=== PATIENT | male | born 1955 | race Caucasian/White ===

== ENCOUNTER 2021-08-05 02:00 | Emergency (ER) | payer MEDICARE, OTHER ==
[~2021-08-05] VITALS: Ht 167 cm; Wt 72.5 kg
[2021-08-05 02:00] VITALS: BP 123/74
[2021-08-05] MEDS ORDERED: LACTATED RINGERS 1,000 ML IV ONE (02:15)
[2021-08-05 02:26] LABS: BASOPHILS # (AUTO) 0.1 10^3/uL (0.0-0.1); BASOPHILS % (AUTO) 1 % (0-10); EOSINOPHILS # (AUTO) 0.3 10^3/uL (0.0-0.3); EOSINOPHILS % (AUTO) 4 % (0-10); HEMATOCRIT 41 % (40-54); HEMOGLOBIN 13.7 g/dL (13.3-17.7); LYMPHOCYTES # (AUTO) 1.7 10^3/uL (1.0-4.0); LYMPHOCYTES % (AUTO) 27 % (12-44); MEAN CORPUSCULAR HEMOGLOBIN 32 pg (25-34); MEAN CORPUSCULAR HGB CONC 33 g/dL (32-36); MEAN CORPUSCULAR VOLUME 96 fL (80-99); MEAN PLATELET VOLUME 8.6 fL (9.0-12.2); MONOCYTES # (AUTO) 0.9 10^3/uL (0.0-1.0); MONOCYTES % (AUTO) 14 % (0-12); NEUTROPHILS # (AUTO) 3.4 10^3/uL (1.8-7.8); NEUTROPHILS % (AUTO) 53 % (42-75); PLATELET COUNT 376 10^3/uL (130-400); WHITE BLOOD COUNT 6.4 10^3/uL (4.3-11.0)
[2021-08-05 02:34] LABS: ALBUMIN 3.6 GM/DL (3.2-4.5); POTASSIUM 4.9 MMOL/L (3.6-5.0)
[2021-08-05 02:35] LABS: CALCIUM 8.6 MG/DL (8.5-10.1)
[2021-08-05 02:36] LABS: INR 0.9 (0.8-1.4); TOTAL PROTEIN 6.6 GM/DL (6.4-8.2)
[2021-08-05 02:36] LABS: BILIRUBIN,URINE NEGATIVE (NEGATIVE); CLARITY,URINE CLEAR; COLOR,URINE YELLOW; GLUCOSE, URINE (UA) NEGATIVE (NEGATIVE); KETONES,URINE NEGATIVE (NEGATIVE); LEUKOCYTE ESTERASE ,URINE NEGATIVE (NEGATIVE); NITRITE,URINE NEGATIVE (NEGATIVE); PH,URINE 6.5 (5-9); PROTEIN,URINE NEGATIVE (NEGATIVE)
[2021-08-05 02:38] LABS: BILIRUBIN,TOTAL 0.3 MG/DL (0.1-1.0)
[2021-08-05 02:40] LABS: CREATININE SERUM 1.78 MG/DL (0.60-1.30)
[2021-08-05 02:43] LABS: MAGNESIUM 1.8 MG/DL (1.6-2.4)
[2021-08-05 02:43] LABS: BACTERIA,URINE NEGATIVE /HPF; SQUAMOUS EPITHELIAL CELL,UR RARE /HPF
[2021-08-05] MEDS ORDERED: NS IV 1000 ML 1,000 ML IV SCH (03:15)
--- NOTE | 2021-08-05 04:47 | ED Chest Pain ---
General Chief Complaint: Cardiac/General Problems Stated Complaint: PALE,LOW BLOOD PRESSURE Nursing Triage Note: ARRIVES FROM HOME PER EMS W/ C/O HYPOTENSION, PALENESS. PT LIFTED TO STRETCHER WHICH UPON DOING SO IV CATHETER DC'D. ATTACHED TO FOOD CASHIER, AND DR. GLOVER IN TO SEE PT. Source: patient Exam Limitations: no limitations History of Present Illness Date Seen by Provider: August 05, 2021 Time Seen by Provider: 02:03 Initial Comments This 65-year-old gentleman presents to the emergency room via EMS with concerns about feeling weak, lightheaded, and dehydrated. He got up in the night to go to the bathroom and was feeling rather ill with the symptoms. He checked his blood pressure and found it to be 90/50. He became concerned and called EMS. Vital signs were stable for EMS. Patient is alert and oriented and in no acute distress. He reported some "heartburn" over the past few days with the last episode occurring late last night. It is responsive to Tums. Patient admits to daily alcohol consumption of 1-2 beers. He reports 1 episode of diarrhea yesterday but no persistent diarrhea, nausea, or vomiting. He is afebrile. Allergies and Home Medications Allergies Coded Allergies: No Known Drug Allergies (Unverified , 08/05/21) Patient Home Medication List Home Medication List Reviewed: Yes Pantoprazole Sodium (Protonix) 40 Mg Tablet., 40 MG PO DAILY Prescribed by: RAVINDER GLOVER on 08/05/21 2004 Review of Systems Review of Systems Constitutional: see HPI EENTM: No Symptoms Reported Respiratory: No Symptoms Reported Cardiovascular: See HPI Gastrointestinal: See HPI Genitourinary: No Symptoms Reported Musculoskeletal: no symptoms reported Skin: no symptoms reported Psychiatric/Neurological: No Symptoms Reported Endocrine: No Symptoms Reported Hematologic/Lymphatic: No Symptoms Reported Past Lvrrivx-Gvusmy-[place] Hx Patient Social History Tobacco Use?: No Smoking Status: Former Smoker Smokeless Tobacco Frequency: Current Everyday User Use of E-Cig and/or Vaping dev: No Substance use?: No Alcohol Use?: Yes Alcohol type: Beer Alcohol Frequency: Daily Immunizations Up To Date Influenza Vaccine Up-to-Date: Yes; Up-to-Date First/Initial COVID19 Vaccinat: 2020 Second COVID19 Vaccination Isaias: 2020 Past Medical History Respiratory: Yes COPD Cardiac: Yes Heart Attack, High Cholesterol, Hypertension Neurological: No Genitourinary: No Gastrointestinal: Yes Gastroesophageal Reflux Musculoskeletal: Yes Chronic Back Pain Endocrine: No HEENT: No Cancer: No Psychosocial: Yes Anxiety Integumentary: No Physical Exam Vital Signs Vital Signs - First Documented 08/05/21 02:00 Temp 36.9 Pulse 69 Resp 18 B/P (MAP) 123/74 (90) Pulse Ox 96 Capillary Refill : Less Than 3 Seconds Height, Weight, BMI Height: '" Weight: lbs. oz. 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 II-XII Norm as Tested Skin: Normal Color, Warm/Dry Progress/Results/Core Measures Results/Orders Lab Results Laboratory Tests Test 08/05/21 02:15 08/05/21 02:30 08/05/21 04:10 Range/Units White Blood Count 6.4 4.3-11.0 10^3/uL Red Blood Count 4.31 4.30-5.52 10^6/uL Hemoglobin 13.7 13.3-17.7 g/dL Hematocrit 41 40-54 % Mean Corpuscular Volume 96 80-99 fL Mean Corpuscular Hemoglobin 32 25-34 pg Mean Corpuscular Hemoglobin Concent 33 32-36 g/dL Red Cell Distribution Width 12.1 10.0-14.5 % Platelet Count 376 130-400 10^3/uL Mean Platelet Volume 8.6 L 9.0-12.2 fL Immature Granulocyte % (Auto) 1 % Neutrophils (%) (Auto) 53 42-75 % Lymphocytes (%) (Auto) 27 12-44 % Monocytes (%) (Auto) 14 H 0-12 % Eosinophils (%) (Auto) 4 0-10 % Basophils (%) (Auto) 1 0-10 % Neutrophils # (Auto) 3.4 1.8-7.8 10^3/uL Lymphocytes # (Auto) 1.7 1.0-4.0 10^3/uL Monocytes # (Auto) 0.9 0.0-1.0 10^3/uL Eosinophils # (Auto) 0.3 0.0-0.3 10^3/uL Basophils # (Auto) 0.1 0.0-0.1 10^3/uL Immature Granulocyte # (Auto) 0.1 0.0-0.1 10^3/uL Prothrombin Time 13.0 12.2-14.7 SEC INR Comment 0.9 0.8-1.4 Activated Partial Thromboplast Time 28 24-35 SEC Sodium Level 138 135-145 MMOL/L Potassium Level 4.9 3.6-5.0 MMOL/L Chloride Level 102 98-107 MMOL/L Carbon Dioxide Level 22 21-32 MMOL/L Anion Gap 14 5-14 MMOL/L Blood Urea Nitrogen 27 H 7-18 MG/DL Creatinine 1.78 H 0.60-1.30 MG/DL Estimat Glomerular Filtration Rate 42 BUN/Creatinine Ratio 15 Glucose Level 105 70-105 MG/DL Calcium Level 8.6 8.5-10.1 MG/DL Corrected Calcium 8.9 8.5-10.1 MG/DL Magnesium Level 1.8 1.6-2.4 MG/DL Total Bilirubin 0.3 0.1-1.0 MG/DL Aspartate Amino Transf (AST/SGOT) 16 5-34 U/L Alanine Aminotransferase (ALT/SGPT) 16 0-55 U/L Alkaline Phosphatase 57 40-136 U/L Myoglobin 51.2 10.0-92.0 NG/ML Troponin I < 0.028 < 0.028 <0.028 NG/ML Total Protein 6.6 6.4-8.2 GM/DL Albumin 3.6 3.2-4.5 GM/DL Serum Alcohol < 10 <10 MG/DL Urine Color YELLOW Urine Clarity CLEAR Urine pH 6.5 5-9 Urine Specific [place] 1.010 L 1.016-1.022 Urine Protein NEGATIVE NEGATIVE Urine Glucose (UA) NEGATIVE NEGATIVE Urine Ketones NEGATIVE NEGATIVE Urine Nitrite NEGATIVE NEGATIVE Urine Bilirubin NEGATIVE NEGATIVE Urine Urobilinogen 0.2 < = 1.0 MG/DL Urine Leukocyte Esterase NEGATIVE NEGATIVE Urine RBC (Auto) NEGATIVE NEGATIVE Urine RBC NONE /HPF Urine WBC NONE /HPF Urine Squamous Epithelial Cells RARE /HPF Urine Crystals NONE /LPF Urine Bacteria NEGATIVE /HPF Urine Casts NONE /LPF Urine Mucus SMALL H /LPF Urine Culture Indicated NO My Orders Orders - RAVINDER GUERRERO MD Cbc With Automated Diff (08/05/21 02:07) Magnesium (08/05/21 02:07) Chest 1 View, Ap/Pa Only (08/05/21 02:07) Ekg Tracing (08/05/21 02:07) Comprehensive Metabolic Panel (08/05/21 02:07) Myoglobin Serum (08/05/21 02:07) Protime With Inr (08/05/21 02:07) Partial Thromboplastin Time (08/05/21 02:07) O2 (08/05/21 02:07) Monitor-Rhythm Ecg Trace Only (08/05/21 02:07) Lipid Panel (08/06/21 06:00) Ed Iv/Invasive Line Start (08/05/21 02:07) Troponin I [place] (08/05/21 02:07) Alcohol (08/05/21 02:07) Ua Culture If Indicated (08/05/21 02:07) Lactated Ringers (Lr 1000 Ml Iv Solution (08/05/21 02:15) Ns Iv 1000 Ml (Sodium Chloride 0.9%) (08/05/21 03:15) Troponin I [place] (08/05/21 04:15) Medications Given in ED Current Medications Medications Dose Ordered Sig/Dustin Route Start Time Stop Time Status Last Admin Dose Admin Lactated Ringer's 1,000 ml @ 0 mls/hr Q0M ONCE IV 08/05/21 02:15 08/05/21 02:16 DC 08/05/21 02:25 1,000 MLS/HR Vital Signs/I&O 08/05/21 02:00 Temp 36.9 Pulse 69 Resp 18 B/P (MAP) 123/74 (90) Pulse Ox 96 Blood Pressure Mean: 90 Progress Progress Note : Time: 05:09 Progress Note Patient was hydrated with 1 L of LR. He was feeling significantly improved after that. He was further treated with 1 L of normal saline. Work-up was remarkable for elevated BUN and creatinine. This likely represents acute kidney injury from dehydration. Work-up was otherwise unremarkable. See discharge instructions for further discussion. Repeat troponin 2 hours after the initial was also negative. Initial ECG Impression Date: August 05, 2021 Initial ECG Impression Time: 02:14 Initial ECG Rate: 67 Initial ECG Rhythm: Normal Sinus Comment Normal sinus rhythm with no ST elevation or depression. No abnormal intervals or axis deviation. Diagnostic Imaging Diagonstic Imaging: Xray Plain Films/CT/US/NM/MRI: chest Comments Chest x-ray viewed by me. Report not yet available. No acute abnormalities appreciated. Departure Impression Primary Impression: Atypical chest pain Additional Impressions: Acute kidney injury Dehydration Disposition: HOME, SELF-CARE Condition: Improved Departure-Patient Inst. Decision time for Depature: 04:49 Referrals: NO,LOCAL PHYSICIAN (PCP/Family) Primary Care Physician Patient Instructions: Acid Reflux and GERD in Adults (DC), Chest Pain Add. Discharge Instructions: Drink plenty of clear liquids to stay well-hydrated. Follow-up with your primary care provider soon as possible. Call today to schedule an appointment. Your chest pain may be caused by acid reflux. Take Protonix daily as prescribed until you have opportunity to discuss this with your doctor. Avoid the following: Eating large meals, eating close to bedtime, caffeine, carbonation, chocolate, citrus fruits and juices, tomato products, alcohol, tobacco, spicy foods, NSAID medications such as ibuprofen or naproxen, fatty/greasy foods, or anything else you know irritates your stomach. Avoid stopping alcohol abruptly. Rather, taper off over a couple of weeks. Return to care if you have worsening symptoms. All discharge instructions reviewed with patient and/or family. Voiced understanding. Scripts Pantoprazole Sodium (Protonix) 40 Mg Tablet. 40 MG PO DAILY, #30 TAB Prov: RAVINDER GUERRERO MD 08/05/21 RAVINDER GUERRERO MD August 05, 2021 04:47
[2021-08-05] MEDS ORDERED: PANT40TA2 PO (04:52)
--- NOTE | 2021-08-05 07:02 | Diagnostic Imaging Report ---
CLINICAL INDICATIONS: Patient with chest pain. EXAM: Portable chest x-ray upright view. COMPARISON: None. FINDINGS: Lungs/pleura: There are mild patchy and curvilinear opacities involving both lung bases. Otherwise, lungs are clear. There is no pneumothorax. There is no pleural effusion. Mediastinum: Unremarkable. Pulmonary vasculature: Unremarkable. Heart: Unremarkable. Bones/extrathoracic soft tissue: There are hypertrophic spurs involving the thoracic spine. IMPRESSION: There is mild bibasilar patchy and curvilinear opacities which may represent atelectasis, but superimposed infiltrates cannot be completely excluded. Dictated by: Dictated on workstation # [id number]
== END 2021-08-05 05:10 | disposition home or self-care (01) ==
LOC: ER 02:03
DX: N17.9 Acute kidney failure, unspecified (principal); R07.89 Other chest pain; E86.0 Dehydration; R79.89 Other specified abnormal findings of blood chemistry; R94.4 Abnormal results of kidney function studies; F10.20 Alcohol dependence, uncomplicated; F17.220 Nicotine dependence, chewing tobacco, uncomplicated; Y90.0 Blood alcohol level of less than 20 mg/100 ml
CPT/HCPCS: 71045; 80053; 81000; 83735; 83874; 84484; 85025; 85610; 85730; 93005; 93041; 99284; G0480; 36415; 80320

== ENCOUNTER 2021-09-11 08:10 | Inpatient (IN) | payer MEDICARE ==
[~2021-09-11] VITALS: Ht 172 cm; Wt 65.8 kg
[~2021-09-11 08:10] MED LIST: PANT40TA2 PO
[2021-09-11] MEDS ORDERED: MIDAZOLAM 5 MG/5 ML (VERSED) VIAL ONE ×3 (08:23→09:57)
--- NOTE | 2021-09-11 08:34 | Diagnostic Imaging Report ---
EXAMINATION: Chest 1 view HISTORY: TUBE PLACEMENT COMPARISON: 08/05/2021 FINDINGS: Heart size and pulmonary vasculature are normal. The lungs are clear without consolidation, pleural effusion, or pneumothorax. Degenerative changes of the thoracic spine. Osseous structures are otherwise intact. Endotracheal tube is present approximately 2.2 cm above the kimberly. Enteric catheter is present coursing below the diaphragm. IMPRESSION: 1. No acute radiographic abnormality in the chest. 2. Endotracheal tube and enteric catheter placement in appropriate position. Dictated by: Dictated on workstation # [id number]
[2021-09-11] MEDS ORDERED: NITRO DRIP 25000 MCG/D5W 250 ML IV ONE (08:36)
[2021-09-11] MEDS ORDERED: HEParin 1000 UNIT/ML (10ML VIAL) FOR BOLUS ONE (08:36)
--- NOTE | 2021-09-11 08:41 | ED CPR ---
HPI-CPR General Chief Complaint: Code Blue Stated Complaint: STEMI Source of Information: Patient Exam Limitations: No Limitations History of Present Illness Date Seen by Provider: Sep 11, 2021 Time Seen by Provider: 08:13 Initial Comments Patient to the ER by EMS from his home where his found him this morning unresponsive. Fire fighters put a AED on him and started CPR. No shocks were advised. EMS arrived did 1 round of CPR and got return of spontaneous circulation. EMS remarks he had a blood sugar of 300 and he is a diabetic, hypertension, hyperlipidemia and coronary disease and chronic alcohol dependence. Patient gives no meaningful history. No family accompanies him. Med list includes clonazepam, tizanidine, lisinopril, pantoprazole, simvastatin, tramadol and metoprolol. No sedation was given. The patient was intubated with an 8 oh ET tube at 24 at the teeth. No epinephrine was given. Patient had a good blood pressure on arrival 115 systolic. EMS revealed that he is on clonazepam, tizanidine, lisinopril, pantoprazole, simvastatin, tramadol and metoprolol. No known drug allergies per EMS. He is a full code according to his significant other at the scene. Allergies and Home Medications Allergies Coded Allergies: No Known Drug Allergies (Unverified , 08/05/21) Patient Home Medication List Home Medication List Reviewed: Yes Pantoprazole Sodium (Protonix) 40 Mg Tablet., 40 MG PO DAILY Prescribed by: RAVINDER GLOVER on 08/05/21 9915 Review of Systems Review of Systems Constitutional: see HPI (Family did not present, review of systems per EMS. Patient is unable to participate in a history or review of systems.); No fever Cardiovascular: Denies Chest Pain, Denies Lightheadedness Gastrointestinal: Denies Abdominal Pain, Denies Diarrhea, Denies Vomiting Genitourinary: Denies Burning, Denies Discharge Musculoskeletal: No back pain, No joint pain All Other Systems Reviewed Negative Unless Noted: Yes Past Oogwszp-Tnbfyl-Ufaeik Hx Patient Social History Tobacco Use?: No Use of E-Cig and/or Vaping dev: No Substance use?: No Immunizations Up To Date First/Initial COVID19 Vaccinat: 2020 Second COVID19 Vaccination Isaias: 2020 Past Medical History Respiratory: Yes COPD Cardiac: Yes Heart Attack, High Cholesterol, Hypertension Neurological: No Genitourinary: No Gastrointestinal: Yes Gastroesophageal Reflux Musculoskeletal: Yes Chronic Back Pain Endocrine: No HEENT: No Cancer: No Psychosocial: Yes Anxiety Integumentary: No Physical Exam Vital Signs Vital Signs - First Documented 09/11/21 09/11/21 08:13 08:22 Pulse 74 Resp 20 B/P (MAP) 116/85 (95) Pulse Ox 98 O2 Delivery Mechanical Ventilator FiO2 65 Capillary Refill : Height, Weight, BMI Height: '" Weight: lbs. oz. kg; 25.00 BMI Method: General Appearance: No Chronically ill; Severe Distress HEENT: PERRL/EOMI (2 mm, sluggish reactive and symmetric), TMs Normal (Negative for sampson sign or raccoon eyes, hemotympanum or other trauma to the head), Moist Mucous Membranes (Orotracheally intubated on arrival, 8.0 ET tube at 24 at the teeth.) Neck: Full Range of Motion, Normal Inspection, Supple Respiratory: Lungs Clear (Bilateral symmetric), Other (Orotracheally intubated, ventilator in place.) Cardiovascular: Regular Rate, Rhythm, Normal Peripheral Pulses Gastrointestinal: Normal Bowel Sounds, Non Tender, Soft Extremity: No Pedal Edema, Slow Capillary Refill Neurologic/Psychiatric: Other (Reacts to noxious stimuli while placing an NG tu be. Decorticate posturing. Does not follow commands nor open eyes.) Skin: Normal Color, Warm/Dry Progress/Results/Core Measures Results/Orders Lab Results Laboratory Tests Test 09/11/21 08:19 Range/Units Glucometer 220 H 70-110 MG/DL My Orders Orders - YAHIR ESPINAL Ekg Tracing (09/11/21 08:15) Chest 1 View, Ap/Pa Only (09/11/21 08:16) Midazolam Injection (Versed Injection) (09/11/21 08:23) Medications Given in ED Current Medications Medications Dose Ordered Sig/Dustin Route Start Time Stop Time Status Last Admin Dose Admin Midazolam HCl 5 mg STK-MED ONCE .ROUTE 09/11/21 08:23 09/11/21 08:26 DC 09/11/21 08:25 4 MG Vital Signs/I&O 09/11/21 09/11/21 09/11/21 08:13 08:22 08:35 Pulse 74 79 85 Resp 20 16 16 B/P (MAP) 116/85 (95) 99/74 Pulse Ox 98 97 98 O2 Delivery Mechanical Ventilator Mechanical Ventilator FiO2 65 Progress Progress Note : Time: 08:43 Progress Note STEMI was noted on EKG at 820 and the patient left for the Area Field Manager at 835. Dr. Meyer contacted at 0824. Initial ECG Impression Date: Sep 11, 2021 Initial ECG Impression Time: 08:20 Initial ECG Rate: 73 Initial ECG Rhythm: Normal Sinus Initial ECG Intervals: Normal Initial ECG Impression: Normal Initial ECG Comparisson: Changed Comment Normal sinus rhythm with inferior leads II, III and aVF with significant ST elevation and reciprocal depression in the anterior leads V2 through V6. Consistent with an inferior IA. STEMI. Diagnostic Imaging Diagonstic Imaging: Xray Plain Films/CT/US/NM/MRI: chest Comments NAME: KOLTON JEAN [facility] REC#: [id number] PT STATUS: REG ER : 1955 PHYSICIAN: YAHIR ESPINAL MD ADMIT DATE: 09/11/21/ER Signed Date of Exam:09/11/21 CHEST 1 VIEW, AP/PA ONLY EXAMINATION: Chest 1 view HISTORY: TUBE PLACEMENT COMPARISON: 08/05/2021 FINDINGS: Heart size and pulmonary vasculature are normal. The lungs are clear without consolidation, pleural effusion, or pneumothorax. Degenerative changes of the thoracic spine. Osseous structures are otherwise intact. Endotracheal tube is present approximately 2.2 cm above the kimberly. Enteric catheter is present coursing below the diaphragm. IMPRESSION: 1. No acute radiographic abnormality in the chest. 2. Endotracheal tube and enteric catheter placement in appropriate position. Dictated by: Dictated on workstation # [id number] Dict: 09/11/21831 Trans: 09/11/2135 [facility] [id number] Interpreted by: ISAIAH ALEXANDER DO Electronically signed by: ISAIAH ALEXANDER DO 09/11/2135 Reviewed: Reviewed by Me Critical Care Note Critical Care Start Time: 08:13 Stop Time: 08:33 Total Time (minutes) 20 mins Progress The patient presented with a palpable pulse, normal sinus rhythm around 200 and a good blood pressure 1 teens systolic. He was intubated and had good bilateral breath sounds, end-tidal CO2 around 30 and oxygen saturation of 100% on 100% FiO2. We transferred him over to our own ventilator and got an EKG. the EKG showed concerning signs for an inferior IA with 1-1-1/[address] elevation and reciprocal ST depression so we elected to contact Dr. Meyer, cardiology and pursue Area Field Manager intervention. 1 L of IV fluids was started by EMS which was c ontinued. An Accu-Chek showed a blood sugar of 220. We tried to place an NG tube and he had a lot of coughing and rearing so we put 4 mg of Versed on board. This is the first time he received any sedation medicines. He had no meaningful neurologic recovery after ROSC up until this point. Chest x-ray revealed good position of both the NG tube and the ET tube. Dr. Meyer agreed to take the patient to the Area Field Manager and the Area Field Manager arrived and took him at 0833. Departure Communication (Admissions) Time/Spoke to Admitting Phy: 08:24 Dr. Meyer, cardiology agrees to admit the patient and take him straight to Area Field Manager. Impression Primary Impression: Acute ST elevation myocardial infarction (STEMI) of inferior wall Additional Impression: Cardiac arrest Disposition: ADMITTED INPATIENT Condition: Critical Admissions Decision to Admit Reason: Admit from ER (General) Decision to Admit/Date: Sep 11, 2021 Time/Decision to Admit Time: 08:20 Departure-Patient Inst. Referrals: AMARILIS WATSON MD (PCP/Family) Primary Care Physician YAHIR ESPINAL Sep 11, 2021 08:41
[2021-09-11] MEDS ORDERED: EPTIFIBATIDE DRIP 100 ML IV ONE (08:50)
[2021-09-11] MEDS ORDERED: EPTIFIBATIDE BOLUS 20 ML IV ONE (08:50)
[2021-09-11] MEDS ORDERED: NS IV 1000 ML 0 ML ONE (09:12)
[2021-09-11] MEDS ORDERED: fentaNYL INJ 100 MCG/2 ML AMP ONE ×2 (09:18→09:57)
[2021-09-11] MEDS ORDERED: CLOPIDOGREL 300 MG (PLAVIX) TABLET PO ONE (09:41)
[2021-09-11] MEDS ORDERED: ASPIRIN 81 MG CHEW (CHILDREN'S ASA) ONE (09:42)
[2021-09-11 09:44] LABS: BASOPHILS # (AUTO) 0.1 10^3/uL (0.0-0.1); BASOPHILS % (AUTO) 0 % (0-10); EOSINOPHILS # (AUTO) 0.1 10^3/uL (0.0-0.3); EOSINOPHILS % (AUTO) 1 % (0-10); HEMATOCRIT 37 % (40-54); HEMOGLOBIN 12.3 g/dL (13.3-17.7); LYMPHOCYTES % (AUTO) 7 % (12-44); MEAN CORPUSCULAR HEMOGLOBIN 32 pg (25-34); MEAN CORPUSCULAR HGB CONC 33 g/dL (32-36); MEAN CORPUSCULAR VOLUME 96 fL (80-99); MEAN PLATELET VOLUME 8.9 fL (9.0-12.2); MONOCYTES # (AUTO) 1.1 10^3/uL (0.0-1.0); MONOCYTES % (AUTO) 7 % (0-12); NEUTROPHILS # (AUTO) 12.8 10^3/uL (1.8-7.8); NEUTROPHILS % (AUTO) 85 % (42-75); PLATELET COUNT 337 10^3/uL (130-400); WHITE BLOOD COUNT 15.1 10^3/uL (4.3-11.0)
[2021-09-11] MEDS ORDERED: ASPIRIN 81 MG CHEW (CHILDREN'S ASA) PO ONE (09:45)
[2021-09-11] MEDS ORDERED: LIDOCAINE 1% INJ 20 ML VIAL ONE (09:48)
[2021-09-11] MEDS ORDERED: HEParin (CATH LAB) 1,000 ML IV ONE (09:49)
[2021-09-11] MEDS ORDERED: NS IV 1000 ML 1,000 ML ONE (09:49)
[2021-09-11] MEDS ORDERED: PROPOFOL DRIP (ICU) 100 ML IV ONE (09:55)
[2021-09-11 10:07] LABS: CALCIUM 8.7 MG/DL (8.5-10.1)
[2021-09-11 10:08] LABS: TOTAL PROTEIN 5.5 GM/DL (6.4-8.2)
[2021-09-11 10:10] LABS: BILIRUBIN,TOTAL 0.3 MG/DL (0.1-1.0)
[2021-09-11 10:12] LABS: BAND NEUTROPHILS 1 %; CREATININE SERUM 2.14 MG/DL (0.60-1.30); LYMPHOCYTES % (MANUAL) 8 %; MONOCYTES % (MANUAL) 9 %; NEUTROPHILS % (MANUAL) 82 %
[2021-09-11 10:13] LABS: BASOPHILS % (MANUAL) 0 %; EOSINOPHILS % (MANUAL) 0 %; RBC MORPH NORMAL
[2021-09-11 10:15] LABS: MAGNESIUM 1.4 MG/DL (1.6-2.4)
[2021-09-11] MEDS: PROPOFOL DRIP (ICU) 100 ML IV SCH ×3 (10:15→22:14)
--- NOTE | 2021-09-11 10:19 | Tele-ICU Progress Note ---
Subjective Date Seen by a Provider: Sep 11, 2021 Time Seen by a Provider: 10:00 Subjective/Events-last exam This virtual visit was conducted using real time audio/video. Thank you for asking us to see this patient for respiratory insufficiency due to OOH cardiac arrest, IWMI returned from CCL Recent events: PMH: DM, HTN, HL, CAD, GERD, COPD, anx. SH: smoking history former FH: Non-contributory ROS: limited by patient's clinical condition. PE: VSS. O2 sat 100% on vent 50%/+5. HEENT: No obvious masses, adenopathy or JVD. Chest: clear to auscultation, diminished. CV: RRR S1 S2 No murmur or added sounds. Abd: Non-tender. Bowel sounds Y. : Unremarkable. Khan Y. CERTIFIED [employer]EL[employer] TECHNICIAN/psychiatric: No obvious focal findings. Extremities: No edema. Capillary refill < 3 seconds. Skin: unremarkable. Results: Elevated WCC 15.1. Decreased Hb 12.3. ABG: pending. CXR: Hyperinflated, clear sommer. Available chart/ vitals / labs / images reviewed. Video assessment done using teleICU camera, rest of exam as per RN. A/P: Respiratory insufficiency: Continue present management with vent, prop. Monitor for increasing oxygenation needs and/or need for intubation. Critical Care: critically ill patient. Cont. ASA, plavix, metop., statin. Discussed with NASRA Humphries. Asked RN to reach out to eICU if any questions or concerns later. Time spent with patient/coordination of care with other health professionals ( mins): 20 Sepsis Event Evaluation Height, Weight, BMI Height: '" Weight: lbs. oz. kg; 25.00 BMI Method: Exam Exam Patient acknowledged, consented, and participated in this virtual visit which was conducted using real time audio/video Height & Weight Height: '" Weight: lbs. oz. kg; 25.00 BMI Method: General Appearance: WD/WN, Other Peripheral Pulses: 1+ Dorsalis Pedis (R), 1+ Left Dors-Pedis (L) Results Lab Laboratory Tests 09/11/21 09:30 Assessment/Plan Assessment/Plan See free text. Critical Care: Ventilator Management NAIMA BAUGH MD Sep 11, 2021 10:19
[2021-09-11] MEDS ORDERED: NS IV 1000 ML 1,000 ML IV SCH (11:30)
[2021-09-11] MEDS: inSUlin ASPART (NovoLOG) 1 UNIT/0.01 ML (CHARGE PER UNIT) SC SCH ×2 (12:17→17:34)
--- NOTE | 2021-09-11 13:34 | CARDIAC CATHETERIZATION ---
DATE OF SERVICE: CARDIAC CATHETERIZATION AND CORONARY INTERVENTION REPORT INDICATION FOR PROCEDURE The patient is a 65-year-old gentleman, who is reported to have a history of multiple coronary artery disease risk factors and a history of coronary artery disease. Apparently, he collapsed at home. The EMT were called. They report that the patient did have a rhythm (probably sinus) at presentation, but he was transiently pulseless. He was intubated and mechanically ventilated. Subsequently, he regained blood pressure. He remains intubated and is not able to provide any history. The electrocardiogram showed ST segment elevation in the inferior leads. Accordingly, emergency cardiac catheterization was carried out, given his history and presentation with ST segment elevation in the inferior leads. He is reported to have a history of diabetes. His previous records at this hospital (at presentation to the emergency room in 08/2021), records a history of consumption of one to two beers per day. No history of smoking has been reported. PROCEDURE IN DETAIL: He was brought to the cardiac catheterization laboratory. Right groin was prepared and draped in the usual sterile fashion. Lidocaine 1% was used for local anesthesia. Modified Seldinger technique was used to advance a 6-Serbian sheath into the right femoral artery. We used a 6-Serbian JR4 guide catheter to carry out angiography of the right coronary artery. This indicated long mid vessel stenosis in the right coronary of up to 80%. It was not clear if this was the culprit lesion. We then carried out left coronary angiography with a 6-Serbian JL4 catheter. This indicated approximately 60% to 70% stenosis in a sub-branch of a large first obtuse marginal branch. This also did not appear to be the culprit lesion. The left anterior descending artery had mild diffuse disease and moderate disease of the first diagonal branch. Accordingly, based on the coronary anatomy and the electrocardiographic changes, which were distinctly showing significant ST segment elevations in leads 2, 3, and ADF, it appears that the right coronary artery was the culprit lesion. We engaged the right coronary artery with a 6-Serbian JR4 guide catheter with side holes. We advanced a ChoICE floppy wire across the lesion and the tip was placed in the posterior descending branch of the right coronary. We carried out balloon angioplasty with a 2.0 x 20 mm balloon. Multiple balloon inflations were carried out to cover the entire lesion. The balloon was then removed and we stented the mid right coronary artery, the site of stenosis, with a Skypoint 2.5 x 28 mm stent that was deployed at 18 atmospheres. Subsequent angiography revealed 0% residual stenosis at the previous site of up to 80% stenosis. Flow throughout the vessel is normal (BILLY III). Right coronary artery is dominant. A very small caliber first to the right ventricular branch has severe ostial stenosis and extends across the first and second right ventricular branches of the right coronary artery, but the stenting did not further compromise the right ventricular branches. Left heart catheterization was carried out following completion of the interventional procedure. We used a 6-Serbian pigtail catheter that was advanced into the left ventricle. Angiography of the left ventricle was carried out in the right anterior oblique projection. The catheter was then pulled back and removed. The sheath was sutured in place. The patient received 5000 units of intravenous heparin during the interventional procedure. He also received a double bolus of Integrilin and Integrilin infusion during the procedure. Following completion of the procedure, he is to receive 600 mg of oral clopidogrel through his nasogastric tube. Aspirin will also be administered. HEMODYNAMICS: Left ventricular end-diastolic pressure is 25 mmHg. There is no significant pressure gradient on pullback across the aortic valve. Ascending aortic pressure was 108/64 with a mean of 84 mmHg. CORONARY ANGIOGRAPHY: Left main coronary artery does not exhibit significant disease. Left anterior descending artery has diffuse mild plaque. The first diagonal branch of the left anterior descending artery is of a small caliber and has 50% to 60% proximal and mid vessel stenosis. The left circumflex artery primarily consists of a large first obtuse marginal branch. A sub-branch of this vessel has 60% to 70% stenosis. The left circumflex artery is nondominant. The right coronary artery is dominant. It had a long up to 80% stenosis in the mid vessel to which successful stenting was carried out with a Skypoint 2.5 x 28 mm stent with reduction of stenosis to 0% residual and normal flow throughout the vessel. LEFT VENTRICULAR ANGIOGRAPHY: Left ventricular angiography was carried out in the right anterior oblique projection. Global left ventricular systolic function appears well preserved. Left ventricular ejection fraction approximately 60%. No distinct regional wall motion abnormalities seen in this view. PERCUTANEOUS INTERVENTION OF THE RIGHT CORONARY ARTERY: The details of the percutaneous intervention to the right coronary artery are described above under procedure. CONCLUSIONS: 1. Coronary artery disease primarily consisting of severe mid vessel stenosis of the dominant right coronary artery that was the culprit in causing an inferior wall ST elevation myocardial infarction and that was successfully stented with Skypoint 2.5 x 28 mm stent. The first diagonal branch of the left anterior descending artery has a 50% to 60% proximal and mid vessel stenosis. It is a small caliber vessel. The left circumflex artery is nondominant and has a large first obtuse marginal branch, a subbranch of which has approximately 60% to 70% stenosis. 2. Elevated left ventricular end-diastolic pressure. 3. Left ventricular ejection fraction approximately 60%. DISCUSSION AND RECOMMENDATIONS: Treatment will be with aspirin and clopidogrel. Beta blockers will be given if his blood pressure and heart rate allow that. Statin therapy will be given as tolerated. He remains intubated at this time. We will ask the hospitalist service in consultation for management of the ventilator and the patient's known diabetes mellitus and other medical issues. Job ID: [id number] DocumentID: [id number] Dictated Date: 09/11/2021 09:39:48 Contact Center Manager Date: 09/11/2021 13:33:36 Dictated By: BAILEY CURRAN MD, MA, FACP, FACC, MTDD
[2021-09-11] MEDS ORDERED: ATROPINE INJ 0.4 MG/ML SDV ONE (13:57)
[2021-09-11 14:37] VITALS: BP 139/88
--- NOTE | 2021-09-11 14:40 | Cardiology History & Physical ---
HPI-Cardiology Cardiology H&P Date of Admission 09/11/21 Primary Care Physician Admitting Physician: Attending Physician: Freeman Meyer MD, MA [facility] Attending Physician No,Local Physician Consulting Physician [facility] The patient is a 65-year-old gentleman, who is reported to have a history of multiple coronary artery disease risk factors and a history of coronary artery disease. Apparently, he collapsed at home. The EMT were called. They report that the patient did have a rhythm (probably sinus) at presentation, but he was transiently pulseless. He was intubated and mechanically ventilated. Subsequently, he regained blood pressure. He remains intubated and is not able to provide any history. The electrocardiogram showed ST segment elevation in the inferior leads. Accordingly, emergency cardiac catheterization was carried out, given his history and presentation with ST segment elevation in the inferior leads. He is reported to have a history of diabetes. Review of Systems-Cardiology Review of Systems Constitutional: other (pt intubated and on mech vent at time of my exam; not able to provide any history or RO) CUC-Wavbvx-Xttrdk Hx Patient Social History Smoking Status: Unknown if Ever Smoked Have you traveled recently?: No Alcohol Use?: Yes Pt feels they are or have been: Unable to obtain Past Medical History PMH As described under Assessment. Family Medical History Family Medical History: pt cannot provide fam history (intubated and on mech vent) Allergies and Home Medications Allergies Coded Allergies: No Known Drug Allergies (Unverified , 08/05/21) Patient Home Medication List Home Medication List Reviewed: Yes Pantoprazole Sodium (Protonix) 40 Mg Tablet., 40 MG PO DAILY Prescribed by: RAVINDER GLOVER on 08/05/21 0452 Physical Exam-Cardiology Physical Exam Vital Signs/I&O 09/11/21 09/11/21 09/11/21 09/11/21 08:13 08:22 08:35 09:45 Pulse 74 79 85 Resp 20 16 16 B/P (MAP) 116/85 (95) 99/74 114/90 Pulse Ox 98 97 98 O2 Delivery Mechanical Ventilator Mechanical Ventilator FiO2 65 09/11/21 09/11/21 09/11/21 09/11/21 09:52 09:55 10:00 10:00 Pulse 82 82 80 Resp 17 16 B/P (MAP) 133/80 Pulse Ox 100 100 O2 Delivery Mechanical Ventilator FiO2 50 50 09/11/21 09/11/21 09/11/21 09/11/21 10:15 10:15 10:30 11:00 Temp 36.1 Pulse 75 Resp 16 B/P (MAP) 110/68 107/69 Pulse Ox 100 O2 Delivery Mechanical Ventilator Mechanical Ventilator Mechanical Ventilator O2 Flow Rate 50.00 45.00 45.00 09/11/21 09/11/21 09/11/21 09/11/21 12:00 12:00 12:05 12:31 Temp 35.8 Pulse 68 Resp 18 B/P (MAP) 117/84 Pulse Ox 100 100 O2 Delivery Mechanical Ventilator Mechanical Ventilator Mechanical Ventilator O2 Flow Rate 45.00 40.00 FiO2 45 09/11/21 09/11/21 13:00 13:00 Pulse 76 75 Resp 16 B/P (MAP) 135/89 Pulse Ox 100 O2 Delivery Mechanical Ventilator O2 Flow Rate 40.00 Capillary Refill : Less Than 3 Seconds Constitutional: other (intubated and on mech vent) HEENT: PERRL; No xanthelasmas are seen Neck: carotid pulses are 2 + bilaterally, with good upstrokes Respiratory: No accessory muscle use; other (fair to good air entry, bilat) Cardiovascular: regular rate-rhythm, S1 and S2, systolic murmur (soft CARL at card base) Gastrointestinal: No tender; soft; No guarding, No rebound; audible bowel sounds Extremities: No clubbing, No cyanosis, No significant edema Neurologic/Psychiatric: other (unresponive, on mech vent) Skin: No rash on exposed areas, No ulcerations on exposed areas Data Review Labs Laboratory Tests 09/11/21 08:19: Glucometer 220H 09/11/21 09:30: White Blood Count 15.1H, Red Blood Count 3.87L, Hemoglobin 12.3L, Hematocrit 37L , Mean Corpuscular Volume 96, Mean Corpuscular Hemoglobin 32, Mean Corpuscular Hemoglobin Concent 33, Red Cell Distribution Width 12.1, Platelet Count 337, Mean Platelet Volume 8.9L, Immature Granulocyte % (Auto) 1, Neutrophils (%) (Auto) 85H, Lymphocytes (%) (Auto) 7L, Monocytes (%) (Auto) 7, Eosinophils (%) (Auto) 1, Basophils (%) (Auto) 0, Neutrophils # (Auto) 12.8H, Lymphocytes # (Auto) 1.0, Monocytes # (Auto) 1.1H, Eosinophils # (Auto) 0.1, Basophils # (Auto) 0.1, Immature Granulocyte # (Auto) 0.1, Neutrophils % (Manual) 82, Lymphocytes % (Manual) 8, Monocytes % (Manual) 9, Eosinophils % (Manual) 0, Basophils % (Manual) 0, Band Neutrophils 1, Blood Morphology Comment NORMAL, Sodium Level 132L, Potassium Level 6.0H, Chloride Level 105, Carbon Dioxide Level 17L, Anion Gap 10, Blood Urea Nitrogen 37H, Creatinine 2.14H, Estimat Glomerular Filtration Rate 33, BUN/Creatinine Ratio 17, Glucose Level 231H, Calcium Level 8.7, Corrected Calcium 9.5, Magnesium Level 1.4L, Total Bilirubin 0.3, Aspartate Amino Transf (AST/SGOT) 87H, Alanine Aminotransferase (ALT/SGPT) 121H, Alkaline Phosphatase 56, Troponin I 0.204H, Total Protein 5.5L, Albumin 3.0L, Triglycerides Level 132 09/11/21 12:00: Glucometer 152H Laboratory Tests 09/11/21 09:30 A/P-Cardiology Assessment/Admission Diagnosis Ac Inf Wall STEMI - hemodynamically unstable (PEA at initial presentation) CAD - card cath of 09/11/21: Coronary artery disease primarily consisting of severe mid vessel stenosis of the dominant right coronary artery that was the culprit in causing an inferior wall ST elevation myocardial infarction and that was successfully stented with Skypoint 2.5 x 28 mm stent. The first diagonal branch of the left anterior descending artery has a 50% to 60% proximal and mid vessel stenosis. It is a small caliber vessel. The left circumflex artery is nondominant and has a large first obtuse marginal branch, a subbranch of which has approximately 60% to 70% stenosis. Elevated left ventricular end-diastolic pressure. Left ventricular ejection fraction approximately 60% Ac renal failure on top of CKD 4 DMI II Ac resp failure - on [facility] vent Admission Status: Inpatient Order (span 2 midnights) Reason for Inpatient Admission: Ac KS Ac on chronic renal failure Discussion and Recomendations * Emergency cath with intervention to the culprit vessel carried out. Discussed in detail with his * Hospitalist camila to manage vent, DM II, and renal failure * Continue iv fluids to lessen risk of contrast nephropathy * DAPT * Beta-gabby if tolerated] * Statin * FREEMAN Masterson MD FACP [facility] Sep 11, 2021 14:40
[2021-09-11 15:32] LABS: CALCIUM 10.4 MG/DL (8.5-10.1); CREATININE SERUM 2.2 MG/DL (0.60-1.30); POTASSIUM 5.9 MMOL/L (3.6-5.0)
--- NOTE | 2021-09-11 17:20 | Consultation - Hospitalist ---
HPI History of Present Illness: HPI/Chief Complaint Marcello Tellez is a 65 year old male with PMH HTN, HLD, CAD, T2DM, who was found minimally responsive by his . She said he wakes up earlier than her. She heard him moaning in the living room and went to check on him. She asked if she needed to call an ambulance and he shook his head yes. EMS arrived and applied AED and began CPR. No shocks were advised and ROSC was obtained after one round of CPR. He was intubated. 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 Upon my exam, he is intubated and sedated in the ICU. His is present at the bedside. Source: family Exam Limitations: clinical condition Date Seen 09/11/21 Attending Physician No,Local Physician PCP Admitting Physician: Attending Physician: Freeman Meyer MD [facility]p [facility] Referring Physician Date of Admission Home Medications & Allergies Home Medications Reviewed patient Home Medication Reconciliation performed by pharmacy medication reconciliations pathology lab technician and/or nursing. Patients Allergies have been reviewed. Allergies Allergies Coded Allergies No Known Drug Allergies (Unverified08/05/21) Past Oehldvw-Yqldtd-Gpenvv Hx Patient Social History Tobacco Use?: No Smoking Status: Unknown if Ever Smoked Smokeless type used: Chew Smokeless Tobacco Frequency: Current Everyday User Use of E-Cig and/or Vaping dev: No Substance use?: No Alcohol Use?: Yes Alcohol type: Beer Alcohol Frequency: Daily Pt feels they are or have been: Unable to obtain Immunizations Up To Date First/Initial COVID19 Vaccinat: 2020 Second COVID19 Vaccination Isaias: 2020 Tetanus Booster (TDap): Unknown Current Status Advance Directives: No Primary Language: Amharic Preferred Spoken Language: Amharic Sensory deficits: Vision impairment Implanted or Applied Medical D: Stents Past Medical History COPD Heart Attack, High Cholesterol, Hypertension Gastroesophageal Reflux Chronic Back Pain Anxiety Family Medical History No Pertinent Family Hx Review of Systems Constitutional: see HPI Physical Exam Physical Exam Vital Signs Vital Signs - First Documented 09/11/21 09/11/21 09/11/21 09/11/21 08:13 08:22 10:15 10:30 Temp 36.1 Pulse 74 Resp 20 B/P (MAP) 116/85 (95) Pulse Ox 98 O2 Delivery Mechanical Ventilator O2 Flow Rate 50.00 FiO2 65 Capillary Refill : Less Than 3 Seconds Height, Weight, BMI Height: '" Weight: lbs. oz. kg; 24.50 BMI Method: General Appearance: No Apparent Distress, WD/WN HEENT: Other (ET tube in place) Neck: Normal Inspection, Supple Respiratory: Lungs Clear, No Respiratory Distress, Other (intubated and sedated) Cardiovascular: Regular Rate, Rhythm, Normal Peripheral Pulses Gastrointestinal: Normal Bowel Sounds, Soft Extremity: Normal Inspection, No Pedal Edema Neurologic/Psychiatric: Other (sedated) Skin: Normal Color, Warm/Dry Results Results/Procedures Labs Laboratory Tests 09/11/21 09:30 09/11/21 15:06 Patient resulted labs reviewed. Imaging: Reviewed Imaging Report Assessment/Plan Assessment and Plan Assess & Plan/Chief Complaint STEMI Cardiac arrest AHRF Endotracheally intubated CAD HTN HLD Cardiology primary s/p RCA stent placement ASA and Plavix Metoprolol Lipitor Intubated and sedated TeleICU consulted BEKA on CKD Normal saline T2DM Sliding scale insulin DVT prophylaxis: Lovenox Critical Care Critically Ill Patient Diagnosis/Problems Diagnosis/Problems (1) Acute ST elevation myocardial infarction (STEMI) of inferior wall Status: Acute (2) Cardiac arrest Status: Acute (3) CAD (coronary artery disease) Status: Acute Qualifiers: Coronary Disease-Associated Artery/Lesion type: [place] artery [place] vs. transplanted heart: [place] heart (4) S/P coronary artery stent placement Status: Acute (5) Acute kidney injury superimposed on chronic kidney disease Status: Acute (6) T2DM (type 2 diabetes mellitus) Status: Chronic Qualifiers: Diabetes mellitus group home insulin use: without group home use Diabetes mellitus complication status: without complication Qualified Codes: E11.9 - Type 2 diabetes mellitus without complications (7) HTN (hypertension) Status: Chronic (8) HLD (hyperlipidemia) Status: Chronic KAYLA WAGONER MD Sep 11, 2021 17:20
[2021-09-11] MEDS ORDERED: SODIUM POLYSTYRENE POWDER 15 GM BOTTLE NG NR (17:30)
[2021-09-11] MEDS: SODIUM BICARBONATE IV SCH (17:58)
[2021-09-11] MEDS: ENOXAPARIN 40 MG/0.4 ML (LOVENOX) SYR SQ SCH (17:58)
[2021-09-11] MEDS: 1/2 NS IV SCH (17:58)
--- NOTE | 2021-09-11 18:38 | Tele-ICU Progress Note ---
Subjective Date Seen by a Provider: Sep 11, 2021 Time Seen by a Provider: 18:35 Subjective/Events-last exam called by rn possible seizures/ shakes Sepsis Event Evaluation Height, Weight, BMI Height: '" Weight: lbs. oz. kg; 24.50 BMI Method: Exam Exam Patient acknowledged, consented, and participated in this virtual visit which was conducted using real time audio/video Vital Signs Date Time Temp Pulse Resp B/P (MAP) Pulse Ox O2 Delivery O2 Flow Rate FiO2 09/11/21 18:21 100 Mechanical Ventilator 25.00 09/11/21 18:00 89 16 147/92 100 Mechanical Ventilator 30.00 09/11/21 17:00 89 16 144/85 100 Mechanical Ventilator 30.00 09/11/21 16:48 80 128/83 09/11/21 16:00 100 Mechanical Ventilator 30 09/11/21 16:00 80 16 128/83 100 Mechanical Ventilator 30.00 09/11/21 15:44 36.0 09/11/21 15:04 Mechanical Ventilator 30.00 09/11/21 15:00 78 131/83 98 Mechanical Ventilator 40.00 09/11/21 14:37 82 16 100 50 09/11/21 14:00 75 16 139/81 100 Mechanical Ventilator 40.00 09/11/21 13:00 75 09/11/21 13:00 76 16 135/89 100 Mechanical Ventilator 40.00 09/11/21 12:31 Mechanical Ventilator 40.00 09/11/21 12:05 100 Mechanical Ventilator 45 09/11/21 12:00 68 18 117/84 100 Mechanical Ventilator 45.00 09/11/21 12:00 35.8 09/11/21 11:00 75 16 107/69 100 Mechanical Ventilator 45.00 09/11/21 10:30 36.1 Mechanical Ventilator 45.00 09/11/21 10:15 Mechanical Ventilator 50.00 09/11/21 10:15 110/68 09/11/21 10:00 80 16 133/80 100 09/11/21 10:00 Mechanical Ventilator 50 09/11/21 09:55 82 09/11/21 09:52 82 17 100 50 09/11/21 09:45 114/90 09/11/21 08:35 85 16 99/74 98 Mechanical Ventilator 09/11/21 08:22 79 16 97 65 09/11/21 08:13 74 20 116/85 (95 98 Mechanical Ventilator Height & Weight Height: '" Weight: lbs. oz. kg; 24.50 BMI Method: General Appearance: No Apparent Distress, WD/WN HEENT: Other (ET tube in place) Neck: Normal Inspection, Supple Respiratory: Lungs Clear, No Respiratory Distress, Other (intubated and sedated) Cardiovascular: Regular Rate, Rhythm, Normal Peripheral Pulses Capillary Refill: Less Than 3 Seconds Peripheral Pulses: 1+ Dorsalis Pedis (R), 1+ Left Dors-Pedis (L) Extremity: Normal Inspection, No Pedal Edema Neurologic/Psychiatric: Other (sedated) Skin: Normal Color, Warm/Dry Results Lab Laboratory Tests 09/11/21 09:30 09/11/21 15:06 Assessment/Plan Assessment/Plan Acute resp failure -full vent support -abg ordered HyperK repeat bmp and evaluate K trnding -pt is on bicarb drip sp cardiac arrest 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
[2021-09-11] MEDS ORDERED: LORazepam INJ 2 MG/ML (ATIVAN) VIAL IVP NR (18:45)
[2021-09-11 19:00] VITALS: BP 156/120
[2021-09-11 19:16] LABS: CALCIUM 8.5 MG/DL (8.5-10.1); CREATININE SERUM 1.98 MG/DL (0.60-1.30); POTASSIUM 4.6 MMOL/L (3.6-5.0)
--- NOTE | 2021-09-11 19:28 | Diagnostic Imaging Report ---
PROCEDURE: CT head without contrast. TECHNIQUE: Multiple contiguous axial images were obtained through the brain without the use of intravenous contrast. Auto Exposure Controls were utilized during the CT exam to meet ALARA standards for radiation dose reduction. INDICATION: Altered mental status The ventricles are normal in size, shape and position. There are no masses or hemorrhages. There are no extra-axial fluid collections. IMPRESSION: Negative CT head Dictated by: Dictated on workstation # [id number]
[2021-09-11] MEDS: meTOprolol TARTRATE 25 MG (LOPRESSOR) TABLET PO SCH (20:33)
[2021-09-11 20:34] LABS: ABG OXYGEN SATURATION 92 % (94-100); ABG PCO2 35 MMHG (35-45); ABG PH 7.36 (7.37-7.43); ABG PO2 65 MMHG (79-93); ABG TCO2 20.2 MMOL/L (21.0-31.0)
[2021-09-11 20:43] LABS: ALLENS TEST YES-POS; INSPIRED O2 25%; PATIENT TEMP 37.9; VENTILATOR YES
[2021-09-11 22:07] VITALS: BP 139/83
[2021-09-12] MEDS: inSUlin ASPART (NovoLOG) 1 UNIT/0.01 ML (CHARGE PER UNIT) SC SCH ×4 (00:19→18:16)
[2021-09-12] MEDS: 1/2 NS IV SCH ×5 (00:49→22:08)
[2021-09-12] MEDS: SODIUM BICARBONATE IV SCH ×5 (00:49→22:08)
[2021-09-12 02:21] VITALS: BP 118/74
[2021-09-12 03:06] LABS: ABG BASE EXCESS -1.2 MMOL/L (-2.5-2.5); ABG OXYGEN SATURATION 91 % (94-100); ABG PCO2 35 MMHG (35-45); ABG PH 7.43 (7.37-7.43); ABG PO2 58 MMHG (79-93); ABG TCO2 23.4 MMOL/L (21.0-31.0); ALLENS TEST YES-POS; INSPIRED O2 25%; PATIENT TEMP 37.6; VENTILATOR YES
[2021-09-12 03:07] LABS: BASOPHILS % (AUTO) 0 % (0-10); EOSINOPHILS % (AUTO) 0 % (0-10); HEMATOCRIT 38 % (40-54); HEMOGLOBIN 12.8 g/dL (13.3-17.7); LYMPHOCYTES # (AUTO) 1.7 10^3/uL (1.0-4.0); LYMPHOCYTES % (AUTO) 13 % (12-44); MEAN CORPUSCULAR HEMOGLOBIN 32 pg (25-34); MEAN CORPUSCULAR HGB CONC 34 g/dL (32-36); MEAN CORPUSCULAR VOLUME 94 fL (80-99); MONOCYTES # (AUTO) 1.4 10^3/uL (0.0-1.0); MONOCYTES % (AUTO) 11 % (0-12); NEUTROPHILS # (AUTO) 9.6 10^3/uL (1.8-7.8); NEUTROPHILS % (AUTO) 75 % (42-75); PLATELET COUNT 357 10^3/uL (130-400); WHITE BLOOD COUNT 12.8 10^3/uL (4.3-11.0)
[2021-09-12] MEDS: PROPOFOL DRIP (ICU) 100 ML IV SCH ×5 (03:16→23:57)
[2021-09-12 03:39] LABS: POTASSIUM 3.9 MMOL/L (3.6-5.0)
[2021-09-12 03:41] LABS: CALCIUM 8.2 MG/DL (8.5-10.1)
[2021-09-12 03:45] LABS: CREATININE SERUM 1.77 MG/DL (0.60-1.30)
[2021-09-12 03:47] LABS: MAGNESIUM 1.2 MG/DL (1.6-2.4)
[2021-09-12] MEDS: POTASSIUM CL 10MEQ/50ML IVPB 50 ML IV SCH (05:48)
[2021-09-12] MEDS: KCL 20 MEQ TAB (K-DUR) PO SCH (05:48)
[2021-09-12 07:05] VITALS: BP 130/82
[2021-09-12] MEDS: MAGNESIUM 1 GM/100 ML IVPB 100 ML IV SCH ×3 (07:22→10:25)
[2021-09-12] MEDS: meTOprolol TARTRATE 25 MG (LOPRESSOR) TABLET PO SCH ×2 (08:21→21:09)
[2021-09-12] MEDS: CLOPIDOGREL 75 MG (PLAVIX) TABLET PO SCH (08:21)
[2021-09-12] MEDS: PANTOPRAZOLE 40 MG (PROTONIX) VIAL IV SCH (08:21)
--- NOTE | 2021-09-12 08:39 | Progress Note - Cardiology ---
Cardiology SOAP Progress Note Subjective: Intubated and sedated Objective: I&O/Vital Signs 09/12/21 09/12/21 09/12/21 09/12/21 22:00 22:04 23:00 23:57 Temp 38.3 37.6 Pulse 80 80 73 80 Resp 16 16 16 B/P (MAP) 86/59 89/57 88/61 Pulse Ox 96 97 96 O2 Delivery Mechanical Ventilator Mechanical Ventilator O2 Flow Rate 35.00 35.00 FiO2 35 09/13/21 09/13/21 09/13/21 09/13/21 00:00 00:00 01:00 01:00 Temp 37.3 37.2 Pulse 72 73 73 Resp 16 16 B/P (MAP) 94/68 87/58 Pulse Ox 94 93 97 O2 Delivery Mechanical Ventilator Mechanical Ventilator Mechanical Ventilator O2 Flow Rate 35.00 35.00 FiO2 35 09/13/21 09/13/21 09/13/21 09/13/21 01:58 02:00 02:26 03:00 Temp 37.0 36.9 Pulse 73 68 68 68 Resp 16 16 16 B/P (MAP) 94/68 90/62 104/83 Pulse Ox 97 97 96 O2 Delivery Mechanical Ventilator Mechanical Ventilator O2 Flow Rate 35.00 35.00 FiO2 35 09/13/21 09/13/21 09/13/21 09/13/21 04:00 04:00 04:12 04:42 Temp 37.4 37.4 37.6 Pulse 92 Resp 16 B/P (MAP) 105/72 Pulse Ox 93 94 O2 Delivery Mechanical Ventilator Mechanical Ventilator O2 Flow Rate 35.00 FiO2 35 09/13/21 09/13/21 09/13/21 09/13/21 05:00 06:00 07:00 07:00 Temp 37.7 37.1 37.1 Pulse 93 80 71 72 Resp 16 16 11 B/P (MAP) 99/64 106/92 106/69 Pulse Ox 93 94 94 O2 Delivery Mechanical Ventilator Mechanical Ventilator Mechanical Ventilator O2 Flow Rate 35.00 35.00 35.00 09/13/21 09/13/21 09/13/21 09/13/21 07:42 08:00 08:00 08:45 Temp 37.1 37.2 Pulse 66 Resp 10 B/P (MAP) 102/58 Pulse Ox 94 96 O2 Delivery Mechanical Ventilator Mechanical Ventilator Mechanical Ventilator O2 Flow Rate 40.00 100.00 FiO2 45 09/13/21 09:00 Temp 37.3 Pulse 77 Resp 11 B/P (MAP) 110/58 Pulse Ox 92 O2 Delivery Mechanical Ventilator O2 Flow Rate 100.00 09/13/21 00:00 Intake Total 750 ml Output Total 750 ml Balance 0 ml Constitutional: other (intubated and on mech vent) Respiratory: No accessory muscle use; other (fair to good air entry, bilat) Cardiovascular: regular rate-rhythm, S1 and S2, systolic murmur (soft CARL at card base) Gastrointestional: No tender; soft; No guarding, No rebound; audible bowel sounds, other (NG tube in place) Extremities: No clubbing, No cyanosis, No significant edema Neurologic/Psychiatric: other (unresponive, on mech vent) Skin: No rash on exposed areas, No ulcerations on exposed areas Results/Procedures: Labs Laboratory Tests 09/12/21 12:20: Glucometer 163H 09/12/21 17:39: Glucometer 105 09/12/21 23:55: Glucometer 126H 09/13/21 04:20: White Blood Count 12.4H, Red Blood Count 3.40L, Hemoglobin 10.8L, Hematocrit 32L , Mean Corpuscular Volume 93, Mean Corpuscular Hemoglobin 32, Mean Corpuscular Hemoglobin Concent 34, Red Cell Distribution Width 12.1, Platelet Count 261, Mean Platelet Volume 8.8L, Immature Granulocyte % (Auto) 0, Neutrophils (%) (Auto) 81H, Lymphocytes (%) (Auto) 8L, Monocytes (%) (Auto) 9, Eosinophils (%) (Auto) 1, Basophils (%) (Auto) 0, Neutrophils # (Auto) 10.0H, Lymphocytes # (Auto) 1.0, Monocytes # (Auto) 1.1H, Eosinophils # (Auto) 0.2, Basophils # (Auto) 0.0, Immature Granulocyte # (Auto) 0.1, Blood Gas Puncture Site LEFT RADIAL, Blood Gas Patient Temperature 37.5, Arterial Blood pH 7.48H, Arterial Blood Partial Pressure CO2 39, Arterial Blood Partial Pressure O2 66L, Arterial Blood HCO3 28H, Arterial Blood Total CO2 29.2, Arterial Blood Oxygen Saturation 94, Arterial Blood Base Excess 4.6H, Parvez Test YES-POS, Blood Gas Ventilator Setting YES, Blood Gas Inspired Oxygen 35%, Sodium Level 132L, Potassium Level 3.6, Chloride Level 93L, Carbon Dioxide Level 26, Anion Gap 13, Blood Urea Nitrogen 25H, Creatinine 1.61H, Estimat Glomerular Filtration Rate 47, BUN/Creatinine Ratio 16, Glucose Level 112H, Calcium Level 7.3L, Magnesium Level 2.0, Triglycerides Level 269H Microbiology 09/11/21 MRSA Screen - Final, Complete MRSA not isolated A/P: Assessment: Ac Inf Wall STEMI - hemodynamically unstable (PEA at initial presentation) CAD - card cath of 09/11/21: Coronary artery disease primarily consisting of severe mid vessel stenosis of the dominant right coronary artery that was the culprit in causing an inferior wall ST elevation myocardial infarction and that was successfully stented with Skypoint 2.5 x 28 mm stent. The first diagonal branch of the left anterior descending artery has a 50% to 60% proximal and mid vessel stenosis. It is a small caliber vessel. The left circumflex artery is nondominant and has a large first obtuse marginal branch, a subbranch of which has approximately 60% to 70% stenosis. Elevated left ventricular end-diastolic pressure. Left ventricular ejection fraction approximately 60% Ac renal failure on top of CKD 4 DMI II Ac resp failure - on mech vent ?Heavy ETOH usage Plan: * Emergency cath with intervention to the culprit vessel carried out on 09-11-21 * Hospitalist svce to manage vent, DM II, and renal failure * Continue iv fluids to lessen risk of contrast nephropathy - renal function improving - continue IVF * DAPT * Continue Beta-gabby - titrate as tolerated * Statin * Echo - pending * Hypomag - receiving replacement tx NAVNEET LEI Sep 12, 2021 08:38
[2021-09-12] MEDS ORDERED: TIZA-186 PO (10:14)
[2021-09-12] MEDS ORDERED: LISI1TAB48 PO (10:14)
[2021-09-12] MEDS ORDERED: MTP100TCR PO (10:14)
[2021-09-12] MEDS ORDERED: PANT40TA52 PO (10:14)
[2021-09-12] MEDS ORDERED: SIMV20TA26 PO (10:14)
[2021-09-12] MEDS ORDERED: CLON0.5T4 PO (10:14)
[2021-09-12] MEDS ORDERED: TRAM50TA3 PO (10:14)
[2021-09-12 10:29] VITALS: BP 104/69
[2021-09-12] MEDS ORDERED: DexMEDEtomidine 250 ML DRIP 250 ML IV SCH (11:15)
--- NOTE | 2021-09-12 12:13 | Tele-ICU Progress Note ---
Subjective Date Seen by a Provider: Sep 12, 2021 Time Seen by a Provider: 12:08 Subjective/Events-last exam (Tele-ICU Physician , Progress Note ) Available chart/ vitals / labs / Images reviewed Video assessment done using teleICU camera, rest of exam as per RN Discussed with RN , EXAM PER RN Events overnight : Afebrile FiO2 - 25 I/O = neg 400 Drips: Pressors: , hemodynamically stable Sedation gtt: propofol ( RASS -3 ) VENT SETTINGS and ABG reviewed Not candidate for SBT today REVIEWED Cardiovascular Stability / Sedation Score / FI02/PEEP / ABG / CXR Consultants: yosi Hospital course: (09/11) 65m admitted for Cardiac Arrest and STEMI. CCL for stent to RCA x1 A/P Acute resp failure - intubated with card arrest 09/11 - on 25% , ac 16 450 +5 PEA at initial presentation - normothermia to maintain CAD. Inf Wall STEMI -CCL for stent to RCA x1 09/11 -EF 60 % Evcephalopaty post arrest - cth wnl 09/11 -with propofol down - increased RR , precedex - hetting more hypoxic -- back to propofol BEKA - improving with hydration - to cont - on bicarb gtt DM II - ISS Red- tinged secretions on OG suctioon - cont protonix and start throphic feeding today reportedly ETON use , as per notes - star t thiamine Lines : (Central Line Necessity Reviewed) Khan: OG: + Nutrition: Analgesia: Anxiety/ delirium VTE Prophylaxis: kaykay 40 Stress Ulcer Prophylaxis: ppi Plans in collaboration with bedside consultants and IM MDs. Discussed with RN to reach out if any questions or concerns A total of 33 minutes of critical care time was devoted to this patient today, required to treat and/or prevent further deterioration of critical care condition ( as above) Sepsis Event Evaluation Height, Weight, BMI Height: '" Weight: lbs. oz. kg; 24.50 BMI Method: Exam Exam Patient acknowledged, consented, and participated in this virtual visit which was conducted using real time audio/video Vital Signs Date Time Temp Pulse Resp B/P (MAP) Pulse Ox O2 Delivery O2 Flow Rate FiO2 09/12/21 11:26 135/76 09/12/21 11:00 37.0 92 31 129/87 95 Mechanical Ventilator 25.00 09/12/21 10:36 89 28 97 25 09/12/21 10:29 71 16 97 25 09/12/21 10:00 37.3 76 16 104/69 95 Mechanical Ventilator 25.00 09/12/21 09:00 37.6 89 16 112/71 96 Mechanical Ventilator 25.00 09/12/21 08:56 125/72 09/12/21 08:00 37.8 09/12/21 08:00 97 Mechanical Ventilator 25 09/12/21 08:00 37.9 92 32 119/74 94 Mechanical Ventilator 25.00 09/12/21 07:05 96 16 96 25 09/12/21 07:00 37.8 93 21 130/82 95 Mechanical Ventilator 25.00 09/12/21 07:00 95 09/12/21 06:00 37.8 85 16 121/76 94 Mechanical Ventilator 25.00 09/12/21 05:00 37.7 94 16 127/82 96 Mechanical Ventilator 25.00 09/12/21 04:00 97 Mechanical Ventilator 25 09/12/21 04:00 37.6 90 16 119/74 94 Mechanical Ventilator 25.00 09/12/21 03:16 129/80 09/12/21 03:00 37.6 82 16 129/80 95 Mechanical Ventilator 25.00 09/12/21 02:21 72 16 97 25 09/12/21 02:00 37.4 82 16 118/74 96 Mechanical Ventilator 25.00 09/12/21 01:00 81 09/12/21 01:00 37.7 82 16 120/77 96 Mechanical Ventilator 25.00 09/12/21 00:00 97 Mechanical Ventilator 25 09/12/21 00:00 37.8 85 17 133/76 98 Mechanical Ventilator 25.00 09/11/21 23:00 37.8 63 17 136/79 96 Mechanical Ventilator 25.00 09/11/21 22:14 139/83 09/11/21 22:07 91 16 96 25 09/11/21 22:00 38.0 92 16 137/83 96 Mechanical Ventilator 25.00 09/11/21 21:00 38.0 89 16 138/81 96 Mechanical Ventilator 25.00 09/11/21 20:19 37.9 92 97 Mechanical Ventilator 25.00 09/11/21 20:00 37.9 92 16 142/86 96 Mechanical Ventilator 25.00 09/11/21 20:00 97 Mechanical Ventilator 25 09/11/21 19:00 37.8 96 20 146/94 100 Mechanical Ventilator 25.00 09/11/21 19:00 96 16 100 25 09/11/21 19:00 96 09/11/21 18:21 100 Mechanical Ventilator 25.00 09/11/21 18:00 89 16 147/92 100 Mechanical Ventilator 30.00 09/11/21 17:00 89 16 144/85 100 Mechanical Ventilator 30.00 09/11/21 16:48 80 128/83 09/11/21 16:00 100 Mechanical Ventilator 30 09/11/21 16:00 80 16 128/83 100 Mechanical Ventilator 30.00 09/11/21 15:44 36.0 09/11/21 15:04 Mechanical Ventilator 30.00 09/11/21 15:00 78 131/83 98 Mechanical Ventilator 40.00 09/11/21 14:37 82 16 100 50 09/11/21 14:00 75 16 139/81 100 Mechanical Ventilator 40.00 09/11/21 13:00 75 09/11/21 13:00 76 16 135/89 100 Mechanical Ventilator 40.00 09/11/21 12:31 Mechanical Ventilator 40.00 I & O 09/12/21 07:00 Intake Total 1340 ml Output Total 2050 ml Balance -710 ml Height & Weight Height: '" Weight: lbs. oz. kg; 24.50 BMI Method: General Appearance: No Apparent Distress, WD/WN HEENT: Other (ET tube in place) Neck: Normal Inspection, Supple Respiratory: Lungs Clear, No Respiratory Distress, Other (intubated and sedated) Cardiovascular: Regular Rate, Rhythm, Normal Peripheral Pulses Capillary Refill: Less Than 3 Seconds Peripheral Pulses: 1+ Dorsalis Pedis (R), 1+ Left Dors-Pedis (L) Extremity: Normal Inspection, No Pedal Edema Neurologic/Psychiatric: Other (sedated) Skin: Normal Color, Warm/Dry Results Lab Laboratory Tests 09/11/21 09:30 09/11/21 15:06 09/11/21 18:50 09/12/21 02:40 Assessment/Plan Assessment/Plan CHARLEE JUAREZ MD Sep 12, 2021 12:13
--- NOTE | 2021-09-12 12:26 | Progress Note - Cardiology ---
Cardiology SOAP Progress Note [facility] Not able to communicate Objective: I&O/Vital Signs 09/12/21 09/12/21 09/12/21 09/12/21 01:00 01:00 02:00 02:21 Temp 37.7 37.4 Pulse 82 81 82 72 Resp 16 16 16 B/P (MAP) 120/77 118/74 Pulse Ox 96 96 97 O2 Delivery Mechanical Ventilator Mechanical Ventilator O2 Flow Rate 25.00 25.00 FiO2 25 09/12/21 09/12/21 09/12/21 09/12/21 03:00 03:16 04:00 04:00 Temp 37.6 37.6 Pulse 82 90 Resp 16 16 B/P (MAP) 129/80 129/80 119/74 Pulse Ox 95 94 97 O2 Delivery Mechanical Ventilator Mechanical Ventilator Mechanical Ventilator O2 Flow Rate 25.00 25.00 FiO2 25 09/12/21 09/12/21 09/12/21 09/12/21 05:00 06:00 07:00 07:00 Temp 37.7 37.8 37.8 Pulse 94 85 95 93 Resp 16 16 21 B/P (MAP) 127/82 121/76 130/82 Pulse Ox 96 94 95 O2 Delivery Mechanical Ventilator Mechanical Ventilator Mechanical Ventilator O2 Flow Rate 25.00 25.00 25.00 09/12/21 09/12/21 09/12/21 09/12/21 07:05 08:00 08:00 08:00 Temp 37.9 37.8 Pulse 96 92 Resp 16 32 B/P (MAP) 119/74 Pulse Ox 96 94 97 O2 Delivery Mechanical Ventilator Mechanical Ventilator O2 Flow Rate 25.00 FiO2 25 25 09/12/21 09/12/21 09/12/21 09/12/21 08:56 09:00 10:00 10:29 Temp 37.6 37.3 Pulse 89 76 71 Resp 16 16 16 B/P (MAP) 125/72 112/71 104/69 Pulse Ox 96 95 97 O2 Delivery Mechanical Ventilator Mechanical Ventilator O2 Flow Rate 25.00 25.00 FiO2 25 09/12/21 09/12/21 09/12/21 09/12/21 10:36 11:00 11:26 12:00 Temp 37.0 37.3 Pulse 89 92 85 Resp 28 31 16 B/P (MAP) 129/87 135/76 104/66 Pulse Ox 97 95 90 O2 Delivery Mechanical Ventilator Mechanical Ventilator O2 Flow Rate 25.00 25.00 FiO2 25 09/11/21 23:59 Intake Total 340 ml Output Total 800 ml Balance -460 ml Constitutional: other (intubated and on mech vent) Respiratory: No accessory muscle use; other (fair to good air entry, bilat) Cardiovascular: regular rate-rhythm, S1 and S2, systolic murmur (soft CARL at card base) Gastrointestional: No tender; soft; No guarding, No rebound; audible bowel sounds, other (NG tube in place) Extremities: No clubbing, No cyanosis, No significant edema Neurologic/Psychiatric: other (unresponive, on mech vent) Skin: No rash on exposed areas, No ulcerations on exposed areas Results/Procedures: Labs Laboratory Tests 09/11/21 15:06: Sodium Level 136, Potassium Level 5.9H, Chloride Level 104, Carbon Dioxide Level 17L, Anion Gap 15H, Blood Urea Nitrogen 37H, Creatinine 2.20H, Estimat Glomerular Filtration Rate 32, BUN/Creatinine Ratio 17, Glucose Level 131H, Calcium Level 10.4H 09/11/21 17:31: Glucometer 104 09/11/21 18:50: Sodium Level 138, Potassium Level 4.6, Chloride Level 107, Carbon Dioxide Level 17L, Anion Gap 14, Blood Urea Nitrogen 36H, Creatinine 1.98H, Estimat Glomerular Filtration Rate 37, BUN/Creatinine Ratio 18, Glucose Level 114H, Calcium Level 8.5 09/11/21 20:26: Blood Gas Puncture Site RRAD, Blood Gas Patient Temperature 37.9, Arterial Blood pH 7.36L, Arterial Blood Partial Pressure CO2 35, Arterial Blood Partial Pressure O2 65L, Arterial Blood HCO3 19L, Arterial Blood Total CO2 20.2L, Arterial Blood Oxygen Saturation 92L, Arterial Blood Base Excess -5.0L, Parvez Test YES-POS, Blood Gas Ventilator Setting YES, Blood Gas Inspired Oxygen 25% 09/11/21 23:34: Glucometer 124H 09/12/21 02:40: White Blood Count 12.8H, Red Blood Count 4.01L, Hemoglobin 12.8L, Hematocrit 38L , Mean Corpuscular Volume 94, Mean Corpuscular Hemoglobin 32, Mean Corpuscular Hemoglobin Concent 34, Red Cell Distribution Width 12.1, Platelet Count 357, Mean Platelet Volume 9.0, Immature Granulocyte % (Auto) 0, Neutrophils (%) (Auto) 75, Lymphocytes (%) (Auto) 13, Monocytes (%) (Auto) 11, Eosinophils (%) (Auto) 0, Basophils (%) (Auto) 0, Neutrophils # (Auto) 9.6H, Lymphocytes # (Auto) 1.7, Monocytes # (Auto) 1.4H, Eosinophils # (Auto) 0.0, Basophils # (Auto) 0.0, Immature Granulocyte # (Auto) 0.1, Sodium Level 136, Potassium Level 3.9, Chloride Level 101, Carbon Dioxide Level 20L, Anion Gap 15H, Blood Urea Nitrogen 32H, Creatinine 1.77H, Estimat Glomerular Filtration Rate 42, BUN/Creatinine Ratio 18, Glucose Level 112H, Calcium Level 8.2L, Magnesium Level 1.2L 09/12/21 02:50: Blood Gas Puncture Site LRAD, Blood Gas Patient Temperature 37.6, Arterial Blood pH 7.43, Arterial Blood Partial Pressure CO2 35, Arterial Blood Partial Pressure O2 58L, Arterial Blood HCO3 22L, Arterial Blood Total CO2 23.4, Arterial Blood Oxygen Saturation 91L, Arterial Blood Base Excess -1.2, Parvez Test YES-POS, Blood Gas Ventilator Setting YES, Blood Gas Inspired Oxygen 25% 09/12/21 12:20: Glucometer 163H Microbiology 09/11/21 MRSA Screen - Final, Complete MRSA not isolated Laboratory Tests 09/11/21 09:30 09/11/21 15:06 09/11/21 18:50 09/12/21 02:40 A/P: Assessment: Ac Inf Wall STEMI - hemodynamically unstable (PEA at initial presentation) CAD - card cath of 09/11/21: Coronary artery disease primarily consisting of severe mid vessel stenosis of the dominant right coronary artery that was the culprit in causing an inferior wall ST elevation myocardial infarction and that was successfully stented with Skypoint 2.5 x 28 mm stent. The first diagonal branch of the left anterior descending artery has a 50% to 60% proximal and mid vessel stenosis. It is a small caliber vessel. The left circumflex artery is nondominant and has a large first obtuse marginal branch, a subbranch of which has approximately 60% to 70% stenosis. Elevated left ventricular end-diastolic pressure. Left ventricular ejection fraction approximately 60% Ac renal failure on top of CKD 4 - acute component has improved; acidosis has improved; hyperkalemia has resolved DMI II Ac resp failure - on mech vent ?Heavy ETOH usage Plan: * Emergency cath with intervention to the culprit vessel carried out on 09-11-21 * Hospitalist svce to manage vent, DM II, and renal failure * Continue iv fluids to lessen risk of contrast nephropathy - renal function improving - continue IVF * DAPT * Continue Beta-gabby - titrate as tolerated * Statin * Echo - pending * Hypomag - receiving replacement tx * I discussed his case with Dr Heaton of the [facility] today BAILEY CURRAN MD FACP FAC CCDS Sep 12, 2021 12:26
[2021-09-12] MEDS ORDERED: FLUT1BLS3 IH (12:53)
[2021-09-12 14:37] VITALS: BP 104/69
[2021-09-12] MEDS: ACETAMINOPHEN 500 MG TAB (TYLENOL) PO PRN (15:10)
[2021-09-12] MEDS: THIAMINE 100 MG/ML 2 ML (VITAMIN B-1) VIAL IV SCH (15:10)
--- NOTE | 2021-09-12 16:35 | Progress Note - Hospitalist ---
Subjective HPI/CC On Admission Date Seen by Provider: Sep 12, 2021 Time Seen by Provider: 09:20 Marcello Tellez is a 65 year old male with PMH HTN, HLD, CAD, T2DM, who was found minimally responsive by his . She said he wakes up earlier than her. She heard him moaning in the living room and went to check on him. She asked if she needed to call an ambulance and he shook his head yes. EMS arrived and applied AED and began CPR. No shocks were advised and ROSC was obtained after one round of CPR. He was intubated. An EKG revealed STEMI and he was taken to the laboratory mechanic helper where he was found to have an inferior NV and had a stent placed in his RCA. Upon my exam, he is intubated and sedated in the ICU. His is present at the bedside. Subjective/Events-last exam He remains intubated and sedated. He has no family at the bedside today. Objective Exam Vital Signs Vital Signs Date Time Temp Pulse Resp B/P (MAP) Pulse Ox O2 Delivery O2 Flow Rate FiO2 09/12/21 15:43 97 Mechanical Ventilator 35 09/12/21 15:27 108/78 09/12/21 15:00 36.1 78 35.00 09/12/21 14:37 25 Capillary Refill : Less Than 3 Seconds General Appearance: No Apparent Distress, WD/WN, Other (intubated and sedated) Respiratory: Lungs Clear, No Respiratory Distress, Other (mechanically ventilated) Cardiovascular: Regular Rate, Rhythm, No Murmur Gastrointestinal: Normal Bowel Sounds, Soft Extremity: Normal Inspection, No Pedal Edema Neurologic/Psychiatric: Other (sedated) Skin: Normal Color, Warm/Dry Results/Procedures Lab Laboratory Tests 09/11/21 18:50 09/12/21 02:40 Patient resulted labs reviewed. Imaging: Reviewed Imaging Report Assessment/Plan Assessment and Plan Assess & Plan/Chief Complaint STEMI Cardiac arrest AHRF Endotracheally intubated CAD HTN HLD Cardiology primary s/p RCA stent placement ASA and Plavix Metoprolol Lipitor Intubated and sedated TeleICU following Failed weaning attempt this morning due to tachypnea BEKA on CKD Continue IV fluids T2DM Sliding scale insulin DVT prophylaxis: Lovenox Critical Care Critically Ill Patient Diagnosis/Problems Diagnosis/Problems (1) Acute ST elevation myocardial infarction (STEMI) of inferior wall Status: Acute (2) Cardiac arrest Status: Acute (3) CAD (coronary artery disease) Status: Acute Qualifiers: Coronary Disease-Associated Artery/Lesion type: [place] artery [place] vs. transplanted heart: [place] heart (4) S/P coronary artery stent placement Status: Acute (5) Acute kidney injury superimposed on chronic kidney disease Status: Acute (6) T2DM (type 2 diabetes mellitus) Status: Chronic Qualifiers: Diabetes mellitus usp insulin use: without usp use Diabetes mellitus complication status: without complication Qualified Codes: E11.9 - Type 2 diabetes mellitus without complications (7) HTN (hypertension) Status: Chronic (8) HLD (hyperlipidemia) Status: Chronic KAYLA WAGONER MD Sep 12, 2021 16:35
[2021-09-12] MEDS ORDERED: ACETAMINOPHEN 500 MG TAB (TYLENOL) PO NR (17:45)
[2021-09-12] MEDS: ENOXAPARIN 40 MG/0.4 ML (LOVENOX) SYR SQ SCH (17:45)
[2021-09-12 18:00] VITALS: BP 91/70
[2021-09-12] MEDS ORDERED: IBUPROFEN SUSP 100MG/5ML (MOTRIN) UDC PO PRN (20:00)
[2021-09-12] MEDS ORDERED: IBUPROFEN SUSP 100MG/5ML (MOTRIN) UDC ONE (20:19)
[2021-09-12] MEDS ORDERED: IBUPROFEN 600 MG (MOTRIN) TAB PO PRN (21:45)
[2021-09-12 22:04] VITALS: BP 88/61
[2021-09-13] MEDS: inSUlin ASPART (NovoLOG) 1 UNIT/0.01 ML (CHARGE PER UNIT) SC SCH ×4 (00:08→18:00)
[2021-09-13] MEDS: PROPOFOL DRIP (ICU) 100 ML IV SCH ×4 (01:58→19:48)
[2021-09-13 02:26] VITALS: BP 90/62
[2021-09-13] MEDS: ACETAMINOPHEN 500 MG TAB (TYLENOL) PO PRN ×3 (04:12→20:09)
[2021-09-13 04:40] LABS: BASOPHILS % (AUTO) 0 % (0-10); EOSINOPHILS # (AUTO) 0.2 10^3/uL (0.0-0.3); EOSINOPHILS % (AUTO) 1 % (0-10); HEMATOCRIT 32 % (40-54); HEMOGLOBIN 10.8 g/dL (13.3-17.7); LYMPHOCYTES % (AUTO) 8 % (12-44); MEAN CORPUSCULAR HEMOGLOBIN 32 pg (25-34); MEAN CORPUSCULAR HGB CONC 34 g/dL (32-36); MEAN CORPUSCULAR VOLUME 93 fL (80-99); MEAN PLATELET VOLUME 8.8 fL (9.0-12.2); MONOCYTES # (AUTO) 1.1 10^3/uL (0.0-1.0); MONOCYTES % (AUTO) 9 % (0-12); NEUTROPHILS % (AUTO) 81 % (42-75); PLATELET COUNT 261 10^3/uL (130-400); WHITE BLOOD COUNT 12.4 10^3/uL (4.3-11.0)
[2021-09-13 04:42] LABS: ABG BASE EXCESS 4.6 MMOL/L (-2.5-2.5); ABG OXYGEN SATURATION 94 % (94-100); ABG PCO2 39 MMHG (35-45); ABG PH 7.48 (7.37-7.43); ABG PO2 66 MMHG (79-93); ABG TCO2 29.2 MMOL/L (21.0-31.0); ALLENS TEST YES-POS; INSPIRED O2 35%; PATIENT TEMP 37.5; VENTILATOR YES
[2021-09-13 04:59] LABS: POTASSIUM 3.6 MMOL/L (3.6-5.0)
[2021-09-13 05:00] LABS: CALCIUM 7.3 MG/DL (8.5-10.1)
[2021-09-13 05:04] LABS: CREATININE SERUM 1.61 MG/DL (0.60-1.30)
[2021-09-13] MEDS: MAGNESIUM 1 GM/100 ML IVPB 100 ML IV SCH (05:14)
[2021-09-13] MEDS: POTASSIUM CL 10MEQ/50ML IVPB 50 ML IV SCH ×2 (05:14→05:18)
[2021-09-13] MEDS: KCL 20 MEQ TAB (K-DUR) PO SCH (05:14)
[2021-09-13] MEDS: SODIUM BICARBONATE IV SCH (05:34)
[2021-09-13] MEDS: 1/2 NS IV SCH (05:34)
[2021-09-13 06:45] VITALS: BP_SYST 106; BP_SYST 90; BP_DIAS 62; BP_DIAS 69
[2021-09-13] MEDS: PANTOPRAZOLE 40 MG (PROTONIX) VIAL IV SCH (08:54)
[2021-09-13] MEDS: CLOPIDOGREL 75 MG (PLAVIX) TABLET PO SCH (08:54)
[2021-09-13] MEDS: THIAMINE 100 MG/ML 2 ML (VITAMIN B-1) VIAL IV SCH (08:54)
[2021-09-13] MEDS: meTOprolol TARTRATE 25 MG (LOPRESSOR) TABLET PO SCH ×2 (08:54→20:03)
--- NOTE | 2021-09-13 08:59 | Tele-ICU Progress Note ---
Subjective Date Seen by a Provider: Sep 13, 2021 Time Seen by a Provider: 08:58 Subjective/Events-last exam Hospital course available chart/vitals/labs/images reviewed. Video assessment done using telemetry ICU camera, rest of exam as per RN. Discussion with the RN, exam as per RN. Hospital course Patient remained on mechanical ventilation. He is admitted with cardiac arrest and found to have a STEMI. He underwent cardiac catheterization and a stent to the RCA. This a.m. he is remained unresponsive but occasionally apparently he was having tremulousness. According to the family he drinks about 6 beers a day. For a short time his FiO2 has to be increased to 200% and subsequently decrease it to 60%. Chest x-ray showing mild to moderate congestive changes and residual IV Lasix. Currently on a propofol 50 mcg and Precedex 0.1 mcg. He is not responding to noxious stimuli and is suspicious for severe anoxic encephalopathy Sepsis Event Evaluation Height, Weight, BMI Height: '" Weight: lbs. oz. kg; 24.50 BMI Method: Exam Exam Patient acknowledged, consented, and participated in this virtual visit which was conducted using real time audio/video Vital Signs Date Time Temp Pulse Resp B/P (MAP) Pulse Ox O2 Delivery O2 Flow Rate FiO2 09/13/21 08:45 Mechanical Ventilator 100.00 09/13/21 08:00 37.2 66 10 102/58 96 Mechanical Ventilator 40.00 09/13/21 08:00 94 Mechanical Ventilator 45 09/13/21 07:42 37.1 09/13/21 07:00 72 09/13/21 07:00 37.1 71 11 106/69 94 Mechanical Ventilator 35.00 09/13/21 06:00 37.1 80 16 106/92 94 Mechanical Ventilator 35.00 09/13/21 05:00 37.7 93 16 99/64 93 Mechanical Ventilator 35.00 09/13/21 04:42 37.6 09/13/21 04:12 37.4 09/13/21 04:00 94 Mechanical Ventilator 35 09/13/21 04:00 37.4 92 16 105/72 93 Mechanical Ventilator 35.00 09/13/21 03:00 36.9 68 16 104/83 96 Mechanical Ventilator 35.00 09/13/21 02:26 68 16 97 35 09/13/21 02:00 37.0 68 16 90/62 97 Mechanical Ventilator 35.00 09/13/21 01:58 73 94/68 09/13/21 01:00 37.2 73 16 87/58 97 Mechanical Ventilator 35.00 09/13/21 01:00 73 09/13/21 00:00 37.3 72 16 94/68 93 Mechanical Ventilator 35.00 09/13/21 00:00 94 Mechanical Ventilator 35 09/12/21 23:57 80 88/61 09/12/21 23:00 37.6 73 16 89/57 96 Mechanical Ventilator 35.00 09/12/21 22:04 80 16 97 35 09/12/21 22:00 38.3 80 16 86/59 96 Mechanical Ventilator 35.00 09/12/21 21:00 39.1 97 17 105/70 95 Mechanical Ventilator 35.00 09/12/21 20:59 39.1 09/12/21 20:29 39.1 09/12/21 20:00 94 Mechanical Ventilator 35 09/12/21 20:00 39.1 106 25 107/65 93 Mechanical Ventilator 35.00 09/12/21 19:39 92 91/70 09/12/21 19:07 39.2 09/12/21 19:00 39.2 92 16 113/69 94 Mechanical Ventilator 35.00 09/12/21 19:00 92 09/12/21 18:00 105 25 98 35 09/12/21 18:00 86 30 134/87 91 Mechanical Ventilator 35.00 09/12/21 17:00 78 16 107/70 97 Mechanical Ventilator 35.00 09/12/21 16:00 38.3 09/12/21 16:00 89 16 101/66 96 Mechanical Ventilator 35.00 09/12/21 15:43 97 Mechanical Ventilator 35 09/12/21 15:27 108/78 09/12/21 15:00 36.1 78 106/81 95 Mechanical Ventilator 35.00 09/12/21 14:37 74 25 100 35 09/12/21 14:00 36.1 71 16 82/58 97 Mechanical Ventilator 35.00 09/12/21 13:28 93 Mechanical Ventilator 35.00 09/12/21 13:00 77 09/12/21 13:00 36.7 75 16 80/54 90 Mechanical Ventilator 25.00 09/12/21 12:00 96 Mechanical Ventilator 35 09/12/21 12:00 37.3 85 16 104/66 90 Mechanical Ventilator 25.00 09/12/21 11:26 135/76 09/12/21 11:00 37.0 92 31 129/87 95 Mechanical Ventilator 25.00 09/12/21 10:36 89 28 97 25 09/12/21 10:29 71 16 97 25 09/12/21 10:00 37.3 76 16 104/69 95 Mechanical Ventilator 25.00 09/12/21 09:00 37.6 89 16 112/71 96 Mechanical Ventilator 25.00 I & O 09/13/21 07:00 Intake Total 1000 ml Output Total 1700 ml Balance -700 ml Height & Weight Height: '" Weight: lbs. oz. kg; 24.50 BMI Method: General Appearance: No Apparent Distress, WD/WN, Other (intubated and sedated) HEENT: Other (ET tube in place) Neck: Normal Inspection, Supple Respiratory: Lungs Clear, No Respiratory Distress, Other (mechanically ventilated) Cardiovascular: Regular Rate, Rhythm, No Murmur Capillary Refill: Less Than 3 Seconds Peripheral Pulses: 1+ Dorsalis Pedis (R), 1+ Left Dors-Pedis (L) Extremity: Normal Inspection, No Pedal Edema Neurologic/Psychiatric: Other (sedated) Skin: Normal Color, Warm/Dry Results Lab Laboratory Tests 09/11/21 09:30 09/11/21 15:06 09/11/21 18:50 09/12/21 02:40 09/13/21 04:20 Assessment/Plan Assessment/Plan 1. Acute hypoxic respiratory failure secondary to cardiopulmonary arrest. He is requiring mechanical ventilation and currently he is on tidal volume of 450 respiratory rate 16 FiO2 60% and a PEEP of 5. As per RN he is not responsive to noxious stimuli. We will continue to wean FiO2. 2. STEMI. Status post RCA stenting. Further care per cardiology. 3. 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 Will try to wean sedation and see whether he has any response. 4. Possible alcohol withdrawal syndrome. CIWA protocol will be initiated and will continue thiamine and folic acid. 5. DVT prophylaxis and ulcer prophylaxis. 6. BEKA AND CKD. continue ivf. 7.Type 2 DM. management per primary team 8. prognosis poor. Critical Care: Ventilator Management Time spent with patient (mins): 35 ESTEBAN ABRAHAM MD Sep 13, 2021 08:59
--- NOTE | 2021-09-13 09:14 | Progress Note - Cardiology ---
Cardiology SOAP Progress Note Subjective: Remains intubated and sedated Objective: I&O/Vital Signs 09/16/21 09/16/21 09/16/21 09/16/21 03:54 04:14 05:00 06:00 Temp 37.3 37.3 36.8 Pulse 92 92 93 Resp 16 19 16 B/P (MAP) 176/95 170/105 142/79 Pulse Ox 95 95 97 91 O2 Delivery Mechanical Ventilator Mechanical Ventilator Mechanical Ventilator Mechanical Ventilator O2 Flow Rate 24.00 24.00 24.00 FiO2 25 09/16/21 09/16/21 09/16/21 09/16/21 06:40 07:00 07:03 07:54 Temp 36.7 36.9 Pulse 94 96 92 Resp 17 18 B/P (MAP) 145/85 Pulse Ox 92 92 O2 Delivery Mechanical Ventilator O2 Flow Rate 24.00 FiO2 24 09/16/21 09/16/21 09/16/21 09/16/21 08:00 08:00 09:00 10:00 Temp 36.9 37.0 37.0 Pulse 97 92 88 Resp 21 14 28 B/P (MAP) 150/89 141/86 152/92 Pulse Ox 94 96 95 98 O2 Delivery Mechanical Ventilator Mechanical Ventilator Mechanical Ventilator Mechanical Ventilator O2 Flow Rate 24.00 24.00 24.00 FiO2 25 09/16/21 09/16/21 09/16/21 09/16/21 11:00 11:09 11:12 12:00 Temp 37.3 37.5 Pulse 91 91 98 106 Resp 17 23 33 12 B/P (MAP) 147/86 154/93 Pulse Ox 98 98 98 96 O2 Delivery Mechanical Ventilator Mechanical Ventilator O2 Flow Rate 24.00 24.00 FiO2 24 24 09/16/21 09/16/21 09/16/21 09/16/21 12:00 12:00 12:23 13:00 Temp 37.4 37.6 Pulse 99 99 Resp 36 B/P (MAP) Pulse Ox 96 96 O2 Delivery Mechanical Ventilator Mechanical Ventilator O2 Flow Rate 24.00 FiO2 25 09/16/21 09/16/21 09/16/21 09/16/21 14:15 14:20 14:29 15:00 Temp 37.8 37.9 37.8 Pulse 104 107 100 Resp 34 39 34 B/P (MAP) 157/104 161/90 Pulse Ox 96 95 96 O2 Delivery Mechanical Ventilator Mechanical Ventilator O2 Flow Rate 24.00 24.00 FiO2 24 09/16/21 15:00 Temp 37.8 09/16/21 00:00 Intake Total 590 ml Output Total 1950 ml Balance -1360 ml Constitutional: other (intubated and on mech vent) Respiratory: No accessory muscle use; other (fair to good air entry, bilat) Cardiovascular: regular rate-rhythm, S1 and S2, systolic murmur (soft CARL at card base) Gastrointestional: No tender; soft; No guarding, No rebound; audible bowel sounds, other (NG tube in place) Extremities: No clubbing, No cyanosis, No significant edema Neurologic/Psychiatric: other (unresponive, on mech vent) Skin: No rash on exposed areas, No ulcerations on exposed areas Results/Procedures: Labs Laboratory Tests 09/15/21 17:28: Glucometer 108 09/15/21 23:40: Glucometer 103 09/16/21 02:45: White Blood Count 8.8, Red Blood Count 3.06L, Hemoglobin 9.6L, Hematocrit 29L, Mean Corpuscular Volume 95, Mean Corpuscular Hemoglobin 31, Mean Corpuscular H emoglobin Concent 33, Red Cell Distribution Width 12.5, Platelet Count 340, Mean Platelet Volume 8.5L, Immature Granulocyte % (Auto) 1, Neutrophils (%) (Auto) 82H, Lymphocytes (%) (Auto) 6L, Monocytes (%) (Auto) 9, Eosinophils (%) (Auto) 3, Basophils (%) (Auto) 0, Neutrophils # (Auto) 7.2, Lymphocytes # (Auto) 0.5L, Monocytes # (Auto) 0.8, Eosinophils # (Auto) 0.3, Basophils # (Auto) 0.0, Immature Granulocyte # (Auto) 0.1, Sodium Level 140, Potassium Level 3.5L, Chloride Level 107, Carbon Dioxide Level 20L, Anion Gap 13, Blood Urea Nitrogen 16, Creatinine 1.47H, Estimat Glomerular Filtration Rate 52, BUN/Creatinine Ratio 11, Glucose Level 109H, Calcium Level 8.0L, Magnesium Level 2.2 09/16/21 02:59: POC pH (Misc Panel) 7.422H, POC Base Excess (Misc Panel) -3L, POC pO2 (Misc Panel) 70L, POC pCO2 (Misc Panel) 32.7L, POC HCO3 (Misc Panel) 21.3L, POC Blood Gas Total CO2 Calc 22L, Bedside Bl Gas O2 Saturation (Calc) 94L, Bedside Lactic Acid 0.42 09/16/21 05:53: Glucometer 120H 09/16/21 11:43: Glucometer 128H 09/16/21 12:20: POC pH (Misc Panel) 7.445H, POC Base Excess (Misc Panel) -2, POC pO2 (Misc Panel) 65L, POC pCO2 (Misc Panel) 32.4L, POC HCO3 (Misc Panel) 22.2L, POC Blood Gas Total CO2 Calc 23L, Bedside Bl Gas O2 Saturation (Calc) 94L Microbiology 09/13/21 Blood Culture - Preliminary, Resulted No growth 09/11/21 MRSA Screen - Final, Complete MRSA not isolated A/P: Assessment: Ac Inf Wall STEMI - hemodynamically unstable (PEA at initial presentation) CAD - card cath of 09/11/21: Coronary artery disease primarily consisting of severe mid vessel stenosis of the dominant right coronary artery that was the culprit in causing an inferior wall ST elevation myocardial infarction and that was successfully stented with Skypoint 2.5 x 28 mm stent. The first diagonal branch of the left anterior descending artery has a 50% to 60% proximal and mid vessel stenosis. It is a small caliber vessel. The left circumflex artery is nondominant and has a large first obtuse marginal branch, a subbranch of which has approximately 60% to 70% stenosis. Elevated left ventricular end-diastolic pressure. Left ventricular ejection fraction approximately 60% Ac renal failure on top of CKD 4 - acute component has improved; acidosis has improved; hyperkalemia has resolved DMI II [facility] resp [facility] ?Heavy ETOH usage Plan: * Emergency cath with intervention to the culprit vessel carried out on 09-11-21 * Hospitalist svce to manage vent, DM II, and renal failure * Continue iv fluids to lessen risk of contrast nephropathy - renal function improving - continue IVF * DAPT * Continue Beta-gabby - titrate as tolerated * Statin * Echo - pending NAVNEET LEI Sep 13, 2021 09:14
[2021-09-13] MEDS ORDERED: LORazepam INJ 2 MG/ML (ATIVAN) VIAL IM/IV PRN (09:45)
[2021-09-13] MEDS ORDERED: 1/2 NS IV SOLUTION 1,000 ML IV PRN (09:45)
[2021-09-13] MEDS ORDERED: ONDANSETRON 4 MG/2 ML (SDV) Z0FRAN IV PRN (09:45)
[2021-09-13] MEDS ORDERED: D5 1/2 NS 1000 ML IV SOLUTION 1,000 ML IV PRN (09:45)
[2021-09-13] MEDS ORDERED: LORazepam INJ 2 MG/ML (ATIVAN) VIAL IVP PRN (10:00)
[2021-09-13] MEDS ORDERED: VANCOMYCIN INJECTION 0.1 MG in NS (IVPB) 250 ML IV SCH (10:00)
[2021-09-13] MEDS ORDERED: PIPERACILLIN SODIUM/TAZOBACTAM 4.5 GM in NS (IVPB) 100 ML IV NR (10:15)
[2021-09-13 10:50] VITALS: BP 107/72
[2021-09-13] MEDS ORDERED: VANCOMYCIN 1500 MG/NS 500 ML IVPB IV NR ×2 (11:00)
[2021-09-13] MEDS: FOLIC ACID 1 MG TAB PO SCH (11:51)
[2021-09-13] MEDS: MULTIVIT W/MINERALS TAB (THERAGRAN M) PO SCH (11:51)
[2021-09-13] MEDS: LORazepam INJ 2 MG/ML (ATIVAN) VIAL IVP SCH ×3 (12:01→20:08)
[2021-09-13] MEDS: IBUPROFEN SUSP 100MG/5ML (MOTRIN) UDC PO PRN (14:05)
[2021-09-13 15:00] VITALS: BP 107/72
[2021-09-13] MEDS ORDERED: PIPERACILLIN SODIUM/TAZOBACTAM 4.5 GM in NS (IVPB) 100 ML IV SCH (16:00)
[2021-09-13] MEDS: ENOXAPARIN 40 MG/0.4 ML (LOVENOX) SYR SQ SCH (17:35)
[2021-09-13] MEDS: NOREPINEPHRINE 8 MG/250 ML 250 ML IV SCH (17:38)
--- NOTE | 2021-09-13 17:44 | Progress Note - Cardiology ---
Cardiology SOAP Progress Note Subjective: Unresponsive. On [facility] vent Objective: I&O/Vital Signs 09/13/21 09/13/21 09/13/21 09/13/21 06:00 07:00 07:00 07:42 Temp 37.1 37.1 37.1 Pulse 80 71 72 Resp 16 11 B/P (MAP) 106/92 106/69 Pulse Ox 94 94 O2 Delivery Mechanical Ventilator Mechanical Ventilator O2 Flow Rate 35.00 35.00 09/13/21 09/13/21 09/13/21 09/13/21 08:00 08:00 08:45 09:00 Temp 37.2 37.3 Pulse 66 77 Resp 10 11 B/P (MAP) 102/58 110/58 Pulse Ox 94 96 92 O2 Delivery Mechanical Ventilator Mechanical Ventilator Mechanical Ventilator Mechanical Ventilator O2 Flow Rate 40.00 100.00 100.00 FiO2 45 09/13/21 09/13/21 09/13/21 09/13/21 09:38 10:00 10:54 11:00 Temp 37.4 37.6 Pulse 81 80 80 Resp 16 16 B/P (MAP) 108/76 96/63 106/69 Pulse Ox 96 98 O2 Delivery Mechanical Ventilator Mechanical Ventilator Mechanical Ventilator O2 Flow Rate 100.00 50.00 50.00 09/13/21 09/13/21 09/13/21 09/13/21 11:45 11:51 12:00 12:00 Temp 37.7 37.9 38.0 Pulse 92 Resp 26 B/P (MAP) 105/57 Pulse Ox 97 98 O2 Delivery Mechanical Ventilator Mechanical Ventilator O2 Flow Rate 50.00 FiO2 50 09/13/21 09/13/21 09/13/21 09/13/21 12:21 12:37 13:00 14:00 Temp 38.4 38.6 38.5 Pulse 91 85 92 Resp 16 17 B/P (MAP) 101/64 97/73 Pulse Ox 98 96 O2 Delivery Mechanical Ventilator Mechanical Ventilator O2 Flow Rate 50.00 50.00 09/13/21 09/13/21 09/13/21 09/13/21 14:05 14:35 14:44 15:00 Temp 38.5 38.5 38.3 Pulse 88 85 Resp 16 B/P (MAP) 96/60 108/95 Pulse Ox 96 O2 Delivery Mechanical Ventilator O2 Flow Rate 50.00 09/13/21 09/13/21 09/13/21 16:00 16:00 17:00 Temp 38.0 37.5 Pulse 80 78 Resp 16 16 B/P (MAP) 91/54 87/56 Pulse Ox 97 96 96 O2 Delivery Mechanical Ventilator Mechanical Ventilator Mechanical Ventilator O2 Flow Rate 50.00 50.00 FiO2 50 09/13/21 00:00 Intake Total 750 ml Output Total 750 ml Balance 0 ml Constitutional: other (intubated and on mech vent) Respiratory: No accessory muscle use; other (fair to good air entry, bilat) Cardiovascular: regular rate-rhythm, S1 and S2, systolic murmur (soft CARL at card base) Gastrointestional: No tender; soft; No guarding, No rebound; audible bowel sounds, other (NG tube in place) Extremities: No clubbing, No cyanosis, No significant edema Neurologic/Psychiatric: other (unresponive, on mech vent) Skin: No rash on exposed areas, No ulcerations on exposed areas Results/Procedures: Labs Laboratory Tests 09/12/21 17:39: Glucometer 105 09/12/21 23:55: Glucometer 126H 09/13/21 04:20: White Blood Count 12.4H, Red Blood Count 3.40L, Hemoglobin 10.8L, Hematocrit 32L , Mean Corpuscular Volume 93, Mean Corpuscular Hemoglobin 32, Mean Corpuscular Hemoglobin Concent 34, Red Cell Distribution Width 12.1, Platelet Count 261, Mean Platelet Volume 8.8L, Immature Granulocyte % (Auto) 0, Neutrophils (%) (Auto) 81H, Lymphocytes (%) (Auto) 8L, Monocytes (%) (Auto) 9, Eosinophils (%) (Auto) 1, Basophils (%) (Auto) 0, Neutrophils # (Auto) 10.0H, Lymphocytes # (Auto) 1.0, Monocytes # (Auto) 1.1H, Eosinophils # (Auto) 0.2, Basophils # (Auto) 0.0, Immature Granulocyte # (Auto) 0.1, Blood Gas Puncture Site LEFT RADIAL, Blood Gas Patient Temperature 37.5, Arterial Blood pH 7.48H, Arterial Blood Partial Pressure CO2 39, Arterial Blood Partial Pressure O2 66L, Arterial Blood HCO3 28H, Arterial Blood Total CO2 29.2, Arterial Blood Oxygen Saturation 94, Arterial Blood Base Excess 4.6H, Parvez Test YES-POS, Blood Gas Ventilator Setting YES, Blood Gas Inspired Oxygen 35%, Sodium Level 132L, Potassium Level 3.6, Chloride Level 93L, Carbon Dioxide Level 26, Anion Gap 13, Blood Urea Nitrogen 25H, Creatinine 1.61H, Estimat Glomerular Filtration Rate 47, BUN/Creatinine Ratio 16, Glucose Level 112H, Calcium Level 7.3L, Magnesium Level 2.0, Triglycerides Level 269H, Procalcitonin 0.41H 09/13/21 11:23: Glucometer 99 09/13/21 12:20: Lactic Acid Level 1.61 Microbiology 09/11/21 MRSA Screen - Final, Complete MRSA not isolated 09/11/21 Blood Culture - Preliminary, Resulted 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 The first diagonal branch of the left anterior descending artery has a 50% to 60% proximal and mid vessel stenosis. It is a small caliber vessel. The left circumflex artery is nondominant and has a large first obtuse marginal branch, a subbranch of which has approximately 60% to 70% stenosis. Elevated left ventricular end-diastolic pressure. Left ventricular ejection fraction approximately 60% - echo of 09/12/21: LVEF 50-55% Ac renal failure on top of CKD 4 - acute component has improved; acidosis has improved; hyperkalemia has resolved DMI II Ac resp failure - on mech vent ?Heavy ETOH usage Plan: * DAPT * Beta-gabby if bp tolerates * Statin * Acidosis and hyperkalemia have resolved. Change iv fluids to normal saline * I spoke with his daughter Claudia on the phone today * I also discussed the case with Dr Hook of the Hospitalist camila on the phone today. Hospitalist camila is managing ventilator, fever, and other medical issues BAILEY CURRAN MD FACP [facility] CCDS Sep 13, 2021 17:44
[2021-09-13] MEDS ORDERED: ASPIRIN 81 MG CHEW (CHILDREN'S ASA) PO NR (18:00)
[2021-09-13] MEDS ORDERED: ASPIRIN 81 MG CHEW (CHILDREN'S ASA) NG ONE (18:00)
[2021-09-13] MEDS: PIPERACILLIN SODIUM/TAZOBACTAM 4.5 GM in NS (IVPB) 100 ML IV SCH (18:27)
[2021-09-13] MEDS: NS IV 1000 ML 1,000 ML IV SCH (18:33)
[2021-09-13 19:20] VITALS: BP 125/109
--- NOTE | 2021-09-13 20:36 | Progress Note - Hospitalist ---
Subjective HPI/CC On Admission Date Seen by Provider: Sep 13, 2021 Time Seen by Provider: 09:15 Marcello Tellez is a 65 year old male with PMH HTN, HLD, CAD, T2DM, who was found minimally responsive by his . She said he wakes up earlier than her. She heard him moaning in the living room and went to check on him. She asked if she needed to call an ambulance and he shook his head yes. EMS arrived and applied AED and began CPR. No shocks were advised and ROSC was obtained after one round of CPR. He was intubated. An EKG revealed STEMI and he was taken to the laboratory secretary where he was found to have an inferior CT and had a stent placed in his RCA. Upon my exam, he is intubated and sedated in the ICU. His is present at the bedside. Subjective/Events-last exam He remains intubated and sedated. Focused Exam Lactate Level 09/13/21 12:20: Lactic Acid Level 1.61 Objective Exam Vital Signs Vital Signs Date Time Temp Pulse Resp B/P (MAP) Pulse Ox O2 Delivery O2 Flow Rate FiO2 09/13/21 20:09 37.3 09/13/21 19:48 87 125/109 09/13/21 19:20 26 97 50 09/13/21 18:00 Mechanical Ventilator 50.00 Capillary Refill : Less Than 3 Seconds General Appearance: No Apparent Distress, WD/WN, Other (intubated and sedated) Respiratory: Lungs Clear, No Respiratory Distress, Other (mechanically ventilated) Cardiovascular: Regular Rate, Rhythm, No Murmur Gastrointestinal: Normal Bowel Sounds, Soft Extremity: Normal Inspection, No Pedal Edema Neurologic/Psychiatric: Other (sedated) Results/Procedures Lab Laboratory Tests 09/13/21 04:20 Patient resulted labs reviewed. Imaging: Reviewed Imaging Report Assessment/Plan Assessment and Plan Assess & Plan/Chief Complaint STEMI Cardiac arrest CAD HTN HLD Cardiology primary s/p RCA stent placement ASA and Plavix Metoprolol Lipitor AHRF Endotracheally intubated Septic shock Intubated and sedated TeleICU following Increased ventilator requirements this morning, wean as able Fevers overnight Repeat blood cultures drawn Lactic acid normal Procal elevated Started on Vanc and Zosyn Now requiring pressors BEKA on CKD Continue IV fluids T2DM Sliding scale insulin DVT prophylaxis: Lovenox Critical Care Critically Ill Patient Diagnosis/Problems Diagnosis/Problems (1) Acute ST elevation myocardial infarction (STEMI) of inferior wall Status: Acute (2) Cardiac arrest Status: Acute (3) CAD (coronary artery disease) Status: Acute Qualifiers: Coronary Disease-Associated Artery/Lesion type: [place] artery [place] vs. transplanted heart: [place] heart (4) S/P coronary artery stent placement Status: Acute (5) Acute kidney injury superimposed on chronic kidney disease Status: Acute (6) T2DM (type 2 diabetes mellitus) Status: Chronic Qualifiers: Diabetes mellitus alf insulin use: without alf use Diabetes mellitus complication status: without complication Qualified Codes: E11.9 - Type 2 diabetes mellitus without complications (7) HTN (hypertension) Status: Chronic (8) HLD (hyperlipidemia) Status: Chronic (9) Septic shock Status: Acute KAYLA WAGONER MD Sep 13, 2021 20:36
[2021-09-13 22:44] VITALS: BP 108/73
[2021-09-14] MEDS: inSUlin ASPART (NovoLOG) 1 UNIT/0.01 ML (CHARGE PER UNIT) SC SCH ×4 (00:12→18:20)
[2021-09-14] MEDS: LORazepam INJ 2 MG/ML (ATIVAN) VIAL IVP SCH ×7 (00:18→23:24)
[2021-09-14] MEDS: PROPOFOL DRIP (ICU) 100 ML IV SCH ×2 (00:53→06:17)
[2021-09-14 02:02] VITALS: BP 95/71
[2021-09-14] MEDS: PIPERACILLIN SODIUM/TAZOBACTAM 4.5 GM in NS (IVPB) 100 ML IV SCH ×3 (03:04→18:22)
[2021-09-14] MEDS: NS IV 1000 ML 1,000 ML IV SCH ×3 (04:13→23:04)
[2021-09-14 04:47] LABS: BASOPHILS % (AUTO) 0 % (0-10); EOSINOPHILS # (AUTO) 0.2 10^3/uL (0.0-0.3); EOSINOPHILS % (AUTO) 2 % (0-10); HEMATOCRIT 29 % (40-54); HEMOGLOBIN 9.9 g/dL (13.3-17.7); LYMPHOCYTES # (AUTO) 0.3 10^3/uL (1.0-4.0); LYMPHOCYTES % (AUTO) 3 % (12-44); MEAN CORPUSCULAR HEMOGLOBIN 32 pg (25-34); MEAN CORPUSCULAR HGB CONC 34 g/dL (32-36); MEAN CORPUSCULAR VOLUME 94 fL (80-99); MONOCYTES # (AUTO) 0.6 10^3/uL (0.0-1.0); MONOCYTES % (AUTO) 6 % (0-12); NEUTROPHILS # (AUTO) 8.5 10^3/uL (1.8-7.8); NEUTROPHILS % (AUTO) 88 % (42-75); PLATELET COUNT 255 10^3/uL (130-400); WHITE BLOOD COUNT 9.7 10^3/uL (4.3-11.0)
[2021-09-14 05:03] LABS: POTASSIUM 3.1 MMOL/L (3.6-5.0)
[2021-09-14 05:04] LABS: CALCIUM 7.2 MG/DL (8.5-10.1)
[2021-09-14 05:08] LABS: CREATININE SERUM 1.32 MG/DL (0.60-1.30)
[2021-09-14 05:11] LABS: MAGNESIUM 1.9 MG/DL (1.6-2.4)
[2021-09-14] MEDS: POTASSIUM CL 10MEQ/50ML IVPB 50 ML IV SCH ×4 (05:32→08:38)
[2021-09-14] MEDS: KCL 20 MEQ TAB (K-DUR) PO SCH (06:07)
[2021-09-14] MEDS: MAGNESIUM 1 GM/100 ML IVPB 100 ML IV SCH (06:07)
[2021-09-14 06:57] VITALS: BP 129/76
[2021-09-14] MEDS: meTOprolol TARTRATE 25 MG (LOPRESSOR) TABLET PO SCH ×2 (07:41→20:58)
[2021-09-14] MEDS: PANTOPRAZOLE 40 MG (PROTONIX) VIAL IV SCH (08:38)
[2021-09-14] MEDS: FOLIC ACID 1 MG TAB PO SCH (08:39)
[2021-09-14] MEDS: MULTIVIT W/MINERALS TAB (THERAGRAN M) PO SCH (08:39)
[2021-09-14] MEDS: ASPIRIN 81 MG CHEW (CHILDREN'S ASA) PO SCH (08:39)
[2021-09-14] MEDS: THIAMINE 100 MG/ML 2 ML (VITAMIN B-1) VIAL IV SCH (08:39)
[2021-09-14] MEDS: VANCOMYCIN 1 GM/NS 250 ML IVPB IV SCH ×2 (08:39)
[2021-09-14] MEDS: CLOPIDOGREL 75 MG (PLAVIX) TABLET PO SCH (08:39)
[2021-09-14] MEDS ORDERED: ASPIRIN 81 MG CHEW (CHILDREN'S ASA) NG SCH (09:00)
--- NOTE | 2021-09-14 09:21 | Progress Note - Hospitalist ---
Subjective HPI/CC On Admission Date Seen by Provider: Sep 14, 2021 Time Seen by Provider: 09:11 Marcello Tellez is a 65 year old male with PMH HTN, HLD, CAD, T2DM, who was found minimally responsive by his . She said he wakes up earlier than her. She heard him moaning in the living room and went to check on him. She asked if she needed to call an ambulance and he shook his head yes. EMS arrived and applied AED and began CPR. No shocks were advised and ROSC was obtained after one round of CPR. He was intubated. An EKG revealed STEMI and he was taken to the laboratory immunologist where he was found to have an inferior [place] and had a stent placed in his RCA. Upon my exam, he is intubated and sedated in the ICU. His is present at the bedside. Subjective/Events-last exam Pt remains intubated and sedated. No ROS possible. Significant other at bedside and daughter on the phone. Discussed patients current medical condition and unknown prognosis at this time. Planning on weaning trial to see how patient does without sedation and then discuss status in light of his previously stated wishes of not wanting to be on life support for a prolonged period of time. Focused Exam Lactate Level Objective Exam Vital Signs Vital Signs Date Time Temp Pulse Resp B/P (MAP) Pulse Ox O2 Delivery O2 Flow Rate FiO2 09/17/21 13:00 36.6 101 13 147/90 95 Room Air 09/16/21 20:00 25 09/16/21 18:00 24.00 Capillary Refill : Less Than 3 Seconds General Appearance: Other (intubated and sedated) Respiratory: Lungs Clear, No Respiratory Distress Cardiovascular: Regular Rate, Rhythm, No Murmur Gastrointestinal: Normal Bowel Sounds, Non Tender, Soft Genital/Rectal: Other (crowley in place) Extremity: Normal Capillary Refill, Pedal Edema Neurologic/Psychiatric: Other (sedated, appears comfortable, does not respond) Results/Procedures Lab Laboratory Tests 09/17/21 04:20 Patient resulted labs reviewed. Imaging: Reviewed Imaging Report Assessment/Plan Assessment and Plan Assess & Plan/Chief Complaint STEMI Cardiac arrest CAD HTN HLD Cardiology primary s/p RCA stent placement on admission ASA and Plavix Metoprolol Lipitor AHRF Endotracheally intubated Intubated and sedated TeleICU following Increased ventilator requirements this morning, wean as able Fevers yesterday but none since 1600 09/13 Repeat blood cultures pending Lactic acid normal Vanc and Zosyn Weaning off pressors now that precedex is off BEKA on CKD- acute component resolved Hypokalemia Hyponatremia Continue IV fluids Replace K+ per protocol T2DM Sliding scale insulin Alcohol abuse Reportedly chronic daily alcohol use Ativan ordered to prevent withdrawal Continue Thiamine Goals of care discussion 15+ minutes spent discussing with significant other and daughter regarding current status and patient wishes plan is to do weaning trial and see how he cognitively responds being off sedation prior to making a decision regarding comfort care status DVT prophylaxis: Lovenox Critical Care Critically Ill Patient Diagnosis/Problems Diagnosis/Problems (1) Acute kidney injury superimposed on chronic kidney disease Status: Acute (2) T2DM (type 2 diabetes mellitus) Status: Chronic 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 transplanted heart: [place] heart (8) Cardiac arrest Status: Acute (9) S/P coronary artery stent placement Status: Acute PAL REYES MD Sep 14, 2021 09:20
--- NOTE | 2021-09-14 09:30 | Tele-ICU Progress Note ---
Subjective Date Seen by a Provider: Sep 14, 2021 Time Seen by a Provider: 09:30 Subjective/Events-last exam Available chart/vitals/labs/images reviewed. Video assessment done using telemetry ICU camera, rest of exam as per RN. Discussion with the RN, exam as per RN. Hospital course Patient remained on mechanical ventilation and unresponsive. About 8:30 AM today his sedation is switched off. He occasionally he hangs but not responsive even to noxious stimuli. We will continue to hold off his sedation and see whether his neurological function improves. RN and primary care physician discussed with the patient's daughter who wants to continue hold off the sedation and see how much of neurological recovery will be there. If he does not recover they were thinking of comfort care. His fiance is also at bedside during this discussion. Review of Systems ros per rn Sepsis Event Evaluation Height, Weight, BMI Height: '" Weight: lbs. oz. kg; 24.50 BMI Method: Focused Exam Lactate Level 09/13/21 12:20: Lactic Acid Level 1.61 Exam Exam Patient acknowledged, consented, and participated in this virtual visit which was conducted using real time audio/video Vital Signs Date Time Temp Pulse Resp B/P (MAP) Pulse Ox O2 Delivery O2 Flow Rate FiO2 09/14/21 08:00 37.0 09/14/21 08:00 36.9 76 16 98/60 97 Mechanical Ventilator 40.00 09/14/21 07:00 Mechanical Ventilator 40.00 09/14/21 07:00 36.9 79 18 126/69 99 Mechanical Ventilator 40.00 09/14/21 07:00 82 09/14/21 06:57 77 18 99 50 09/14/21 06:17 78 116/67 09/14/21 06:00 36.9 78 16 116/67 98 Mechanical Ventilator 50.00 09/14/21 05:00 36.9 82 20 118/76 97 Mechanical Ventilator 50.00 09/14/21 04:00 36.8 77 16 121/71 97 Mechanical Ventilator 50.00 09/14/21 04:00 97 Mechanical Ventilator 50 09/14/21 03:00 36.7 73 16 125/70 98 Mechanical Ventilator 50.00 09/14/21 02:02 83 28 96 50 09/14/21 02:00 36.0 65 24 113/94 97 Mechanical Ventilator 50.00 09/14/21 01:00 70 09/14/21 01:00 35.9 70 20 110/65 99 Mechanical Ventilator 50.00 09/14/21 00:53 68 108/73 09/14/21 00:00 97 Mechanical Ventilator 50 09/14/21 00:00 36.1 64 19 125/76 99 Mechanical Ventilator 50.00 09/13/21 23:00 36.3 65 20 116/82 99 Mechanical Ventilator 50.00 09/13/21 22:44 68 16 98 50 09/13/21 22:00 36.4 64 16 125/76 99 Mechanical Ventilator 50.00 09/13/21 21:00 36.7 70 16 119/69 99 Mechanical Ventilator 50.00 09/13/21 20:39 36.5 09/13/21 20:09 37.3 09/13/21 20:00 97 Mechanical Ventilator 50 09/13/21 20:00 37.4 76 17 107/68 98 Mechanical Ventilator 50.00 09/13/21 19:48 87 125/109 09/13/21 19:20 87 26 97 50 09/13/21 19:00 96 09/13/21 19:00 37.1 81 27 131/88 96 Mechanical Ventilator 50.00 09/13/21 18:00 37.2 75 17 126/76 97 Mechanical Ventilator 50.00 09/13/21 17:38 77 80/54 09/13/21 17:00 37.5 78 16 87/56 96 Mechanical Ventilator 50.00 09/13/21 16:00 38.0 80 16 91/54 96 Mechanical Ventilator 50.00 09/13/21 16:00 97 Mechanical Ventilator 50 09/13/21 15:00 84 26 98 50 09/13/21 15:00 38.3 85 16 108/95 96 Mechanical Ventilator 50.00 09/13/21 14:44 88 96/60 09/13/21 14:35 38.5 09/13/21 14:05 38.5 09/13/21 14:00 38.5 92 17 97/73 96 Mechanical Ventilator 50.00 09/13/21 13:00 38.6 85 16 101/64 98 Mechanical Ventilator 50.00 09/13/21 12:37 91 09/13/21 12:21 38.4 09/13/21 12:00 38.0 92 26 105/57 98 Mechanical Ventilator 50.00 09/13/21 12:00 97 Mechanical Ventilator 50 09/13/21 11:51 37.9 09/13/21 11:45 37.7 09/13/21 11:00 37.6 80 16 106/69 98 Mechanical Ventilator 50.00 09/13/21 10:54 Mechanical Ventilator 50.00 09/13/21 10:50 84 26 98 50 09/13/21 10:00 37.4 80 16 96/63 96 Mechanical Ventilator 100.00 09/13/21 09:38 81 108/76 I & O 09/14/21 07:00 Intake Total 815 ml Output Total 3125 ml Balance -2310 ml Height & Weight Height: '" Weight: lbs. oz. kg; 24.50 BMI Method: General Appearance: No Apparent Distress, WD/WN, Other (intubated and sedated) HEENT: Other (ET tube in place) Neck: Normal Inspection, Supple Respiratory: Lungs Clear, No Respiratory Distress, Other (mechanically ventilated) Cardiovascular: Regular Rate, Rhythm, No Murmur Capillary Refill: Less Than 3 Seconds Peripheral Pulses: 1+ Dorsalis Pedis (R), 1+ Left Dors-Pedis (L) Extremity: Normal Inspection, No Pedal Edema Neurologic/Psychiatric: Other (sedated) Skin: Normal Color, Warm/Dry Results Lab Laboratory Tests 09/13/21 04:20 09/14/21 04:20 Assessment/Plan Assessment/Plan .1. Acute hypoxic respiratory failure secondary to cardiopulmonary arrest. He is requiring mechanical ventilation and currently he is on tidal volume of 450 respiratory rate 16 FiO2 60% and a PEEP of 5. As per RN he is not responsive to noxious stimuli. We will continue to wean FiO2. 2. STEMI. Status post RCA stenting. Further care per cardiology. 3. 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 we will hold off sedation and see whether he will wake up. f no response in a day or 2 family considering comfort care.. 4. Possible alcohol withdrawal syndrome. CIWA protocol will be initiated and will continue thiamine and folic acid. 5. DVT prophylaxis and ulcer prophylaxis. 6. BEKA AND CKD. continue ivf. and monitor creatinine 7.Type 2 DM. management per primary team 8. prognosis poor. Reviewed with [facility]. Critical Care: Ventilator Management Time spent with patient (mins): 35 ESTEBAN ABRAHAM MD Sep 14, 2021 09:30
[2021-09-14] MEDS: IBUPROFEN SUSP 100MG/5ML (MOTRIN) UDC PO PRN ×2 (10:13→16:05)
[2021-09-14 10:25] VITALS: BP 114/99
[2021-09-14] MEDS: NOREPINEPHRINE 8 MG/250 ML 250 ML IV SCH (10:52)
[2021-09-14 14:12] VITALS: BP 117/64
[2021-09-14] MEDS: ACETAMINOPHEN 500 MG TAB (TYLENOL) PO PRN ×2 (14:21→18:22)
[2021-09-14] MEDS: ENOXAPARIN 40 MG/0.4 ML (LOVENOX) SYR SQ SCH (14:22)
--- NOTE | 2021-09-14 14:29 | Progress Note - Cardiology ---
Cardiology SOAP Progress Note Subjective: Unresponsive. On [facility] vent Objective: I&O/Vital Signs 09/14/21 09/14/21 09/14/21 09/14/21 03:00 04:00 04:00 05:00 Temp 36.7 36.8 36.9 Pulse 73 77 82 Resp 16 16 20 B/P (MAP) 125/70 121/71 118/76 Pulse Ox 98 97 97 97 O2 Delivery Mechanical Ventilator Mechanical Ventilator Mechanical Ventilator Mechanical Ventilator O2 Flow Rate 50.00 50.00 50.00 FiO2 50 09/14/21 09/14/21 09/14/21 09/14/21 06:00 06:17 06:57 07:00 Temp 36.9 Pulse 78 78 77 82 Resp 16 18 B/P (MAP) 116/67 116/67 Pulse Ox 98 99 O2 Delivery Mechanical Ventilator O2 Flow Rate 50.00 FiO2 50 09/14/21 09/14/21 09/14/21 09/14/21 07:00 07:00 08:00 08:00 Temp 36.9 36.9 Pulse 79 76 Resp 18 16 B/P (MAP) 126/69 98/60 Pulse Ox 99 97 95 O2 Delivery Mechanical Ventilator Mechanical Ventilator Mechanical Ventilator Mechanical Ventilator O2 Flow Rate 40.00 40.00 40.00 FiO2 40 09/14/21 09/14/21 09/14/21 09/14/21 08:00 09:00 10:00 10:25 Temp 37.0 36.9 37.3 Pulse 87 87 86 Resp 24 26 34 B/P (MAP) 97/72 114/77 Pulse Ox 97 96 98 O2 Delivery Mechanical Ventilator Mechanical Ventilator O2 Flow Rate 40.00 40.00 FiO2 50 09/14/21 09/14/21 09/14/21 09/14/21 11:00 11:03 12:00 13:00 Temp 37.7 37.7 37.7 Pulse 91 86 86 Resp 23 17 16 B/P (MAP) 103/60 107/60 115/68 Pulse Ox 94 95 96 98 O2 Delivery Mechanical Ventilator Mechanical Ventilator Mechanical Ventilator Mechanical Ventilator O2 Flow Rate 40.00 40.00 40.00 FiO2 40 09/14/21 09/14/21 09/14/21 13:00 14:00 14:12 Temp 37.8 Pulse 87 93 97 Resp 23 21 B/P (MAP) 126/69 Pulse Ox 94 97 O2 Delivery Mechanical Ventilator O2 Flow Rate 40.00 FiO2 40 09/14/21 00:00 Intake Total 815 ml Output Total 1175 ml Balance -360 ml Constitutional: other (intubated and on mech vent) Respiratory: No accessory muscle use; other (fair to good air entry, bilat) Cardiovascular: regular rate-rhythm, S1 and S2, systolic murmur (soft CARL at card base) Gastrointestional: No tender; soft; No guarding, No rebound; audible bowel sounds, other (NG tube in place) Extremities: No clubbing, No cyanosis, No significant edema Neurologic/Psychiatric: other (unresponive, on mech vent) Skin: No rash on exposed areas, No ulcerations on exposed areas Results/Procedures: Labs Laboratory Tests 09/13/21 17:43: Glucometer 107 09/13/21 23:26: Glucometer 150H 09/14/21 04:20: White Blood Count 9.7, Red Blood Count 3.14L, Hemoglobin 9.9L, Hematocrit 29L, Mean Corpuscular Volume 94, Mean Corpuscular Hemoglobin 32, Mean Corpuscular Hemoglobin Concent 34, Red Cell Distribution Width 11.9, Platelet Count 255, Mean Platelet Volume 9.0, Immature Granulocyte % (Auto) 0, Neutrophils (%) (Auto) 88H, Lymphocytes (%) (Auto) 3L, Monocytes (%) (Auto) 6, Eosinophils (%) (Auto) 2, Basophils (%) (Auto) 0, Neutrophils # (Auto) 8.5H, Lymphocytes # (Auto) 0.3L, Monocytes # (Auto) 0.6, Eosinophils # (Auto) 0.2, Basophils # (Auto) 0.0, Immature Granulocyte # (Auto) 0.0, Sodium Level 133L, Potassium Level 3.1L, Chloride Level 98, Carbon Dioxide Level 23, Anion Gap 12, Blood Urea Nitrogen 20H, Creatinine 1.32H, Estimat Glomerular Filtration Rate 59, BUN/Creatinine Ratio 15, Glucose Level 139H, Calcium Level 7.2L, Magnesium Level 1.9 09/14/21 04:50: POC pH (Misc Panel) 7.421H, POC Base Excess (Misc Panel) 0, POC pO2 (Misc Panel) 77L, POC pCO2 (Misc Panel) 38.3L, POC HCO3 (Misc Panel) 24.9, POC Blood Gas Total CO2 Calc 26, Bedside Bl Gas O2 Saturation (Calc) 96, Bedside Lactic Acid 1.27H 09/14/21 11:57: Glucometer 113H Microbiology 09/11/21 MRSA Screen - Final, Complete MRSA not isolated 09/11/21 Blood Culture - Preliminary, Resulted Staph, Coag Neg ([employer]) Laboratory Tests 09/13/21 04:20 09/14/21 04:20 A/P: Assessment: Ac Inf Wall STEMI - hemodynamically unstable (PEA at initial presentation) CAD - card cath of 09/11/21: Coronary artery disease primarily consisting of severe mid vessel stenosis of the dominant right coronary artery that was the culprit in causing an inferior wall ST elevation myocardial infarction and that was successfully stented with Skypoint 2.5 x 28 mm stent. The first diagonal branch of the left anterior descending artery has a 50% to 60% proximal and mid vessel stenosis. It is a small caliber vessel. The left circumflex artery is nondominant and has a large first obtuse marginal branch, a subbranch of which has approximately 60% to 70% stenosis. Elevated left ventricular end-diastolic pressure. Left ventricular ejection fraction approximately 60% - echo of 09/12/21: LVEF 50-55% Ac renal failure on top of CKD 4 - acute component has improved; acidosis has improved; hyperkalemia has resolved DMI II Ac resp failure - on mech vent ?Heavy ETOH usage Plan: * DAPT * Beta-gabby if bp tolerates * Statin * Acidosis and hyperkalemia have resolved * Hypokalemic today: replenis and monitor labs BAILEY CURRAN MD FACP [facility] CCDS Sep 14, 2021 14:29
[2021-09-14 19:05] VITALS: BP 132/83
[2021-09-14 22:48] VITALS: BP 139/86
[2021-09-15] MEDS: inSUlin ASPART (NovoLOG) 1 UNIT/0.01 ML (CHARGE PER UNIT) SC SCH ×5 (00:24→23:41)
[2021-09-15 02:25] VITALS: BP 160/89
[2021-09-15] MEDS: PIPERACILLIN SODIUM/TAZOBACTAM 4.5 GM in NS (IVPB) 100 ML IV SCH ×3 (03:25→18:14)
[2021-09-15] MEDS: LORazepam INJ 2 MG/ML (ATIVAN) VIAL IVP SCH ×6 (03:25→23:32)
[2021-09-15] MEDS: IBUPROFEN SUSP 100MG/5ML (MOTRIN) UDC PO PRN ×3 (04:25→23:46)
[2021-09-15 04:40] LABS: BASOPHILS % (AUTO) 0 % (0-10); EOSINOPHILS # (AUTO) 0.2 10^3/uL (0.0-0.3); EOSINOPHILS % (AUTO) 2 % (0-10); HEMATOCRIT 30 % (40-54); HEMOGLOBIN 9.9 g/dL (13.3-17.7); LYMPHOCYTES # (AUTO) 0.4 10^3/uL (1.0-4.0); LYMPHOCYTES % (AUTO) 4 % (12-44); MEAN CORPUSCULAR HEMOGLOBIN 32 pg (25-34); MEAN CORPUSCULAR HGB CONC 33 g/dL (32-36); MEAN CORPUSCULAR VOLUME 95 fL (80-99); MEAN PLATELET VOLUME 8.7 fL (9.0-12.2); MONOCYTES # (AUTO) 0.5 10^3/uL (0.0-1.0); MONOCYTES % (AUTO) 5 % (0-12); NEUTROPHILS # (AUTO) 8.8 10^3/uL (1.8-7.8); NEUTROPHILS % (AUTO) 88 % (42-75); PLATELET COUNT 287 10^3/uL (130-400)
[2021-09-15 04:48] LABS: POTASSIUM 3.4 MMOL/L (3.6-5.0)
[2021-09-15 04:50] LABS: CALCIUM 7.7 MG/DL (8.5-10.1)
[2021-09-15 04:54] LABS: CREATININE SERUM 1.36 MG/DL (0.60-1.30)
[2021-09-15] MEDS: MAGNESIUM 1 GM/100 ML IVPB 100 ML IV SCH (04:59)
[2021-09-15] MEDS: POTASSIUM CL 10MEQ/50ML IVPB 50 ML IV SCH ×3 (04:59→05:04)
[2021-09-15] MEDS: PROPOFOL DRIP (ICU) 100 ML IV SCH ×2 (05:00→13:30)
[2021-09-15] MEDS: KCL 20 MEQ TAB (K-DUR) PO SCH (05:00)
[2021-09-15] MEDS: NOREPINEPHRINE 8 MG/250 ML 250 ML IV SCH ×2 (05:00→23:33)
[2021-09-15 07:35] VITALS: BP 139/84
[2021-09-15] MEDS ORDERED: TROUGH ORDER-PHARMACY XX ONE (08:00)
[2021-09-15] MEDS: ACETAMINOPHEN 500 MG TAB (TYLENOL) PO PRN ×2 (08:54→20:08)
[2021-09-15] MEDS: PANTOPRAZOLE 40 MG (PROTONIX) VIAL IV SCH (08:54)
[2021-09-15] MEDS: NS IV 1000 ML 1,000 ML IV SCH (08:55)
[2021-09-15] MEDS: FOLIC ACID 1 MG TAB PO SCH (08:55)
[2021-09-15] MEDS: CLOPIDOGREL 75 MG (PLAVIX) TABLET PO SCH (08:55)
[2021-09-15] MEDS: MULTIVIT W/MINERALS TAB (THERAGRAN M) PO SCH (08:55)
[2021-09-15] MEDS: THIAMINE 100 MG/ML 2 ML (VITAMIN B-1) VIAL IV SCH (08:55)
[2021-09-15] MEDS: meTOprolol TARTRATE 25 MG (LOPRESSOR) TABLET PO SCH ×2 (08:55→20:09)
[2021-09-15] MEDS: ASPIRIN 81 MG CHEW (CHILDREN'S ASA) PO SCH (08:55)
[2021-09-15] MEDS: VANCOMYCIN 1 GM/NS 250 ML IVPB IV SCH ×2 (08:58)
--- NOTE | 2021-09-15 09:07 | Tele-ICU Progress Note ---
Subjective Date Seen by a Provider: Sep 15, 2021 Time Seen by a Provider: 06:50 Subjective/Events-last exam This virtual visit was conducted using real time audio/video. Thank you for asking us to see this patient for respiratory insufficiency due to OOH cardiac arrest, IWMI w RCA stent 09/11/21. Recent events: All sedation held and pt now tracking but not following commands. PMH: DM, HTN, HL, CAD, GERD, COPD, anx. 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 O2 sat 40% on vent AC 16/ 450/40%/+5. HEENT: No obvious masses, adenopathy or JVD. Chest: clear to auscultation, diminished. CV: RRR S1 S2 No murmur or added sounds. Abd: Non-tender. Bowel sounds Y. : Unremarkable. Khan Y. SE[employer] P[employer]ER/psychiatric: No obvious focal findings. Extremities: 2+ edema. Capillary refill < 3 seconds. Skin: unremarkable. Results: Elevated Cr 1.36. Decreased K 3.4. CXR: Hyperinflated, B infilts./aterl.. Available chart/ vitals / labs / images reviewed. Video assessment done using teleICU camera, rest of exam as per RN. A/P: Respiratory insufficiency: Continue present management with vent. Monitor for increasing oxygenation needs. Maintain off sedation to ajudge mental state.. Critical Care: critically ill patient. Cont. ASA, plavix, metop., statin. replace K, PPI, abx, SSI. Discussed with NASRA Ospina Asked RN to reach out to eICU if any questions or concerns later. Time spent with patient/coordination of care with other health professionals (mins): 30. Sepsis Event Evaluation Height, Weight, BMI Height: '" Weight: lbs. oz. kg; 24.50 BMI Method: Focused Exam Lactate Level 09/13/21 12:20: Lactic Acid Level 1.61 Exam Exam Patient acknowledged, consented, and participated in this virtual visit which was conducted using real time audio/video Vital Signs Date Time Temp Pulse Resp B/P (MAP) Pulse Ox O2 Delivery O2 Flow Rate FiO2 09/15/21 08:00 37.5 92 26 151/92 95 Mechanical Ventilator 30.00 09/15/21 07:56 37.5 09/15/21 07:35 90 26 97 30 09/15/21 07:00 37.7 96 24 142/81 95 Mechanical Ventilator 30.00 09/15/21 07:00 93 09/15/21 06:00 37.9 96 24 133/80 95 Mechanical Ventilator 30.00 09/15/21 05:00 38.0 96 24 146/78 94 Mechanical Ventilator 30.00 09/15/21 04:55 38.0 09/15/21 04:25 38.0 09/15/21 04:00 38.0 98 28 150/83 93 Mechanical Ventilator 30.00 09/15/21 04:00 95 Mechanical Ventilator 30 09/15/21 03:00 37.9 99 30 157/90 94 Mechanical Ventilator 30.00 09/15/21 02:25 99 29 93 30 09/15/21 02:00 37.8 100 27 151/81 95 Mechanical Ventilator 30.00 09/15/21 01:00 100 09/15/21 01:00 37.7 98 27 140/79 94 Mechanical Ventilator 30.00 09/15/21 00:00 95 Mechanical Ventilator 30 09/15/21 00:00 37.9 93 20 136/79 95 Mechanical Ventilator 30.00 09/14/21 23:00 38.0 90 26 133/77 95 Mechanical Ventilator 30.00 09/14/21 22:48 92 23 95 30 09/14/21 22:00 38.0 92 25 125/78 95 Mechanical Ventilator 30.00 09/14/21 21:00 37.8 96 27 135/85 96 Mechanical Ventilator 30.00 09/14/21 20:00 37.9 99 26 136/88 94 Mechanical Ventilator 30.00 09/14/21 20:00 Mechanical Ventilator 30.00 09/14/21 20:00 95 Mechanical Ventilator 30 09/14/21 19:05 98 25 97 40 09/14/21 19:00 37.9 100 26 132/83 97 Mechanical Ventilator 40.00 09/14/21 19:00 100 09/14/21 18:55 37.9 09/14/21 18:22 38.0 09/14/21 18:00 38.1 99 23 132/77 96 Mechanical Ventilator 40.00 09/14/21 17:00 38.0 100 26 139/76 95 Mechanical Ventilator 40.00 09/14/21 16:00 37.9 98 22 135/75 93 Mechanical Ventilator 40.00 09/14/21 16:00 95 Mechanical Ventilator 40 09/14/21 15:00 37.7 102 29 119/81 97 Mechanical Ventilator 40.00 09/14/21 14:12 97 21 97 40 09/14/21 14:00 37.8 93 23 126/69 94 Mechanical Ventilator 40.00 09/14/21 13:00 87 09/14/21 13:00 37.7 86 16 115/68 98 Mechanical Ventilator 40.00 09/14/21 12:00 37.7 86 17 107/60 96 Mechanical Ventilator 40.00 09/14/21 11:03 95 Mechanical Ventilator 40 09/14/21 11:00 37.7 91 23 103/60 94 Mechanical Ventilator 40.00 09/14/21 10:25 86 34 98 50 09/14/21 10:00 37.3 87 26 114/77 96 Mechanical Ventilator 40.00 I & O 09/15/21 07:00 Intake Total 1150 ml Output Total 3400 ml Balance -2250 ml Height & Weight Height: '" Weight: lbs. oz. kg; 24.50 BMI Method: General Appearance: No Apparent Distress, WD/WN, Other (intubated and sedated) HEENT: Other (ET tube in place) Neck: Normal Inspection, Supple Respiratory: Lungs Clear, No Respiratory Distress, Other (mechanically ventilated) Cardiovascular: Regular Rate, Rhythm, No Murmur Capillary Refill: Less Than 3 Seconds Peripheral Pulses: 1+ Dorsalis Pedis (R), 1+ Left Dors-Pedis (L) Extremity: Normal Inspection, No Pedal Edema Neurologic/Psychiatric: Other (sedated) Skin: Normal Color, Warm/Dry Results Lab Laboratory Tests 09/14/21 04:20 09/15/21 04:30 Assessment/Plan Assessment/Plan See free text. Critical Care: Ventilator Management NAIMA BAUGH MD Sep 15, 2021 09:07
[2021-09-15] MEDS: ENOXAPARIN 40 MG/0.4 ML (LOVENOX) SYR SQ SCH (09:58)
--- NOTE | 2021-09-15 10:09 | Progress Note - Hospitalist ---
Subjective HPI/CC On Admission Date Seen by Provider: Sep 15, 2021 Marcello Tellez is a 65 year old male with PMH HTN, HLD, CAD, T2DM, who was found minimally responsive by his . She said he wakes up earlier than her. She heard him moaning in the living room and went to check on him. She asked if she needed to call an ambulance and he shook his head yes. EMS arrived and applied AED and began CPR. No shocks were advised and ROSC was obtained after one round of CPR. He was intubated. An EKG revealed STEMI and he was taken to the labor utilization superintendent where he was found to have an inferior OH and had a stent placed in his RCA. Upon my exam, he is intubated and sedated in the ICU. His is present at the bedside. Subjective/Events-last exam pt remains intubated and sedated. No family at bedside. RN reports some fever yesterday. None overnight. Focused Exam Lactate Level 09/13/21 12:20: Lactic Acid Level 1.61 Objective Exam Vital Signs Vital Signs Date Time Temp Pulse Resp B/P (MAP) Pulse Ox O2 Delivery O2 Flow Rate FiO2 09/15/21 09:00 36.9 96 24 144/80 94 Mechanical Ventilator 30.00 09/15/21 08:00 25 Capillary Refill : Less Than 3 Seconds General Appearance: Other (intubated and sedated) HEENT: Other (ETT in place) Respiratory: Lungs Clear, Other (on vent) Cardiovascular: Regular Rate, Rhythm, No Murmur Gastrointestinal: Normal Bowel Sounds, Soft Extremity: Swelling (1+ in hands and feet) Neurologic/Psychiatric: Other (did not arouse, no sedation running) Results/Procedures Lab Laboratory Tests 09/15/21 04:30 Patient resulted labs reviewed. Imaging: Reviewed Imaging Report Assessment/Plan Assessment and Plan Assess & Plan/Chief Complaint STEMI Cardiac arrest CAD HTN HLD Cardiology primary s/p RCA stent placement on admission ASA and Plavix Metoprolol Lipitor AHRF Endotracheally intubated Intubated, sedation held TeleICU following Attempting to wean as able Fevers yesterday but none over night Repeat blood cultures NGTD Lactic acid normal Vanc and Zosyn BEKA on CKD- acute component resolved Hypokalemia Hyponatremia Hold IVF, start tube feeds Replace K+ per protocol T2DM Sliding scale insulin Alcohol abuse Reportedly chronic daily alcohol use Ativan ordered to prevent withdrawal- hold for now Continue Thiamine Goals of care discussion Discussed with his significant other again today- plan to reassess tomorrow when off sedation for 48 hours DVT prophylaxis: Lovenox held for hematuria Critical Care Ventilator Management Diagnosis/Problems Diagnosis/Problems (1) Acute kidney injury superimposed on chronic kidney disease Status: Acute (2) T2DM (type 2 diabetes mellitus) Status: Chronic Qualifiers: Diabetes mellitus nursing home insulin use: without nursing home use Diabetes mellitus complication status: without complication Qualified Codes: E11.9 - Type 2 diabetes mellitus without complications (3) HLD (hyperlipidemia) Status: Chronic (4) HTN (hypertension) Status: Chronic (5) Acute ST elevation myocardial infarction (STEMI) of inferior wall Status: Acute (6) Alcohol abuse (7) CAD (coronary artery disease) Status: Acute Qualifiers: Coronary Disease-Associated Artery/Lesion type: [place] artery [place] vs. transplanted heart: [place] heart (8) Cardiac arrest Status: Acute (9) S/P coronary artery stent placement Status: Acute PAL REYES MD Sep 15, 2021 10:09
--- NOTE | 2021-09-15 13:49 | Progress Note - Cardiology ---
Cardiology SOAP Progress Note Subjective: On mech vent. Not able to respond to questions or to follow commands Objective: I&O/Vital Signs 09/15/21 09/15/21 09/15/21 09/15/21 02:00 02:25 03:00 04:00 Temp 37.8 37.9 Pulse 100 99 99 Resp 27 29 30 B/P (MAP) 151/81 157/90 Pulse Ox 95 93 94 95 O2 Delivery Mechanical Ventilator Mechanical Ventilator Mechanical Ventilator O2 Flow Rate 30.00 30.00 FiO2 30 30 09/15/21 09/15/21 09/15/21 09/15/21 04:00 04:25 04:55 05:00 Temp 38.0 38.0 38.0 38.0 Pulse 98 96 Resp 28 24 B/P (MAP) 150/83 146/78 Pulse Ox 93 94 O2 Delivery Mechanical Ventilator Mechanical Ventilator O2 Flow Rate 30.00 30.00 09/15/21 09/15/21 09/15/21 09/15/21 06:00 07:00 07:00 07:35 Temp 37.9 37.7 Pulse 96 93 96 90 Resp 24 24 26 B/P (MAP) 133/80 142/81 Pulse Ox 95 95 97 O2 Delivery Mechanical Ventilator Mechanical Ventilator O2 Flow Rate 30.00 30.00 FiO2 30 09/15/21 09/15/21 09/15/21 09/15/21 07:56 08:00 08:00 09:00 Temp 37.5 37.5 36.9 Pulse 92 96 Resp 26 24 B/P (MAP) 151/92 144/80 Pulse Ox 93 95 94 O2 Delivery Mechanical Ventilator Mechanical Ventilator Mechanical Ventilator O2 Flow Rate 30.00 30.00 FiO2 25 09/15/21 09/15/21 09/15/21 09/15/21 10:00 11:00 12:00 12:00 Temp 37.2 37.4 37.3 Pulse 80 86 85 Resp 20 25 20 B/P (MAP) 140/84 149/84 142/81 Pulse Ox 96 96 95 93 O2 Delivery Mechanical Ventilator Mechanical Ventilator Mechanical Ventilator Mechanical Ventilator O2 Flow Rate 30.00 30.00 30.00 FiO2 25 09/15/21 13:00 Pulse 88 09/15/21 00:00 Intake Total 750 ml Output Total 1375 ml Balance -625 ml Constitutional: other (intubated and on mech vent) Respiratory: No accessory muscle use; other (fair to good air entry, bilat) Cardiovascular: regular rate-rhythm, S1 and S2, systolic murmur (soft CARL at card base) Gastrointestional: No tender; soft; No guarding, No rebound; audible bowel sounds, other (NG tube in place) Extremities: swelling (mild to mod gen swelling); No clubbing, No cyanosis Neurologic/Psychiatric: other (unresponive, on mech vent) Skin: No rash on exposed areas, No ulcerations on exposed areas Results/Procedures: Labs Laboratory Tests 09/14/21 18:06: Glucometer 105 09/14/21 23:59: Glucometer 89 09/15/21 04:30: White Blood Count 10.0, Red Blood Count 3.14L, Hemoglobin 9.9L, Hematocrit 30L, Mean Corpuscular Volume 95, Mean Corpuscular Hemoglobin 32, Mean Corpuscular Hemoglobin Concent 33, Red Cell Distribution Width 12.3, Platelet Count 287, Mean Platelet Volume 8.7L, Immature Granulocyte % (Auto) 1, Neutrophils (%) (Auto) 88H, Lymphocytes (%) (Auto) 4L, Monocytes (%) (Auto) 5, Eosinophils (%) (Auto) 2, Basophils (%) (Auto) 0, Neutrophils # (Auto) 8.8H, Lymphocytes # (Auto) 0.4L, Monocytes # (Auto) 0.5, Eosinophils # (Auto) 0.2, Basophils # (Auto) 0.0, Immature Granulocyte # (Auto) 0.1, Sodium Level 140, Potassium Level 3.4L, Chloride Level 107, Carbon Dioxide Level 19L, Anion Gap 14, Blood Urea Nitrogen 15, Creatinine 1.36H, Estimat Glomerular Filtration Rate 57, BUN/Creatinine Ratio 11, Glucose Level 81, Calcium Level 7.7L, Magnesium Level 2.0 09/15/21 07:46: Vancomycin Level Trough 12.4 09/15/21 11:39: Glucometer 79 Microbiology 09/13/21 Blood Culture - Preliminary, Resulted No growth 09/11/21 MRSA Screen - Final, Complete MRSA not isolated Laboratory Tests 09/14/21 04:20 09/15/21 04:30 A/P: Assessment: Ac Inf Wall STEMI - hemodynamically unstable (PEA at initial presentation) CAD - card cath of 6/8/22: Coronary artery disease primarily consisting of severe mid vessel stenosis of the dominant right coronary artery that was the culprit in causing an inferior wall ST elevation myocardial infarction and that was successfully stented with Skypoint 2.5 x 28 mm stent. The first diagonal branch of the left anterior descending artery has a 50% to 60% proximal and mid vessel stenosis. It is a small caliber vessel. The left circumflex artery is nondominant and has a large first obtuse marginal branch, a subbranch of which has approximately 60% to 70% stenosis. Elevated left ventricular end-diastolic pressure. Left ventricular ejection fraction approximately 60% - echo of 09/12/21: LVEF 50-55% Ac renal failure on top of CKD 4 - acute component has improved; acidosis has improved; hyperkalemia has resolved DMI II Ac resp failure - on mech vent ?Heavy ETOH usage Gen edema on 09/15/21 Plan: * D/c iv fluids. Tube feeding * Low-dose furosemide due to considerable edema * Hypokalemic today: replenish and monitor labs BAILEY CURRAN MD FACP [facility] CCDS Sep 15, 2021 13:49
[2021-09-15] MEDS ORDERED: FUROSEMIDE 40 MG/4 ML INJ (LASIX) IVP ONE (14:00)
[2021-09-15 18:33] VITALS: BP 164/90
[2021-09-15 22:20] VITALS: BP 164/91
[2021-09-16 02:17] VITALS: BP 180/99
[2021-09-16] MEDS: PIPERACILLIN SODIUM/TAZOBACTAM 4.5 GM in NS (IVPB) 100 ML IV SCH ×3 (02:36→21:39)
[2021-09-16] MEDS: ACETAMINOPHEN 500 MG TAB (TYLENOL) PO PRN ×2 (02:36→14:29)
[2021-09-16 03:03] LABS: BASOPHILS % (AUTO) 0 % (0-10); EOSINOPHILS # (AUTO) 0.3 10^3/uL (0.0-0.3); EOSINOPHILS % (AUTO) 3 % (0-10); HEMATOCRIT 29 % (40-54); HEMOGLOBIN 9.6 g/dL (13.3-17.7); LYMPHOCYTES # (AUTO) 0.5 X 10^3 (1.0-4.0); LYMPHOCYTES % (AUTO) 6 % (12-44); MEAN CORPUSCULAR HEMOGLOBIN 31 pg (25-34); MEAN CORPUSCULAR HGB CONC 33 g/dL (32-36); MEAN CORPUSCULAR VOLUME 95 fL (80-99); MEAN PLATELET VOLUME 8.5 fL (9.0-12.2); MONOCYTES # (AUTO) 0.8 X 10^3 (0.0-1.0); MONOCYTES % (AUTO) 9 % (0-12); NEUTROPHILS # (AUTO) 7.2 X 10^3 (1.8-7.8); NEUTROPHILS % (AUTO) 82 % (42-75); PLATELET COUNT 340 10^3/uL (130-400); WHITE BLOOD COUNT 8.8 10^3/uL (4.3-11.0)
[2021-09-16] MEDS: LORazepam INJ 2 MG/ML (ATIVAN) VIAL IVP SCH ×7 (03:06→23:40)
[2021-09-16] MEDS: PROPOFOL DRIP (ICU) 100 ML IV SCH ×2 (03:06→17:30)
[2021-09-16 03:38] LABS: CREATININE SERUM 1.47 MG/DL (0.60-1.30); POTASSIUM 3.5 MMOL/L (3.6-5.0)
[2021-09-16 03:39] LABS: MAGNESIUM 2.2 MG/DL (1.6-2.4)
[2021-09-16] MEDS: MAGNESIUM 1 GM/100 ML IVPB 100 ML IV SCH (03:47)
[2021-09-16] MEDS: KCL 20 MEQ TAB (K-DUR) PO SCH (03:51)
[2021-09-16] MEDS: POTASSIUM CL 10MEQ/50ML IVPB 50 ML IV SCH ×3 (03:52→04:58)
[2021-09-16] MEDS: inSUlin ASPART (NovoLOG) 1 UNIT/0.01 ML (CHARGE PER UNIT) SC SCH ×4 (06:03→23:41)
--- NOTE | 2021-09-16 06:48 | Tele-ICU Progress Note ---
Progress Note Called for PICC line coiled in the Rt neck. Order placed to remove it and place a new PICC. Focused Exam Lactate Level 09/13/21 12:20: Lactic Acid Level 1.61 Height, Weight, BMI Height: '" Weight: lbs. oz. kg; 24.50 BMI Method: LAKESHIA ALAMO MD Sep 16, 2021 06:48
[2021-09-16 07:03] VITALS: BP 145/85
[2021-09-16] MEDS: meTOprolol TARTRATE 25 MG (LOPRESSOR) TABLET PO SCH (08:10)
[2021-09-16] MEDS: CLOPIDOGREL 75 MG (PLAVIX) TABLET PO SCH (08:10)
[2021-09-16] MEDS: FOLIC ACID 1 MG TAB PO SCH (08:10)
[2021-09-16] MEDS: MULTIVIT W/MINERALS TAB (THERAGRAN M) PO SCH (08:10)
[2021-09-16] MEDS: ASPIRIN 81 MG CHEW (CHILDREN'S ASA) PO SCH (08:10)
[2021-09-16] MEDS: PANTOPRAZOLE 40 MG (PROTONIX) VIAL IV SCH (08:15)
[2021-09-16] MEDS: THIAMINE 100 MG/ML 2 ML (VITAMIN B-1) VIAL IV SCH (08:16)
[2021-09-16] MEDS: VANCOMYCIN 1 GM/NS 250 ML IVPB IV SCH ×2 (08:31)
--- NOTE | 2021-09-16 09:30 | Progress Note - Cardiology ---
Cardiology SOAP Progress Note Subjective: On mech vent. Not able to respond Objective: I&O/Vital Signs 09/15/21 09/15/21 09/15/21 09/15/21 22:00 22:20 23:00 23:46 Temp 37.2 37.4 37.6 Pulse 93 92 92 Resp 16 30 16 B/P (MAP) 168/98 160/91 Pulse Ox 96 95 97 O2 Delivery Mechanical Ventilator Mechanical Ventilator O2 Flow Rate 24.00 24.00 FiO2 24 09/16/21 09/16/21 09/16/21 09/16/21 00:00 00:00 00:20 01:00 Temp 37.5 37.6 Pulse 98 96 Resp 16 B/P (MAP) 172/90 Pulse Ox 97 94 O2 Delivery Mechanical Ventilator Mechanical Ventilator O2 Flow Rate 24.00 FiO2 25 09/16/21 09/16/21 09/16/21 09/16/21 01:00 02:17 02:36 03:06 Temp 37.7 37.6 37.6 Pulse 96 93 Resp 16 24 B/P (MAP) 176/96 Pulse Ox 100 96 O2 Delivery Mechanical Ventilator O2 Flow Rate 24.00 FiO2 24 09/16/21 09/16/21 09/16/21 09/16/21 03:15 03:54 04:14 05:00 Temp 37.6 37.3 37.3 Pulse 93 92 92 Resp 16 16 19 B/P (MAP) 168/100 176/95 170/105 Pulse Ox 96 95 95 97 O2 Delivery Mechanical Ventilator Mechanical Ventilator Mechanical Ventilator Mechanical Ventilator O2 Flow Rate 24.00 24.00 24.00 FiO2 25 09/16/21 09/16/21 09/16/21 09/16/21 06:00 06:40 07:00 07:03 Temp 36.8 36.7 Pulse 93 94 96 92 Resp 16 17 18 B/P (MAP) 142/79 145/85 Pulse Ox 91 92 92 O2 Delivery Mechanical Ventilator Mechanical Ventilator O2 Flow Rate 24.00 24.00 FiO2 24 09/16/21 09/16/21 07:54 08:00 Temp 36.9 36.9 Pulse 97 Resp 21 B/P (MAP) 150/89 Pulse Ox 96 O2 Delivery Mechanical Ventilator O2 Flow Rate 24.00 09/16/21 00:00 Intake Total 590 ml Output Total 1950 ml Balance -1360 ml Constitutional: other (intubated and on mech vent) Respiratory: No accessory muscle use; other (fair to good air entry, bilat) Cardiovascular: regular rate-rhythm, S1 and S2, systolic murmur (soft CARL at card base) Gastrointestional: No tender; soft; No guarding, No rebound; audible bowel sounds, other (NG tube in place) Extremities: swelling (mild to mod gen swelling); No clubbing, No cyanosis Neurologic/Psychiatric: other (unresponive, on mech vent) Skin: No rash on exposed areas, No ulcerations on exposed areas Results/Procedures: Labs Laboratory Tests 09/15/21 11:39: Glucometer 79 09/15/21 17:28: Glucometer 108 09/15/21 23:40: Glucometer 103 09/16/21 02:45: White Blood Count 8.8, Red Blood Count 3.06L, Hemoglobin 9.6L, Hematocrit 29L, Mean Corpuscular Volume 95, Mean Corpuscular Hemoglobin 31, Mean Corpuscular Hemoglobin Concent 33, Red Cell Distribution Width 12.5, Platelet Count 340, Mean Platelet Volume 8.5L, Immature Granulocyte % (Auto) 1, Neutrophils (%) (Auto) 82H, Lymphocytes (%) (Auto) 6L, Monocytes (%) (Auto) 9, Eosinophils (%) (Auto) 3, Basophils (%) (Auto) 0, Neutrophils # (Auto) 7.2, Lymphocytes # (Auto) 0.5L, Monocytes # (Auto) 0.8, Eosinophils # (Auto) 0.3, Basophils # (Auto) 0.0, Immature Granulocyte # (Auto) 0.1, Sodium Level 140, Potassium Level 3.5L, Chloride Level 107, Carbon Dioxide Level 20L, Anion Gap 13, Blood Urea Nitrogen 16, Creatinine 1.47H, Estimat Glomerular Filtration Rate 52, BUN/Creatinine Ratio 11, Glucose Level 109H, Calcium Level 8.0L, Magnesium Level 2.2 09/16/21 02:59: POC pH (Misc Panel) 7.422H, POC Base Excess (Misc Panel) -3L, POC pO2 (Misc Panel) 70L, POC pCO2 (Misc Panel) 32.7L, POC HCO3 (Misc Panel) 21.3L, POC Blood Gas Total CO2 Calc 22L, Bedside Bl Gas O2 Saturation (Calc) 94L, Bedside Lactic Acid 0.42 09/16/21 05:53: Glucometer 120H Microbiology 09/13/21 Blood Culture - Preliminary, Resulted No growth 09/11/21 MRSA Screen - Final, Complete MRSA not isolated Laboratory Tests 09/15/21 04:30 09/16/21 02:45 A/P: Assessment: Ac Inf Wall STEMI - transinently hemodynamically unstable at initial presentation: transient PEA - hemodynamically stable since PCI for STEMI (see below CAD - card cath of 09/11/21: Coronary artery disease primarily consisting of severe mid vessel stenosis of the dominant right coronary artery that was the culprit in causing an inferior wall ST elevation myocardial infarction and that was successfully stented with Skypoint 2.5 x 28 mm stent. The first diagonal branch of the left anterior descending artery has a 50% to 60% proximal and mid vessel stenosis. It is a small caliber vessel. The left circumflex artery is nondominant and has a large first obtuse marginal branch, a subbranch of which h as approximately 60% to 70% stenosis. Elevated left ventricular end-diastolic pressure. Left ventricular ejection fraction approximately 60% - echo of 09/12/21: LVEF 50-55% Ac renal failure on top of CKD 4 - acute component has improved; acidosis has improved; hyperkalemia has resolved DMI II Ac resp failure - on mech vent ?Heavy ETOH usage Gen edema on 09/15/21, improved post furosemide Plan: * Edema has improved * Hypokalemic today: replenish and monitor labs * Hosp and ICU services managing vent and resp failure BAILEY CURRAN MD FACP [facility] Sep 16, 2021 09:30
--- NOTE | 2021-09-16 10:41 | Tele-ICU Progress Note ---
Subjective Date Seen by a Provider: Sep 16, 2021 Time Seen by a Provider: 10:40 Subjective/Events-last exam (Tele-ICU Physician , Progress Note ) Available chart/ vitals / labs / Images reviewed Video assessment done using teleICU camera, rest of exam as per RN Discussed with RN , EXAM PER RN Events overnight : Afebrile FiO2 - 25 I/O = neg 23 Drips: Pressors: , hemodynamically stable Sedation gtt: off ( RASS -1 ) VENT SETTINGS and ABG reviewed Not candidate for SBT today REVIEWED Cardiovascular Stability / Sedation Score / FI02/PEEP / ABG / CXR Consultants: yosi Hospital course: (09/11) 65m admitted for Cardiac Arrest and STEMI. CCL for stent to RCA x1 09/13- 60% and a PEEP of 5. As per RN he is not responsive to noxious stimuli 09/15-40%/+5. A/P Acute resp failure - intubated with card arrest 09/11 - on 25% , ac 16 450 +5 - will SBT today PEA at initial presentation - as per cards CAD. Inf Wall STEMI -CCL for stent to RCA x1 09/11 -EF 60 % Evcephalopaty post arrest - cth wnl 09/11 - 09/12 with propofol down - increased RR , precedex - getting more hypoxic -- back to propofol - OFF sedation 09/14 - as per RN - follow with eyes , not follow commands , using occasional ativan - given 2 times 0.5 last 24 h ativan BEKA - improving with hydration - stable - to cont - OFF bicarb gtt DM II - ISS Red- tinged secretions on OG suctioon - cont protonix and start throphic feeding today reportedly ETON use , as per notes - thiamine Lines : 09/15- PICC line coiled in the Rt neck- removed 09/16 (Central Line Necessity Reviewed) Khan: OG: + Nutrition: TF - tolerates Analgesia: Anxiety/ delirium VTE Prophylaxis: kaykay 40 Stress Ulcer Prophylaxis: ppi Plans in collaboration with bedside consultants and IM MDs. Discussed with RN to reach out if any questions or concerns A total of 33 minutes of critical care time was devoted to this patient today, required to treat and/or prevent further deterioration of critical care condition ( as above) Sepsis Event Evaluation Height, Weight, BMI Height: '" Weight: lbs. oz. kg; 24.50 BMI Method: Focused Exam Lactate Level 6/10/22 12:20: Lactic Acid Level 1.61 Exam Exam Patient acknowledged, consented, and participated in this virtual visit which was conducted using real time audio/video Vital Signs Date Time Temp Pulse Resp B/P (MAP) Pulse Ox O2 Delivery O2 Flow Rate FiO2 09/16/21 10:00 37.0 88 28 152/92 98 Mechanical Ventilator 24.00 09/16/21 09:00 37.0 92 14 141/86 95 Mechanical Ventilator 24.00 09/16/21 08:00 36.9 97 21 150/89 96 Mechanical Ventilator 24.00 09/16/21 07:54 36.9 09/16/21 07:03 92 18 92 24 09/16/21 07:00 36.7 96 17 145/85 92 Mechanical Ventilator 24.00 09/16/21 06:40 94 09/16/21 06:00 36.8 93 16 142/79 91 Mechanical Ventilator 24.00 09/16/21 05:00 37.3 92 19 170/105 97 Mechanical Ventilator 24.00 09/16/21 04:14 37.3 92 16 176/95 95 Mechanical Ventilator 24.00 09/16/21 03:54 95 Mechanical Ventilator 25 09/16/21 03:15 37.6 93 16 168/100 96 Mechanical Ventilator 24.00 09/16/21 03:06 37.6 09/16/21 02:36 37.6 09/16/21 02:17 93 24 96 24 09/16/21 01:00 37.7 96 16 176/96 100 Mechanical Ventilator 24.00 09/16/21 01:00 96 09/16/21 00:20 37.6 09/16/21 00:00 94 Mechanical Ventilator 25 09/16/21 00:00 37.5 98 16 172/90 97 Mechanical Ventilator 24.00 09/15/21 23:46 37.6 09/15/21 23:00 37.4 92 16 160/91 97 Mechanical Ventilator 24.00 09/15/21 22:20 92 30 95 24 09/15/21 22:00 37.2 93 16 168/98 96 Mechanical Ventilator 24.00 09/15/21 21:00 37.8 96 16 175/97 96 Mechanical Ventilator 24.00 09/15/21 20:42 37.8 09/15/21 20:08 37.8 6/12/22 20:00 95 Mechanical Ventilator 25 09/15/21 20:00 37.7 102 16 168/93 94 Mechanical Ventilator 24.00 09/15/21 19:58 37.8 09/15/21 19:00 101 09/15/21 19:00 37.7 101 16 167/91 95 Mechanical Ventilator 24.00 09/15/21 18:33 98 24 94 24 09/15/21 18:00 37.7 94 20 159/90 95 Mechanical Ventilator 24.00 09/15/21 17:00 37.7 101 26 157/89 94 Mechanical Ventilator 24.00 09/15/21 16:00 37.6 09/15/21 16:00 37.6 100 26 172/83 94 Mechanical Ventilator 24.00 09/15/21 15:59 94 Mechanical Ventilator 25 09/15/21 15:00 37.6 99 26 162/90 94 Mechanical Ventilator 24.00 09/15/21 14:00 37.5 89 23 153/89 94 Mechanical Ventilator 30.00 09/15/21 13:00 88 09/15/21 13:00 37.4 93 24 158/88 95 Mechanical Ventilator 30.00 09/15/21 12:00 93 Mechanical Ventilator 25 09/15/21 12:00 37.3 85 20 142/81 95 Mechanical Ventilator 30.00 09/15/21 11:00 37.4 86 25 149/84 96 Mechanical Ventilator 30.00 I & O 09/16/21 07:00 Intake Total 1370 ml Output Total 2750 ml Balance -1380 ml Height & Weight Height: '" Weight: lbs. oz. kg; 24.50 BMI Method: General Appearance: Other (intubated and sedated) HEENT: Other (ETT in place) Neck: Normal Inspection, Supple Respiratory: Lungs Clear, Other (on vent) Cardiovascular: Regular Rate, Rhythm, No Murmur Capillary Refill: Less Than 3 Seconds Peripheral Pulses: 1+ Dorsalis Pedis (R), 1+ Left Dors-Pedis (L) Extremity: Swelling (1+ in hands and feet) Neurologic/Psychiatric: Other (did not arouse, no sedation running) Skin: Normal Color, Warm/Dry Results Lab Laboratory Tests 09/15/21 04:30 09/16/21 02:45 Assessment/Plan Assessment/Plan ` CHARLEE MARQUEZ MD Sep 16, 2021 10:41
--- NOTE | 2021-09-16 10:55 | Progress Note - Hospitalist ---
Subjective HPI/CC On Admission Date Seen by Provider: Sep 16, 2021 Time Seen by Provider: 10:44 Marcello Tellez is a 65 year old male with PMH HTN, HLD, CAD, T2DM, who was found minimally responsive by his . She said he wakes up earlier than her. She heard him moaning in the living room and went to check on him. She asked if she needed to call an ambulance and he shook his head yes. EMS arrived and applied AED and began CPR. No shocks were advised and ROSC was obtained after one round of CPR. He was intubated. An EKG revealed STEMI and he was taken to the labeling machine operator where he was found to have an inferior [place] and had a stent placed in his RCA. Upon my exam, he is intubated and sedated in the ICU. His is present at the bedside. Subjective/Events-last exam Pt remains intubated. No ROS possible. No family at bedside. They plan to visit this afternoon. RN reports he was tracking the night nurse but would not follow any commands. Focused Exam Lactate Level 09/13/21 12:20: Lactic Acid Level 1.61 Objective Exam Vital Signs Vital Signs Date Time Temp Pulse Resp B/P (MAP) Pulse Ox O2 Delivery O2 Flow Rate FiO2 09/16/21 10:00 37.0 88 28 152/92 98 Mechanical Ventilator 24.00 09/16/21 07:03 24 Capillary Refill : Less Than 3 Seconds General Appearance: Other (intubated) Respiratory: Lungs Clear, No Respiratory Distress Cardiovascular: Regular Rate, Rhythm, No Murmur Gastrointestinal: Normal Bowel Sounds, Non Tender, Soft Genital/Rectal: Other ([place]) Extremity: Pedal Edema, Swelling (in hands) Neurologic/Psychiatric: Other (does not arouse to verbal or physical stimuli, ) Results/Procedures Lab Laboratory Tests 09/16/21 02:45 Patient resulted labs reviewed. Imaging: Reviewed Imaging Report Assessment/Plan Assessment and Plan Assess & Plan/Chief Complaint STEMI Cardiac arrest CAD HTN HLD Cardiology primary s/p RCA stent placement on admission ASA and Plavix Metoprolol Lipitor AHRF Endotracheally intubated Intubated, sedation held still to assessment neurological capacity TeleICU following Attempting to wean as able- vent settings minimal Afebrile now but running high normal temps Repeat blood cultures NGTD Lactic acid normal Continue NONA [place] Vanc BEKA on CKD- acute component resolved Hypokalemia Hyponatremia Continue tube feeds Replace K+ per protocol T2DM Sliding scale insulin Alcohol abuse Reportedly chronic daily alcohol use Ativan ordered to prevent withdrawal- hold for now Continue Thiamine Goals of care discussion Discussed with his significant other again yesterday, will meet with her when she's here this afternoon DVT prophylaxis: Lovenox held for hematuria Critical Care Ventilator Management Diagnosis/Problems Diagnosis/Problems (1) Acute kidney injury superimposed on chronic kidney disease Status: Acute (2) T2DM (type 2 diabetes mellitus) Status: Chronic Qualifiers: Diabetes mellitus snf insulin use: without petroleum terminal plant operator use Diabetes mellitus complication status: without complication Qualified Codes: E11.9 - Type 2 diabetes mellitus without complications (3) HLD (hyperlipidemia) Status: Chronic (4) HTN (hypertension) Status: Chronic (5) Acute ST elevation myocardial infarction (STEMI) of inferior wall Status: Acute (6) Alcohol abuse (7) CAD (coronary artery disease) Status: Acute Qualifiers: Coronary Disease-Associated Artery/Lesion type: [place] artery [place] vs. transplanted heart: [place] heart (8) Cardiac arrest Status: Acute (9) S/P coronary artery stent placement Status: Acute PAL REYES MD Sep 16, 2021 10:55
[2021-09-16 11:09] VITALS: BP 147/86
[2021-09-16 11:12] VITALS: BP 162/90
[2021-09-16] MEDS: ENOXAPARIN 40 MG/0.4 ML (LOVENOX) SYR SQ SCH (17:30)
[2021-09-16] MEDS: NOREPINEPHRINE 8 MG/250 ML 250 ML IV SCH (19:34)
[2021-09-16] MEDS: meTOprolol 5 MG/5 ML (LOPRESSOR) VIAL IV SCH (21:39)
[2021-09-17] MEDS: PIPERACILLIN SODIUM/TAZOBACTAM 4.5 GM in NS (IVPB) 100 ML IV SCH ×3 (03:07→18:44)
[2021-09-17] MEDS: LORazepam INJ 2 MG/ML (ATIVAN) VIAL IVP SCH ×6 (03:56→23:09)
[2021-09-17 05:10] LABS: BASOPHILS % (AUTO) 0 % (0-10); EOSINOPHILS # (AUTO) 0.3 10^3/uL (0.0-0.3); EOSINOPHILS % (AUTO) 3 % (0-10); HEMATOCRIT 33 % (40-54); HEMOGLOBIN 10.6 g/dL (13.3-17.7); LYMPHOCYTES # (AUTO) 0.8 10^3/uL (1.0-4.0); LYMPHOCYTES % (AUTO) 8 % (12-44); MEAN CORPUSCULAR HEMOGLOBIN 31 pg (25-34); MEAN CORPUSCULAR HGB CONC 32 g/dL (32-36); MEAN CORPUSCULAR VOLUME 96 fL (80-99); MEAN PLATELET VOLUME 8.7 fL (9.0-12.2); MONOCYTES # (AUTO) 1.3 10^3/uL (0.0-1.0); MONOCYTES % (AUTO) 12 % (0-12); NEUTROPHILS # (AUTO) 8.2 10^3/uL (1.8-7.8); NEUTROPHILS % (AUTO) 76 % (42-75); PLATELET COUNT 368 10^3/uL (130-400); WHITE BLOOD COUNT 10.8 10^3/uL (4.3-11.0)
[2021-09-17 05:15] LABS: POTASSIUM 3.8 MMOL/L (3.6-5.0)
[2021-09-17 05:16] LABS: CALCIUM 8.5 MG/DL (8.5-10.1)
[2021-09-17 05:20] LABS: CREATININE SERUM 1.31 MG/DL (0.60-1.30)
[2021-09-17 05:23] LABS: MAGNESIUM 2.1 MG/DL (1.6-2.4)
[2021-09-17] MEDS: MAGNESIUM 1 GM/100 ML IVPB 100 ML IV SCH (06:09)
[2021-09-17] MEDS: inSUlin ASPART (NovoLOG) 1 UNIT/0.01 ML (CHARGE PER UNIT) SC SCH ×4 (06:10→23:42)
[2021-09-17] MEDS: KCL 20 MEQ TAB (K-DUR) PO SCH (06:10)
[2021-09-17] MEDS: POTASSIUM CL 10MEQ/50ML IVPB 50 ML IV SCH (06:10)
[2021-09-17] MEDS: MULTIVIT W/MINERALS TAB (THERAGRAN M) PO SCH (07:00)
--- NOTE | 2021-09-17 08:04 | Progress Note - Hospitalist ---
Subjective HPI/CC On Admission Date Seen by Provider: Sep 17, 2021 Marcello Tellez is a 65 year old male with PMH HTN, HLD, CAD, T2DM, who was found minimally responsive by his . She said he wakes up earlier than her. She heard him moaning in the living room and went to check on him. She asked if she needed to call an ambulance and he shook his head yes. EMS arrived and applied AED and began CPR. No shocks were advised and ROSC was obtained after one round of CPR. He was intubated. 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 Upon my exam, he is intubated and sedated in the ICU. His is present at the bedside. Subjective/Events-last exam Pt now extubated. Does not respond. Does track with his eyes. Did not follow any commands. Objective Exam Vital Signs Vital Signs Date Time Temp Pulse Resp B/P (MAP) Pulse Ox O2 Delivery O2 Flow Rate FiO2 09/17/21 07:35 35.8 09/17/21 06:00 98 33 147/86 93 Room Air 09/16/21 20:00 25 09/16/21 18:00 24.00 Capillary Refill : Less Than 3 Seconds General Appearance: No Apparent Distress Respiratory: Lungs Clear, No Respiratory Distress Cardiovascular: Regular Rate, Rhythm, No Murmur Gastrointestinal: Normal Bowel Sounds, Non Tender, Soft Neurologic/Psychiatric: Alert, Other (answered no questions, tracked with his eyes, followed no commands) Results/Procedures Lab Laboratory Tests 09/17/21 04:20 Patient resulted labs reviewed. Imaging: Reviewed Imaging Report Assessment/Plan Assessment and Plan Assess & Plan/Chief Complaint STEMI Cardiac arrest CAD HTN HLD Cardiology primary s/p RCA stent placement on admission ASA and Plavix- change ASA to rectal, discussed with pharmacy regarding inability to take PO and need for DAPT- may need NGT Metoprolol Lipitor AHRF Endotracheally intubated- resolved Anoxic Brain Injury- POA Extubated 09/16 TeleICU following Afebrile Repeat blood cultures NGTD Lactic acid normal Continue Zosyn Speech, PT/OT consulted Palliative Care RN consulted BEKA on CKD- acute component resolved Hypokalemia Hyponatremia DC tube feeds now that is extubated Replace K+ per protocol T2DM Sliding scale insulin Alcohol abuse Reportedly chronic daily alcohol use Continue Thiamine IV Goals of care discussion Extubated with plan to not reintubate if he does not do well Will discuss with family today regarding security associate care as is tolerating breathing on his own but is not neurologically intact DVT prophylaxis: Lovenox Critical Care Ventilator Management Diagnosis/Problems Diagnosis/Problems (1) Acute kidney injury superimposed on chronic kidney disease Status: Acute (2) T2DM (type 2 diabetes mellitus) Status: Chronic Qualifiers: Diabetes mellitus senior living insulin use: without security associate use Diabetes mellitus complication status: without complication Qualified Codes: E11.9 - Type 2 diabetes mellitus without complications (3) HLD (hyperlipidemia) Status: Chronic (4) HTN (hypertension) Status: Chronic (5) Acute ST elevation myocardial infarction (STEMI) of inferior wall Status: Acute (6) Alcohol abuse (7) CAD (coronary artery disease) Status: Acute Qualifiers: Coronary Disease-Associated Artery/Lesion type: [place] artery [place] vs. transplanted heart: [place] heart (8) Cardiac arrest Status: Acute (9) S/P coronary artery stent placement Status: Acute PAL REYES MD Sep 17, 2021 08:04
[2021-09-17] MEDS: meTOprolol 5 MG/5 ML (LOPRESSOR) VIAL IV SCH ×2 (08:14→20:44)
[2021-09-17] MEDS: THIAMINE 100 MG/ML 2 ML (VITAMIN B-1) VIAL IV SCH (08:14)
[2021-09-17] MEDS: PANTOPRAZOLE 40 MG (PROTONIX) VIAL IV SCH (08:14)
[2021-09-17] MEDS ORDERED: ENOXAPARIN 40 MG/0.4 ML (LOVENOX) SYR SQ SCH (08:15)
[2021-09-17] MEDS: CLOPIDOGREL 75 MG (PLAVIX) TABLET PO SCH (09:00)
--- NOTE | 2021-09-17 09:00 | ST Dysphagia Evaluation ---
Speech Evaluation-General Medical Diagnosis VT, s/p Intubation Onset Date: Sep 11, 2021 Therapy Diagnosis Therapy Diagnosis: Suspected Oropharyngeal Dysphagia Precautions Precautions: Fall, Aspiration Precautions/Isolations: Aspiration, Fall Prevention, Standard Precautions Referral Referring Physician: Dr. Hook Reason for Referral: Evaluation/Treatment Medical History Current History The patient is a 65-year-old gentleman, who is reported to have a history of multiple coronary artery disease risk factors and a history of coronary artery disease. Apparently, he collapsed at home. The EMT were called. They report that the patient did have a rhythm (probably sinus) at presentation, but he was transiently pulseless. He was intubated and mechanically ventilated. The patient remained intubated until 09/16/2021. Reviewed History: Yes Speech PLF/Current-Dysphagia Prior Level of Function The patient's prior level of function is unknown to this clinician. The patient is non-verbal at this time and not does respond to the clinician's questions. Subjective The patient was lying in bed, sleeping upon entrance to his room. With maximum verbal prompting, the patient slightly opens his eyes to make eye contact with the clinician. Verbal prompting must remain constant for consistent, limited alertness. The patient is positioned upright in bed for safe swallowing position. Cognitive Status Patient Orientation: Unresponsive Oral Motor Skills Ability to Follow Directions: Unable Oral Expression Ability: Severe Impairment Face Facial Symmetry: Symmetrical (The patient's facial structures are symmetrical at rest.) The patient does not follow verbal instructions or direct modeling attempts by the clinician to assess the oral structures prior to the clinical bedside swallowing evaluation. Oral-Facial Assessment Volitional Dry Swallow: No Voluntary Cough: No Can Clear Throat Volitionally: No Productive Cough: No Productive Throat Clear: No Dysphagia Evaluation Consistencies Presented: Thin Liquid (Ice chip), Pureed (Applesauce coated teaspoon, minimal.) Oral Phase: Anterior Spillage, Unable to Form Bolus, Reduced Oral Transit The clinician attempted an oral swab prior to P.O. presentations. The patient does not open the oral cavity for oral care regardless of maximum verbal prompting and direct modeling. In attempts to improve awareness, a spoon with an ice chip was presented. The patient displays a minimal involuntary, familiar response to the spoon, opening the oral cavity slightly. The patient does not attempt removal of the ice chip. Once the ice chip was placed at the anterior, inferior labial buccal surface, no manipulation occurred. Anterior spillage was present of the melted ice chip. Following significant time, a rigorous cough occurred suggesting the ice chip (melted) was subsequently aspirated without an elicited swallow. Following oral suctioning, a coated teaspoon with applesauce was attempted. The material was placed on the lingual surface. No attempts to transfer the bolus posterior occurred. The substance was subsequently suctioned by the clinician. At this time, oral trials were ended due to poor patient alertness and for overall patient safety. Please see comments from oral phase above. Dietary Recommendations: NPO Liquid Recommendations: NPO Recommendations: - NPO. - Frequent, excellent, and thorough oral care to reduce the transfer of oral bacteria to the lungs should aspiration of secretions occur. - Speech pathology to continue oropharyngeal swallow re-evaluations as alertness, appropriateness, and overall participation improves. The results and recommendations were provided to the RN immediately following the evaluation. Dysphagia Evaluation Summary The patient demonstrated suspected oropharyngeal dysphagia characterized by abs ent oral manipulation of bolus material, absent posterior transfer of bolus material, and absent elicitation of a timely pharyngeal swallow. Speech Short Term Goals Short Term Goals Short Term Goals 1. The patient, family, and staff will follow safe swallowing protocols, including excellent oral care, with 90% accuracy, independently. Time Frame-STG: Five Days. Speech Chief Nuclear Medicine Technologist Goals Chief Nuclear Medicine Technologist Goals 1. The patient will tolerate the least restrictive diet without s/s of suspected aspiration. Time Frame: One Week. Speech-Plan Treatment Plan Speech Therapy Treatment Plan: Continue Plan of Care Frequency: 3 times per week (Three to five times per week, as appropriate.) Estimated Hrs Per Day: .25 hour per day Rehab Potential: Guarded Pt/Family Agrees to Plan: Yes Safety Risks/Education Teaching Recipient: Patient Teaching Methods: Discussion Response to Teaching: Unable to Comprehend Education Topics Provided: Results, Recommendations, Plan of Care Time Speech Therapy Time In: 08:40 Speech Therapy Time Out: 09:00 Total Billed Time: 20 Billed Treatment Time 1, NARESH RHODES ELIZABETH Sep 17, 2021 09:00
[2021-09-17] MEDS: ASPIRIN 300 MG (5 GR) SUPPOSITORY PR SCH (09:02)
--- NOTE | 2021-09-17 09:38 | Tele-ICU Progress Note ---
Subjective Date Seen by a Provider: Sep 17, 2021 Time Seen by a Provider: 09:38 Subjective/Events-last exam (Tele-ICU Physician , Progress Note ) Available chart/ vitals / labs / Images reviewed Video assessment done using teleICU camera, rest of exam as per RN Discussed with RN , EXAM PER RN Events overnight : Afebrile FiO2 - 25 I/O = neg 23 Drips: Pressors: , hemodynamically stable Sedation gtt: off ( RASS -1 ) VENT SETTINGS and ABG reviewed Not candidate for SBT today REVIEWED Cardiovascular Stability / Sedation Score / FI02/PEEP / ABG / CXR Consultants: [facility] Hospital course: (09/11) 65m admitted for Cardiac Arrest and STEMI. CCL for stent to RCA x1 09/13- 60% and a PEEP of 5. As per RN he is not responsive to noxious stimuli 09/15-40%/+5. 09/16 - EXTUBATED , on ra , DNI/DNR A/P Acute resp failure - 09/16 - EXTUBATED , on ra PEA at initial presentation - as per cards CAD. Inf Wall STEMI -CCL for stent to RCA x1 09/11 -EF 60 % Evcephalopaty post arrest - [facility] wnl 09/11 follow occasionally some command BEKA - improving with hydration - stable - to cont DM II - ISS reportedly ETON use , as per notes - thiamine DNI / DNR now - advanced directioves and plans as per family and PCP Lines : 09/15- PICC line coiled in the Rt neck- removed 09/16 (Central Line Necessity Reviewed) Khan: + OG: + Nutrition: NPO Analgesia: Anxiety/ delirium VTE Prophylaxis: kaykay 40 Stress Ulcer Prophylaxis: ppi Plans in collaboration with bedside consultants and IM MDs. Discussed with RN to reach out if any questions or concerns A total of 20 minutes of critical care time was devoted to this patient today, required to treat and/or prevent further deterioration of critical care condition ( as above) Sepsis Event Evaluation Height, Weight, BMI Height: '" Weight: lbs. oz. kg; 24.50 BMI Method: Exam Exam Patient acknowledged, consented, and participated in this virtual visit which was conducted using real time audio/video Vital Signs Date Time Temp Pulse Resp B/P (MAP) Pulse Ox O2 Delivery O2 Flow Rate FiO2 09/17/21 09:00 37.3 96 22 174/110 95 Room Air 09/17/21 08:25 95 Room Air 09/17/21 08:00 37.4 101 28 161/95 94 Room Air 09/17/21 07:35 35.8 09/17/21 07:00 37.3 98 31 163/92 95 Room Air 09/17/21 06:52 97 09/17/21 06:40 96 09/17/21 06:00 37.0 98 33 147/86 93 Room Air 09/17/21 05:00 36.3 99 37 157/92 93 Room Air 09/17/21 04:09 37.2 100 156/93 92 Room Air 09/17/21 04:00 37.4 09/17/21 04:00 94 Room Air 09/17/21 03:00 37.7 94 151/97 93 Room Air 09/17/21 02:00 37.7 99 147/102 94 Room Air 09/17/21 01:01 100 09/17/21 01:00 37.6 103 163/84 93 Room Air 09/17/21 00:00 37.4 105 168/98 93 Room Air 09/16/21 23:42 93 Room Air 09/16/21 23:38 37.5 09/16/21 23:00 37.6 105 162/102 95 Room Air 09/16/21 22:00 38.0 102 163/102 93 Room Air 09/16/21 21:00 37.9 102 38 157/93 93 Room Air 09/16/21 20:00 93 Room Air 25 09/16/21 20:00 37.9 101 37 160/87 92 Room Air 09/16/21 19:00 96 09/16/21 19:00 37.8 96 37 155/83 91 Room Air 09/16/21 18:10 Room Air 09/16/21 18:00 37.7 96 157/87 96 Mechanical Ventilator 24.00 09/16/21 17:00 37.7 93 29 159/86 96 Mechanical Ventilator 24.00 09/16/21 16:00 37.8 100 33 149/84 96 Mechanical Ventilator 24.00 09/16/21 16:00 97 Mechanical Ventilator 25 09/16/21 15:00 37.8 09/16/21 15:00 37.8 100 34 161/90 96 Mechanical Ventilator 24.00 09/16/21 14:29 37.9 09/16/21 14:20 107 39 95 24 09/16/21 14:15 37.8 104 34 157/104 96 Mechanical Ventilator 24.00 09/16/21 13:00 37.6 99 36 96 Mechanical Ventilator 24.00 09/16/21 12:23 99 09/16/21 12:00 96 Mechanical Ventilator 25 09/16/21 12:00 37.4 09/16/21 12:00 37.5 106 12 154/93 96 Mechanical Ventilator 24.00 09/16/21 11:12 98 33 98 24 09/16/21 11:09 91 23 98 24 09/16/21 11:00 37.3 91 17 147/86 98 Mechanical Ventilator 24.00 09/16/21 10:00 37.0 88 28 152/92 98 Mechanical Ventilator 24.00 I & O 09/17/21 07:00 Intake Total 930 ml Output Total 2425 ml Balance -1495 ml Height & Weight Height: '" Weight: lbs. oz. kg; 24.50 BMI Method: General Appearance: No Apparent Distress HEENT: Other (ETT in place) Neck: Normal Inspection, Supple Respiratory: Lungs Clear, No Respiratory Distress Cardiovascular: Regular Rate, Rhythm, No Murmur Capillary Refill: Less Than 3 Seconds Peripheral Pulses: 1+ Dorsalis Pedis (R), 1+ Left Dors-Pedis (L) Extremity: Pedal Edema, Swelling (in hands) Neurologic/Psychiatric: Alert, Other (answered no questions, tracked with his eyes, followed no commands) Skin: Normal Color, Warm/Dry Results Lab Laboratory Tests 09/16/21 02:45 09/17/21 04:20 Assessment/Plan Assessment/Plan ` CHARLEE MARQUEZ MD Sep 17, 2021 09:38
--- NOTE | 2021-09-17 11:12 | Progress Note - Cardiology ---
Cardiology SOAP Progress Note Subjective: Extubated yesterday Assisted to side of bed by PT x 3 He is tracking movement and voices in the room, but does not follow commands or answer questions Objective: I&O/Vital Signs 09/17/21 09/17/21 09/17/21 09/17/21 05:00 06:00 06:40 06:52 Temp 36.3 37.0 Pulse 99 98 96 97 Resp 37 33 B/P (MAP) 157/92 147/86 Pulse Ox 93 93 O2 Delivery Room Air Room Air 09/17/21 09/17/21 09/17/21 09/17/21 07:00 07:35 08:00 08:25 Temp 37.3 35.8 37.4 Pulse 98 101 Resp 31 28 B/P (MAP) 163/92 161/95 Pulse Ox 95 94 95 O2 Delivery Room Air Room Air Room Air 09/17/21 09/17/21 09/17/21 09/17/21 09:00 10:00 11:00 12:00 Temp 37.3 36.9 36.3 36.6 Pulse 96 90 98 90 Resp 22 28 B/P (MAP) 174/110 147/87 164/86 Pulse Ox 95 92 94 95 O2 Delivery Room Air Room Air Room Air Room Air 09/17/21 09/17/21 09/17/21 09/17/21 12:00 12:00 12:22 13:00 Temp 36.5 36.6 Pulse 94 101 Resp 13 B/P (MAP) 147/90 Pulse Ox 96 95 O2 Delivery Room Air Room Air 09/17/21 09/17/21 14:00 15:00 Temp 36.0 36.5 Pulse 91 97 B/P (MAP) 160/89 160/86 Pulse Ox 92 94 O2 Delivery Room Air Room Air 09/17/21 00:00 Intake Total 620 ml Output Total 1300 ml Balance -680 ml Constitutional: other (extubated - tracking movement in the room, but not following commands - unable to swallow) Respiratory: No accessory muscle use; other (fair to good air entry, bilat) Cardiovascular: regular rate-rhythm, S1 and S2, systolic murmur (soft CARL at card base) Gastrointestional: soft; No guarding; audible bowel sounds Extremities: swelling (mild to mod gen swelling); No clubbing, No cyanosis Neurologic/Psychiatric: other (see above) Skin: No rash on exposed areas, No ulcerations on exposed areas Results/Procedures: Labs Laboratory Tests 09/16/21 18:30: Glucometer 122H 09/16/21 23:30: Glucometer 85 09/17/21 04:20: White Blood Count 10.8, Red Blood Count 3.46L, Hemoglobin 10.6L, Hematocrit 33L, Mean Corpuscular Volume 96, Mean Corpuscular Hemoglobin 31, Mean Corpuscular Hemoglobin Concent 32, Red Cell Distribution Width 12.3, Platelet Count 368, Mean Platelet Volume 8.7L, Immature Granulocyte % (Auto) 1, Neutrophils (%) (Auto) 76H, Lymphocytes (%) (Auto) 8L, Monocytes (%) (Auto) 12, Eosinophils (%) (Auto) 3, Basophils (%) (Auto) 0, Neutrophils # (Auto) 8.2H, Lymphocytes # (Auto) 0.8L, Monocytes # (Auto) 1.3H, Eosinophils # (Auto) 0.3, Basophils # (Auto) 0.0, Immature Granulocyte # (Auto) 0.2H, Sodium Level 140, Potassium Level 3.8, Chloride Level 105, Carbon Dioxide Level 21, Anion Gap 14, Blood Urea Nitrogen 14, Creatinine 1.31H, Estimat Glomerular Filtration Rate 60, BUN/Creatinine Ratio 11, Glucose Level 90, Calcium Level 8.5, Magnesium Level 2.1 09/17/21 05:22: Glucometer 94 09/17/21 11:42: Glucometer 96 Microbiology 09/13/21 Blood Culture - Preliminary, Resulted No growth 09/11/21 MRSA Screen - Final, Complete MRSA not isolated A/P: Assessment: Ac Inf Wall STEMI - transinently hemodynamically unstable at initial presentation: transient PEA - hemodynamically stable since PCI for STEMI (see below CAD - card cath of 09/11/21: Coronary artery disease primarily consisting of severe mid vessel stenosis of the dominant right coronary artery that was the culprit in causing an inferior wall ST elevation myocardial infarction and that was successfully stented with Skypoint 2.5 x 28 mm stent. The first diagonal branch of the left anterior descending artery has a 50% to 60% proximal and mid vessel stenosis. It is a small caliber vessel. The left circumflex artery is nondominant and has a large first obtuse marginal branch, a subbranch of which has approximately 60% to 70% stenosis. Elevated left ventricular end-diastolic pressure. Left ventricular ejection fraction approximately 60% - echo of 09/12/21: LVEF 50-55% Ac renal failure on top of CKD 4 - acute component has improved; acidosis has improved; hyperkalemia has resolved AMS DMI II [facility] 09-16-21 ?Heavy ETOH usage Gen edema on 09/15/21, improved post furosemide Plan: * Extubated yesterday * AMS - Not following commands, unable to swallow * D/t recent stent placement he is receiving ASA rectally, but Plavix nor Brilinta can be given rectally per Juan Manuel in pharmacy - therefore we will give weight based Lovenox until oral medications can be given * BB being given IV * Hosp and ICU services resp failure NAVNEET LEI Sep 17, 2021 11:12
--- NOTE | 2021-09-17 11:20 | Occupational Therapy Eval ---
OT Evaluation-General/PLF Medical Diagnosis Admission Date 09/11/21 Medical Diagnosis: STEMI Onset Date: Sep 11, 2021 Therapy Diagnosis Therapy Diagnosis: reduced adl status, debility, cognition Precautions Precautions/Isolations: Fall Prevention, Standard Precautions Referral Referral Reason: Evaluation/Treatment Medical History Pertinent Medical History: CAD, DM, HTN Current History Per chart, pt collapsed at home. EMT was called and CPR was performed. Pt ultimately intubated. EKG revealed STEMI. Cardiac cath performed. Pt is unable to provide any PLOF as he is nonverbal throughout entire evaluation. Pt does not shake head yes/no or squeeze hand when cued. ADL-Prior Level of Function SCALE: Activities may be completed with or without assistive devices. 7-Eudfaahytr-syqyzcu completes the activity by him/herself with no assistance from a helper. 5-Set-up or Clean-up Assistance-helper sets up or cleans up; patient completes activity. [place] assists only prior to or following the activity. 4-Supervision or Touching Assistance-helper provides verbal cues and/or touching/steadying and/or contact guard assistance as patient completes activity. Assistance may be provided throughout the activity or intermittently. 3-Partial/Moderate Assistance-helper does LESS THAN HALF the effort. [place] lifts, holds or supports trunk or limbs, but provides less than half the effort. 2-Substantial/Maximal Assistance-helper does MORE THAN HALF the effort. [place] lifts or holds trunk or limbs and provides more than half the effort. 2-Jminkjhyz-plpkpv does ALL the effort. Patient does none of the effort to complete the activity. Or, the assistance of 2 or more helpers is required for the patient to complete the activity. If activity was not attempted, code reason: 7-Patient Refused. 9-Not Applicable-not attempted and the patient did not perform the activity before the current illness, exacerbation or injury. 10-Not Attempted due to Environmental Limitations-(lack of equipment, weather restraints, etc.). 88-Not Attempted due to Medical Conditions or Safety Concerns. Self Care: Unknown Functional Cognition: Unknown OT Current Status Subjective Pt is nonverbal throughout treatment. He is able to track/turn head as therapist walks around bed. Appearance Pt returned to supine, all needs within reach, RN notified. Mental Status/Objective Patient Orientation: Unable to Assess Attachments: Khan Catheter, IV, Telemetry ADL-Treatment Eating (QC): 1 Oral Hygiene (QC): 1 Lower Body Dressing (QC): 1 On/Off Footwear (QC): 1 Toileting Hygiene (QC): 1 Pt sleeping at therapy arrival, difficult to rouse. Extra time to open eyes. Supine<>sit: Dependent, no effort given from patient. Pt only able to tolerate sitting unsupported for ~5-10 seconds before losing balance and needing mod a to maintain upright posture. As fatigue increases, pt begins to sink further into flexion at trunk and neck. Cues for extension, unable to sustain. Edema notable in BUE's, L>R. He is unable to follow simple commands. At this time, pt would be dependent for all adls and functional transfers. Education OT Patient Education: Correct positioning, Purpose of tx/functional activities, Safety issues, Transfer techniques Teaching Recipient: Patient Teaching Methods: Discussion Response to Teaching: Unable to Return Demonstration, Unable to Comprehend OT Fci Goals Fci Goals Time Frame: Oct 15, 2021 Eating (QC): 3 Oral Hygiene (QC): 3 Toileting Hygiene (QC): 3 Shower/Bathe Self (QC): 3 Upper Body Dressing (QC): 3 Lower Body Dressing (QC): 3 On/Off Footwear (QC): 3 1=Demonstrate adherence to instructed precautions during ADL tasks. 2=Patient will verbalize/demonstrate understanding of assistive devices/modifications for ADL. 3=Patient will improve strength/tolerance for activity to enable patient to perform ADL's. OT Education/Plan Problem List/Assessment Assessment: Decreased Activ Tolerance, Decreased Safety Aware, Decreased UE Strength, Dependent Transfers, Edema, Impaired Bed Mobility, Impaired Cognition, Impaired Coordination, Impaired Funct Balance, Impaired Self-Care Skills, Restricted Funct UE ROM Discharge Recommendations Plan/Recommendations: Continue POC Therapy Discharge Recommendati: Post Acute OT Target Placement ongoing assessment needed Further investigation on prior level of functional needed Treatment Plan/Plan of Care Patient would benefit from OT for education, treatment and training to promote independence in ADL's, mobility, safety and/or upper extremity function for ADL's. Plan of Care: ADL Retraining, Caregiver Training, Cognitive Retraining, Fu nctional Mobility, Group Exercise/Act as Ind, UE Funct Exercise/Act, UE Neuromus Re-Ed/Coord, W/C Management Training Treatment Duration: Oct 15, 2021 Frequency: 3 times per week (3-5x/week) Estimated Hrs Per Day: .25 hour per day Rehab Potential: Poor Time/GCodes Start Time: 10:47 Stop Time: 11:00 Total Time Billed (hr/min): 13 Billed Treatment Time 1 visit Galina Leger OT Sep 17, 2021 11:20
--- NOTE | 2021-09-17 11:42 | Physical Therapy Evaluation ---
PT Evaluation-General Medical Diagnosis Admission Date September 11, 2021 Medical Diagnosis: STEMI Onset Date: Sep 11, 2021 Therapy Diagnosis Therapy Diagnosis: generalized weakness/debility Precautions Precautions/Isolations: Fall Prevention, Standard Precautions Referral Physician: STEMI Reason for Referral: Evaluation/Treatment Medical History Pertinent Medical History: Alcoholism, CAD, DM, HTN, CA Current History EMS from home secondary to spouse found him unresponsive/CPR initiated. Reviewed History: Yes Social History Current Living Status: Spouse Prior Prior Level of Function SCALE: Activities may be completed with or without assistive devices. 7-Eocbhcqtbb-adhqvqd completes the activity by him/herself with no assistance from a helper. 5-Set-up or Clean-up Assistance-helper sets up or cleans up; patient completes activity. [place] assists only prior to or following the activity. 4-Supervision or Touching Assistance-helper provides verbal cues and/or touching/steadying and/or contact guard assistance as patient completes activity. Assistance may be provided throughout the activity or intermittently. 3-Partial/Moderate Assistance-helper does LESS THAN HALF the effort. [place] lifts, holds or supports trunk or limbs, but provides less than half the effort. 2-Substantial/Maximal Assistance-helper does MORE THAN HALF the effort. [place] lifts or holds trunk or limbs and provides more than half the effort. 6-Goohetyyd-imxqtf does ALL the effort. Patient does none of the effort to complete the activity. Or, the assistance of 2 or more helpers is required for the patient to complete the activity. If activity was not attempted, code reason: 7-Patient Refused. 9-Not Applicable-not attempted and the patient did not perform the activity before the current illness, exacerbation or injury. 10-Not Attempted due to Environmental Limitations-(lack of equipment, weather restraints, etc.). 88-Not Attempted due to Medical Conditions or Safety Concerns. unable to assess due to patient does not currently speak PT Evaluation-Current Objective Patient Orientation: Eyes Open Attachments: Khan Catheter ROM/Strength ROM Lower Extremities bilateral LE WFL Strength Lower Extremities no formal testing but does move bilateral LE with stimuli Integumentary/Posture Integumentary refer to nursing notes Bladder Incontinence: Khan Cath Posture slightly kyphotic Neuromuscular (Tone, Coordination, Reflexes) severely diminished coordination Sensory Vision: Unable to Assess Hearing: Unable to Assess Transfers Roll Left to Right (QC): 1 (x 2) Sit to Lying (QC): 1 (x 2) Lying to Sitting/Side of Bed(Q: 1 (x 2) Sit to Stand (QC): 88 Chair/Jwx-ao-Blrfb Xfer(QC): 88 Gait Does the Patient Walk?: No and Walking Goal IS indicated Balance Sitting Static: Poor Sitting Dynamic: Poor Assessment/Needs 65 y.o. male, will benefit from skilled PT to address functional strength and mobility to improve current dependent LOF. Patient extubated 09/16/21. Patient is currently no verbal. Rehab Potential: Guarded PT Short Term Goals Short Term Goals Time Frame: Sep 28, 2021 Roll Left & Right: 2 Sit to lyin Lying to sitting on side of be: 2 Sit to stand: 2 Chair/cke-qw-rkxfw transfer: 2 Walk 10 feet: 2 PT Residential Goals Musical Therapist Goals PT Residential Goals Time Frame: Oct 12, 2021 Roll Left & Right (QC): 4 Sit to Lying (QC): 4 Lying-Sitting on Side/Bed(QC): 4 Sit to Stand (QC): 4 Chair/Hdd-px-Hrzko Xfer(QC): 4 Toilet Transfer (QC): 4 Walk 10 feet (QC): 4 Walk 50ft with 2 Turns (QC): 4 Walk 150 ft (QC): 4 PT Plan Problem List Problem List: Activity Tolerance, Functional Strength, Safety, Balance, Gait, Transfer, Bed Mobility Treatment/Plan Treatment Plan: Continue Plan of Care Treatment Plan: Bed Mobility, Education, Functional Activity Don, Functional Strength, Gait, Safety, Therapeutic Exercise, Transfers Treatment Duration: Oct 12, 2021 Frequency: 6 times per week Estimated Hrs Per Day: .5 hour per day Time/GCodes Time In: 1047 Time Out: 1100 Total Billed Treatment Time: 13 Total Billed Treatment 1 visit EVMod 13 min BRADLEY GOMEZ PT Sep 17, 2021 11:42
--- NOTE | 2021-09-17 15:28 | Progress Note - Cardiology ---
Cardiology SOAP Progress Note Subjective: Off mech vent and OGT per fam decision who state that was what desire had been (no life support) His nurse has seen some purposeful movement, but he is nonresponsive at my exam albeit breathing spontaneously Objective: I&O/Vital Signs 09/17/21 09/17/21 09/17/21 09/17/21 04:00 04:00 04:09 05:00 Temp 37.4 37.2 36.3 Pulse 100 99 Resp 37 B/P (MAP) 156/93 157/92 Pulse Ox 94 92 93 O2 Delivery Room Air Room Air Room Air 09/17/21 09/17/21 09/17/21 09/17/21 06:00 06:40 06:52 07:00 Temp 37.0 37.3 Pulse 98 96 97 98 Resp 33 31 B/P (MAP) 147/86 163/92 Pulse Ox 93 95 O2 Delivery Room Air Room Air 09/17/21 09/17/21 09/17/21 09/17/21 07:35 08:00 08:25 09:00 Temp 35.8 37.4 37.3 Pulse 101 96 Resp 28 22 B/P (MAP) 161/95 174/110 Pulse Ox 94 95 95 O2 Delivery Room Air Room Air Room Air 09/17/21 09/17/21 09/17/21 09/17/21 10:00 11:00 12:00 12:00 Temp 36.9 36.3 36.6 36.5 Pulse 90 98 90 Resp 28 B/P (MAP) 147/87 164/86 Pulse Ox 92 94 95 O2 Delivery Room Air Room Air Room Air 09/17/21 09/17/21 09/17/21 09/17/21 12:00 12:22 13:00 14:00 Temp 36.6 36.0 Pulse 94 101 91 Resp 13 B/P (MAP) 147/90 160/89 Pulse Ox 96 95 92 O2 Delivery Room Air Room Air Room Air 09/17/21 15:00 Temp 36.5 Pulse 97 B/P (MAP) 160/86 Pulse Ox 94 O2 Delivery Room Air 09/17/21 00:00 Intake Total 620 ml Output Total 1300 ml Balance -680 ml Constitutional: other (extubated - tracking movement in the room, but not following commands - unable to swallow) Respiratory: No accessory muscle use; other (fair to good air entry, bilat) Cardiovascular: regular rate-rhythm, S1 and S2, systolic murmur (soft CARL at card base) Gastrointestional: soft; No guarding; audible bowel sounds Extremities: swelling (mild to mod gen swelling); No clubbing, No cyanosis Neurologic/Psychiatric: other (see above) Skin: No rash on exposed areas, No ulcerations on exposed areas Results/Procedures: Labs Laboratory Tests 09/16/21 18:30: Glucometer 122H 09/16/21 23:30: Glucometer 85 09/17/21 04:20: White Blood Count 10.8, Red Blood Count 3.46L, Hemoglobin 10.6L, Hematocrit 33L, Mean Corpuscular Volume 96, Mean Corpuscular Hemoglobin 31, Mean Corpuscular Hemoglobin Concent 32, Red Cell Distribution Width 12.3, Platelet Count 368, Mean Platelet Volume 8.7L, Immature Granulocyte % (Auto) 1, Neutrophils (%) (Auto) 76H, Lymphocytes (%) (Auto) 8L, Monocytes (%) (Auto) 12, Eosinophils (%) (Auto) 3, Basophils (%) (Auto) 0, Neutrophils # (Auto) 8.2H, Lymphocytes # (Au to) 0.8L, Monocytes # (Auto) 1.3H, Eosinophils # (Auto) 0.3, Basophils # (Auto) 0.0, Immature Granulocyte # (Auto) 0.2H, Sodium Level 140, Potassium Level 3.8, Chloride Level 105, Carbon Dioxide Level 21, Anion Gap 14, Blood Urea Nitrogen 14, Creatinine 1.31H, Estimat Glomerular Filtration Rate 60, BUN/Creatinine Ratio 11, Glucose Level 90, Calcium Level 8.5, Magnesium Level 2.1 09/17/21 05:22: Glucometer 94 09/17/21 11:42: Glucometer 96 Microbiology 09/13/21 Blood Culture - Preliminary, Resulted No growth 09/11/21 MRSA Screen - Final, Complete MRSA not isolated A/P: Assessment: Ac Inf Wall STEMI - transinently hemodynamically unstable at initial presentation: transient PEA - hemodynamically stable since PCI for STEMI (see below CAD - card cath of 09/11/21: Coronary artery disease primarily consisting of severe mid vessel stenosis of the dominant right coronary artery that was the culprit in causing an inferior wall ST elevation myocardial infarction and that was successfully stented with Skypoint 2.5 x 28 mm stent. The first diagonal branch of the left anterior descending artery has a 50% to 60% proximal and mid vessel stenosis. It is a small caliber vessel. The left circumflex artery is nondominant and has a large first obtuse marginal branch, a subbranch of which has approximately 60% to 70% stenosis. Elevated left ventricular end-diastolic pressure. Left ventricular ejection fraction approximately 60% - echo of 09/12/21: LVEF 50-55% Ac renal failure on top of CKD 4 - acute component has improved; acidosis has improved; hyperkalemia has resolved AMS DMI II Ac resp failure - on mech vent - extubated on 09-16-21 ?Heavy ETOH usage Gen edema on 09/15/21, improved post furosemide Plan: * Extubated yesterday * AMS - Not following commands, unable to swallow * D/t recent stent placement he is receiving ASA rectally, but Plavix nor Brilinta can be given rectally per Juan Manuel in pharmacy - therefore we will give weight based Lovenox until oral medications can be given * BB being given IV * Hosp and ICU services resp failure BAILEY CURRAN MD FACP FAC CCDS Sep 17, 2021 15:28
[2021-09-17] MEDS: D5 1/2 NS 1000 ML IV SOLUTION 1,000 ML IV SCH (17:05)
[2021-09-17] MEDS: ENOXAPARIN 100 MG/1 ML (LOVENOX) SYR SC SCH (20:44)
[2021-09-18] MEDS: LORazepam INJ 2 MG/ML (ATIVAN) VIAL IVP SCH ×4 (03:17→15:36)
[2021-09-18] MEDS: PIPERACILLIN SODIUM/TAZOBACTAM 4.5 GM in NS (IVPB) 100 ML IV SCH ×2 (03:17→12:29)
[2021-09-18 04:50] LABS: BASOPHILS # (AUTO) 0.1 10^3/uL (0.0-0.1); BASOPHILS % (AUTO) 1 % (0-10); EOSINOPHILS # (AUTO) 0.5 10^3/uL (0.0-0.3); EOSINOPHILS % (AUTO) 5 % (0-10); HEMATOCRIT 32 % (40-54); HEMOGLOBIN 10.6 g/dL (13.3-17.7); LYMPHOCYTES # (AUTO) 1.2 10^3/uL (1.0-4.0); LYMPHOCYTES % (AUTO) 12 % (12-44); MEAN CORPUSCULAR HEMOGLOBIN 31 pg (25-34); MEAN CORPUSCULAR HGB CONC 33 g/dL (32-36); MEAN CORPUSCULAR VOLUME 94 fL (80-99); MEAN PLATELET VOLUME 8.2 fL (9.0-12.2); MONOCYTES # (AUTO) 1.4 10^3/uL (0.0-1.0); MONOCYTES % (AUTO) 14 % (0-12); NEUTROPHILS # (AUTO) 6.3 10^3/uL (1.8-7.8); NEUTROPHILS % (AUTO) 64 % (42-75); PLATELET COUNT 395 10^3/uL (130-400); WHITE BLOOD COUNT 9.8 10^3/uL (4.3-11.0)
[2021-09-18 05:03] LABS: POTASSIUM 3.6 MMOL/L (3.6-5.0)
[2021-09-18 05:04] LABS: CALCIUM 8.4 MG/DL (8.5-10.1)
[2021-09-18] MEDS: KCL 20 MEQ TAB (K-DUR) PO SCH (05:05)
[2021-09-18] MEDS: inSUlin ASPART (NovoLOG) 1 UNIT/0.01 ML (CHARGE PER UNIT) SC SCH ×4 (05:06→23:35)
[2021-09-18 05:08] LABS: CREATININE SERUM 1.06 MG/DL (0.60-1.30)
[2021-09-18 05:10] LABS: MAGNESIUM 1.8 MG/DL (1.6-2.4)
[2021-09-18] MEDS: MAGNESIUM 1 GM/100 ML IVPB 100 ML IV SCH (05:12)
[2021-09-18] MEDS: POTASSIUM CL 10MEQ/50ML IVPB 50 ML IV SCH ×3 (05:41→08:38)
[2021-09-18] MEDS: MULTIVIT W/MINERALS TAB (THERAGRAN M) PO SCH (07:00)
[2021-09-18] MEDS: CLOPIDOGREL 75 MG (PLAVIX) TABLET PO SCH ×2 (07:50→12:34)
[2021-09-18] MEDS: THIAMINE 100 MG/ML 2 ML (VITAMIN B-1) VIAL IV SCH (08:39)
[2021-09-18] MEDS: ENOXAPARIN 100 MG/1 ML (LOVENOX) SYR SC SCH ×2 (08:39→20:08)
[2021-09-18] MEDS: meTOprolol 5 MG/5 ML (LOPRESSOR) VIAL IV SCH ×2 (08:39→20:08)
[2021-09-18] MEDS: ASPIRIN 300 MG (5 GR) SUPPOSITORY PR SCH (08:39)
[2021-09-18] MEDS: PANTOPRAZOLE 40 MG (PROTONIX) VIAL IV SCH (08:39)
--- NOTE | 2021-09-18 08:43 | Progress Note - Cardiology ---
Cardiology SOAP Progress Note Subjective: Opens eyes, but otherwise non-responsive Objective: I&O/Vital Signs 09/18/21 09/18/21 09/19/21 09/19/21 21:00 23:50 04:00 07:28 Temp 37.1 36.9 36.4 Pulse 96 89 91 Resp 20 20 20 B/P (MAP) 158/90 (112) 148/96 (113) 136/90 (105) Pulse Ox 92 92 97 92 O2 Delivery Room Air Room Air Room Air Room Air 09/19/21 00:00 Intake Total 0 ml Output Total 1200 ml Balance -1200 ml Constitutional: other (not following commands - unable to swallow) Respiratory: No accessory muscle use; other (fair to good air entry, bilat) Cardiovascular: regular rate-rhythm, S1 and S2, systolic murmur (soft CARL at card base) Gastrointestional: soft; No guarding; audible bowel sounds Extremities: swelling (mild to mod gen swelling); No clubbing, No cyanosis Neurologic/Psychiatric: other (see above) Skin: No rash on exposed areas, No ulcerations on exposed areas Results/Procedures: Labs Laboratory Tests 09/18/21 11:09: Glucometer 117H 09/18/21 17:06: Glucometer 129H 09/18/21 23:33: Glucometer 129H 09/19/21 03:21: White Blood Count 9.8, Red Blood Count 3.40L, Hemoglobin 10.4L, Hematocrit 31L, Mean Corpuscular Volume 92, Mean Corpuscular Hemoglobin 31, Mean Corpuscular H emoglobin Concent 33, Red Cell Distribution Width 12.0, Platelet Count 465H, Mean Platelet Volume 8.4L, Immature Granulocyte % (Auto) 5, Neutrophils (%) (Auto) 62, Lymphocytes (%) (Auto) 14, Monocytes (%) (Auto) 13H, Eosinophils (%) (Auto) 6, Basophils (%) (Auto) 1, Neutrophils # (Auto) 6.1, Lymphocytes # (Auto) 1.3, Monocytes # (Auto) 1.2H, Eosinophils # (Auto) 0.6H, Basophils # (Auto) 0.1, Immature Granulocyte # (Auto) 0.5H, Sodium Level 140, Potassium Level 3.3L, Chloride Level 103, Carbon Dioxide Level 24, Anion Gap 13, Blood Urea Nitrogen 17, Creatinine 1.14, Estimat Glomerular Filtration Rate 71, BUN/Creatinine Ratio 15, Glucose Level 128H, Calcium Level 8.7 09/19/21 05:18: Glucometer 135H Microbiology 09/13/21 Blood Culture - Final, Complete No growth 09/11/21 MRSA Screen - Final, Complete MRSA not isolated A/P: Assessment: Ac Inf Wall STEMI - transiently hemodynamically unstable at initial presentation: transient PEA - hemodynamically stable since PCI for STEMI (see below CAD - card cath of 09/11/21: Coronary artery disease primarily consisting of severe mid vessel stenosis of the dominant right coronary artery that was the culprit in causing an inferior wall ST elevation myocardial infarction and that was successfully stented with Skypoint 2.5 x 28 mm stent. The first diagonal branch of the left anterior descending artery has a 50% to 60% proximal and mid vessel stenosis. It is a small caliber vessel. The left circumflex artery is nondominant and has a large first obtuse marginal branch, a subbranch of which has approximately 60% to 70% stenosis. Elevated left ventricular end-diastolic pressure. Left ventricular ejection fraction approximately 60% - echo of 09/12/21: LVEF 50-55% Ac renal failure on top of CKD 4 - acute component has improved; acidosis has improved; hyperkalemia has resolved AMS DMI II Ac resp failure - on mech vent - extubated on 09-16-21 ?Heavy ETOH usage Gen edema on 09/15/21, improved post furosemide Plan: * Extubated yesterday * AMS - Not following commands, unable to swallow * D/t recent stent placement he is receiving ASA rectally, but Plavix nor Brilinta can be given rectally per Juan Manuel in pharmacy - therefore we will give weight based Lovenox until oral medications can be given * BB being given IV * Hosp and ICU services resp failure * Family has met with palliative services and they are undecided at this time NAVNEET LEI Sep 18, 2021 08:43
--- NOTE | 2021-09-18 08:45 | Physical Therapy Daily Note ---
PT Daily Note-Current Subjective Patient in bed pre tx, opens eyes but doesn't communicate. Appearance Patient in bed post tx with nurse call, phone, tray, all needs met. Patient laying on left side with pillow support for pressure relief. Mental Status Patient Orientation: Unable to Assess, Non-Verbal/Aphasic Attachments: Khan Catheter, IV Transfers SCALE: Activities may be completed with or without assistive devices. 6-Shrzgnijeo-inodxes completes the activity by him/herself with no assistance from a helper. 5-Set-up or Clean-up Assistance-helper sets up or cleans up; patient completes activity. [place] assists only prior to or following the activity. 4-Supervision or Touching Assistance-helper provides verbal cues and/or touching/steadying and/or contact guard assistance as patient completes activity. Assistance may be provided throughout the activity or intermittently. 3-Partial/Moderate Assistance-helper does LESS THAN HALF the effort. [place] lifts, holds or supports trunk or limbs, but provides less than half the effort. 2-Substantial/Maximal Assistance-helper does MORE THAN HALF the effort. [place] lifts or holds trunk or limbs and provides more than half the effort. 4-Qiqdfvmxe-rqaprj does ALL the effort. Patient does none of the effort to complete the activity. Or, the assistance of 2 or more helpers is required for the patient to complete the activity. If activity was not attempted, code reason: 7-Patient Refused. 9-Not Applicable-not attempted and the patient did not perform the activity before the current illness, exacerbation or injury. 10-Not Attempted due to Environmental Limitations-(lack of equipment, weather restraints, etc.). 88-Not Attempted due to Medical Conditions or Safety Concerns. Roll Left & Right (QC): 1 Sit to Lying (QC): 1 Lying to Sitting/Side of Bed(Q: 1 Patient dependent to sit to the side of the bed, dependent for sitting balance, sat for about 5 min before laying back down. Patient doesn't communicate, will not perform any exercise or move on his own at all. Treatments bed mobility, sitting Assessment Current Status: Poor Progress no participation from patient PT Short Term Goals Short Term Goals Time Frame: Sep 28, 2021 Roll Left & Right: 2 Sit to lyin Lying to sitting on side of be: 2 Sit to stand: 2 Chair/hgm-fj-qlsbg transfer: 2 Walk 10 feet: 2 PT Alf Goals Thai [place] Goals PT Alf Goals Time Frame: Oct 12, 2021 Roll Left & Right (QC): 4 Sit to Lying (QC): 4 Lying-Sitting on Side/Bed(QC): 4 Sit to Stand (QC): 4 Chair/Imh-jz-Trtfi Xfer(QC): 4 Toilet Transfer (QC): 4 Walk 10 feet (QC): 4 Walk 50ft with 2 Turns (QC): 4 Walk 150 ft (QC): 4 PT Plan Problem List Problem List: Activity Tolerance, Functional Strength, Safety, Balance, Gait, Transfer, Bed Mobility, ROM Treatment/Plan Treatment Plan: Continue Plan of Care Treatment Plan: Bed Mobility, Education, Functional Activity Don, Functional Strength, Gait, Safety, Therapeutic Exercise, Transfers Treatment Duration: Oct 12, 2021 Frequency: 6 times per week Estimated Hrs Per Day: .5 hour per day Patient and/or Family Agrees t: Yes Safety Risks/Education Patient Education: Correct Positioning, Safety Issues Teaching Recipient: Patient Teaching Methods: Demonstration, Discussion Response to Teaching: Reinforcement Needed Time/GCodes Time In: 815 Time Out: 825 Total Billed Treatment Time: 10 Total Billed Treatment 1 visit FA YANELI KIDD PT Sep 18, 2021 08:45
[2021-09-18] MEDS ORDERED: FUROSEMIDE 40 MG/4 ML INJ (LASIX) IVP ONE (09:15)
--- NOTE | 2021-09-18 10:16 | Progress Note - Hospitalist ---
Subjective HPI/CC On Admission Date Seen by Provider: Sep 18, 2021 Marcello Tellez is a 65 year old male with PMH HTN, HLD, CAD, T2DM, who was found minimally responsive by his . She said he wakes up earlier than her. She heard him moaning in the living room and went to check on him. She asked if she needed to call an ambulance and he shook his head yes. EMS arrived and applied AED and began CPR. No shocks were advised and ROSC was obtained after one round of CPR. He was intubated. An EKG revealed STEMI and he was taken to the lab[facility] where he was found to have an inferior CT and had a stent placed in his RCA. Upon my exam, he is intubated and sedated in the ICU. His is present at the bedside. Subjective/Events-last exam Pt laying in bed. No ROS possible as he is still not speaking. RN reports uneventful night. No family at bedside. Discussed with them yesterday and they planned to let him rest today and not visit. Objective Exam Vital Signs Vital Signs Date Time Temp Pulse Resp B/P (MAP) Pulse Ox O2 Delivery O2 Flow Rate FiO2 09/18/21 09:00 36.6 75 21 156/85 92 Room Air 09/16/21 20:00 25 09/16/21 18:00 24.00 Capillary Refill : Less Than 3 Seconds General Appearance: No Apparent Distress, Chronically ill Respiratory: Lungs Clear, No Respiratory Distress Cardiovascular: Regular Rate, Rhythm, No Murmur Neurologic/Psychiatric: Alert (tracks with eyes, does not speak) Results/Procedures Lab Laboratory Tests 09/18/21 04:40 Patient resulted labs reviewed. Imaging: Reviewed Imaging Report Assessment/Plan Assessment and Plan Assess & Plan/Chief Complaint STEMI Cardiac arrest CAD HTN HLD Cardiology primary s/p RCA stent placement on admission ASA and Plavix- Continue ASA rectally Family declines feeding tube so unable to place NGT at this time but may need to consider NGT Weight based lovenox ordered per Cardiology- defer to cardiology regarding management of DAPT for new stent Speech therapy consulted Metoprolol Lipitor AHRF Endotracheally intubated- resolved Anoxic Brain Injury- POA Extubated 09/16 TeleICU following Afebrile since 09/15 Repeat blood cultures NGTD Lactic acid normal Continue Zosyn Speech, PT/OT consulted Palliative Care RN consulted BEKA on CKD- acute component resolved Hypokalemia Hyponatremia DC tube feeds now that is extubated Replace K+ per protocol T2DM Sliding scale insulin Alcohol abuse Reportedly chronic daily alcohol use Continue Thiamine IV Goals of care discussion Extubated with plan to not reintubate if he does not do well DVT prophylaxis: Lovenox Critical Care Ventilator Management Diagnosis/Problems Diagnosis/Problems (1) Acute kidney injury superimposed on chronic kidney disease Status: Acute (2) T2DM (type 2 diabetes mellitus) Status: Chronic Qualifiers: Diabetes mellitus ferry terminal agent insulin use: without ferry terminal agent use Diabetes mellitus complication status: without complication Qualified Codes: E11.9 - Type 2 diabetes mellitus without complications (3) HLD (hyperlipidemia) Status: Chronic (4) HTN (hypertension) Status: Chronic (5) Acute ST elevation myocardial infarction (STEMI) of inferior wall Status: Acute (6) Alcohol abuse (7) CAD (coronary artery disease) Status: Acute Qualifiers: Coronary Disease-Associated Artery/Lesion type: [place] artery [place] vs. transplanted heart: [place] heart (8) Cardiac arrest Status: Acute (9) S/P coronary artery stent placement Status: Acute PAL REYES MD Sep 18, 2021 10:16
--- NOTE | 2021-09-18 11:53 | Progress Note - Cardiology ---
Cardiology SOAP Progress Note Subjective: No meaningful response to questions or commands Objective: I&O/Vital Signs 09/18/21 09/18/21 09/18/21 09/18/21 00:00 00:21 01:00 01:03 Temp 37.7 37.6 Pulse 102 100 101 Resp 34 36 B/P (MAP) 160/111 156/106 Pulse Ox 95 96 96 O2 Delivery Room Air Room Air Room Air 09/18/21 09/18/21 09/18/21 09/18/21 02:00 03:00 03:55 04:00 Temp 37.2 36.9 36.9 Pulse 86 105 Resp 9 B/P (MAP) 155/98 161/96 Pulse Ox 92 93 94 O2 Delivery Room Air Room Air Room Air 09/18/21 09/18/21 09/18/21 09/18/21 04:00 05:07 06:00 07:00 Temp 36.9 36.8 36.9 Pulse 85 86 70 76 Resp 28 30 13 B/P (MAP) 163/97 120/88 128/90 Pulse Ox 93 91 91 O2 Delivery Room Air Room Air Room Air 09/18/21 09/18/21 09/18/21 09/18/21 07:00 07:50 08:00 08:00 Temp 36.7 36.7 36.7 Pulse 73 73 Resp 17 18 B/P (MAP) 156/87 128/82 Pulse Ox 90 91 94 O2 Delivery Room Air Room Air Room Air 09/18/21 09/18/21 09/18/21 09/18/21 09:00 10:00 11:00 11:27 Temp 36.6 36.6 36.7 36.8 Pulse 75 79 89 Resp 21 20 28 B/P (MAP) 156/85 140/94 131/75 Pulse Ox 92 91 90 O2 Delivery Room Air Room Air Room Air 09/18/21 00:00 Intake Total 2000 ml Output Total 700 ml Balance 1300 ml Constitutional: other (not following commands - unable to swallow) Respiratory: No accessory muscle use; other (fair to good air entry, bilat) Cardiovascular: regular rate-rhythm, S1 and S2, systolic murmur (soft CARL at card base) Gastrointestional: soft; No guarding; audible bowel sounds Extremities: swelling (mild to mod gen swelling); No clubbing, No cyanosis Neurologic/Psychiatric: other (see above, seems to move all limbs equally) Skin: No rash on exposed areas, No ulcerations on exposed areas Results/Procedures: Labs Laboratory Tests 09/17/21 17:19: Glucometer 87 09/17/21 23:27: Glucometer 85 09/18/21 04:40: White Blood Count 9.8, Red Blood Count 3.44L, Hemoglobin 10.6L, Hematocrit 32L, Mean Corpuscular Volume 94, Mean Corpuscular Hemoglobin 31, Mean Corpuscular Hemoglobin Concent 33, Red Cell Distribution Width 12.0, Platelet Count 395, Mean Platelet Volume 8.2L, Immature Granulocyte % (Auto) 5, Neutrophils (%) (Auto) 64, Lymphocytes (%) (Auto) 12, Monocytes (%) (Auto) 14H, Eosinophils (%) (Auto) 5, Basophils (%) (Auto) 1, Neutrophils # (Auto) 6.3, Lymphocytes # (Auto) 1.2, Monocytes # (Auto) 1.4H, Eosinophils # (Auto) 0.5H, Basophils # (Auto) 0.1, Immature Granulocyte # (Auto) 0.4H, Sodium Level 144, Potassium Level 3.6, Chlor мария Level 107, Carbon Dioxide Level 21, Anion Gap 16H, Blood Urea Nitrogen 16, Creatinine 1.06, Estimat Glomerular Filtration Rate 77, BUN/Creatinine Ratio 15, Glucose Level 91, Calcium Level 8.4L, Magnesium Level 1.8 09/18/21 11:09: Glucometer 117H Microbiology 09/13/21 Blood Culture - Preliminary, Resulted No growth 09/11/21 MRSA Screen - Final, Complete MRSA not isolated Laboratory Tests 09/17/21 04:20 09/18/21 04:40 A/P: Assessment: Ac Inf Wall STEMI - transiently hemodynamically unstable at initial presentation: transient PEA - hemodynamically stable since PCI for STEMI (see below CAD - card cath of 09/11/21: Coronary artery disease primarily consisting of severe mid vessel stenosis of the dominant right coronary artery that was the culprit in causing an inferior wall ST elevation myocardial infarction and that was successfully stented with Skypoint 2.5 x 28 mm stent. The first diagonal branch of the left anterior descending artery has a 50% to 60% proximal and mid vessel stenosis. It is a small caliber vessel. The left circumflex artery is nondominant and has a large first obtuse marginal branch, a subbranch of which has approximately 60% to 70% stenosis. Elevated left ventricular end-diastolic pressure. Left ventricular ejection fraction approximately 60% - echo of 09/12/21: LVEF 50-55% Ac renal failure on top of CKD 4 - acute component has improved; acidosis has improved; hyperkalemia has resolved AMS DMI II Ac resp failure - on mech vent - extubated on 09-16-21 ?Heavy ETOH usage Gen edema on 09/15/21, improved post furosemide Plan: * Extubated yesterday * AMS - Not following commands, unable to swallow * D/t recent stent placement he is receiving ASA rectally, but Plavix nor Brilinta can be given rectally per Juan Manuel in pharmacy - therefore we will give weight based Lovenox until oral medications can be given * BB being given IV * Hosp and ICU services resp failure * Family has met with palliative services and they are undecided at this time. They have refused life support or any tube (including NGT) BAILEY CURRAN MD FACP FAC CCDS Sep 18, 2021 11:53
[2021-09-18] MEDS: D5 1/2 NS 1000 ML IV SOLUTION 1,000 ML IV SCH (12:29)
--- NOTE | 2021-09-18 13:02 | Speech Therapy Daily Note ---
Speech Daily Progress Note Subjective Date Seen by Provider: Sep 18, 2021 Time Seen by Provider: 12:15 The patient was lying in bed, sleeping upon entrance to his room by the clinician. With a verbal greeting from the clinician, the patient wakes and makes eye contact. The patient visually tracks the clinician throughout the room. The patient is positioned upright in bed for safe swallowing. Objective The patient demonstrated slightly improved alertness on this date, remaining with eyes opened throughout the treatment session. Prior to the session, the RN visited with the clinician regarding medication administration attempts. The clinician agreed to attempt medication administration throughout her skilled treatment session on this date. Initially, the patient would turn head away from spoon with ice cube bolus. With verbal cueing and continued tactile stimulation, the patient accepted the ice chip bolus. The patient does not display anterior bolus spillage on this date, however, does not display bolus manipulation. Following an extended period of time, a rigorous cough is displayed by the patient and the clinician suspects aspiration of the melted ice chip. A teaspoon coated in applesauce was presented to the patient. With continued tactile stimulation, the patient accepted the coated teaspoon. Limited lingual manipulation was present, however, a pharyngeal swallow was elicited without s/s of suspected aspiration. A minimal bolus of puree was presented with similar results. Due to this, the medication was crushed (per RN, the medication was able to be crushed) and placed in applesauce. When divided into three boluses, the patient was able to display appropriate pharyngeal swallowing without s/s of suspected aspiration. As the patient continues to required large amounts of cueing for limited PO attempts, trials were ended at this time as the patient returned to rest. The oral cavity was assessed at the completion of the session and residual material was not present. Recommendations: - NPO. - Frequent, thorough, and excellent oral care to reduce the transfer of oral bacteria to the lungs should aspiration of secretions occur. - Essential medication crushed and placed in puree for administration by RN. Assess the patient's oral cavity for residual material following the swallow. - Speech pathology to continue ongoing assessments of the patient's oropharyngeal swallow function. Assessment Assessment Current Status: Fair Progress Treatment Plan Continue Plan of Care Speech Short Term Goals Short Term Goals Short Term Goals 1. The patient, family, and staff will follow safe swallowing protocols, including excellent oral care, with 90% accuracy, independently. Time Frame-STG: Five Days. Speech [facility]ci Goals Sound Truck Operator Goals 1. The patient will tolerate the least restrictive diet without s/s of suspected aspiration. Time Frame: One Week. Speech-Plan Treatment Plan Speech Therapy Treatment Plan: Continue Plan of Care Treatment Duration: Oct 01, 2021 Frequency: 3 times per week (Three to five times per week, as appropriate.) Estimated Hrs Per Day: .25 hour per day Rehab Potential: Guarded Safety Risks/Education Teaching Recipient: Patient Teaching Methods: Discussion Response to Teaching: Unable to Comprehend Education Topics Provided: Results, Recommendations, POC Time Speech Therapy Time In: 12:15 Speech Therapy Time Out: 12:30 Total Billed Time: 15 Billed Treatment Time 1, DYST JUAN DIEGO Aparicio Sep 18, 2021 13:02
[2021-09-18 13:56] VITALS: BP 127/82
--- NOTE | 2021-09-18 14:16 | Occ Therapy Progress Note ---
Therapy Progress Note OT tx attempted but pt unable to participate in skilled therapy at this time due to lethargy. He would not open eyes and unable to following simple instructions/commands. OT will attempt tx again tomorrow. Nurse notified. 1, visit 1325 LORENA GARY OT Sep 18, 2021 14:16
[2021-09-18 15:34] VITALS: BP 138/84
[2021-09-18 19:00] VITALS: BP 156/84
[2021-09-18 23:50] VITALS: BP 158/90
[2021-09-19 03:36] LABS: BASOPHILS # (AUTO) 0.1 10^3/uL (0.0-0.1); BASOPHILS % (AUTO) 1 % (0-10); EOSINOPHILS # (AUTO) 0.6 10^3/uL (0.0-0.3); EOSINOPHILS % (AUTO) 6 % (0-10); HEMATOCRIT 31 % (40-54); HEMOGLOBIN 10.4 g/dL (13.3-17.7); LYMPHOCYTES # (AUTO) 1.3 10^3/uL (1.0-4.0); LYMPHOCYTES % (AUTO) 14 % (12-44); MEAN CORPUSCULAR HEMOGLOBIN 31 pg (25-34); MEAN CORPUSCULAR HGB CONC 33 g/dL (32-36); MEAN CORPUSCULAR VOLUME 92 fL (80-99); MEAN PLATELET VOLUME 8.4 fL (9.0-12.2); MONOCYTES # (AUTO) 1.2 10^3/uL (0.0-1.0); MONOCYTES % (AUTO) 13 % (0-12); NEUTROPHILS # (AUTO) 6.1 10^3/uL (1.8-7.8); NEUTROPHILS % (AUTO) 62 % (42-75); PLATELET COUNT 465 10^3/uL (130-400); WHITE BLOOD COUNT 9.8 10^3/uL (4.3-11.0)
[2021-09-19 03:53] LABS: POTASSIUM 3.3 MMOL/L (3.6-5.0)
[2021-09-19 03:54] LABS: CALCIUM 8.7 MG/DL (8.5-10.1)
[2021-09-19 03:59] LABS: CREATININE SERUM 1.14 MG/DL (0.60-1.30)
[2021-09-19 04:00] VITALS: BP 148/96
[2021-09-19] MEDS: inSUlin ASPART (NovoLOG) 1 UNIT/0.01 ML (CHARGE PER UNIT) SC SCH ×3 (05:20→17:08)
[2021-09-19] MEDS: MULTIVIT W/MINERALS TAB (THERAGRAN M) PO SCH (06:54)
[2021-09-19 07:28] VITALS: BP 136/90
--- NOTE | 2021-09-19 08:54 | Progress Note - Cardiology ---
Cardiology SOAP Progress Note Subjective: Lying in bed Opens eyes when you talk to him Does not follow commands Moves upper extremities Objective: I&O/Vital Signs 09/19/21 09/20/21 09/20/21 23:59 03:34 07:49 Temp 37.0 36.7 36.9 Pulse 100 92 102 Resp 18 18 20 B/P (MAP) 153/90 (111) 154/93 (113) 153/70 (97) Pulse Ox 90 91 92 O2 Delivery Room Air Room Air Room Air 09/20/21 00:00 Intake Total 0 ml Output Total 1000 ml Balance -1000 ml Constitutional: other (not following commands - unable to swallow; moving upper extremities; opens eyes and tracks movement in the room) Respiratory: No accessory muscle use; other (fair to good air entry, bilat) Cardiovascular: regular rate-rhythm, S1 and S2, systolic murmur (soft CARL at card base) Gastrointestional: soft; No guarding; audible bowel sounds Extremities: No clubbing, No cyanosis; no lower extremity edema bilateral Neurologic/Psychiatric: other (see above, seems to move all limbs equally) Skin: No rash on exposed areas, No ulcerations on exposed areas Results/Procedures: Labs Laboratory Tests 09/19/21 11:42: Glucometer 131H 09/19/21 17:07: Glucometer 124H 09/20/21 00:04: Glucometer 101 09/20/21 00:31: Glucometer 90 09/20/21 05:36: Glucometer 96 09/20/21 05:40: White Blood Count 9.2, Red Blood Count 3.27L, Hemoglobin 10.1L, Hematocrit 30L, Mean Corpuscular Volume 92, Mean Corpuscular Hemoglobin 31, Mean Corpuscular Hemoglobin Concent 33, Red Cell Distribution Width 11.9, Platelet Count 530H, Mean Platelet Volume 8.4L, Immature Granulocyte % (Auto) 4, Neutrophils (%) (Auto) 66, Lymphocytes (%) (Auto) 16, Monocytes (%) (Auto) 10, Eosinophils (%) (Auto) 5, Basophils (%) (Auto) 1, Neutrophils # (Auto) 6.1, Lymphocytes # (Auto) 1.4, Monocytes # (Auto) 0.9, Eosinophils # (Auto) 0.5H, Basophils # (Auto) 0.1, Immature Granulocyte # (Auto) 0.3H, Sodium Level 141, Potassium Level 3.5L, Chloride Level 106, Carbon Dioxide Level 21, Anion Gap 14, Blood Urea Nitrogen 16, Creatinine 1.02, Estimat Glomerular Filtration Rate 81, BUN/Creatinine Ratio 16, Glucose Level 94, Calcium Level 8.7 Microbiology 09/13/21 Blood Culture - Final, Complete No growth 09/11/21 MRSA Screen - Final, Complete MRSA not isolated A/P: Assessment: Ac Inf Wall STEMI - transiently hemodynamically unstable at initial presentation: transient PEA - hemodynamically stable since PCI for STEMI (see below CAD - card cath of 09/11/21: Coronary artery disease primarily consisting of severe mid vessel stenosis of the dominant right coronary artery that was the culprit in causing an inferior wall ST elevation myocardial infarction and that was successfully stented with Skypoint 2.5 x 28 mm stent. The first diagonal branch of the left anterior descending artery has a 50% to 60% proximal and mid vessel stenosis. It is a small caliber vessel. The left circumflex artery is nondominant and has a large first obtuse marginal branch, a subbranch of which has approximately 60% to 70% stenosis. Elevated left ventricular end-diastolic pressure. Left ventricular ejection fraction approximately 60% - echo of 09/12/21: LVEF 50-55% Ac renal failure on top of CKD 4 - acute component has improved; acidosis has improved; hyperkalemia has resolved AMS - management per medical services DMI II Ac resp failure - on mech vent - extubated on 09-16-21 ?Heavy ETOH usage Gen edema on 09/15/21, improved post furosemide Plan: * AMS - Not following commands, unable to swallow without significant prompting pureed foods and crushed meds * D/t recent stent placement he is receiving ASA rectally - previously unable to swallow, but has been able to receive Plavix crushed in puree food yesterday with max prompting - will change Lovenox to DVT dosing * Continue BB IV * Hosp and ICU services resp failure * Family has met with palliative services and they are undecided at this time. They have refused life support or any tube (including NGT) NAVNEET LEI Sep 19, 2021 08:54
[2021-09-19] MEDS: D5 1/2 NS 1000 ML IV SOLUTION 1,000 ML IV SCH (09:25)
[2021-09-19] MEDS: PANTOPRAZOLE 40 MG (PROTONIX) VIAL IV SCH (09:43)
[2021-09-19] MEDS: CLOPIDOGREL 75 MG (PLAVIX) TABLET PO SCH ×2 (09:43→09:57)
[2021-09-19] MEDS: THIAMINE 100 MG/ML 2 ML (VITAMIN B-1) VIAL IV SCH (09:43)
[2021-09-19] MEDS: meTOprolol 5 MG/5 ML (LOPRESSOR) VIAL IV SCH ×2 (09:43→19:34)
[2021-09-19] MEDS: ASPIRIN 300 MG (5 GR) SUPPOSITORY PR SCH (09:43)
--- NOTE | 2021-09-19 09:59 | Physical Therapy Daily Note ---
PT Daily Note-Current Subjective Patient is in bed incontinent BM. Mental Status Patient Orientation: Non-Verbal/Aphasic (would not speak today) Attachments: Khan Catheter, IV Transfers SCALE: Activities may be completed with or without assistive devices. 5-Vixxdlzuwn-vwpswoz completes the activity by him/herself with no assistance from a helper. 5-Set-up or Clean-up Assistance-helper sets up or cleans up; patient completes activity. [place] assists only prior to or following the activity. 4-Supervision or Touching Assistance-helper provides verbal cues and/or touching/steadying and/or contact guard assistance as patient completes activity. Assistance may be provided throughout the activity or intermittently. 3-Partial/Moderate Assistance-helper does LESS THAN HALF the effort. [place] lifts, holds or supports trunk or limbs, but provides less than half the effort. 2-Substantial/Maximal Assistance-helper does MORE THAN HALF the effort. [place] lifts or holds trunk or limbs and provides more than half the effort. 0-Tvlbjjfmq-tpalps does ALL the effort. Patient does none of the effort to complete the activity. Or, the assistance of 2 or more helpers is required for the patient to complete the activity. If activity was not attempted, code reason: 7-Patient Refused. 9-Not Applicable-not attempted and the patient did not perform the activity before the current illness, exacerbation or injury. 10-Not Attempted due to Environmental Limitations-(lack of equipment, weather restraints, etc.). 88-Not Attempted due to Medical Conditions or Safety Concerns. Sit to Lying (QC): 1 Lying to Sitting/Side of Bed(Q: 1 Sit to Stand (QC): 1 Exercises Supine Ex: Ankle pumps, Heel Slides, Straight leg raise Supine Reps: 12 (PROM) Seated Therapy Exercises: Sit to stand Seated Reps: 8 (PT blocking bilateral knees) Assessment Patient more alert and able to participate with therapy with tactile direction. Patient did not initiate any movement with verbal command. Patient able to perform standing x 8 reps with blocking bilateral knees. PT Short Term Goals Short Term Goals Time Frame: Sep 28, 2021 Roll Left & Right: 2 Sit to lyin Lying to sitting on side of be: 2 Sit to stand: 2 Chair/gzw-cf-npomr transfer: 2 Walk 10 feet: 2 PT Senior Living Goals Car Salesperson Goals PT Senior Living Goals Time Frame: Oct 12, 2021 Roll Left & Right (QC): 4 Sit to Lying (QC): 4 Lying-Sitting on Side/Bed(QC): 4 Sit to Stand (QC): 4 Chair/Ewb-ep-Oarqt Xfer(QC): 4 Toilet Transfer (QC): 4 Walk 10 feet (QC): 4 Walk 50ft with 2 Turns (QC): 4 Walk 150 ft (QC): 4 PT Plan Treatment/Plan Treatment Plan: Continue Plan of Care Treatment Plan: Bed Mobility, Education, Functional Activity Don, Functional Strength, Gait, Safety, Therapeutic Exercise, Transfers Treatment Duration: Oct 12, 2021 Frequency: 6 times per week Estimated Hrs Per Day: .5 hour per day Patient and/or Family Agrees t: Yes Time/GCodes Time In: 920 Time Out: 934 Total Billed Treatment Time: 14 Total Billed Treatment 1 visit EX 14 min BRADLEY GOMEZ PT Sep 19, 2021 09:59
--- NOTE | 2021-09-19 10:57 | Occupational Ther Daily Note ---
OT Current Status-Daily Note Subjective Pt continues to be nonverbal during OT session. He was able to shake head yes/no with simple questions. Appearance Pt left supine in bed, all needs within reach, RN notified. Mental Status/Objective Patient Orientation: Unable to Assess Attachments: IV ADL-Treatment Therapy Code Descriptions/Definitions Functional [place] Measure: 0=Not Assessed/NA 4=Minimal Assistance 1=Total Assistance 5=Supervision or Setup 2=Maximal Assistance 6=Modified [place] 3=Moderate Assistance 7=Complete IndependenceSCALE: Activities may be completed with or without assistive devices. 0-Pkptphndjd-evilxsy completes the activity by him/herself with no assistance from a helper. 5-Set-up or Clean-up Assistance-helper sets up or cleans up; patient completes activity. [place] assists only prior to or following the activity. 4-Supervision or Touching Assistance-helper provides verbal cues and/or touching/steadying and/or contact guard assistance as patient completes activity. Assistance may be provided throughout the activity or intermittently. 3-Partial/Moderate Assistance-helper does LESS THAN HALF the effort. [place] lifts, holds or supports trunk or limbs, but provides less than half the effort. 2-Substantial/Maximal Assistance-helper does MORE THAN HALF the effort. [place] lifts or holds trunk or limbs and provides more than half the effort. 9-Ulwjutdfp-pipvjv does ALL the effort. Patient does none of the effort to complete the activity. Or, the assistance of 2 or more helpers is required for the patient to complete the activity. If activity was not attempted, code reason: 7-Patient Refused. 9-Not Applicable-not attempted and the patient did not perform the activity before the current illness, exacerbation or injury. 10-Not Attempted due to Environmental Limitations-(lack of equipment, weather restraints, etc.). 88-Not Attempted due to Medical Conditions or Safety Concerns. Other Treatment Pt continues to be nonverbal during OT treatment. Per RN (who spoke with pt's fiance), pt was indep prior to arrival and that his fiance stated that she had a conversation with him yesterday. At OT arrival, pt leaning heavily to the left. Dependent to bring back to midline. No initiation or assist from patient. Attempt at performing AAROM exercises, however after ~5-6 reps pt will often become resistant and push arm away from therapist. Exercises included elbow flexion/extension and shoulder flexion only. Pt did perform 2 purposeful movements during session as he took his R hand and scratched the top of his head and rubbed his eyes. Unsure if resistance to therapy is Behavioral related? Education OT Patient Education: Exercise program, Purpose of tx/functional activities, Safety issues, Transfer techniques Teaching Recipient: Patient Teaching Methods: Demonstration, Discussion Response to Teaching: Unable to Return Demonstration, Unable to Comprehend, Reinforcement Needed OT Half-Way Goals Transportation Economics Teacher Goals Time Frame: Oct 15, 2021 Eating (QC): 3 Oral Hygiene (QC): 3 Toileting Hygiene (QC): 3 Shower/Bathe Self (QC): 3 Upper Body Dressing (QC): 3 Lower Body Dressing (QC): 3 On/Off Footwear (QC): 3 1=Demonstrate adherence to instructed precautions during ADL tasks. 2=Patient will verbalize/demonstrate understanding of assistive devices/modifications for ADL. 3=Patient will improve strength/tolerance for activity to enable patient to perf orm ADL's. OT Education/Plan Problem List/Assessment Assessment: Decreased Activ Tolerance, Decreased Safety Aware, Decreased UE Strength, Dependent Transfers, Impaired Bed Mobility, Impaired Cognition, Impaired Coordination, Impaired Funct Balance, Impaired I ADL's, Impaired Self- Care Skills, Restricted Funct UE ROM Discharge Recommendations Plan/Recommendations: Continue POC Therapy Discharge Recommendati: Post Acute OT Treatment Plan/Plan of Care Treatment,Training & Education: Yes Patient would benefit from OT for education, treatment and training to promote independence in ADL's, mobility, safety and/or upper extremity function for ADL's. Plan of Care: ADL Retraining, Caregiver Training, Cognitive Retraining, Functional Mobility, Group Exercise/Act as Ind, UE Funct Exercise/Act, UE Neuromus Re-Ed/Coord, W/C Management Training Treatment Duration: Oct 15, 2021 Frequency: 3 times per week (3-5x/week) Estimated Hrs Per Day: .25 hour per day Rehab Potential: Guarded Time/GCodes Start Time: 10:26 Stop Time: 10:36 Total Time Billed (hr/min): 10 Billed Treatment Time 1 visit EX Galina Gay OT Sep 19, 2021 10:57
[2021-09-19 11:42] VITALS: BP 151/96
--- NOTE | 2021-09-19 12:23 | Speech Therapy Daily Note ---
Speech Daily Progress Note Subjective Date Seen by Provider: Sep 19, 2021 Time Seen by Provider: 12:10 The patient was lying in bed, awake upon entrance to his room by the clinician. The patient woke to a verbal clinician greeting but remained non-verbal. The patient was positioned upright in bed for safe swallowing. Objective The clinician attempted thin liquid trials via ice chip, teaspoon, and straw. Additionally, the patient attempted trials of applesauce via coated teaspoon and teaspoon. Regardless of maximum clinician direct modeling, tactile stimulation to the bilateral labial surfaces, and verbal cueing, the patient does not open oral cavity for acceptance of P.O. bolus. The clinician attempted a teaspoon and straw to elicit oral acceptance, however, the patient did not display the behavi or and shook his head back and forth in a "no" communication. Rationale and encouragement for the trials were provided, however, the patient continued non- acceptance. Yes and no questions were provided by the clinician in attempts to assess for accuracy. The patient does consistently shake his head "no," however, a non verbal "yes" response could not be obtained. At this time, the clinician remains unable to provide recommendations towards initiation of an oral diet. The patient should remain NPO with excellent and frequent oral care at this time. Continue with prior plan of care and recommendations. Speech pathology will continue oropharyngeal swallowing re- assessments as able and appropriate. Assessment Assessment Current Status: Poor Progress Treatment Plan Continue Plan of Care Speech Short Term Goals Short Term Goals Short Term Goals 1. The patient, family, and staff will follow safe swallowing protocols, including excellent oral care, with 90% accuracy, independently. Time Frame-STG: Five Days. Speech Usp Goals Usp Goals 1. The patient will tolerate the least restrictive diet without s/s of suspected aspiration. Time Frame: One Week. Speech-Plan Treatment Plan Speech Therapy Treatment Plan: Continue Plan of Care Treatment Duration: Oct 01, 2021 Frequency: 3 times per week (Three to five times per week, as appropriate.) Estimated Hrs Per Day: .25 hour per day Rehab Potential: Guarded Safety Risks/Education Teaching Recipient: Patient Teaching Methods: Discussion Response to Teaching: Unable to Comprehend Education Topics Provided: Rationale for P.O. Trials, Encouragement for Participation. Time Speech Therapy Time In: 12:10 Speech Therapy Time Out: 12:18 Total Billed Time: 8 Billed Treatment Time 1, DYST JUAN DIEGO Aparicio Sep 19, 2021 12:23
--- NOTE | 2021-09-19 13:58 | Progress Note - Hospitalist ---
Subjective HPI/CC On Admission Date Seen by Provider: Sep 19, 2021 Time Seen by Provider: 13:51 Marcello Tellez is a 65 year old male with PMH HTN, HLD, CAD, T2DM, who was found minimally responsive by his . She said he wakes up earlier than her. She heard him moaning in the living room and went to check on him. She asked if she needed to call an ambulance and he shook his head yes. EMS arrived and applied AED and began CPR. No shocks were advised and ROSC was obtained after one round of CPR. He was intubated. An EKG revealed STEMI and he was taken to the microbiology lab technician where he was found to have an inferior SD and had a stent placed in his RCA. Upon my exam, he is intubated and sedated in the ICU. His is present at the bedside. Subjective/Events-last exam Pt more alert today. Answered a few questions by saying no. Attempted to nod at times too. Did agree to take a bite for his medicine but then didn't. Myrtle (SO) would like change password as she thinks a niece is calling to get information that she doesn't want to have information. Objective Exam Vital Signs Vital Signs Date Time Temp Pulse Resp B/P (MAP) Pulse Ox O2 Delivery O2 Flow Rate FiO2 09/19/21 11:42 36.9 85 18 151/96 (114) 91 Room Air 09/16/21 20:00 25 09/16/21 18:00 24.00 Capillary Refill : Less Than 3 Seconds General Appearance: No Apparent Distress, WD/WN Cardiovascular: Regular Rate, Rhythm, No Murmur Neurologic/Psychiatric: Alert, Other (was able to say a few words) Results/Procedures Lab Laboratory Tests 09/19/21 03:21 Patient resulted labs reviewed. Imaging: Reviewed Imaging Report Assessment/Plan Assessment and Plan Assess & Plan/Chief Complaint STEMI Cardiac arrest CAD HTN HLD Cardiology primary s/p RCA stent placement on admission ASA and Plavix- Continue ASA rectally Family declines feeding tube so unable to place NGT at this time but may need to consider NGT - discussed with his SO who will talk with his daughter about this dilemma Weight based lovenox ordered per Cardiology- defer to cardiology regarding management of DAPT for new stent Did get Plavix yesterday- going to try again today but has declined multiple times Speech therapy consulted Metoprolol Lipitor AHRF Endotracheally intubated- resolved Anoxic Brain Injury- POA Extubated 09/16 TeleICU following Afebrile since 09/15 Repeat blood cultures NGTD Lactic acid normal Zosyn Speech, PT/OT consulted Palliative Care RN consulted BEKA on CKD- acute component resolved Hypokalemia Hyponatremia Replace K+ per protocol T2DM Sliding scale insulin Alcohol abuse Reportedly chronic daily alcohol use Continue Thiamine IV Goals of care discussion Extubated with plan to not reintubate if he does not do well DVT prophylaxis: Lovenox Critical Care Ventilator Management Diagnosis/Problems Diagnosis/Problems (1) Acute kidney injury superimposed on chronic kidney disease Status: Acute (2) T2DM (type 2 diabetes mellitus) Status: Chronic Qualifiers: Diabetes 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 transplanted heart: [place] heart (8) Cardiac arrest Status: Acute (9) S/P coronary artery stent placement Status: Acute PAL REYES MD Sep 19, 2021 13:58
[2021-09-19 15:26] VITALS: BP 146/84
--- NOTE | 2021-09-19 16:50 | Progress Note - Cardiology ---
Cardiology SOAP Progress Note Subjective: Not able to communicate meaningfully Objective: I&O/Vital Signs 09/19/21 09/19/21 09/19/21 09/19/21 07:28 09:00 11:42 15:26 Temp 36.4 36.9 36.5 Pulse 91 85 85 Resp 20 18 18 B/P (MAP) 136/90 (105) 151/96 (114) 146/84 (104) Pulse Ox 92 92 91 92 O2 Delivery Room Air Room Air Room Air Room Air 09/19/21 00:00 Intake Total 0 ml Output Total 1200 ml Balance -1200 ml Constitutional: other (not following commands - unable to swallow; moving upper extremities; opens eyes and tracks movement in the room) Respiratory: No accessory muscle use; other (fair to good air entry, bilat) Cardiovascular: regular rate-rhythm, S1 and S2, systolic murmur (soft CARL at card base) Gastrointestional: soft; No guarding; audible bowel sounds Extremities: No clubbing, No cyanosis; no lower extremity edema bilateral Neurologic/Psychiatric: other (see above, seems to move all limbs equally) Skin: No rash on exposed areas, No ulcerations on exposed areas Results/Procedures: Labs Laboratory Tests 09/18/21 17:06: Glucometer 129H 09/18/21 23:33: Glucometer 129H 09/19/21 03:21: White Blood Count 9.8, Red Blood Count 3.40L, Hemoglobin 10.4L, Hematocrit 31L, Mean Corpuscular Volume 92, Mean Corpuscular Hemoglobin 31, Mean Corpuscular Hemoglobin Concent 33, Red Cell Distribution Width 12.0, Platelet Count 465H, Mean Platelet Volume 8.4L, Immature Granulocyte % (Auto) 5, Neutrophils (%) (A uto) 62, Lymphocytes (%) (Auto) 14, Monocytes (%) (Auto) 13H, Eosinophils (%) ( Auto) 6, Basophils (%) (Auto) 1, Neutrophils # (Auto) 6.1, Lymphocytes # (Auto) 1.3, Monocytes # (Auto) 1.2H, Eosinophils # (Auto) 0.6H, Basophils # (Auto) 0.1, Immature Granulocyte # (Auto) 0.5H, Sodium Level 140, Potassium Level 3.3L, Chloride Level 103, Carbon Dioxide Level 24, Anion Gap 13, Blood Urea Nitrogen 17, Creatinine 1.14, Estimat Glomerular Filtration Rate 71, BUN/Creatinine Ratio 15, Glucose Level 128H, Calcium Level 8.7 09/19/21 05:18: Glucometer 135H 09/19/21 11:42: Glucometer 131H Microbiology 09/13/21 Blood Culture - Final, Complete No growth 09/11/21 MRSA Screen - Final, Complete MRSA not isolated Laboratory Tests 09/18/21 04:40 09/19/21 03:21 A/P: Assessment: Ac Inf Wall STEMI - transiently hemodynamically unstable at initial presentation: transient PEA - hemodynamically stable since PCI for STEMI (see below CAD - card cath of 09/11/21: Coronary artery disease primarily consisting of severe mid vessel stenosis of the dominant right coronary artery that was the culprit in causing an inferior wall ST elevation myocardial infarction and that was successfully stented with Skypoint 2.5 x 28 mm stent. The first diagonal branch of the left anterior descending artery has a 50% to 60% proximal and mid vessel stenosis. It is a small caliber vessel. The left circumflex artery is nondominant and has a large first obtuse marginal branch, a subbranch of which has approximately 60% to 70% stenosis. Elevated left ventricular end-diastolic pressure. Left ventricular ejection fraction approximately 60% - echo of 09/12/21: LVEF 50-55% Ac renal failure on top of CKD 4 - acute component has improved; acidosis has improved; hyperkalemia has resolved AMS - management per medical services DMI II Ac resp failure - on mech vent - extubated on 09-16-21 ?Heavy ETOH usage Gen edema on 09/15/21, improved post furosemide Plan: * AMS - Not following commands, unable to swallow without significant prompting pureed foods and crushed meds * D/t recent stent placement he is receiving ASA rectally - previously unable to swallow, but has been able to receive Plavix crushed in puree food yesterday with max prompting - will change Lovenox to DVT dosing * Continue BB IV * Replenish K. Change iv fluids to 1/2 NS + K * Family has met with palliative services and they are undecided at this time. They have refused life support or any tube (including NGT) BAILEY CURRAN MD FACP FAC CCDS Sep 19, 2021 16:50
[2021-09-19] MEDS: 1/2 NS W/KCL 20 MEQ/L 1,000 ML IV SCH (17:08)
[2021-09-19] MEDS: ENOXAPARIN 40 MG/0.4 ML (LOVENOX) SYR SQ SCH (19:34)
[2021-09-19 19:58] VITALS: BP 179/81
[2021-09-19 23:59] VITALS: BP 153/90
[2021-09-20] MEDS: inSUlin ASPART (NovoLOG) 1 UNIT/0.01 ML (CHARGE PER UNIT) SC SCH ×4 (00:31→18:34)
[2021-09-20 03:34] VITALS: BP 154/93
[2021-09-20] MEDS: MULTIVIT W/MINERALS TAB (THERAGRAN M) PO SCH (05:44)
[2021-09-20 05:56] LABS: BASOPHILS # (AUTO) 0.1 10^3/uL (0.0-0.1); BASOPHILS % (AUTO) 1 % (0-10); EOSINOPHILS # (AUTO) 0.5 10^3/uL (0.0-0.3); EOSINOPHILS % (AUTO) 5 % (0-10); HEMATOCRIT 30 % (40-54); HEMOGLOBIN 10.1 g/dL (13.3-17.7); LYMPHOCYTES # (AUTO) 1.4 10^3/uL (1.0-4.0); LYMPHOCYTES % (AUTO) 16 % (12-44); MEAN CORPUSCULAR HEMOGLOBIN 31 pg (25-34); MEAN CORPUSCULAR HGB CONC 33 g/dL (32-36); MEAN CORPUSCULAR VOLUME 92 fL (80-99); MEAN PLATELET VOLUME 8.4 fL (9.0-12.2); MONOCYTES # (AUTO) 0.9 10^3/uL (0.0-1.0); MONOCYTES % (AUTO) 10 % (0-12); NEUTROPHILS # (AUTO) 6.1 10^3/uL (1.8-7.8); NEUTROPHILS % (AUTO) 66 % (42-75); PLATELET COUNT 530 10^3/uL (130-400); WHITE BLOOD COUNT 9.2 10^3/uL (4.3-11.0)
[2021-09-20 06:18] LABS: POTASSIUM 3.5 MMOL/L (3.6-5.0)
[2021-09-20 06:19] LABS: CALCIUM 8.7 MG/DL (8.5-10.1)
[2021-09-20 06:24] LABS: CREATININE SERUM 1.02 MG/DL (0.60-1.30)
[2021-09-20 07:49] VITALS: BP 153/70
[2021-09-20] MEDS: meTOprolol 5 MG/5 ML (LOPRESSOR) VIAL IV SCH ×2 (08:47→21:27)
[2021-09-20] MEDS: PANTOPRAZOLE 40 MG (PROTONIX) VIAL IV SCH (08:47)
[2021-09-20] MEDS: ASPIRIN 300 MG (5 GR) SUPPOSITORY PR SCH (08:47)
[2021-09-20] MEDS: THIAMINE 100 MG/ML 2 ML (VITAMIN B-1) VIAL IV SCH (08:47)
--- NOTE | 2021-09-20 08:58 | Progress Note - Cardiology ---
Cardiology SOAP Progress Note Subjective: Lying in bed Appears comfortable No signs of distress Does not follow commands Objective: I&O/Vital Signs 09/23/21 09/23/21 09/23/21 00:00 03:47 08:17 Temp 37.4 37.5 37.6 Pulse 120 87 115 Resp 20 18 20 B/P (MAP) 137/76 (96) 110/68 (82) 149/87 (107) Pulse Ox 94 94 95 O2 Delivery Room Air Room Air Room Air 09/23/21 00:00 Intake Total 1000 ml Output Total 950 ml Balance 50 ml Constitutional: other (not following commands - unable to swallow; moving upper extremities; opens eyes and tracks movement in the room) Respiratory: No accessory muscle use; other (fair to good air entry, bilat) Cardiovascular: regular rate-rhythm, S1 and S2, systolic murmur (soft CARL at card base) Gastrointestional: soft; No guarding; audible bowel sounds Extremities: No clubbing, No cyanosis; no lower extremity edema bilateral Neurologic/Psychiatric: other (see above, seems to move all limbs equally) Skin: No rash on exposed areas, No ulcerations on exposed areas Results/Procedures: Labs Laboratory Tests 09/22/21 12:01: Glucometer 109 09/22/21 20:33: Glucometer 128H 09/23/21 05:42: Glucometer 155H 09/23/21 05:55: White Blood Count 14.8H, Red Blood Count 3.31L, Hemoglobin 10.3L, Hematocrit 31L , Mean Corpuscular Volume 93, Mean Corpuscular Hemoglobin 31, Mean Corpuscular Hemoglobin Concent 33, Red Cell Distribution Width 12.4, Platelet Count 675H, Mean Platelet Volume 8.4L, Immature Granulocyte % (Auto) 1, Neutrophils (%) (Auto) 84H, Lymphocytes (%) (Auto) 7L, Monocytes (%) (Auto) 5, Eosinophils (%) (Auto) 2, Basophils (%) (Auto) 1, Neutrophils # (Auto) 12.5H, Lymphocytes # (Auto) 1.1, Monocytes # (Auto) 0.8, Eosinophils # (Auto) 0.3, Basophils # (Auto) 0.1, Immature Granulocyte # (Auto) 0.1, Neutrophils % (Manual) 82, Lymphocytes % (Manual) 11, Monocytes % (Manual) 5, Eosinophils % (Manual) 2, Blood Morphology Comment NORMAL Microbiology 09/21/21 MRSA Screen - Final, Complete MRSA not isolated 09/13/21 Blood Culture - Final, Complete No growth A/P: Assessment: Ac Inf Wall STEMI - transiently hemodynamically unstable at initial presentation: transient PEA - hemodynamically stable since PCI for STEMI (see below CAD - card cath of 09/11/21: Coronary artery disease primarily consisting of severe mid vessel stenosis of the dominant right coronary artery that was the culprit in causing an inferior wall ST elevation myocardial infarction and that was successfully stented with Skypoint 2.5 x 28 mm stent. The first diagonal branch of the left anterior descending artery has a 50% to 60% proximal and mid vessel stenosis. It is a small caliber vessel. The left circumflex artery is [place] and has a large first obtuse marginal branch, a subbranch of which has approximately 60% to 70% stenosis. Elevated left ventricular end-diastolic pressure. Left ventricular ejection fraction approximately 60% - echo of 09/12/21: LVEF 50-55% Ac renal failure on top of CKD 4 - acute component has improved; acidosis has improved; hyperkalemia has resolved AMS - management per medical services DMI II Ac resp failure - on mech vent - extubated on 09-16-21 ?Heavy ETOH usage Gen edema on 09/15/21, improved post furosemide Plan: * AMS - Not following commands, unable to swallow without significant prompting pureed foods and crushed meds * Complex management issue * D/t recent stent placement he is receiving ASA rectally - previously unable to swallow, but has been able to receive Plavix crushed in puree food on 09-18-21 with max prompting, however, they were unable to give him his Plavix yesterday d/t inability to get patient to open mouth - this places him at risk for stent thrombosis - family is not agreeable to NGT or PEG tube * Continue BB IV * Replenish K. Change iv fluids to 1/2 NS + K * Family has met with palliative services and they are undecided at this time. They have refused life support or any tube (including NGT) NAVNEET LEI Sep 20, 2021 08:58
--- NOTE | 2021-09-20 09:45 | Progress Note - Hospitalist ---
Subjective HPI/CC On Admission Date Seen by Provider: Sep 20, 2021 Marcello Tellez is a 65 year old male with PMH HTN, HLD, CAD, T2DM, who was found minimally responsive by his . She said he wakes up earlier than her. She heard him moaning in the living room and went to check on him. She asked if she needed to call an ambulance and he shook his head yes. EMS arrived and applied AED and began CPR. No shocks were advised and ROSC was obtained after one round of CPR. He was intubated. An EKG revealed STEMI and he was taken to the shift lab technician where he was found to have an inferior NC and had a stent placed in his RCA. Upon my exam, he is intubated and sedated in the ICU. His is present at the bedside. Subjective/Events-last exam Pt reports doing "alright." Up walking with PT. Speaking much more clearly. Objective Exam Vital Signs Vital Signs Date Time Temp Pulse Resp B/P (MAP) Pulse Ox O2 Delivery O2 Flow Rate FiO2 09/20/21 07:49 36.9 102 20 153/70 (97) 92 Room Air 09/16/21 20:00 25 09/16/21 18:00 24.00 Capillary Refill : Less Than 3 Seconds General Appearance: No Apparent Distress, Chronically ill Respiratory: No Accessory Muscle Use, No Respiratory Distress Neurologic/Psychiatric: Alert, Other (drastically improved neurological status- speaking and seems to be understanding) Results/Procedures Lab Laboratory Tests 09/20/21 05:40 Patient resulted labs reviewed. Imaging: Reviewed Imaging Report Assessment/Plan Assessment and Plan Assess & Plan/Chief Complaint STEMI Cardiac arrest CAD HTN HLD Cardiology primary s/p RCA stent placement on admission ASA and Plavix- Continue ASA rectally Family declines feeding tube so unable to place NGT at this time but may need to consider NGT - discussed with his SO who will talk with his daughter about this dilemma Mentation much improved, hopeful for improved ability to take orals Speech therapy consulted Metoprolol Lipitor AHRF Endotracheally intubated- resolved Anoxic Brain Injury- POA Extubated 09/16 TeleICU following Afebrile since 09/15 Repeat blood cultures NGTD Lactic acid normal Zosyn Speech, PT/OT consulted Palliative Care RN consulted BEKA on CKD- acute component resolved Hypokalemia Hyponatremia Replace K+ per protocol T2DM Sliding scale insulin Alcohol abuse Reportedly chronic daily alcohol use Continue Thiamine IV Goals of care discussion Extubated with plan to not reintubate if he does not do well DVT prophylaxis: Lovenox Critical Care Ventilator Management Diagnosis/Problems Diagnosis/Problems (1) Acute kidney injury superimposed on chronic kidney disease Status: Acute (2) T2DM (type 2 diabetes mellitus) Status: Chronic Qualifiers: Diabetes mellitus longterm insulin use: without longterm use Diabetes mellitus complication status: without complication Qualified Codes: E11.9 - Type 2 diabetes mellitus without complications (3) HLD (hyperlipidemia) Status: Chronic (4) HTN (hypertension) Status: Chronic (5) Acute ST elevation myocardial infarction (STEMI) of inferior wall Status: Acute (6) Alcohol abuse (7) CAD (coronary artery disease) Status: Acute Qualifiers: Coronary Disease-Associated Artery/Lesion type: [place] artery [place] vs. transplanted heart: [place] heart (8) Cardiac arrest Status: Acute (9) S/P coronary artery stent placement Status: Acute PAL REYES MD Sep 20, 2021 09:45
--- NOTE | 2021-09-20 10:24 | Physical Therapy Daily Note ---
PT Daily Note-Current Subjective Patient more alert today. Repeating words that this PT would say. Mental Status Patient Orientation: Confused Attachments: Khan Catheter, IV Transfers SCALE: Activities may be completed with or without assistive devices. 9-Pdilpoxtjs-ymsljzi completes the activity by him/herself with no assistance from a helper. 5-Set-up or Clean-up Assistance-helper sets up or cleans up; patient completes activity. [place] assists only prior to or following the activity. 4-Supervision or Touching Assistance-helper provides verbal cues and/or touching/steadying and/or contact guard assistance as patient completes a ctivity. Assistance may be provided throughout the activity or intermittently. 3-Partial/Moderate Assistance-helper does LESS THAN HALF the effort. [place] lifts, holds or supports trunk or limbs, but provides less than half the effort. 2-Substantial/Maximal Assistance-helper does MORE THAN HALF the effort. [place] lifts or holds trunk or limbs and provides more than half the effort. 1-Ecusdmtag-efaxtk does ALL the effort. Patient does none of the effort to complete the activity. Or, the assistance of 2 or more helpers is required for the patient to complete the activity. If activity was not attempted, code reason: 7-Patient Refused. 9-Not Applicable-not attempted and the patient did not perform the activity before the current illness, exacerbation or injury. 10-Not Attempted due to Environmental Limitations-(lack of equipment, weather restraints, etc.). 88-Not Attempted due to Medical Conditions or Safety Concerns. Sit to Lying (QC): 2 Lying to Sitting/Side of Bed(Q: 2 Sit to Stand (QC): 2 patient initially retropulsive with sitting EOB requiring max assist to maintain. After several minutes, patient able to maintain SBA Gait Training Distance: 175' Walk 10 feet (QC): 2 Walk 50 ft with 2 Turns(QC): 2 Walk 150 ft (QC): 2 Gait Assistive Device: FWW max assist initially with minimal assist after distance/extended UE's with FWW use/PT advance FWW Assessment Patient more alert and able to ambulate in hallway with physician observing. PT to continue to increase activity as tolerated by patient. Patient returned to bed with 4 rails up and alarm activated. PT Short Term Goals Short Term Goals Time Frame: Sep 28, 2021 Roll Left & Right: 2 Sit to lyin Lying to sitting on side of be: 2 Sit to stand: 2 Chair/son-mn-xjujn transfer: 2 Walk 10 feet: 2 PT Meat And Poultry Inspector Goals Prison Goals PT Meat And Poultry Inspector Goals Time Frame: Oct 12, 2021 Roll Left & Right (QC): 4 Sit to Lying (QC): 4 Lying-Sitting on Side/Bed(QC): 4 Sit to Stand (QC): 4 Chair/Vze-kj-Ulbho Xfer(QC): 4 Toilet Transfer (QC): 4 Walk 10 feet (QC): 4 Walk 50ft with 2 Turns (QC): 4 Walk 150 ft (QC): 4 PT Plan Treatment/Plan Treatment Plan: Continue Plan of Care Treatment Plan: Bed Mobility, Education, Functional Activity Don, Functional Strength, Gait, Safety, Therapeutic Exercise, Transfers Treatment Duration: Oct 12, 2021 Frequency: 6 times per week Estimated Hrs Per Day: .5 hour per day Patient and/or Family Agrees t: Yes Time/GCodes Time In: 903 Time Out: 926 Total Billed Treatment Time: 23 Total Billed Treatment 1 visit FA x 2 23 min BRADLEY GOMEZ PT Sep 20, 2021 10:24
[2021-09-20] MEDS: POTASSIUM CL 10MEQ/50ML IVPB 50 ML IV SCH ×2 (11:17→12:56)
--- NOTE | 2021-09-20 11:19 | Speech Therapy Daily Note ---
Speech Daily Progress Note Subjective Date Seen by Provider: Sep 20, 2021 Time Seen by Provider: 10:40 The patient was lying in bed, eyes opened upon entrance to his room by the clinician. The patient made eye contact with the clinician when his name was spoken, however, no verbalizations were produced. The patient's significant other and her son were present at bedside. The patient's significant other reports conversational exchanges between the patient and herself. Regardless of maximum verbal encouragement and prompting, the patient does not respond to the clinician verbally or nonverbally. The patient does not display head nods or shakes to simple yes and no questions on this date. Objective The patient's RN stated the patient's significant other and the RN have attempted oral trials of applesauce. At this time, the patient is not opening the oral cavity for bolus acceptance. The patient was presented with an ice chip via teaspoon, water via teaspoon, and water via straw. The patient purses his lips tightly and turns head away from the clinician on each attempt. The clinician attempts repetitiously without success. Continue current plan of care. Consider possible discussion regarding alternative sources for nutrition, hydration, and medication if inability to advance an oral diet continues. Assessment Assessment Current Status: Poor Progress Treatment Plan Continue Plan of Care Speech Short Term Goals Short Term Goals Short Term Goals 1. The patient, family, and staff will follow safe swallowing protocols, including excellent oral care, with 90% accuracy, independently. Time Frame-STG: Five Days. Speech Putaway Driver Goals Putaway Driver Goals 1. The patient will tolerate the least restrictive diet without s/s of suspected aspiration. Time Frame: One Week. Speech-Plan Treatment Plan Speech Therapy Treatment Plan: Continue Plan of Care Treatment Duration: Oct 01, 2021 Frequency: 3 times per week (Three to five times per week, as appropriate.) Estimated Hrs Per Day: .25 hour per day Rehab Potential: Guarded Safety Risks/Education Teaching Recipient: Patient, Family Teaching Methods: Discussion Response to Teaching: Reinforcement Needed Education Topics Provided: Plan of Care Time Speech Therapy Time In: 10:40 Speech Therapy Time Out: 11:00 Total Billed Time: 20 Billed Treatment Time NARESH Shaw JUAN DIEGO Aparicio Sep 20, 2021 11:18
--- NOTE | 2021-09-20 11:29 | Occupational Ther Daily Note ---
OT Current Status-Daily Note Subjective OT states "I heard you walked today, that's great!" Throughout remainder of session pt with Echolalia stating "that's great, that's great, that's great!" Appearance Pt left supine in bed, family in the room. Mental Status/Objective Patient Orientation: Unable to Assess Attachments: Khan Catheter, IV ADL-Treatment Therapy Code Descriptions/Definitions Functional [place] Measure: 0=Not Assessed/NA 4=Minimal Assistance 1=Total Assistance 5=Supervision or Setup 2=Maximal Assistance 6=Modified [place] 3=Moderate Assistance 7=Complete IndependenceSCALE: Activities may be completed with or without assistive devices. 2-Iiguyltbuc-ktsjckh completes the activity by him/herself with no assistance from a helper. 5-Set-up or Clean-up Assistance-helper sets up or cleans up; patient completes activity. [place] assists only prior to or following the activity. 4-Supervision or Touching Assistance-helper provides verbal cues and/or touching/steadying and/or contact guard assistance as patient completes a ctivity. Assistance may be provided throughout the activity or intermittently. 3-Partial/Moderate Assistance-helper does LESS THAN HALF the effort. [place] lifts, holds or supports trunk or limbs, but provides less than half the effort. 2-Substantial/Maximal Assistance-helper does MORE THAN HALF the effort. [place] lifts or holds trunk or limbs and provides more than half the effort. 7-Coteymsfv-bfamvw does ALL the effort. Patient does none of the effort to complete the activity. Or, the assistance of 2 or more helpers is required for the patient to complete the activity. If activity was not attempted, code reason: 7-Patient Refused. 9-Not Applicable-not attempted and the patient did not perform the activity before the current illness, exacerbation or injury. 10-Not Attempted due to Environmental Limitations-(lack of equipment, weather restraints, etc.). 88-Not Attempted due to Medical Conditions or Safety Concerns. Eating (QC): 1 Oral Hygiene (QC): 1 Pt laying cockeyed in bed at OT arrival. Dependent to bring self back to midline. OT attempts to have pt complete oral care with oral swab however pt pursing lips tightly and often turns head away from therapist. Visual cues given to open mouth, no follow through. OT attempts to have pt hold swab yet pt continues to shake head away. OT also attempts face washing with warm wash cloth and HOHA, again pt turning head away. No success. Education OT Patient Education: Correct positioning, Purpose of tx/functional activities, Safety issues Teaching Recipient: Patient, Family Teaching Methods: Demonstration, Discussion Response to Teaching: Unable to Return Demonstration, Unable to Comprehend, Reinforcement Needed OT Custodial Goals Professor Of Political Science Goals Time Frame: Oct 15, 2021 Eating (QC): 3 Oral Hygiene (QC): 3 Toileting Hygiene (QC): 3 Shower/Bathe Self (QC): 3 Upper Body Dressing (QC): 3 Lower Body Dressing (QC): 3 On/Off Footwear (QC): 3 1=Demonstrate adherence to instructed precautions during ADL tasks. 2=Patient will verbalize/demonstrate understanding of assistive devices/modifications for ADL. 3=Patient will improve strength/tolerance for activity to enable patient to perform ADL's. OT Education/Plan Problem List/Assessment Assessment: Decreased Activ Tolerance, Decreased Safety Aware, Decreased UE Strength, Dependent Transfers, Impaired Bed Mobility, Impaired Cognition, Impaired Coordination, Impaired Funct Balance, Impaired Self-Care Skills, Restricted Funct UE ROM Discharge Recommendations Plan/Recommendations: Continue POC Treatment Plan/Plan of Care Treatment,Training & Education: Yes Patient would benefit from OT for education, treatment and training to promote independence in ADL's, mobility, safety and/or upper extremity function for ADL's. Plan of Care: ADL Retraining, Caregiver Training, Cognitive Retraining, Functional Mobility, Group Exercise/Act as Ind, UE Funct Exercise/Act, UE Neuromus Re-Ed/Coord, W/C Management Training Treatment Duration: Oct 15, 2021 Frequency: 3 times per week (3-5x/week) Estimated Hrs Per Day: .25 hour per day Rehab Potential: Guarded Time/GCodes Start Time: 11:01 Stop Time: 11:11 Total Time Billed (hr/min): 10 Billed Treatment Time 1 visit ADL Galina Gay OT Sep 20, 2021 11:29
[2021-09-20 11:59] VITALS: BP 147/86
[2021-09-20] MEDS: CLOPIDOGREL 75 MG (PLAVIX) TABLET PO SCH (12:56)
--- NOTE | 2021-09-20 12:57 | Progress Note - Cardiology ---
Cardiology SOAP Progress Note Subjective: Unable to provide any meaningful response to any question Objective: I&O/Vital Signs 09/20/21 09/20/21 09/20/21 09/20/21 03:34 07:49 09:00 11:59 Temp 36.7 36.9 36.6 Pulse 92 102 94 Resp 18 20 18 B/P (MAP) 154/93 (113) 153/70 (97) 147/86 (106) Pulse Ox 91 92 91 O2 Delivery Room Air Room Air Room Air Room Air 09/20/21 00:00 Intake Total 0 ml Output Total 1000 ml Balance -1000 ml Constitutional: other (not following commands - unable to swallow; moving upper extremities; opens eyes and tracks movement in the room) Respiratory: No accessory muscle use; other (fair to good air entry, bilat) Cardiovascular: regular rate-rhythm, S1 and S2, systolic murmur (soft CARL at card base) Gastrointestional: soft; No guarding; audible bowel sounds Extremities: No clubbing, No cyanosis; no lower extremity edema bilateral Neurologic/Psychiatric: other (see above, seems to move all limbs equally) Skin: No rash on exposed areas, No ulcerations on exposed areas Results/Procedures: Labs Laboratory Tests 09/19/21 17:07: Glucometer 124H 09/20/21 00:04: Glucometer 101 09/20/21 00:31: Glucometer 90 09/20/21 05:36: Glucometer 96 09/20/21 05:40: White Blood Count 9.2, Red Blood Count 3.27L, Hemoglobin 10.1L, Hematocrit 30L, Mean Corpuscular Volume 92, Mean Corpuscular Hemoglobin 31, Mean Corpuscular Hemoglobin Concent 33, Red Cell Distribution Width 11.9, Platelet Count 530H, Mean Platelet Volume 8.4L, Immature Granulocyte % (Auto) 4, Neutrophils (%) (Auto) 66, Lymphocytes (%) (Auto) 16, Monocytes (%) (Auto) 10, Eosinophils (%) (Auto) 5, Basophils (%) (Auto) 1, Neutrophils # (Auto) 6.1, Lymphocytes # (Auto) 1.4, Monocytes # (Auto) 0.9, Eosinophils # (Auto) 0.5H, Basophils # (Auto) 0.1, Immature Granulocyte # (Auto) 0.3H, Sodium Level 141, Potassium Level 3.5L, Chloride Level 106, Carbon Dioxide Level 21, Anion Gap 14, Blood Urea Nitrogen 16, Creatinine 1.02, Estimat Glomerular Filtration Rate 81, BUN/Creatinine Ratio 16, Glucose Level 94, Calcium Level 8.7 Microbiology 09/13/21 Blood Culture - Final, Complete No growth 09/11/21 MRSA Screen - Final, Complete MRSA not isolated Laboratory Tests 09/19/21 03:21 09/20/21 05:40 A/P: Assessment: Ac Inf Wall STEMI - transiently hemodynamically unstable at initial presentation: transient PEA - hemodynamically stable since PCI for STEMI (see below CAD - card cath of 09/11/21: Coronary artery disease primarily consisting of severe mid vessel stenosis of the dominant right coronary artery that was the culprit in causing an inferior wall ST elevation myocardial infarction and that was s uccessfully stented with Skypoint 2.5 x 28 mm stent. The first diagonal branch of the left anterior descending artery has a 50% to 60% proximal and mid vessel stenosis. It is a small caliber vessel. The left circumflex artery is nondominant and has a large first obtuse marginal branch, a subbranch of which has approximately 60% to 70% stenosis. Elevated left ventricular end-diastolic pressure. Left ventricular ejection fraction approximately 60% - echo of 09/12/21: LVEF 50-55% Ac renal failure on top of CKD 4 - acute component has improved; acidosis has improved; hyperkalemia has resolved AMS - management per medical services DMI II Ac resp failure - on mech vent - extubated on 09-16-21 ?Heavy ETOH usage Gen edema on 09/15/21, improved post furosemide Plan: * AMS - Not following commands, unable to swallow without significant prompting pureed foods and crushed meds * Complex management issue * D/t recent stent placement he is receiving ASA rectally - previously unable to swallow, but has been able to receive Plavix crushed in puree food on 09-18-21 with max prompting, however, they were unable to give him his Plavix yesterday d/t inability to get patient to open mouth - this places him at risk for stent thrombosis - family does not agree to NGT or PEG tube (despite a complete understanding of all issues) * Continue BB IV * Replenish K. Change iv fluids to 1/2 NS + K * Family has met with palliative services and they are undecided at this time. They have refused life support or any tube (including NGT) BAILEY CURRAN MD FACP FAC CCDS Sep 20, 2021 12:57
[2021-09-20] MEDS: 1/2 NS W/KCL 20 MEQ/L 1,000 ML IV SCH (13:02)
[2021-09-20 15:38] VITALS: BP 162/86
[2021-09-20] MEDS: D5 1/2 NS W/KCL 20 MEQ/L 1,000 ML IV SCH (18:51)
[2021-09-20 19:21] VITALS: BP 167/96
[2021-09-20] MEDS: ENOXAPARIN 40 MG/0.4 ML (LOVENOX) SYR SQ SCH (21:27)
[2021-09-21 00:25] VITALS: BP 151/79
[2021-09-21] MEDS: inSUlin ASPART (NovoLOG) 1 UNIT/0.01 ML (CHARGE PER UNIT) SC SCH ×5 (00:37→23:41)
[2021-09-21 04:04] VITALS: BP 165/70
[2021-09-21] MEDS: MULTIVIT W/MINERALS TAB (THERAGRAN M) PO SCH (05:32)
[2021-09-21 05:49] LABS: BASOPHILS # (AUTO) 0.1 10^3/uL (0.0-0.1); BASOPHILS % (AUTO) 1 % (0-10); EOSINOPHILS # (AUTO) 0.4 10^3/uL (0.0-0.3); EOSINOPHILS % (AUTO) 4 % (0-10); HEMATOCRIT 31 % (40-54); HEMOGLOBIN 10.5 g/dL (13.3-17.7); LYMPHOCYTES # (AUTO) 1.5 10^3/uL (1.0-4.0); LYMPHOCYTES % (AUTO) 14 % (12-44); MEAN CORPUSCULAR HEMOGLOBIN 31 pg (25-34); MEAN CORPUSCULAR HGB CONC 34 g/dL (32-36); MEAN CORPUSCULAR VOLUME 92 fL (80-99); MEAN PLATELET VOLUME 8.2 fL (9.0-12.2); MONOCYTES # (AUTO) 0.9 10^3/uL (0.0-1.0); MONOCYTES % (AUTO) 8 % (0-12); NEUTROPHILS # (AUTO) 7.6 10^3/uL (1.8-7.8); NEUTROPHILS % (AUTO) 71 % (42-75); PLATELET COUNT 561 10^3/uL (130-400); WHITE BLOOD COUNT 10.7 10^3/uL (4.3-11.0)
[2021-09-21 06:01] LABS: POTASSIUM 3.8 MMOL/L (3.6-5.0)
[2021-09-21 06:03] LABS: CALCIUM 8.7 MG/DL (8.5-10.1)
[2021-09-21 06:07] LABS: CREATININE SERUM 1.01 MG/DL (0.60-1.30)
[2021-09-21 06:09] LABS: MAGNESIUM 1.6 MG/DL (1.6-2.4)
[2021-09-21 07:55] VITALS: BP 180/93
[2021-09-21] MEDS: THIAMINE 100 MG/ML 2 ML (VITAMIN B-1) VIAL IV SCH (09:05)
[2021-09-21] MEDS: meTOprolol 5 MG/5 ML (LOPRESSOR) VIAL IV SCH ×3 (09:05→23:33)
[2021-09-21] MEDS: PANTOPRAZOLE 40 MG (PROTONIX) VIAL IV SCH (09:05)
[2021-09-21] MEDS: CLOPIDOGREL 75 MG (PLAVIX) TABLET PO SCH (09:15)
[2021-09-21] MEDS: ASPIRIN 300 MG (5 GR) SUPPOSITORY PR SCH (09:23)
[2021-09-21] MEDS: D5 1/2 NS W/KCL 20 MEQ/L 1,000 ML IV SCH ×2 (09:23→22:09)
--- NOTE | 2021-09-21 10:55 | Physical Therapy Progress Note ---
Therapy Progress Note Attempted PT treatment today. Patient very confused and unable to follow directions. LIO POSEY PT Sep 21, 2021 10:55
[2021-09-21 12:20] VITALS: BP 190/99
[2021-09-21 13:22] LABS: TRIGLYCERIDES 205 MG/DL (<150); VLDL CHOLESTEROL 41 MG/DL (5-40)
[2021-09-21 13:27] LABS: CHOLESTEROL 165 MG/DL (< 200); HDL CHOLESTEROL 28 MG/DL (40-60)
[2021-09-21 15:47] VITALS: BP 161/93
--- NOTE | 2021-09-21 15:47 | Cardiology Progress Note ---
Progress Note-Cardiology Events since last exam Date Seen by Provider: Sep 21, 2021 Time Seen by Provider: 15:40 Events since last exam He is on our service following an inferior ST elevation myocardial infarction that presented with cardiac arrest. He noticed some degree of anoxic brain injury. His significant other and a brother were at the bedside as well as some other family members. The nurse was also able to reach the patient's son who is the DPOA and he has requested PEG tube insertion. The patient is speaking unintelligibly and I am not able to obtain any history from him. He is not following any of my commands. Certain portions of this document may have been dictated utilizing voice recog nition technology. Inherent to this technology, typographical and grammatical errors may exist. As much as I am diligent to identify and correct these mistakes, some errors may remain in the document. Vitals Last set of Vitals Signs Vital Signs 09/16/21 09/21/21 18:00 12:20 Temp 36.6 Pulse 88 Resp 24 B/P (MAP) 190/99 (129) Pulse Ox 94 O2 Delivery Room Air O2 Flow Rate 24.00 Labs Labs Laboratory Tests 09/21/21 05:40 Exam Vital Signs Vital Signs Date Time Temp Pulse Resp B/P (MAP) Pulse Ox O2 Delivery O2 Flow Rate FiO2 09/21/21 12:20 36.6 88 24 190/99 (129) 94 Room Air 09/16/21 20:00 25 09/16/21 18:00 24.00 Physical Exam General: Awake and speaking unintelligibly and not following commands. Eye: No xanthelasma. HENT: Normocephalic. Neck: Jugular venous pressure does not appear elevated. Respiratory: Lungs are clear to auscultation but with diffusely decreased breath sounds. Respirations are non-labored. Breath sounds are equal. Symmetrical chest wall expansion. Cardiovascular: Normal rate. Regular rhythm. No murmur. No gallop. No edema. Gastrointestinal: Soft. Normal bowel sounds. Skin: Warm. Dry. Neurologic: As above, awake but speaking on intelligibly. Cranial nerves 3-11 grossly intact. Psychiatric: Encephalopathic. Labs Laboratory Tests Test 09/20/21 18:19 09/20/21 23:55 09/21/21 05:38 09/21/21 05:40 Range/Units Glucometer 78 111 H 122 H 70-110 MG/DL White Blood Count 10.7 4.3-11.0 10^3/uL Red Blood Count 3.40 L 4.30-5.52 10^6/uL Hemoglobin 10.5 L 13.3-17.7 g/dL Hematocrit 31 L 40-54 % Mean Corpuscular Volume 92 80-99 fL Mean Corpuscular Hemoglobin 31 25-34 pg Mean Corpuscular Hemoglobin Concent 34 32-36 g/dL Red Cell Distribution Width 11.9 10.0-14.5 % Platelet Count 561 H 130-400 10^3/uL Mean Platelet Volume 8.2 L 9.0-12.2 fL Immature Granulocyte % (Auto) 2 % Neutrophils (%) (Auto) 71 42-75 % Lymphocytes (%) (Auto) 14 12-44 % Monocytes (%) (Auto) 8 0-12 % Eosinophils (%) (Auto) 4 0-10 % Basophils (%) (Auto) 1 0-10 % Neutrophils # (Auto) 7.6 1.8-7.8 10^3/uL Lymphocytes # (Auto) 1.5 1.0-4.0 10^3/uL Monocytes # (Auto) 0.9 0.0-1.0 10^3/uL Eosinophils # (Auto) 0.4 H 0.0-0.3 10^3/uL Basophils # (Auto) 0.1 0.0-0.1 10^3/uL Immature Granulocyte # (Auto) 0.2 H 0.0-0.1 10^3/uL Sodium Level 139 135-145 MMOL/L Potassium Level 3.8 3.6-5.0 MMOL/L Chloride Level 106 98-107 MMOL/L Carbon Dioxide Level 21 21-32 MMOL/L Anion Gap 12 5-14 MMOL/L Blood Urea Nitrogen 15 7-18 MG/DL Creatinine 1.01 0.60-1.30 MG/DL Estimat Glomerular Filtration Rate 82 BUN/Creatinine Ratio 15 Glucose Level 125 H 70-105 MG/DL Calcium Level 8.7 8.5-10.1 MG/DL Magnesium Level 1.6 1.6-2.4 MG/DL Triglycerides Level 205 H <150 MG/DL Cholesterol Level 165 < 200 MG/DL LDL Cholesterol Direct 105 1-129 MG/DL VLDL Cholesterol 41 H 5-40 MG/DL HDL Cholesterol 28 L 40-60 MG/DL Test 09/21/21 12:31 Range/Units Glucometer 146 H 70-110 MG/DL Diagnosis/Problems Diagnosis/Problems (1) Acute ST elevation myocardial infarction (STEMI) of inferior wall Status: Acute Assessment & Plan: Unknown whether or not the patient has any recurrent angina due to his encephalopathy. He has been getting rectal aspirin and intermittently receiving clopidogrel and some soft food. However, due to aspiration risk, he is not consistently getting any oral medication. He is on intravenous beta-gabby. His ejection fraction following the myocardial infarction was normal. If we can get a PEG tube in the patient, then we can get him on the appropriate guideline directed medical therapy. (2) Cardiac arrest Status: Acute Assessment & Plan: He had out of hospital cardiac arrest most likely secondary to the acute inferior myocardial infarction. Now he appears to have anoxic br ain injury but may be making some slow improvement. According to his family, he has had some limited communication with him today. 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 (4) At risk for aspiration Assessment & Plan: I have consulted general surgery for consideration of PEG tube placement for nutrition and medications. (5) Primary hypertension Assessment & Plan: He has been intermittently hypertensive. I changed his intravenous metoprolol from twice daily to 4 times daily dosing. Once he has a PEG tube, this can be changed over to oral beta-gabby. (6) Mixed hyperlipidemia Assessment & Plan: His LDL level is mildly elevated although this was post myocardial infarction which can cause depression of the LDL level. Once he has a PEG tube, we can initiate therapy with intensive dose statin medication. (7) Type 2 diabetes mellitus with complication Assessment & Plan: The hospitalist is assisting with management of the diabetes. (8) Acute kidney injury superimposed on chronic kidney disease Status: Acute Assessment & Plan: This has improved. TITO DELANEY JR, MD Sep 21, 2021 15:47
--- NOTE | 2021-09-21 18:58 | Progress Note - Hospitalist ---
Subjective HPI/CC On Admission Date Seen by Provider: Sep 21, 2021 Time Seen by Provider: 12:30 Marcello Tellez is a 65 year old male with PMH HTN, HLD, CAD, T2DM, who was found minimally responsive by his . She said he wakes up earlier than her. She heard him moaning in the living room and went to check on him. She asked if she needed to call an ambulance and he shook his head yes. EMS arrived and applied AED and began CPR. No shocks were advised and ROSC was obtained after one round of CPR. He was intubated. An EKG revealed STEMI and he was taken to the logging rafter laborer where he was found to have an inferior HI and had a stent placed in his RCA. Upon my exam, he is intubated and sedated in the ICU. His is present at the bedside. Subjective/Events-last exam He does not respond to questions. He speaks some incomprehensible words. He is not following commands. He is moving all extremities spontaneously. He appears uncomfortable. His family is at the bedside. Objective Exam Vital Signs Vital Signs Date Time Temp Pulse Resp B/P (MAP) Pulse Ox O2 Delivery O2 Flow Rate FiO2 09/21/21 15:47 36.9 103 20 161/93 (115) 90 Room Air 09/16/21 20:00 25 09/16/21 18:00 24.00 Capillary Refill : Less Than 3 Seconds General Appearance: No Apparent Distress, Mild Distress (uncomfortable), Thin Respiratory: Lungs Clear, No Respiratory Distress Cardiovascular: Regular Rate, Rhythm, No Murmur Gastrointestinal: Normal Bowel Sounds, Soft Extremity: Normal Inspection, No Pedal Edema Neurologic/Psychiatric: Alert, No Motor/Sensory Deficits, Disoriented Skin: Normal Color, Warm/Dry Results/Procedures Lab Laboratory Tests 09/21/21 05:40 Patient resulted labs reviewed. Imaging: Reviewed Imaging Report Assessment/Plan Assessment and Plan Assess & Plan/Chief Complaint STEMI Cardiac arrest CAD HTN HLD Cardiology primary s/p RCA stent placement on admission ASA and Plavix, Continue ASA rectally while NPO Metoprolol and Lipitor Anoxic brain injury Delirium Dysphagia Debility Present on admission Speech therapy following Planning for PEG placement Surgery consulted Dietary consult for tube feeding recommendations PT/OT Palliative care following T2DM Sliding scale insulin Alcohol abuse Reportedly chronic daily alcohol use Goals of care discussion Son with DPOA Planning to proceed with PEG placement and shelter DVT prophylaxis: Lovenox Acute respiratory failure with hypoxia, resolved Endotracheally intubated, resolved BEKA, resolved Hypokalemia, resolved Hyponatremia, resolved Diagnosis/Problems Diagnosis/Problems (1) Acute ST elevation myocardial infarction (STEMI) of inferior wall Status: Acute (2) Cardiac arrest Status: Acute (3) CAD (coronary artery disease) Status: Acute Qualifiers: Coronary Disease-Associated Artery/Lesion type: [place] artery [place] vs. transplanted heart: [place] heart (4) S/P coronary artery stent placement Status: Acute (5) Acute kidney injury superimposed on chronic kidney disease Status: Acute (6) T2DM (type 2 diabetes mellitus) Status: Chronic Qualifiers: Diabetes mellitus adjunct faculty for medical terminology insulin use: without assisted use Diabetes mellitus complication status: without complication Qualified Codes: E11.9 - Type 2 diabetes mellitus without complications (7) HTN (hypertension) Status: Chronic (8) HLD (hyperlipidemia) Status: Chronic (9) Septic shock Status: Acute (10) Delirium Status: Acute (11) Dysphagia Status: Acute (12) Anoxic brain injury Status: Acute KAYLA WAGONER MD Sep 21, 2021 18:57
[2021-09-21 19:33] VITALS: BP 151/93
[2021-09-21] MEDS: ENOXAPARIN 40 MG/0.4 ML (LOVENOX) SYR SQ SCH (21:10)
--- NOTE | 2021-09-21 21:32 | Progress Note-Pre Operative ---
Pre-Operative Progress Note H&P Reviewed The H&P was reviewed, patient examined and no changes noted. Date Seen by Provider: Sep 21, 2021 Time Seen by Provider: :30 Date H&P Reviewed: Sep 21, 2021 Time H&P Reviewed: 21:30 Pre-Operative Diagnosis: dysphagia, anoxic brain injury ZACKARY BARAJAS MD Sep 21, 2021 21:32
--- NOTE | 2021-09-21 22:24 | CONSULTATION REPORT ---
DATE OF SERVICE: HISTORY OF PRESENT ILLNESS: The patient is a 65-year-old male with extensive past medical history, was found to be minimally responsive by his . She called the ambulance and EMS had arrived and an AED was placed and CPR began; however, no shocks were advised. After 1 round of CPR, he was able to retain a pulse and the patient was intubated. An EKG was performed, which did show a ST segment elevation myocardial infarction. He was urgently taken to the circus laborer and found to have an inferior myocardial infarction and stent was placed in the right coronary artery. The patient had a prolonged intubation and was minimally responsive. Over time, he was able to be extubated on 09/16/2021. After extubation, the patient was confused and did not respond to majority of questions, likely indicating some level of anoxic brain injury. Speech pathology was consulted and he was found to be at high risk for aspiration. The patient is also unable to follow commands. We were consulted for placement of a percutaneous endoscopic gastrostomy tube, which the family had talked about and agreed upon. PAST MEDICAL HISTORY: Coronary artery disease, recent myocardial infarction, COPD, hypercholesterolemia, hypertension, gastroesophageal reflux disease, degenerative joint disease, anxiety. PAST SURGICAL HISTORY: Unknown. ALLERGIES: NO KNOWN DRUG ALLERGIES. MEDICATIONS: Clonazepam 0.5 mg b.i.d. p.r.n., Trelegy Ellipta one daily, lisinopril/hydrochlorothiazide 20/25 mg daily, metoprolol 100 mg daily, Protonix 40 mg daily, simvastatin 20 mg daily, tizanidine 4 mg q.8 hours p.r.n., tramadol 50 mg q.8 hours p.r.n. SOCIAL HISTORY: Unknown previous smoking history. He does chew tobacco and does drink beer daily. FAMILY HISTORY: Noncontributory. VITAL SIGNS: Temperature 36.7, blood pressure 151/93, pulse 100, respirations 22, pulse ox 90% on room air. REVIEW OF SYSTEMS: This information was ascertained by the nursing staff as well as the patient's electronic medical records. At this time, he is not experiencing any shortness of breath, no difficulty breathing. No cough or sputum production. He is confused and does not follow directions and is deemed a high aspiration risk. He is having loose bowel movements. No red blood per rectum, no dark tarry stools. No fever, chills, no recent inadvertent weight loss. All other review of systems negative. PHYSICAL EXAMINATION: The patient's physical examination will be ascertained upon seeing the patient in a.m. LABORATORY DATA: WBC 10.7, hemoglobin 10.5, hematocrit 31, platelets 561. BUN 15, creatinine 1.01. ASSESSMENT AND PLAN: A 65-year-old male with history of multiple medical problems with myocardial infarction, cardiac arrest requiring CPR and intubation. He does not follow commands and likely has some level of anoxic brain injury. Speech pathology deemed the patient high risk for aspiration. The risks and benefits of placement of a percutaneous endoscopic gastrostomy tube were discussed with the family and they are in full understanding and state that they would like to proceed with this procedure for alimentation, hydration as well as medications. We will schedule this procedure on this admission. Job ID: [id number] DocumentID: [id number] Dictated Date: 09/21/2021 21:30:51 Medicine Aide Date: 09/21/2021 22:23:18 Dictated By: ZACKARY BARAJAS MD
[2021-09-22] VITALS (8 sets, daily range): BP systolic 112–162; BP diastolic 64–96
[2021-09-22] MEDS: meTOprolol 5 MG/5 ML (LOPRESSOR) VIAL IV SCH ×2 (05:22→12:22)
[2021-09-22] MEDS: inSUlin ASPART (NovoLOG) 1 UNIT/0.01 ML (CHARGE PER UNIT) SC SCH ×4 (05:59→21:00)
[2021-09-22] MEDS: MULTIVIT W/MINERALS TAB (THERAGRAN M) PO SCH (05:59)
[2021-09-22 06:09] LABS: BASOPHILS # (AUTO) 0.1 10^3/uL (0.0-0.1); BASOPHILS % (AUTO) 1 % (0-10); EOSINOPHILS # (AUTO) 0.4 10^3/uL (0.0-0.3); EOSINOPHILS % (AUTO) 3 % (0-10); HEMATOCRIT 33 % (40-54); LYMPHOCYTES # (AUTO) 1.5 10^3/uL (1.0-4.0); LYMPHOCYTES % (AUTO) 12 % (12-44); MEAN CORPUSCULAR HEMOGLOBIN 31 pg (25-34); MEAN CORPUSCULAR HGB CONC 33 g/dL (32-36); MEAN CORPUSCULAR VOLUME 94 fL (80-99); MEAN PLATELET VOLUME 8.4 fL (9.0-12.2); MONOCYTES # (AUTO) 0.8 10^3/uL (0.0-1.0); MONOCYTES % (AUTO) 6 % (0-12); NEUTROPHILS # (AUTO) 9.3 10^3/uL (1.8-7.8); NEUTROPHILS % (AUTO) 76 % (42-75); PLATELET COUNT 630 10^3/uL (130-400); WHITE BLOOD COUNT 12.1 10^3/uL (4.3-11.0)
[2021-09-22 06:20] LABS: CALCIUM 8.7 MG/DL (8.5-10.1)
[2021-09-22 06:24] LABS: CREATININE SERUM 0.98 MG/DL (0.60-1.30)
--- NOTE | 2021-09-22 09:24 | Progress Note ---
Standard Progress Note Progress Notes/Assess & Plan Date Seen by a Provider: Sep 22, 2021 Time Seen by a Provider: 09:00 Progress/Assessment & Plan PE: chest-few scattered rhonci heart-regular extr-no LE edema, no homans abd-soft, NT/ND. -will proceed with PEG placement. ZACKARY BARAJAS MD Sep 22, 2021 09:24
[2021-09-22] MEDS: PANTOPRAZOLE 40 MG (PROTONIX) VIAL IV SCH (09:36)
[2021-09-22] MEDS: ASPIRIN 300 MG (5 GR) SUPPOSITORY PR SCH (09:36)
[2021-09-22] MEDS: D5 1/2 NS W/KCL 20 MEQ/L 1,000 ML IV SCH ×2 (09:37→19:39)
[2021-09-22] MEDS: CLOPIDOGREL 75 MG (PLAVIX) TABLET PO SCH (09:50)
[2021-09-22] MEDS: THIAMINE 100 MG/ML 2 ML (VITAMIN B-1) VIAL IV SCH (09:55)
[2021-09-22] MEDS ORDERED: KETAMINE 50 MG/5 ML SYRINGE ONE (10:46)
[2021-09-22] MEDS ORDERED: proPOfol 200 MG/20 ML (DIPRIVAN) VIAL IV ONE (10:46)
[2021-09-22] MEDS ORDERED: LACTATED RINGERS 1,000 ML IV ONE (10:46)
[2021-09-22] MEDS ORDERED: LACTATED RINGERS 1,000 ML IV STA (11:04)
[2021-09-22] MEDS ORDERED: LIDOCAINE JELLY 2% 6 ML SYRINGE ONE (11:05)
[2021-09-22] MEDS ORDERED: LIDOCAINE JELLY 2% 6 ML SYRINGE MM PRN (11:15)
--- NOTE | 2021-09-22 11:24 | Progress Note ---
Standard Progress Note Progress Notes/Assess & Plan Date Seen by a Provider: Sep 22, 2021 Time Seen by a Provider: 11:23 Progress/Assessment & Plan The patient was in the OR getting his PEG tube placed. We will follow-up again later today or tomorrow. TITO DELANEY JR, MD Sep 22, 2021 11:24
--- NOTE | 2021-09-22 12:03 | Progress Note-Post Operative ---
Post-Operative Progess Note Surgeon (s)/Utilization Management Rn (s) Surgeon ZACKARY BARAJAS MD Utilization Management Rn: none Pre-Operative Diagnosis dysphagia, anoxic brain injury Post-Operative Diagnosis reflux esophagitis(grade B), small HH(2cm), moderate gastritis. Procedure & Operative Findings Date of Procedure 09/22/21 Procedure Performed/Findings EGD with bx and PEG tube. Anesthesia Type mac Estimated Blood Loss Estimated blood loss (mL): minimal Specimens/Packing Specimens Removed ge jxn, antrum ZACKARY BARAJAS MD Sep 22, 2021 12:02
--- NOTE | 2021-09-22 14:09 | Anesthesia-General Post-Op ---
MAC Patient Condition Mental Status/LOC: Same as Preop Cardiovascular: Satisfactory Nausea/Vomiting: Absent Respiratory: Satisfactory Pain: Controlled Complications: Absent Post Op Complications Complications None Follow Up Care/Instructions Patient Instructions None needed. Anesthesiology Discharge Order Discharge Order Patient is doing well, no complaints, stable vital signs, no apparent adverse anesthesia problems. No complications reported per nursing. JERRY WAITE CRNA Sep 22, 2021 14:09
[2021-09-22] MEDS ORDERED: METO50TA15 PO (17:29)
--- NOTE | 2021-09-22 18:58 | Progress Note - Hospitalist ---
Subjective HPI/CC On Admission Date Seen by Provider: Sep 22, 2021 Time Seen by Provider: 09:40 Marcello Tellez is a 65 year old male with PMH HTN, HLD, CAD, T2DM, who was found minimally responsive by his . She said he wakes up earlier than her. She heard him moaning in the living room and went to check on him. She asked if she needed to call an ambulance and he shook his head yes. EMS arrived and applied AED and began CPR. No shocks were advised and ROSC was obtained after one round of CPR. He was intubated. An EKG revealed STEMI and he was taken to the labor relations analyst where he was found to have an inferior CO and had a stent placed in his RCA. Upon my exam, he is intubated and sedated in the ICU. His is present at the bedside. Subjective/Events-last exam He is non-verbal. He does not respond to verbal stimuli.. He does open eyes and withdraw from pain. He does not follow commands. There is no family at bedside at this time. Objective Exam Vital Signs Vital Signs Date Time Temp Pulse Resp B/P (MAP) Pulse Ox O2 Delivery O2 Flow Rate FiO2 09/22/21 16:20 36.5 93 18 142/84 (103) 95 Room Air 09/22/21 11:30 6 09/16/21 20:00 25 Capillary Refill : Less Than 3 Seconds General Appearance: WD/WN, Mild Distress (restless) Respiratory: Lungs Clear, No Respiratory Distress Cardiovascular: Regular Rate, Rhythm, No Murmur Gastrointestinal: Normal Bowel Sounds, Soft Extremity: Normal Inspection, No Pedal Edema Neurologic/Psychiatric: Alert, Aphasia, Disoriented Skin: Normal Color, Warm/Dry Results/Procedures Lab Laboratory Tests 09/22/21 05:24 Patient resulted labs reviewed. Imaging: Reviewed Imaging Report Assessment/Plan Assessment and Plan Assess & Plan/Chief Complaint STEMI Cardiac arrest CAD HTN HLD Cardiology primary s/p RCA stent placement on admission ASA and Plavix, Continue ASA rectally while NPO Metoprolol and Lipitor Anoxic brain injury Delirium Dysphagia Debility Present on admission Speech therapy following Planning for PEG placement today Surgery consulted Dietary consult for tube feeding recommendations PT/OT Palliative care following T2DM Sliding scale insulin Alcohol abuse Reportedly chronic daily alcohol use Goals of care discussion Son provided DPOA paperwork Planning to proceed with PEG and long-term placement DVT prophylaxis: Lovenox Acute respiratory failure with hypoxia, resolved Endotracheally intubated, resolved BEKA, resolved Hypokalemia, resolved Hyponatremia, resolved Diagnosis/Problems Diagnosis/Problems (1) Acute ST elevation myocardial infarction (STEMI) of inferior wall Status: Acute (2) Cardiac arrest Status: Acute (3) CAD (coronary artery disease) Status: Acute Qualifiers: Coronary Disease-Associated Artery/Lesion type: [place] artery [place] vs. transplanted heart: [place] heart (4) S/P coronary artery stent placement Status: Acute (5) Acute kidney injury superimposed on chronic kidney disease Status: Acute (6) T2DM (type 2 diabetes mellitus) Status: Chronic Qualifiers: Diabetes mellitus [facility] insulin use: without it consulting director use Diabetes mellitus complication status: without complication Qualified Codes: E11.9 - Type 2 diabetes mellitus without complications (7) HTN (hypertension) Status: Chronic (8) HLD (hyperlipidemia) Status: Chronic (9) Septic shock Status: Acute (10) Delirium Status: Acute (11) Dysphagia Status: Acute (12) Anoxic brain injury Status: Acute KAYLA WAGONER MD Sep 22, 2021 18:58
--- NOTE | 2021-09-22 19:32 | OPERATIVE REPORT ---
DATE OF SERVICE: 09/22/2021 ATTENDING PRIMARY CARE PHYSICIAN: Dr. Jasmin Chairez. PREOPERATIVE DIAGNOSES: Dysphagia and ischemic brain injury. POSTOPERATIVE DIAGNOSES: Reflux esophagitis, [place] grade B, small hiatal hernia 2 cm in size, moderate gastritis. No distal obstructions. PROCEDURE: EGD with biopsy and percutaneous endoscopic gastrostomy tube placement. SURGEON: Zackary Barajas MD ANESTHESIA: Monitored anesthesia care with local. ESTIMATED BLOOD LOSS: Minimal. FINDINGS: Reflux esophagitis, [place] grade B, small hiatal hernia 2 cm in size, moderate gastritis. No distal obstructions. DISPOSITION: The patient tolerated the procedure well. INDICATIONS: The patient is a 65-year-old male who was found to be unresponsive at his home and EMS was called and he was found to be pulseless, requiring CPR. A pulse was revived, and the patient was intubated on the scene. Since that time, he has had an extended hospital course and was eventually extubated. His cognitive function is poor. He does not follow directions. Speech pathology was consulted, and he is deemed a high aspiration risk. Power of collections attorney was in complete understanding of the risks and benefits of gastrostomy tube for alimentation, hydration as well as medication and he stated he would like to proceed with the procedure. DESCRIPTION OF PROCEDURE: The patient was brought to the endoscopy suite, laid in the left lateral decubitus position. After adequate IV pain and sedative medications and monitored anesthesia care, the mouthpiece was applied. The endoscope was placed in the mouth, visualizing the pharynx and hypopharyngeal region. Vocal cords, epiglottis and vallecula identified and appeared to be normal. The endoscope was then gently intubated at the esophageal opening and esophagus insufflated. The endoscope was then advanced through the first, second and third portion of esophagus at the level of the GE junction, a reflux esophagitis, [place] grade B identified. A biopsy was taken with forceps with visualization of good hemostasis. The endoscope was then advanced in the stomach, endoscope retroflexed, visualizing a small hiatal hernia approximately 2-2.5 cm in size. There was a moderate gastritis. No formal ulcerations, polyps, or any neoplasms. A biopsy was taken of the antrum to rule out H. pylori with visualization of good hemostasis. Endoscope was then advanced to the pylorus and the first and second portion of the duodenum, which appeared normal. The abdomen was then prepped and draped in standard surgical fashion. The endoscopic light was visualized along the abdominal wall in the left upper abdominal quadrant and the skin, subcutaneous tissue, muscle layers as well as the stomach were then anesthetized under direct visualization with 1% lidocaine. A transverse skin incision was then made using 11 blade and the needle and sheath were introduced under direct visualization with the endoscope and the guidewire placed and looped through the scope and pulled through. The gastrostomy tube was then placed onto the wire and pulled through until the rubber bolster was firmly opposing the gastric wall. Antibacterial ointment was then placed followed by the external rubber bolster followed by the rubber stops. The exit site was then cleaned and covered with drain sponges followed by 4 x 4 gauze and tape. The patient tolerated the procedure well. The gastrostomy tube may be accessed and used at any time. Job ID: [id number] DocumentID: [id number] Dictated Date: 09/22/2021 11:32:17 Acid Conditioning Worker Date: 09/22/2021 19:32:00 Dictated By: ZACKARY BARAJAS MD
[2021-09-22] MEDS: ENOXAPARIN 40 MG/0.4 ML (LOVENOX) SYR SQ SCH (21:05)
[2021-09-23] VITALS (7 sets, daily range): BP systolic 110–158; BP diastolic 68–87
[2021-09-23] MEDS: MULTIVIT W/MINERALS TAB (THERAGRAN M) PO SCH (05:37)
[2021-09-23] MEDS: inSUlin ASPART (NovoLOG) 1 UNIT/0.01 ML (CHARGE PER UNIT) SC SCH ×4 (05:46→21:00)
[2021-09-23 06:03] LABS: BASOPHILS # (AUTO) 0.1 10^3/uL (0.0-0.1); BASOPHILS % (AUTO) 1 % (0-10); EOSINOPHILS # (AUTO) 0.3 10^3/uL (0.0-0.3); EOSINOPHILS % (AUTO) 2 % (0-10); HEMATOCRIT 31 % (40-54); HEMOGLOBIN 10.3 g/dL (13.3-17.7); LYMPHOCYTES # (AUTO) 1.1 10^3/uL (1.0-4.0); LYMPHOCYTES % (AUTO) 7 % (12-44); MEAN CORPUSCULAR HEMOGLOBIN 31 pg (25-34); MEAN CORPUSCULAR HGB CONC 33 g/dL (32-36); MEAN CORPUSCULAR VOLUME 93 fL (80-99); MEAN PLATELET VOLUME 8.4 fL (9.0-12.2); MONOCYTES # (AUTO) 0.8 10^3/uL (0.0-1.0); MONOCYTES % (AUTO) 5 % (0-12); NEUTROPHILS # (AUTO) 12.5 10^3/uL (1.8-7.8); NEUTROPHILS % (AUTO) 84 % (42-75); PLATELET COUNT 675 10^3/uL (130-400); WHITE BLOOD COUNT 14.8 10^3/uL (4.3-11.0)
[2021-09-23 06:22] LABS: EOSINOPHILS % (MANUAL) 2 %; LYMPHOCYTES % (MANUAL) 11 %; MONOCYTES % (MANUAL) 5 %; NEUTROPHILS % (MANUAL) 82 %; RBC MORPH NORMAL
--- NOTE | 2021-09-23 09:16 | Progress Note - Cardiology ---
Cardiology SOAP Progress Note Subjective: Lying in bed Opens eyes to voice and tracks movement in the room Does not answer any questions Does not follow any commands Objective: I&O/Vital Signs 09/23/21 09/24/21 09/24/21 23:57 03:26 08:14 Temp 36.8 37.0 36.2 Pulse 110 110 106 Resp 20 B/P (MAP) 145/79 (101) 159/89 (112) 106/73 (84) Pulse Ox 93 94 91 O2 Delivery Room Air Room Air Room Air 09/24/21 00:00 Intake Total 0 ml Output Total 625 ml Balance -625 ml Constitutional: other (not following commands - unable to swallow; moving upper extremities; opens eyes and tracks movement in the room) Respiratory: No accessory muscle use; other (fair to good air entry, bilat) Cardiovascular: regular rate-rhythm, S1 and S2, systolic murmur (soft CARL at card base) Gastrointestional: soft; No guarding; audible bowel sounds, other (PEG tube in place) Extremities: No clubbing, No cyanosis; no lower extremity edema bilateral Neurologic/Psychiatric: other (see above, seems to move all limbs equally) Skin: No rash on exposed areas, No ulcerations on exposed areas Results/Procedures: Labs Laboratory Tests 09/23/21 11:08: Glucometer 156H 09/23/21 15:55: Glucometer 144H 09/23/21 20:35: Glucometer 136H 09/24/21 06:15: Glucometer 130H 09/24/21 08:35: White Blood Count 14.6H, Red Blood Count 3.16L, Hemoglobin 9.6L, Hematocrit 30L, Mean Corpuscular Volume 95, Mean Corpuscular Hemoglobin 30, Mean Corpuscular Hemoglobin Concent 32, Red Cell Distribution Width 12.5, Platelet Count 722H, Mean Platelet Volume 8.5L, Immature Granulocyte % (Auto) 1, Neutrophils (%) (Auto) 83H, Lymphocytes (%) (Auto) 8L, Monocytes (%) (Auto) 6, Eosinophils (%) (Auto) 2, Basophils (%) (Auto) 0, Neutrophils # (Auto) 12.1H, Lymphocytes # (Auto) 1.2, Monocytes # (Auto) 0.9, Eosinophils # (Auto) 0.3, Basophils # (Auto) 0.1, Immature Granulocyte # (Auto) 0.1, Sodium Level 138, Potassium Level 4.2, Chloride Level 102, Carbon Dioxide Level 25, Anion Gap 11, Blood Urea Nitrogen 25H, Creatinine 1.12, Estimat Glomerular Filtration Rate 72, BUN/Creatinine Ratio 22, Glucose Level 161H, Lactic Acid Level 0.90, Calcium Level 8.9 09/24/21 10:10: Microbiology 09/21/21 MRSA Screen - Final, Complete MRSA not isolated 09/13/21 Blood Culture - Final, Complete No growth A/P: Assessment: Ac Inf Wall STEMI - transiently hemodynamically unstable at initial presentation: transient PEA - hemodynamically stable since PCI for STEMI (see below CAD - card cath of 09/11/21: Coronary artery disease primarily consisting of severe mid vessel stenosis of the dominant right coronary artery that was the culprit in causing an inferior wall ST elevation myocardial infarction and that was successfully stented with Skypoint 2.5 x 28 mm stent. The first diagonal branch of the left anterior descending artery has a 50% to 60% proximal and mid vessel stenosis. It is a small caliber vessel. The left circumflex artery is nondominant and has a large first obtuse marginal branch, a subbranch of which has approximately 60% to 70% stenosis. Elevated left ventricular end-diastolic pressure. Left ventricular ejection fraction approximately 60% - echo of 09/12/21: LVEF 50-55% Ac renal failure on top of CKD 4 - acute component has improved; acidosis has improved; hyperkalemia has resolved AMS - management per medical services PEG tube placed by Dr. Garcia on 09-22-21 - receiving tube feedings DMI II Ac resp failure - on [facility] vent - extubated on 09-16-21 ?Heavy ETOH usage Gen edema on 09/15/21, improved post furosemide Plan: * AMS - Not following commands, unable to swallow without significant prompting pureed foods and crushed meds - family consented to PEG tube placement on 09-23-21 * Will start Plavix, ASA, BB and statin to be given via PEG tube * Complex management issue * Replenish K. Change iv fluids to 1/2 NS + K * Family has met with palliative services and they are undecided at this time. They have refused life support. They agreed to PEG tube placement NAVNEET LEI Sep 23, 2021 09:16
[2021-09-23] MEDS: PANTOPRAZOLE 40 MG (PROTONIX) VIAL IV SCH ×2 (10:04→10:10)
[2021-09-23] MEDS: THIAMINE 100 MG/ML 2 ML (VITAMIN B-1) VIAL IV SCH ×2 (10:04→10:11)
[2021-09-23] MEDS: ASPIRIN 81 MG CHEW (CHILDREN'S ASA) PEG SCH (10:05)
[2021-09-23] MEDS: CLOPIDOGREL 75 MG (PLAVIX) TABLET PEG SCH (10:05)
[2021-09-23] MEDS: meTOprolol TARTRATE 25 MG (LOPRESSOR) TABLET PEG SCH ×2 (10:05→20:13)
--- NOTE | 2021-09-23 10:09 | Physical Therapy Progress Note ---
Therapy Progress Note Patient had a PEG tube placed this past weekend. Patient has mittens to prevent from pulling out tubing. Patient lethargic. No treatment rendered on this date. BRADLEY GOMEZ PT Sep 23, 2021 10:09
--- NOTE | 2021-09-23 10:14 | Speech Therapy Progress Note ---
Therapy Progress Note Speech pathology attempted P.O. trials at 0950. At this time, the patient continues to purse lips tightly and turn head away from P.O. bolus attempts regardless of maximum verbal encouragement and gentle tactile stimulation. ST will re-attempt as the patient is appropriate and as able. JUAN DIEGO BORJAS Sep 23, 2021 10:14
[2021-09-23] MEDS: ASPIRIN 300 MG (5 GR) SUPPOSITORY PR SCH (10:21)
--- NOTE | 2021-09-23 11:49 | Occ Therapy Progress Note ---
Therapy Progress Note Patient had a PEG tube placed this past weekend. Patient has mittens to prevent from pulling out tubing. Patient lethargic. No treatment rendered on this date. TAN HINDS Sep 23, 2021 11:49
--- NOTE | 2021-09-23 16:42 | Progress Note - Cardiology ---
Cardiology SOAP Progress Note Subjective: He is not able to communicate meaningfully Objective: I&O/Vital Signs 09/23/21 09/23/21 09/23/21 09/23/21 08:00 08:17 11:33 15:50 Temp 37.6 37.0 38.0 Pulse 115 88 108 Resp B/P (MAP) 149/87 (107) 114/68 (83) 144/71 (95) Pulse Ox 95 95 94 O2 Delivery Room Air Room Air Room Air Room Air 09/23/21 00:00 Intake Total 1000 ml Output Total 950 ml Balance 50 ml Constitutional: other (not following commands - unable to swallow; moving upper extremities; opens eyes and tracks movement in the room) Respiratory: No accessory muscle use; other (fair to good air entry, bilat) Cardiovascular: regular rate-rhythm, S1 and S2, systolic murmur (soft CARL at card base) Gastrointestional: soft; No guarding; audible bowel sounds, other (PEG tube in place) Extremities: No clubbing, No cyanosis; no lower extremity edema bilateral Neurologic/Psychiatric: other (see above, seems to move all limbs equally) Skin: No rash on exposed areas, No ulcerations on exposed areas Results/Procedures: Labs Laboratory Tests 09/22/21 20:33: Glucometer 128H 09/23/21 05:42: Glucometer 155H 09/23/21 05:55: White Blood Count 14.8H, Red Blood Count 3.31L, Hemoglobin 10.3L, Hematocrit 31L , Mean Corpuscular Volume 93, Mean Corpuscular Hemoglobin 31, Mean Corpuscular Hemoglobin Concent 33, Red Cell Distribution Width 12.4, Platelet Count 675H, Mean Platelet Volume 8.4L, Immature Granulocyte % (Auto) 1, Neutrophils (%) (Auto) 84H, Lymphocytes (%) (Auto) 7L, Monocytes (%) (Auto) 5, Eosinophils (%) (Auto) 2, Basophils (%) (Auto) 1, Neutrophils # (Auto) 12.5H, Lymphocytes # (Auto) 1.1, Monocytes # (Auto) 0.8, Eosinophils # (Auto) 0.3, Basophils # (Auto) 0.1, Immature Granulocyte # (Auto) 0.1, Neutrophils % (Manual) 82, Lymphocytes % (Manual) 11, Monocytes % (Manual) 5, Eosinophils % (Manual) 2, Blood Morphology Comment NORMAL 09/23/21 11:08: Glucometer 156H 09/23/21 15:55: Glucometer 144H Microbiology 09/21/21 MRSA Screen - Final, Complete MRSA not isolated 09/13/21 Blood Culture - Final, Complete No growth Laboratory Tests 09/22/21 05:24 09/23/21 05:55 A/P: Assessment: Ac Inf Wall STEMI - transiently hemodynamically unstable at initial presentation: transient PEA - hemodynamically stable since PCI for STEMI (see below CAD - card cath of 09/11/21: Coronary artery disease primarily consisting of severe mid vessel stenosis of the dominant right coronary artery that was the culprit in causing an inferior wall ST elevation myocardial infarction and that was successfully stented with Skypoint 2.5 x 28 mm stent. The first diagonal branch of the left anterior descending artery has a 50% to 60% proximal and mid vessel stenosis. It is a small caliber vessel. The left circumflex artery is nondominant and has a large first obtuse marginal branch, a subbranch of which has approximately 60% to 70% stenosis. Elevated left ventricular end-diastolic pressure. Left ventricular ejection fraction approximately 60% - echo of 09/12/21: LVEF 50-55% Ac renal failure on top of CKD 4 - acute component has improved; acidosis has improved; hyperkalemia has resolved Mental status change - management per medical services PEG tube placed by Dr. Garcia on 09-22-21 - receiving tube feedings DMI II Ac resp failure - resolved - extubated on 09-16-21 ?Heavy ETOH usage Gen edema on 09/15/21, improved post furosemide Plan: * AMS - Not following commands, unable to swallow without significant prompting pureed foods and crushed meds - family consented to PEG tube placement on 09-23-21 * Will start Plavix, ASA, BB and statin to be given via PEG tube * Complex management issue * Replenish K. Change iv fluids to 1/2 NS + K * Family has met with palliative services and they are undecided at this time. They have refused life support. They agreed to PEG tube placement BAILEY CURRAN MD FACP [facility] CCDS Sep 23, 2021 16:42
--- NOTE | 2021-09-23 19:16 | Progress Note - Hospitalist ---
Subjective HPI/CC On Admission Date Seen by Provider: Sep 23, 2021 Time Seen by Provider: 12:05 Marcello Tellez is a 65 year old male with PMH HTN, HLD, CAD, T2DM, who was found minimally responsive by his . She said he wakes up earlier than her. She heard him moaning in the living room and went to check on him. She asked if she needed to call an ambulance and he shook his head yes. EMS arrived and applied AED and began CPR. No shocks were advised and ROSC was obtained after one round of CPR. He was intubated. An EKG revealed STEMI and he was taken to the cathode ray tube assembler where he was found to have an inferior RI and had a stent placed in his RCA. Upon my exam, he is intubated and sedated in the ICU. His is present at the bedside. Subjective/Events-last exam He is non-verbal. He does not follow commands. He opens his eyes to physical stimuli but does not respond at all to verbal stimuli. His family is at the bedside. Objective Exam Vital Signs Vital Signs Date Time Temp Pulse Resp B/P (MAP) Pulse Ox O2 Delivery O2 Flow Rate FiO2 09/23/21 19:03 37.0 114 24 158/78 (104) 90 Room Air 09/22/21 11:30 6 Capillary Refill : Less Than 3 Seconds General Appearance: No Apparent Distress, WD/WN Respiratory: Lungs Clear, No Respiratory Distress Cardiovascular: Regular Rate, Rhythm, No Murmur Gastrointestinal: Normal Bowel Sounds, Soft Extremity: Normal Inspection, No Pedal Edema Neurologic/Psychiatric: Alert, Aphasia, Disoriented Skin: Normal Color, Warm/Dry Results/Procedures Lab Laboratory Tests 09/23/21 05:55 Patient resulted labs reviewed. Imaging: Reviewed Imaging Report Assessment/Plan Assessment and Plan Assess & Plan/Chief Complaint STEMI Cardiac arrest CAD HTN HLD Cardiology primary s/p RCA stent placement on admission ASA and Plavix, Continue ASA rectally while NPO Metoprolol and Lipitor Anoxic brain injury Delirium Dysphagia Debility Present on admission Speech therapy following PEG placed Dietary consult for tube feeding recommendations PT/OT Palliative care following Referral to [facility] T2DM Sliding scale insulin Alcohol abuse Reportedly chronic daily alcohol use DVT prophylaxis: Lovenox Acute respiratory failure with hypoxia, resolved Endotracheally intubated, resolved BEKA, resolved Hypokalemia, resolved Hyponatremia, resolved Diagnosis/Problems Diagnosis/Problems (1) Acute ST elevation myocardial infarction (STEMI) of inferior wall Status: Acute (2) Cardiac arrest Status: Acute (3) CAD (coronary artery disease) Status: Acute Qualifiers: Coronary Disease-Associated Artery/Lesion type: [place] artery [place] vs. transplanted heart: [place] heart (4) S/P coronary artery stent placement Status: Acute (5) Acute kidney injury superimposed on chronic kidney disease Status: Acute (6) T2DM (type 2 diabetes mellitus) Status: Chronic Qualifiers: Diabetes mellitus lobsterman insulin use: without lobsterman use Diabetes mellitus complication status: without complication Qualified Codes: E11.9 - Type 2 diabetes mellitus without complications (7) HTN (hypertension) Status: Chronic (8) HLD (hyperlipidemia) Status: Chronic (9) Septic shock Status: Acute (10) Delirium Status: Acute (11) Dysphagia Status: Acute (12) Anoxic brain injury Status: Acute KAYLA WAGONER MD Sep 23, 2021 19:16
[2021-09-23] MEDS: ENOXAPARIN 40 MG/0.4 ML (LOVENOX) SYR SQ SCH (20:13)
[2021-09-24 03:26] VITALS: BP 159/89
[2021-09-24] MEDS: MULTIVIT W/MINERALS TAB (THERAGRAN M) PO SCH (06:10)
[2021-09-24] MEDS: inSUlin ASPART (NovoLOG) 1 UNIT/0.01 ML (CHARGE PER UNIT) SC SCH ×4 (06:16→21:13)
[2021-09-24 08:14] VITALS: BP 106/73
[2021-09-24] MEDS ORDERED: NS IV 1000 ML 1,000 ML IV SCH (08:15)
[2021-09-24 08:49] LABS: BASOPHILS # (AUTO) 0.1 10^3/uL (0.0-0.1); BASOPHILS % (AUTO) 0 % (0-10); EOSINOPHILS # (AUTO) 0.3 10^3/uL (0.0-0.3); EOSINOPHILS % (AUTO) 2 % (0-10); HEMATOCRIT 30 % (40-54); HEMOGLOBIN 9.6 g/dL (13.3-17.7); LYMPHOCYTES # (AUTO) 1.2 10^3/uL (1.0-4.0); LYMPHOCYTES % (AUTO) 8 % (12-44); MEAN CORPUSCULAR HEMOGLOBIN 30 pg (25-34); MEAN CORPUSCULAR HGB CONC 32 g/dL (32-36); MEAN CORPUSCULAR VOLUME 95 fL (80-99); MEAN PLATELET VOLUME 8.5 fL (9.0-12.2); MONOCYTES # (AUTO) 0.9 10^3/uL (0.0-1.0); MONOCYTES % (AUTO) 6 % (0-12); NEUTROPHILS # (AUTO) 12.1 10^3/uL (1.8-7.8); NEUTROPHILS % (AUTO) 83 % (42-75); PLATELET COUNT 722 10^3/uL (130-400); WHITE BLOOD COUNT 14.6 10^3/uL (4.3-11.0)
[2021-09-24 08:57] LABS: POTASSIUM 4.2 MMOL/L (3.6-5.0)
[2021-09-24 08:58] LABS: CALCIUM 8.9 MG/DL (8.5-10.1)
[2021-09-24] MEDS: PANTOPRAZOLE 40 MG (PROTONIX) VIAL IV SCH (09:00)
[2021-09-24] MEDS: THIAMINE 100 MG/ML 2 ML (VITAMIN B-1) VIAL IV SCH (09:00)
[2021-09-24 09:02] LABS: CREATININE SERUM 1.12 MG/DL (0.60-1.30)
[2021-09-24] MEDS: ASPIRIN 81 MG CHEW (CHILDREN'S ASA) PEG SCH (09:49)
[2021-09-24] MEDS: CLOPIDOGREL 75 MG (PLAVIX) TABLET PEG SCH (09:49)
[2021-09-24] MEDS: meTOprolol TARTRATE 25 MG (LOPRESSOR) TABLET PEG SCH ×2 (09:49→20:35)
--- NOTE | 2021-09-24 09:50 | Physical Therapy Daily Note ---
PT Daily Note-Current Appearance patient minimally response with tactile stimuli Mental Status Attachments: PEG Tube, Khan Catheter, IV Transfers SCALE: Activities may be completed with or without assistive devices. 2-Tomwskymgt-wuqbffd completes the activity by him/herself with no assistance from a helper. 5-Set-up or Clean-up Assistance-helper sets up or cleans up; patient completes activity. [place] assists only prior to or following the activity. 4-Supervision or Touching Assistance-helper provides verbal cues and/or touchi ng/steadying and/or contact guard assistance as patient completes activity. Assistance may be provided throughout the activity or intermittently. 3-Partial/Moderate Assistance-helper does LESS THAN HALF the effort. [place] lifts, holds or supports trunk or limbs, but provides less than half the effort. 2-Substantial/Maximal Assistance-helper does MORE THAN HALF the effort. [place] lifts or holds trunk or limbs and provides more than half the effort. 3-Jplzqkvqm-xnrrrg does ALL the effort. Patient does none of the effort to complete the activity. Or, the assistance of 2 or more helpers is required for the patient to complete the activity. If activity was not attempted, code reason: 7-Patient Refused. 9-Not Applicable-not attempted and the patient did not perform the activity before the current illness, exacerbation or injury. 10-Not Attempted due to Environmental Limitations-(lack of equipment, weather restraints, etc.). 88-Not Attempted due to Medical Conditions or Safety Concerns. Roll Left & Right (QC): 1 (x 2) Exercises Supine Ex: Ankle pumps, Heel Slides Supine Reps: 12 (PROM) Assessment Patient repositioned in bed to decrease pressure and adjust bedding. Patient not appropriate for OOB activity on this date. PT Short Term Goals Short Term Goals Time Frame: Sep 28, 2021 Roll Left & Right: 2 Sit to lyin Lying to sitting on side of be: 2 Sit to stand: 2 Chair/kks-tb-qigsy transfer: 2 Walk 10 feet: 2 PT Detention Goals Paid Internship Goals PT Paid Internship Goals Time Frame: Oct 12, 2021 Roll Left & Right (QC): 4 Sit to Lying (QC): 4 Lying-Sitting on Side/Bed(QC): 4 Sit to Stand (QC): 4 Chair/Nse-lx-Znwke Xfer(QC): 4 Toilet Transfer (QC): 4 Walk 10 feet (QC): 4 Walk 50ft with 2 Turns (QC): 4 Walk 150 ft (QC): 4 PT Plan Treatment/Plan Treatment Plan: Modify Plan, see comments Treatment Plan: Bed Mobility, Education, Functional Activity Don, Functional Strength, Gait, Safety, Therapeutic Exercise, Transfers 5/wk frequency due to patient inability to follow simple direction and actively participate Treatment Duration: Oct 12, 2021 Frequency: 5 times per week Estimated Hrs Per Day: .5 hour per day Patient and/or Family Agrees t: Yes Time/GCodes Time In: 913 Time Out: 923 Total Billed Treatment Time: 10 Total Billed Treatment 1 visit FA 10 min BRADLEY GOMEZ PT Sep 24, 2021 09:50
[2021-09-24 10:17] LABS: BILIRUBIN,URINE NEGATIVE (NEGATIVE); CLARITY,URINE CLEAR; COLOR,URINE YELLOW; GLUCOSE, URINE (UA) NEGATIVE (NEGATIVE); KETONES,URINE NEGATIVE (NEGATIVE); LEUKOCYTE ESTERASE ,URINE NEGATIVE (NEGATIVE); NITRITE,URINE NEGATIVE (NEGATIVE); PROTEIN,URINE NEGATIVE (NEGATIVE)
--- NOTE | 2021-09-24 10:24 | Progress Note - Cardiology ---
Cardiology SOAP Progress Note Objective: I&O/Vital Signs 09/24/21 09/25/21 09/25/21 23:28 04:02 08:20 Temp 36.5 36.4 35.8 Pulse 84 88 84 Resp 16 16 17 B/P (MAP) 131/78 (95) 150/74 (99) 148/78 (101) Pulse Ox 93 98 97 O2 Delivery Room Air Room Air Room Air 09/25/21 00:00 Intake Total 0 ml Output Total 350 ml Balance -350 ml Constitutional: other (not following commands - unable to swallow; moving upper extremities; opens eyes and tracks movement in the room) Respiratory: No accessory muscle use; other (fair to good air entry, bilat) Cardiovascular: regular rate-rhythm, S1 and S2, systolic murmur (soft CARL at card base) Gastrointestional: soft; No guarding; audible bowel sounds, other (PEG tube in place) Extremities: No clubbing, No cyanosis; no lower extremity edema bilateral Neurologic/Psychiatric: other (see above, seems to move all limbs equally) Skin: No rash on exposed areas, No ulcerations on exposed areas Results/Procedures: Labs Laboratory Tests 09/24/21 10:10: Urine Color YELLOW, Urine Clarity CLEAR, Urine pH 6.0, Urine Specific [place] 1.020, Urine Protein NEGATIVE, Urine Glucose (UA) NEGATIVE, Urine Ketones NEGATIVE, Urine Nitrite NEGATIVE, Urine Bilirubin NEGATIVE, Urine Urobilinogen 0.2, Urine Leukocyte Esterase NEGATIVE, Urine RBC (Auto) 1+H, Urine RBC 0-2, Urine WBC RARE, Urine Crystals PRESENTH, Urine Amorphous Sediment RARE MAHOGANY URATESH, Urine Bacteria TRACE, Urine Casts NONE, Urine Mucus SMALLH, Urine Culture Indicated NO 09/24/21 10:58: Glucometer 135H 09/24/21 15:16: Glucometer 124H 09/24/21 21:00: Glucometer 124H 09/25/21 05:22: Glucometer 128H Microbiology 09/21/21 MRSA Screen - Final, Complete MRSA not isolated 09/13/21 Blood Culture - Final, Complete No growth A/P: Assessment: Ac Inf Wall STEMI - transiently hemodynamically unstable at initial presentation: transient PEA - hemodynamically stable since PCI for STEMI (see below CAD - card cath of 09/11/21: Coronary artery disease primarily consisting of severe mid vessel stenosis of the dominant right coronary artery that was the culprit in causing an inferior wall ST elevation myocardial infarction and that was successfully stented with Skypoint 2.5 x 28 mm stent. The first diagonal branch of the left anterior descending artery has a 50% to 60% proximal and mid vessel stenosis. It is a small caliber vessel. The left circumflex artery is nondomi nant and has a large first obtuse marginal branch, a subbranch of which has approximately 60% to 70% stenosis. Elevated left ventricular end-diastolic pressure. Left ventricular ejection fraction approximately 60% - echo of 09/12/21: LVEF 50-55% Ac renal failure on top of CKD 4 - acute component has improved; acidosis has improved; hyperkalemia has resolved Mental status change - management per medical services PEG tube placed by Dr. Garcia on 09-22-21 - receiving tube feedings DMI II Ac resp failure - resolved - extubated on 09-16-21 ?Heavy ETOH usage Gen edema on 09/15/21, improved post furosemide Plan: * AMS - Not following commands, unable to swallow without significant prompting pureed foods and crushed meds - family consented to PEG tube placement on 09-23-21 * Plavix, ASA, BB and statin to be given via PEG tube * Complex management issue * Replenish electrolytes as indicated * Possible placement at LTC facility this week - family is deciding NAVNEET LEI Sep 24, 2021 10:24
[2021-09-24 10:26] LABS: RBC,URINE 0-2 /HPF; WBC,URINE RARE /HPF
[2021-09-24 10:27] LABS: AMORPHOUS SEDIMENT,UR RARE AMOR URATES /LPF; BACTERIA,URINE TRACE /HPF
[2021-09-24 11:04] VITALS: BP 123/80
--- NOTE | 2021-09-24 15:01 | Occ Therapy Progress Note ---
Therapy Progress Note Unable to see pt today due to pt's medical status. Will attempt to see pt tomorrow. TAN HINDS Sep 24, 2021 15:01
--- NOTE | 2021-09-24 15:20 | Progress Note - Cardiology ---
Cardiology SOAP Progress Note Subjective: He's not able to provide any meaningful history Objective: I&O/Vital Signs 09/24/21 09/24/21 09/24/21 09/24/21 03:26 08:14 09:30 11:04 Temp 37.0 36.2 36.7 Pulse 110 106 96 Resp 22 20 20 B/P (MAP) 159/89 (112) 106/73 (84) 123/80 (94) Pulse Ox 94 91 94 O2 Delivery Room Air Room Air Room Air Room Air 09/24/21 00:00 Intake Total 0 ml Output Total 625 ml Balance -625 ml Constitutional: other (not following commands - unable to swallow; moving upper extremities; opens eyes and tracks movement in the room) Respiratory: No accessory muscle use; other (fair to good air entry, bilat) Cardiovascular: regular rate-rhythm, S1 and S2, systolic murmur (soft CARL at card base) Gastrointestional: soft; No guarding; audible bowel sounds, other (PEG tube in place) Extremities: No clubbing, No cyanosis; no lower extremity edema bilateral Neurologic/Psychiatric: other (see above, seems to move all limbs equally) Skin: No rash on exposed areas, No ulcerations on exposed areas Results/Procedures: Labs Laboratory Tests 09/23/21 15:55: Glucometer 144H 09/23/21 20:35: Glucometer 136H 09/24/21 06:15: Glucometer 130H 09/24/21 08:35: White Blood Count 14.6H, Red Blood Count 3.16L, Hemoglobin 9.6L, Hematocrit 30L, Mean Corpuscular Volume 95, Mean Corpuscular Hemoglobin 30, Mean Corpuscular Hemoglobin Concent 32, Red Cell Distribution Width 12.5, Platelet Count 722H, Mean Platelet Volume 8.5L, Immature Granulocyte % (Auto) 1, Neutrophils (%) (Auto) 83H, Lymphocytes (%) (Auto) 8L, Monocytes (%) (Auto) 6, Eosinophils (%) (Auto) 2, Basophils (%) (Auto) 0, Neutrophils # (Auto) 12.1H, Lymphocytes # (Auto) 1.2, Monocytes # (Auto) 0.9, Eosinophils # (Auto) 0.3, Basophils # (Auto) 0.1, Immature Granulocyte # (Auto) 0.1, Sodium Level 138, Potassium Level 4.2, Chloride Level 102, Carbon Dioxide Level 25, Anion Gap 11, Blood Urea Nitrogen 25H, Creatinine 1.12, Estimat Glomerular Filtration Rate 72, BUN/Creatinine Ratio 22, Glucose Level 161H, Lactic Acid Level 0.90, Calcium Level 8.9 09/24/21 10:10: Urine Color YELLOW, Urine Clarity CLEAR, Urine pH 6.0, Urine Specific [place] 1.020, Urine Protein NEGATIVE, Urine Glucose (UA) NEGATIVE, Urine Ketones NEGATIVE, Urine Nitrite NEGATIVE, Urine Bilirubin NEGATIVE, Urine Urobilinogen 0.2, Urine Leukocyte Esterase NEGATIVE, Urine RBC (Auto) 1+H, Urine RBC 0-2, Urine WBC RARE, Urine Crystals PRESENTH, Urine Amorphous Sediment RARE MAHOGANY URATESH, Urine Bacteria TRACE, Urine Casts NONE, Urine Mucus SMALLH, Urine Culture Indicated NO 09/24/21 10:58: Glucometer 135H 09/24/21 15:16: Glucometer 124H Microbiology 09/21/21 MRSA Screen - Final, Complete MRSA not isolated 09/13/21 Blood Culture - Final, Complete No growth Laboratory Tests 09/23/21 05:55 09/24/21 08:35 A/P: Assessment: Ac Inf Wall STEMI on 09/11/21 - transiently hemodynamically unstable at initial presentation: transient PEA - hemodynamically stable since PCI for STEMI (see below CAD - card cath of 09/11/21: Coronary artery disease primarily consisting of severe mid vessel stenosis of the dominant right coronary artery that was the culprit in causing an inferior wall ST elevation myocardial infarction and that was successfully stented with Skypoint 2.5 x 28 mm stent. The first diagonal branch of the left anterior descending artery has a 50% to 60% proximal and mid vessel stenosis. It is a small caliber vessel. The left circumflex artery is nondominant and has a large first obtuse marginal branch, a subbranch of which has approximately 60% to 70% stenosis. Elevated left ventricular end-diastolic pressure. Left ventricular ejection fraction approximately 60% - echo of 09/12/21: LVEF 50-55% Ac renal failure at time of admisson 09/11/21 - improve/resolved Mental status change - ?anoxic brain injury - management per medical services PEG tube placed by Dr. Garcia on 09-22-21 - receiving tube feedings DMI II Ac resp failure - resolved - extubated on 09-16-21 ?Heavy ETOH usage Plan: * Not following commands, unable to swallow without significant prompting pureed foods and crushed meds - family consented to PEG tube placement on 09-23-21 * Plavix, ASA, BB and statin to be given via PEG tube * Complex management issue * Replenish electrolytes as indicated * Possible placement at LTC facility this week - family is deciding BAILEY CURRAN MD FACP [facility] CCDS Sep 24, 2021 15:20
[2021-09-24 16:00] VITALS: BP 117/72
--- NOTE | 2021-09-24 17:15 | Progress Note - Hospitalist ---
Subjective HPI/CC On Admission Date Seen by Provider: Sep 24, 2021 Time Seen by Provider: 10:40 Marcello Tellez is a 65 year old male with PMH HTN, HLD, CAD, T2DM, who was found minimally responsive by his . She said he wakes up earlier than her. She heard him moaning in the living room and went to check on him. She asked if she needed to call an ambulance and he shook his head yes. EMS arrived and applied AED and began CPR. No shocks were advised and ROSC was obtained after one round of CPR. He was intubated. An EKG revealed STEMI and he was taken to the orthodontic lab technician where he was found to have an inferior [place] and had a stent placed in his RCA. Upon my exam, he is intubated and sedated in the ICU. His is present at the bedside. Subjective/Events-last exam He is nonverbal. He does not follow commands. There is no family at the bedside. Focused Exam Lactate Level 09/24/21 08:35: Lactic Acid Level 0.90 Objective Exam Vital Signs Vital Signs Date Time Temp Pulse Resp B/P (MAP) Pulse Ox O2 Delivery O2 Flow Rate FiO2 09/24/21 16:00 36.5 88 16 117/72 (87) 90 Room Air 09/22/21 11:30 6 Capillary Refill : Less Than 3 Seconds General Appearance: No Apparent Distress, Chronically ill, Thin Respiratory: Lungs Clear, No Respiratory Distress Cardiovascular: Regular Rate, Rhythm, No Edema, No Murmur Gastrointestinal: Normal Bowel Sounds, Soft, Other (PEG tube in place) Extremity: Normal Inspection, No Pedal Edema Neurologic/Psychiatric: Alert, Aphasia, Disoriented Skin: Normal Color, Warm/Dry Results/Procedures Lab Laboratory Tests 09/24/21 08:35 Patient resulted labs reviewed. Imaging: Reviewed Imaging Report Assessment/Plan Assessment and Plan Assess & Plan/Chief Complaint STEMI Cardiac arrest CAD HTN HLD Cardiology primary s/p RCA stent placement on admission ASA and Plavix, Continue ASA rectally while NPO Metoprolol and Lipitor SIRS Leukocytosis Fever and elevated WBC CXR without infiltrate UA negative Lactic acid normal Blood cultures drawn Likely reactive following PEG placement No antibiotics at this time Anoxic brain injury Delirium Dysphagia Debility Present on admission Speech therapy following PEG placed Started on tube feeds and fluids PT/OT Palliative care following Referral to [facility] T2DM Sliding scale insulin Alcohol abuse Reportedly chronic daily alcohol use DVT prophylaxis: Lovenox Acute respiratory failure with hypoxia, resolved Endotracheally intubated, resolved BEKA, resolved Hypokalemia, resolved Hyponatremia, resolved Diagnosis/Problems Diagnosis/Problems (1) Acute ST elevation myocardial infarction (STEMI) of inferior wall Status: Acute (2) Cardiac arrest Status: Acute (3) CAD (coronary artery disease) Status: Acute Qualifiers: Coronary Disease-Associated Artery/Lesion type: [place] artery [place] vs. transplanted heart: [place] heart (4) S/P coronary artery stent placement Status: Acute (5) Acute kidney injury superimposed on chronic kidney disease Status: Acute (6) T2DM (type 2 diabetes mellitus) Status: Chronic Qualifiers: Diabetes mellitus prison insulin use: without petroleum terminal plant operator use Diabetes mellitus complication status: without complication Qualified Codes: E11.9 - Type 2 diabetes mellitus without complications (7) HTN (hypertension) Status: Chronic (8) HLD (hyperlipidemia) Status: Chronic (9) Septic shock Status: Acute (10) Delirium Status: Acute (11) Dysphagia Status: Acute (12) Anoxic brain injury Status: Acute (13) SIRS (systemic inflammatory response syndrome) Status: Acute (14) Leukocytosis Status: Acute KAYLA WAGONER MD Sep 24, 2021 17:15
[2021-09-24 19:32] VITALS: BP 122/72
[2021-09-24] MEDS: ENOXAPARIN 40 MG/0.4 ML (LOVENOX) SYR SQ SCH (20:35)
[2021-09-24 23:28] VITALS: BP 131/78
[2021-09-25 04:02] VITALS: BP 150/74
[2021-09-25] MEDS: inSUlin ASPART (NovoLOG) 1 UNIT/0.01 ML (CHARGE PER UNIT) SC SCH ×4 (06:35→21:31)
[2021-09-25] MEDS: MULTIVIT W/MINERALS TAB (THERAGRAN M) PO SCH (06:35)
[2021-09-25 08:20] VITALS: BP 148/78
[2021-09-25] MEDS: PANTOPRAZOLE 40 MG (PROTONIX) VIAL IV SCH (09:00)
[2021-09-25] MEDS: THIAMINE 100 MG/ML 2 ML (VITAMIN B-1) VIAL IV SCH (09:01)
[2021-09-25] MEDS: meTOprolol TARTRATE 25 MG (LOPRESSOR) TABLET PEG SCH ×2 (09:01→20:28)
[2021-09-25] MEDS: ASPIRIN 81 MG CHEW (CHILDREN'S ASA) PEG SCH (09:02)
[2021-09-25] MEDS: CLOPIDOGREL 75 MG (PLAVIX) TABLET PEG SCH (09:02)
--- NOTE | 2021-09-25 09:16 | Progress Note - Cardiology ---
Cardiology SOAP Progress Note Subjective: In bed Opens eyes to voice Moves extremities when touched Objective: I&O/Vital Signs 09/25/21 09/25/21 09/25/21 09/25/21 08:00 08:20 12:00 15:54 Temp 35.8 36.7 37.0 Pulse 84 82 104 Resp 17 18 18 B/P (MAP) 148/78 (101) 123/72 (89) 114/78 (90) Pulse Ox 97 96 93 O2 Delivery Room Air Room Air Room Air Room Air 09/25/21 00:00 Intake Total 0 ml Output Total 350 ml Balance -350 ml Constitutional: other (not following commands - unable to swallow; moving upper extremities; opens eyes and tracks movement in the room) Respiratory: No accessory muscle use; other (fair to good air entry, bilat) Cardiovascular: regular rate-rhythm, S1 and S2, systolic murmur (soft CARL at card base) Gastrointestional: soft; No guarding; audible bowel sounds, other (PEG tube in place) Extremities: No clubbing, No cyanosis; no lower extremity edema bilateral Neurologic/Psychiatric: other (see above, seems to move all limbs equally) Skin: No rash on exposed areas, No ulcerations on exposed areas Results/Procedures: Labs Laboratory Tests 09/24/21 21:00: Glucometer 124H 09/25/21 05:22: Glucometer 128H 09/25/21 11:14: Glucometer 140H Microbiology 09/21/21 MRSA Screen - Final, Complete MRSA not isolated 09/13/21 Blood Culture - Final, Complete No growth A/P: Assessment: Ac Inf Wall STEMI on 09/11/21 - transiently hemodynamically unstable at initial presentation: transient PEA - hemodynamically stable since PCI for STEMI (see below CAD - card cath of 09/11/21: Coronary artery disease primarily consisting of severe mid vessel stenosis of the dominant right coronary artery that was the culprit in causing an inferior wall ST elevation myocardial infarction and that was successfully stented with Skypoint 2.5 x 28 mm stent. The first diagonal branch of the left anterior descending artery has a 50% to 60% proximal and mid vessel stenosis. It is a small caliber vessel. The left circumflex artery is nondominant and has a large first obtuse marginal branch, a subbranch of which has approximately 60% to 70% stenosis. Elevated left ventricular end-diastolic pressure. Left ventricular ejection fraction approximately 60% - echo of 09/12/21: LVEF 50-55% Ac renal failure at time of admisson 09/11/21 - improve/resolved Mental status change - ?anoxic brain injury - management per medical services PEG tube placed by Dr. Garcia on 09-22-21 - receiving tube feedings DMI II Ac resp failure - resolved - extubated on 09-16-21 ?Heavy ETOH usage Plan: * Not following commands, unable to swallow without significant prompting pureed foods and crushed meds - family consented to PEG tube placement on 09-23-21 * Plavix, ASA, BB and statin are being given via PEG tube * Complex management issue * Replenish electrolytes as indicated * Possible placement at LTC facility this week - family is deciding NAVNEET LEI Sep 25, 2021 09:16
--- NOTE | 2021-09-25 10:03 | Physical Therapy Daily Note ---
PT Daily Note-Current Subjective Patient in bed pre tx, doesn't communicate but does open his eyes, doesn't moan in pain or grimace with activity. Appearance Patient in bed post tx with nurse call, phone, tray, bed alarm on. Mental Status Patient Orientation: Confused, Unable to Assess, Non-Verbal/Aphasic Attachments: PEG Tube, Hkan Catheter, IV Transfers SCALE: Activities may be completed with or without assistive devices. 0-Yevylxktms-yvvnepg completes the activity by him/herself with no assistance from a helper. 5-Set-up or Clean-up Assistance-helper sets up or cleans up; patient completes activity. [place] assists only prior to or following the activity. 4-Supervision or Touching Assistance-helper provides verbal cues and/or touchi ng/steadying and/or contact guard assistance as patient completes activity. Assistance may be provided throughout the activity or intermittently. 3-Partial/Moderate Assistance-helper does LESS THAN HALF the effort. [place] lifts, holds or supports trunk or limbs, but provides less than half the effort. 2-Substantial/Maximal Assistance-helper does MORE THAN HALF the effort. [place] lifts or holds trunk or limbs and provides more than half the effort. 5-Nddixyrpq-efydks does ALL the effort. Patient does none of the effort to complete the activity. Or, the assistance of 2 or more helpers is required for the patient to complete the activity. If activity was not attempted, code reason: 7-Patient Refused. 9-Not Applicable-not attempted and the patient did not perform the activity before the current illness, exacerbation or injury. 10-Not Attempted due to Environmental Limitations-(lack of equipment, weather restraints, etc.). 88-Not Attempted due to Medical Conditions or Safety Concerns. Roll Left & Right (QC): 1 Sit to Lying (QC): 1 Lying to Sitting/Side of Bed(Q: 1 Assist of 2 for supine to sit, patient is able to sit for a few minutes, needs min to mod assist for sitting balance, he is able to perform some LAQ during sitting but will not follow any other directions, lays back down with assist of 2 and scooted up in bed, layed on left side with pillow support for pressure relief. Exercises Seated Therapy Exercises: Long arc quads Seated Reps: 20 Treatments sitting, LE exercise Assessment Current Status: Poor Progress no change in mobility, confused, will not really follow directions PT Short Term Goals Short Term Goals Time Frame: Sep 28, 2021 Roll Left & Right: 2 Sit to lyin Lying to sitting on side of be: 2 Sit to stand: 2 Chair/oyq-zl-wwvkj transfer: 2 Walk 10 feet: 2 PT Creative Writing English Professor Goals Correction Goals PT Correction Goals Time Frame: Oct 12, 2021 Roll Left & Right (QC): 4 Sit to Lying (QC): 4 Lying-Sitting on Side/Bed(QC): 4 Sit to Stand (QC): 4 Chair/Sjx-me-Znjgl Xfer(QC): 4 Toilet Transfer (QC): 4 Walk 10 feet (QC): 4 Walk 50ft with 2 Turns (QC): 4 Walk 150 ft (QC): 4 PT Plan Problem List Problem List: Activity Tolerance, Functional Strength, Safety, Balance, Gait, Transfer, Bed Mobility, ROM Treatment/Plan Treatment Plan: Continue Plan of Care Treatment Plan: Bed Mobility, Education, Functional Activity Don, Functional Strength, Gait, Safety, Therapeutic Exercise, Transfers Treatment Duration: Oct 12, 2021 Frequency: 5 times per week Estimated Hrs Per Day: .5 hour per day Patient and/or Family Agrees t: Yes Safety Risks/Education Patient Education: Correct Positioning, Safety Issues Teaching Recipient: Patient Teaching Methods: Demonstration, Discussion Response to Teaching: Reinforcement Needed Time/GCodes Time In: 919 Time Out: 929 Total Billed Treatment 1 visit FA YANELI KIDD PT Sep 25, 2021 10:03
--- NOTE | 2021-09-25 10:14 | Occupational Ther Daily Note ---
OT Current Status-Daily Note Subjective Pt non-verbal, groans or grimaces to make pain known. Difficult to wake pt for tx session. Mental Status/Objective Patient Orientation: Unable to Assess Attachments: Khan Catheter, IV ADL-Treatment Therapy Code Descriptions/Definitions Functional [place] Measure: 0=Not Assessed/NA 4=Minimal Assistance 1=Total Assistance 5=Supervision or Setup 2=Maximal Assistance 6=Modified [place] 3=Moderate Assistance 7=Complete IndependenceSCALE: Activities may be completed with or without assistive devices. 0-Kdvjzsylye-qbcnzfs completes the activity by him/herself with no assistance from a helper. 5-Set-up or Clean-up Assistance-helper sets up or cleans up; patient completes activity. [place] assists only prior to or following the activity. 4-Supervision or Touching Assistance-helper provides verbal cues and/or touching/steadying and/or contact guard assistance as patient completes activity. Assistance may be provided throughout the activity or intermittently. 3-Partial/Moderate Assistance-helper does LESS THAN HALF the effort. [place] lifts, holds or supports trunk or limbs, but provides less than half the effort. 2-Substantial/Maximal Assistance-helper does MORE THAN HALF the effort. [place] lifts or holds trunk or limbs and provides more than half the effort. 2-Iedctmgif-zvitvj does ALL the effort. Patient does none of the effort to complete the activity. Or, the assistance of 2 or more helpers is required for the patient to complete the activity. If activity was not attempted, code reason: 7-Patient Refused. 9-Not Applicable-not attempted and the patient did not perform the activity before the current illness, exacerbation or injury. 10-Not Attempted due to Environmental Limitations-(lack of equipment, weather restraints, etc.). 88-Not Attempted due to Medical Conditions or Safety Concerns. Other Treatment Assist of 2 for supine to sit, patient is able to sit for a few minutes, needs min to mod assist for sitting balance. Does not follow simple directions. Pt EOB to supine assist of 2 and scooted up in bed. Pt lying on left side with pillow support for pressure relief. After therapy, pt lying in bed with call light/phone in reach. Safety measures in place. OT Custodial Goals Custodial Goals Time Frame: Oct 15, 2021 Eating (QC): 3 Oral Hygiene (QC): 3 Toileting Hygiene (QC): 3 Shower/Bathe Self (QC): 3 Upper Body Dressing (QC): 3 Lower Body Dressing (QC): 3 On/Off Footwear (QC): 3 1=Demonstrate adherence to instructed precautions during ADL tasks. 2=Patient will verbalize/demonstrate understanding of assistive devices/modifications for ADL. 3=Patient will improve strength/tolerance for activity to enable patient to perform ADL's. OT Education/Plan Problem List/Assessment Assessment: Decreased Activ Tolerance, Decreased Safety Aware, Dependent Tr ansfers, Impaired Cognition, Impaired Self-Care Skills Discharge Recommendations Plan/Recommendations: Continue POC Treatment Plan/Plan of Care Patient would benefit from OT for education, treatment and training to promote independence in ADL's, mobility, safety and/or upper extremity function for ADL's. Plan of Care: ADL Retraining, Caregiver Training, Cognitive Retraining, Functional Mobility, Group Exercise/Act as Ind, UE Funct Exercise/Act, UE Neuromus Re-Ed/Coord, W/C Management Training Treatment Duration: Oct 15, 2021 Frequency: 3 times per week (3-5x/week) Estimated Hrs Per Day: .25 hour per day Rehab Potential: Guarded Time/GCodes Start Time: :22 Stop Time: 09:30 Total Time Billed (hr/min): 8 Billed Treatment Time 1 visit-FA 1 (8 min) TAN HINDS Sep 25, 2021 10:14
[2021-09-25 12:00] VITALS: BP 123/72
--- NOTE | 2021-09-25 12:06 | Progress Note - Cardiology ---
Cardiology SOAP Progress Note Subjective: Not able to provide any history Objective: I&O/Vital Signs 09/25/21 09/25/21 09/25/21 04:02 08:00 08:20 Temp 36.4 35.8 Pulse 88 84 Resp 16 17 B/P (MAP) 150/74 (99) 148/78 (101) Pulse Ox 98 97 O2 Delivery Room Air Room Air Room Air 09/25/21 00:00 Intake Total 0 ml Output Total 350 ml Balance -350 ml Constitutional: other (not following commands - unable to swallow; moving upper extremities; opens eyes and tracks movement in the room) Respiratory: No accessory muscle use; other (fair to good air entry, bilat) Cardiovascular: regular rate-rhythm, S1 and S2, systolic murmur (soft CARL at card base) Gastrointestional: soft; No guarding; audible bowel sounds, other (PEG tube in place) Extremities: No clubbing, No cyanosis; no lower extremity edema bilateral Neurologic/Psychiatric: other (see above, seems to move all limbs equally) Skin: No rash on exposed areas, No ulcerations on exposed areas Results/Procedures: Labs Laboratory Tests 09/24/21 15:16: Glucometer 124H 09/24/21 21:00: Glucometer 124H 09/25/21 05:22: Glucometer 128H 09/25/21 11:14: Glucometer 140H Microbiology 09/21/21 MRSA Screen - Final, Complete MRSA not isolated 09/13/21 Blood Culture - Final, Complete No growth A/P: Assessment: Ac Inf Wall STEMI on 09/11/21 - transiently hemodynamically unstable at initial presentation: transient PEA - hemodynamically stable since PCI for STEMI (see below CAD - card cath of 09/11/21: Coronary artery disease primarily consisting of severe mid vessel stenosis of the dominant right coronary artery that was the culprit in causing an inferior wall ST elevation myocardial infarction and that was successfully stented with Skypoint 2.5 x 28 mm stent. The first diagonal branch of the left anterior descending artery has a 50% to 60% proximal and mid vessel stenosis. It is a small caliber vessel. The left circumflex artery is nondominant and has a large first obtuse marginal branch, a subbranch of which has approximately 60% to 70% stenosis. Elevated left ventricular end-diastolic pressure. Left ventricular ejection fraction approximately 60% - echo of 09/12/21: LVEF 50-55% Ac renal failure at time of admisson 09/11/21 - improve/resolved Mental status change - ?anoxic brain injury - management per medical services PEG tube placed by Dr. Garcia on 09-22-21 - receiving tube feedings DMI II Ac resp failure - resolved - extubated on 09-16-21 ?Heavy ETOH usage Plan: * Not following commands, unable to swallow without significant prompting pureed foods and crushed meds - family consented to PEG tube placement on 09-23-21 * Plavix, ASA, BB and statin are being given via PEG tube * Complex management issue * Replenish electrolytes as indicated * Possible placement at LTC facility this week - family is deciding BAILEY CURRAN MD FACP FAC CCDS Sep 25, 2021 12:06
[2021-09-25 15:54] VITALS: BP 114/78
--- NOTE | 2021-09-25 18:20 | Progress Note - Hospitalist ---
Subjective HPI/CC On Admission Date Seen by Provider: Sep 25, 2021 Time Seen by Provider: 10:30 Marcello Tellez is a 65 year old male with PMH HTN, HLD, CAD, T2DM, who was found minimally responsive by his . She said he wakes up earlier than her. She heard him moaning in the living room and went to check on him. She asked if she needed to call an ambulance and he shook his head yes. EMS arrived and applied AED and began CPR. No shocks were advised and ROSC was obtained after one round of CPR. He was intubated. An EKG revealed STEMI and [facility] he was found to have an inferior MD and had a stent placed in his RCA. Upon my exam, he is intubated and sedated in the ICU. His is present at the bedside. Subjective/Events-last exam He remains nonverbal. He opens his eyes. He does not follow commands. Focused Exam Lactate Level 09/24/21 08:35: Lactic Acid Level 0.90 Objective Exam Vital Signs Vital Signs Date Time Temp Pulse Resp B/P (MAP) Pulse Ox O2 Delivery O2 Flow Rate FiO2 09/25/21 15:54 37.0 104 18 114/78 (90) 93 Room Air 09/22/21 11:30 6 Capillary Refill : Less Than 3 Seconds General Appearance: No Apparent Distress, Thin Respiratory: Lungs Clear, No Respiratory Distress Cardiovascular: Regular Rate, Rhythm, No Murmur Gastrointestinal: Normal Bowel Sounds, Soft Extremity: Normal Inspection, No Pedal Edema Neurologic/Psychiatric: Alert, Aphasia, Disoriented Skin: Normal Color, Warm/Dry Results/Procedures Lab Patient resulted labs reviewed. Imaging: Reviewed Imaging Report Assessment/Plan Assessment and Plan Assess & Plan/Chief Complaint STEMI Cardiac arrest CAD HTN HLD Cardiology primary s/p RCA stent placement on admission ASA and Plavix Metoprolol and Lipitor Anoxic brain injury Delirium Dysphagia Debility Present on admission Speech therapy following PEG placed Continue tube feeds and fluids PT/OT Palliative care following Referral to [facility] T2DM Sliding scale insulin Alcohol abuse Reportedly chronic daily alcohol use DVT prophylaxis: Lovenox Acute respiratory failure with hypoxia, resolved Endotracheally intubated, resolved BEKA, resolved Hypokalemia, resolved Hyponatremia, resolved Diagnosis/Problems Diagnosis/Problems (1) Acute ST elevation myocardial infarction (STEMI) of inferior wall Status: Acute (2) Cardiac arrest Status: Acute (3) CAD (coronary artery disease) Status: Acute Qualifiers: Coronary Disease-Associated Artery/Lesion type: [place] artery [place] vs. transplanted heart: [place] heart (4) S/P coronary artery stent placement Status: Acute (5) Acute kidney injury superimposed on chronic kidney disease Status: Acute (6) T2DM (type 2 diabetes mellitus) Status: Chronic Qualifiers: Diabetes mellitus extermination supervisor insulin use: without extermination supervisor use Diabetes mellitus complication status: without complication Qualified Codes: E11.9 - Type 2 diabetes mellitus without complications (7) HTN (hypertension) Status: Chronic (8) HLD (hyperlipidemia) Status: Chronic (9) Septic shock Status: Acute (10) Delirium Status: Acute (11) Dysphagia Status: Acute (12) Anoxic brain injury Status: Acute (13) SIRS (systemic inflammatory response syndrome) Status: Acute (14) Leukocytosis Status: Acute KAYLA WAGONER MD Sep 25, 2021 18:20
[2021-09-25 20:00] VITALS: BP 126/80
[2021-09-25] MEDS: ENOXAPARIN 40 MG/0.4 ML (LOVENOX) SYR SQ SCH (20:29)
[2021-09-25 23:23] VITALS: BP 113/66
[2021-09-26 03:42] VITALS: BP 122/77
[2021-09-26] MEDS: MULTIVIT W/MINERALS TAB (THERAGRAN M) PO SCH (06:14)
[2021-09-26] MEDS: inSUlin ASPART (NovoLOG) 1 UNIT/0.01 ML (CHARGE PER UNIT) SC SCH ×4 (06:15→20:34)
[2021-09-26] MEDS: FAMOTIDINE 20 MG (PEPCID) TABLET PEG SCH ×2 (08:05→21:59)
[2021-09-26] MEDS: ASPIRIN 81 MG CHEW (CHILDREN'S ASA) PEG SCH (08:06)
[2021-09-26] MEDS: meTOprolol TARTRATE 25 MG (LOPRESSOR) TABLET PEG SCH ×2 (08:06→21:59)
[2021-09-26] MEDS: CLOPIDOGREL 75 MG (PLAVIX) TABLET PEG SCH (08:06)
[2021-09-26 08:43] VITALS: BP 115/56
--- NOTE | 2021-09-26 09:30 | Progress Note - Cardiology ---
Cardiology SOAP Progress Note Subjective: Lying in bed Opens eyes and tracks movement Not verbally responsive No visible signs of distress Objective: I&O/Vital Signs 09/30/21 10/01/21 23:47 07:25 Temp 36.5 36.4 Pulse 96 83 Resp 18 18 B/P (MAP) 120/66 (84) 112/63 (79) Pulse Ox 96 94 O2 Delivery Room Air Room Air 10/01/21 00:00 Intake Total 550 ml Balance 550 ml Constitutional: other (not following commands - unable to swallow; moving upper extremities; opens eyes and tracks movement in the room) Respiratory: No accessory muscle use; other (fair to good air entry, bilat) Cardiovascular: regular rate-rhythm, S1 and S2, systolic murmur (soft CARL at card base) Gastrointestional: soft; No guarding; audible bowel sounds, other (PEG tube in place) Extremities: No clubbing, No cyanosis; no lower extremity edema bilateral Neurologic/Psychiatric: other (see above, seems to move all limbs equally) Skin: No rash on exposed areas, No ulcerations on exposed areas Results/Procedures: Labs Laboratory Tests 09/30/21 16:49: Glucometer 133H 09/30/21 23:11: Glucometer 117H 10/01/21 05:18: Glucometer 150H Microbiology 09/29/21 C. difficile GDH Antigen & Toxins - Final, Complete 09/29/21 Urine Culture - Preliminary, Resulted Probable Klebsiella/Enterobact 09/29/21 Blood Culture - Preliminary, Resulted No growth 09/21/21 MRSA Screen - Final, Complete MRSA not isolated A/P: Assessment: Ac Inf Wall STEMI on 09/11/21 - transiently hemodynamically unstable at initial presentation: transient PEA - hemodynamically stable since PCI for STEMI (see below CAD - card cath of 09/11/21: Coronary artery disease primarily consisting of severe mid vessel stenosis of the dominant right coronary artery that was the culprit in causing an inferior wall ST elevation myocardial infarction and that was successfully stented with Skypoint 2.5 x 28 mm stent. The first diagonal branch of the left anterior descending artery has a 50% to 60% proximal and mid vessel stenosis. It is a small caliber vessel. The left circumflex artery is nondominant and has a large first obtuse marginal branch, a subbranch of which has approximately 60% to 70% stenosis. Elevated left ventricular end-diastolic pressure. Left ventricular ejection fraction approximately 60% - echo of 09/12/21: LVEF 50-55% Ac renal failure at time of admisson 09/11/21 - improve/resolved Mental status change - ?anoxic brain injury - management per medical services PEG tube placed by Dr. Garcia on 09-22-21 - receiving tube feedings DMI II Ac resp failure - resolved - extubated on 09-16-21 ?Heavy ETOH usage Plan: * Not following commands, unable to swallow without significant prompting pureed foods and crushed meds - family consented to PEG tube placement on 09-23-21 * Plavix, ASA, BB and statin are being given via PEG tube * Complex management issue * Replenish electrolytes as indicated * Possible placement at LTC facility this week - social service liaison working on placement NAVNEET LEI Sep 26, 2021 09:30
--- NOTE | 2021-09-26 10:26 | Physical Therapy Daily Note ---
PT Daily Note-Current Subjective Patient is awake. Mental Status Patient Orientation: Non-Verbal/Aphasic, Eyes Open Attachments: PEG Tube, Khan Catheter, IV Transfers SCALE: Activities may be completed with or without assistive devices. 4-Jcvffiicnw-xhyputz completes the activity by him/herself with no assistance from a helper. 5-Set-up or Clean-up Assistance-helper sets up or cleans up; patient completes activity. [place] assists only prior to or following the activity. 4-Supervision or Touching Assistance-helper provides verbal cues and/or touching/steadying and/or contact guard assistance as patient completes activity. Assistance may be provided throughout the activity or intermittently. 3-Partial/Moderate Assistance-helper does LESS THAN HALF the effort. [place] lifts, holds or supports trunk or limbs, but provides less than half the effort. 2-Substantial/Maximal Assistance-helper does MORE THAN HALF the effort. [place] lifts or holds trunk or limbs and provides more than half the effort. 5-Dgpwmugyr-itlirh does ALL the effort. Patient does none of the effort to complete the activity. Or, the assistance of 2 or more helpers is required for the patient to complete the activity. If activity was not attempted, code reason: 7-Patient Refused. 9-Not Applicable-not attempted and the patient did not perform the activity before the current illness, exacerbation or injury. 10-Not Attempted due to Environmental Limitations-(lack of equipment, weather restraints, etc.). 88-Not Attempted due to Medical Conditions or Safety Concerns. Sit to Lying (QC): 1 (x 2) Lying to Sitting/Side of Bed(Q: 1 (x 2) patient sat EOB with minimal assist x 8 min. Assessment Patient unable to follow simple direction. Responds to tactile stimuli. PT Short Term Goals Short Term Goals Time Frame: Sep 28, 2021 Roll Left & Right: 2 Sit to lyin Lying to sitting on side of be: 2 Sit to stand: 2 Chair/nwk-ec-vklxj transfer: 2 Walk 10 feet: 2 PT Prison Goals Prison Goals PT Prison Goals Time Frame: Oct 12, 2021 Roll Left & Right (QC): 4 Sit to Lying (QC): 4 Lying-Sitting on Side/Bed(QC): 4 Sit to Stand (QC): 4 Chair/Gbm-bn-Pkxis Xfer(QC): 4 Toilet Transfer (QC): 4 Walk 10 feet (QC): 4 Walk 50ft with 2 Turns (QC): 4 Walk 150 ft (QC): 4 PT Plan Treatment/Plan Treatment Plan: Continue Plan of Care Treatment Plan: Bed Mobility, Education, Functional Activity Don, Functional Strength, Gait, Safety, Therapeutic Exercise, Transfers Treatment Duration: Oct 12, 2021 Frequency: 5 times per week Estimated Hrs Per Day: .5 hour per day Patient and/or Family Agrees t: Yes Time/GCodes Time In: 815 Time Out: 825 Total Billed Treatment Time: 10 Total Billed Treatment 1 visit FA 10 min BRADLEY GOMEZ PT Sep 26, 2021 10:26
--- NOTE | 2021-09-26 10:48 | Occupational Ther Daily Note ---
OT Current Status-Daily Note Subjective Pt's eyes opened when WALL entered room though did not vocalize to acknowledge greeting. Mental Status/Objective Patient Orientation: Unable to Assess ADL-Treatment Therapy Code Descriptions/Definitions Functional [place] Measure: 0=Not Assessed/NA 4=Minimal Assistance 1=Total Assistance 5=Supervision or Setup 2=Maximal Assistance 6=Modified [place] 3=Moderate Assistance 7=Complete IndependenceSCALE: Activities may be completed with or without assistive devices. 5-Lkbatoauub-adcspre completes the activity by him/herself with no assistance from a helper. 5-Set-up or Clean-up Assistance-helper sets up or cleans up; patient completes activity. [place] assists only prior to or following the activity. 4-Supervision or Touching Assistance-helper provides verbal cues and/or touching/steadying and/or contact guard assistance as patient completes activity. Assistance may be provided throughout the activity or intermittently. 3-Partial/Moderate Assistance-helper does LESS THAN HALF the effort. [place] lifts, holds or supports trunk or limbs, but provides less than half the effort. 2-Substantial/Maximal Assistance-helper does MORE THAN HALF the effort. [place] l ifts or holds trunk or limbs and provides more than half the effort. 5-Qtcrofpjw-xgrqwl does ALL the effort. Patient does none of the effort to complete the activity. Or, the assistance of 2 or more helpers is required for the patient to complete the activity. If activity was not attempted, code reason: 7-Patient Refused. 9-Not Applicable-not attempted and the patient did not perform the activity before the current illness, exacerbation or injury. 10-Not Attempted due to Environmental Limitations-(lack of equipment, weather restraints, etc.). 88-Not Attempted due to Medical Conditions or Safety Concerns. Other Treatment Assist of 2 for supine to sit, patient is able to sit for a few minutes, needs min to mod assist for sitting balance. Does not follow simple directions. Pt EOB to supine assist of 2 and scooted up in bed. Pt lying in supine with HOB elevated 30*. After therapy, pt lying in bed with call light/phone in reach. Safety measures in place. OT Senior Care Goals Senior Care Goals Time Frame: Oct 15, 2021 Eating (QC): 3 Oral Hygiene (QC): 3 Toileting Hygiene (QC): 3 Shower/Bathe Self (QC): 3 Upper Body Dressing (QC): 3 Lower Body Dressing (QC): 3 On/Off Footwear (QC): 3 1=Demonstrate adherence to instructed precautions during ADL tasks. 2=Patient will verbalize/demonstrate understanding of assistive devices/modifications for ADL. 3=Patient will improve strength/tolerance for activity to enable patient to perform ADL's. OT Education/Plan Problem List/Assessment Assessment: Decreased Activ Tolerance, Decreased Safety Aware, Dependent Transfers, Impaired Bed Mobility, Impaired Cognition Discharge Recommendations Plan/Recommendations: Continue POC Treatment Plan/Plan of Care Patient would benefit from OT for education, treatment and training to promote independence in ADL's, mobility, safety and/or upper extremity function for ADL's. Plan of Care: ADL Retraining, Caregiver Training, Cognitive Retraining, Functional Mobility, Group Exercise/Act as Ind, UE Funct Exercise/Act, UE Neuromus Re-Ed/Coord, W/C Management Training Treatment Duration: Oct 15, 2021 Frequency: 3 times per week (3-5x/week) Estimated Hrs Per Day: .25 hour per day Rehab Potential: Guarded Time/GCodes Start Time: 08:15 Stop Time: 08:25 Total Time Billed (hr/min): 10 Billed Treatment Time 1 visit-FA 1 (10 min) TAN HINDS Sep 26, 2021 10:48
[2021-09-26 12:08] VITALS: BP 120/63
--- NOTE | 2021-09-26 12:13 | Progress Note - Cardiology ---
Cardiology SOAP Progress Note Subjective: Not able to communicate meaningfully Objective: I&O/Vital Signs 09/26/21 09/26/21 09/26/21 03:42 08:43 12:08 Temp 36.7 36.4 36.8 Pulse 102 94 90 Resp 20 20 19 B/P (MAP) 122/77 (92) 115/56 (75) 120/63 (82) Pulse Ox 95 96 98 O2 Delivery Room Air Room Air Room Air 09/26/21 00:00 Intake Total 587 ml Output Total 750 ml Balance -163 ml Constitutional: other (not following commands - unable to swallow; moving upper extremities; opens eyes and tracks movement in the room) Respiratory: No accessory muscle use; other (fair to good air entry, bilat) Cardiovascular: regular rate-rhythm, S1 and S2, systolic murmur (soft CARL at card base) Gastrointestional: soft; No guarding; audible bowel sounds, other (PEG tube in place) Extremities: No clubbing, No cyanosis; no lower extremity edema bilateral Neurologic/Psychiatric: other (see above, seems to move all limbs equally) Skin: No rash on exposed areas, No ulcerations on exposed areas Results/Procedures: Labs Laboratory Tests 09/25/21 18:31: Glucometer 127H 09/26/21 06:15: Glucometer 158H Microbiology 09/24/21 Blood Culture - Preliminary, Resulted No growth 09/21/21 MRSA Screen - Final, Complete MRSA not isolated A/P: Assessment: Ac Inf Wall STEMI on 09/11/21 - transiently hemodynamically unstable at initial presentation: transient PEA - hemodynamically stable since PCI for STEMI (see below CAD - card cath of 09/11/21: Coronary artery disease primarily consisting of severe mid vessel stenosis of the dominant right coronary artery that was the culprit in causing an inferior wall ST elevation myocardial infarction and that was successfully stented with [place] 2.5 x 28 mm stent. The first diagonal branch of the left anterior descending artery has a 50% to 60% proximal and mid vessel stenosis. It is a small caliber vessel. The left circumflex artery is nondominant and has a large first obtuse marginal branch, a subbranch of which has approximately 60% to 70% stenosis. Elevated left ventricular end-diastolic pressure. Left ventricular ejection fraction approximately 60% - echo of 09/12/21: LVEF 50-55% Ac renal failure at time of admisson 09/11/21 - improve/resolved Mental status change - ?anoxic brain injury - management per medical services PEG tube placed by Dr. Garcia on 09-22-21 - receiving tube feedings DMI II Ac resp failure - resolved - extubated on 09-16-21 ?Heavy ETOH usage Plan: * Not following commands, unable to swallow without significant prompting pureed foods and crushed meds - family consented to PEG tube placement on 09-23-21 * Plavix, ASA, BB and statin are being given via PEG tube * Complex management issue * Replenish electrolytes as indicated * Possible placement at LTC facility this week - social service agency director working on placement * Dr Jensen covering Cardiology service until BAILEY Escudero MD FACP FAC CCDS Sep 26, 2021 12:13
--- NOTE | 2021-09-26 13:35 | Speech Therapy Progress Note ---
Therapy Progress Note Speech pathology attempted re-evaluation of the oropharyngeal swallowing function at 1030. A moist swab was brought to the lips by the clinician in attempts to provide oral care or small bolus amounts of thin liquid. The patient pursed lips tightly and turned his head away from the clinician. The patient does not follow oral commands regardless of maximum verbal cueing and direct modeling. The clinician re-attempted the oral swab, however, the patient is actively pushing the clinician's arm away from his oral cavity and swiping at the toothette. The clinician ceases attempts at this time. As no progress has been elicited following multiple attempts and visits, speech pathology will sign off at this time. If improved participation is demonstrated, please re-consult speech pathology. JUAN DIEGO BORJAS Sep 26, 2021 13:35
[2021-09-26 15:56] VITALS: BP_SYST 120; BP_SYST 145; BP_DIAS 63; BP_DIAS 83
--- NOTE | 2021-09-26 17:33 | Progress Note - Hospitalist ---
Subjective HPI/CC On Admission Date Seen by Provider: Sep 26, 2021 Time Seen by Provider: 10:20 Marcello Tellez is a 65 year old male with PMH HTN, HLD, CAD, T2DM, who was found minimally responsive by his . She said he wakes up earlier than her. She heard him moaning in the living room and went to check on him. She asked if she needed to call an ambulance and he shook his head yes. EMS arrived and applied AED and began CPR. No shocks were advised and ROSC was obtained after one round of CPR. He was intubated. An EKG revealed STEMI and he was taken to the sugar laboratory assistant where he was found to have an inferior NC and had a stent placed in his RCA. Upon my exam, he is intubated and sedated in the ICU. His is present at the bedside. Subjective/Events-last exam He is awake and alert. He is non verbal. He does not follow commands. His family is present at bedside and updated. Focused Exam Lactate Level 09/24/21 08:35: Lactic Acid Level 0.90 Objective Exam Vital Signs Vital Signs Date Time Temp Pulse Resp B/P (MAP) Pulse Ox O2 Delivery O2 Flow Rate FiO2 09/26/21 15:56 36.8 105 20 145/83 (103) 92 Room Air 09/22/21 11:30 6 Capillary Refill : Less Than 3 Seconds General Appearance: No Apparent Distress, WD/WN Respiratory: Lungs Clear, No Respiratory Distress Cardiovascular: Regular Rate, Rhythm, No Murmur Gastrointestinal: Normal Bowel Sounds, Soft Extremity: Normal Inspection, No Pedal Edema Neurologic/Psychiatric: Alert, Aphasia Results/Procedures Lab Patient resulted labs reviewed. Imaging: Reviewed Imaging Report Assessment/Plan Assessment and Plan Assess & Plan/Chief Complaint STEMI Cardiac arrest CAD HTN HLD Cardiology primary s/p RCA stent placement on admission ASA and Plavix Metoprolol and Lipitor Anoxic brain injury Delirium Dysphagia Debility Present on admission Speech therapy signed off PEG placed Continue tube feeds and fluids PT/OT Palliative care following [facility] denied Referrals sent to other area SNFs T2DM Sliding scale insulin Alcohol abuse Reportedly chronic daily alcohol use DVT prophylaxis: Lovenox Acute respiratory failure with hypoxia, resolved Endotracheally intubated, resolved BEKA, resolved Hypokalemia, resolved Hyponatremia, resolved Diagnosis/Problems Diagnosis/Problems (1) Acute ST elevation myocardial infarction (STEMI) of inferior wall Status: Acute (2) Cardiac arrest Status: Acute (3) CAD (coronary artery disease) Status: Acute Qualifiers: Coronary Disease-Associated Artery/Lesion type: [place] artery [place] vs. transplanted heart: [place] heart (4) S/P coronary artery stent placement Status: Acute (5) Acute kidney injury superimposed on chronic kidney disease Status: Acute (6) T2DM (type 2 diabetes mellitus) Status: Chronic Qualifiers: Diabetes mellitus jail insulin use: without jail use Diabetes mellitus complication status: without complication Qualified Codes: E11.9 - Type 2 diabetes mellitus without complications (7) HTN (hypertension) Status: Chronic (8) HLD (hyperlipidemia) Status: Chronic (9) Septic shock Status: Acute (10) Delirium Status: Acute (11) Dysphagia Status: Acute (12) Anoxic brain injury Status: Acute (13) SIRS (systemic inflammatory response syndrome) Status: Acute (14) Leukocytosis Status: Acute KAYLA WAGONER MD Sep 26, 2021 17:33
[2021-09-26 19:08] VITALS: BP 130/74
[2021-09-26] MEDS: ENOXAPARIN 40 MG/0.4 ML (LOVENOX) SYR SQ SCH (21:59)
[2021-09-26 23:53] VITALS: BP 127/75
[2021-09-27 04:27] VITALS: BP 115/72
[2021-09-27] MEDS: inSUlin ASPART (NovoLOG) 1 UNIT/0.01 ML (CHARGE PER UNIT) SC SCH ×4 (06:00→20:21)
[2021-09-27] MEDS: THIAMINE 100 MG (VITAMIN B-1) TAB PEG SCH (06:23)
[2021-09-27] MEDS: MULTIVIT W/MINERALS TAB (THERAGRAN M) PO SCH (06:23)
[2021-09-27 07:37] VITALS: BP 120/68
[2021-09-27] MEDS ORDERED: metFORMIN 500 MG (GLUCOPHAGE) TAB PEG NR (08:08)
[2021-09-27] MEDS: ASPIRIN 81 MG CHEW (CHILDREN'S ASA) PEG SCH (09:49)
[2021-09-27] MEDS: FAMOTIDINE 20 MG (PEPCID) TABLET PEG SCH ×2 (09:49→20:47)
[2021-09-27] MEDS: meTOprolol TARTRATE 25 MG (LOPRESSOR) TABLET PEG SCH ×2 (09:49→20:47)
[2021-09-27] MEDS: CLOPIDOGREL 75 MG (PLAVIX) TABLET PEG SCH (09:49)
--- NOTE | 2021-09-27 10:06 | Physical Therapy Daily Note ---
PT Daily Note-Current Subjective Patient's family present. Mental Status Patient Orientation: Non-Verbal/Aphasic, Eyes Open Transfers SCALE: Activities may be completed with or without assistive devices. 3-Krppyqschm-ovzlery completes the activity by him/herself with no assistance f rom a helper. 5-Set-up or Clean-up Assistance-helper sets up or cleans up; patient completes activity. [place] assists only prior to or following the activity. 4-Supervision or Touching Assistance-helper provides verbal cues and/or touching/steadying and/or contact guard assistance as patient completes activity. Assistance may be provided throughout the activity or intermittently. 3-Partial/Moderate Assistance-helper does LESS THAN HALF the effort. [place] lifts, holds or supports trunk or limbs, but provides less than half the effort. 2-Substantial/Maximal Assistance-helper does MORE THAN HALF the effort. [place] lifts or holds trunk or limbs and provides more than half the effort. 1-Gqwypcttj-uzvxcg does ALL the effort. Patient does none of the effort to complete the activity. Or, the assistance of 2 or more helpers is required for the patient to complete the activity. If activity was not attempted, code reason: 7-Patient Refused. 9-Not Applicable-not attempted and the patient did not perform the activity before the current illness, exacerbation or injury. 10-Not Attempted due to Environmental Limitations-(lack of equipment, weather restraints, etc.). 88-Not Attempted due to Medical Conditions or Safety Concerns. Sit to Lying (QC): 1 (x 2) Lying to Sitting/Side of Bed(Q: 1 (x2) Sit to Stand (QC): 1 (x 2 with blocking bilateral knees x 3 sets) Assessment patient sat EOB for several minutes with minimal assist and patient slightly resisting by leaning back. Attempted to performs it to stand, however, patient very resistive with this task. PT Short Term Goals Short Term Goals Time Frame: Sep 28, 2021 Roll Left & Right: 2 Sit to lyin Lying to sitting on side of be: 2 Sit to stand: 2 Chair/dol-jm-mmgfs transfer: 2 Walk 10 feet: 2 PT Produce Associate Goals Fdc Goals PT Fdc Goals Time Frame: Oct 12, 2021 Roll Left & Right (QC): 4 Sit to Lying (QC): 4 Lying-Sitting on Side/Bed(QC): 4 Sit to Stand (QC): 4 Chair/Xva-yj-Nrncv Xfer(QC): 4 Toilet Transfer (QC): 4 Walk 10 feet (QC): 4 Walk 50ft with 2 Turns (QC): 4 Walk 150 ft (QC): 4 PT Plan Treatment/Plan Treatment Plan: Continue Plan of Care Treatment Plan: Bed Mobility, Education, Functional Activity Don, Functional Strength, Gait, Safety, Therapeutic Exercise, Transfers Treatment Duration: Oct 12, 2021 Frequency: 5 times per week Estimated Hrs Per Day: .5 hour per day Patient and/or Family Agrees t: Yes Time/GCodes Time In: 940 Time Out: 952 Total Billed Treatment Time: 12 Total Billed Treatment 1 visit FA 12 min BRADLEY GOMEZ PT Sep 27, 2021 10:06
--- NOTE | 2021-09-27 10:45 | Occupational Ther Daily Note ---
OT Current Status-Daily Note Subjective Pt sleeping, woke eyes to gentle touch and name. Pt non-verbal. Pt kept eyes open for most of treatment and looked at therapists. Visitors present in room. Mental Status/Objective Patient Orientation: Person, Confused, Non-Verbal/Aphasic Attachments: Khan Catheter, IV, PEG Tube ADL-Treatment Therapy Code Descriptions/Definitions Functional [place] Measure: 0=Not Assessed/NA 4=Minimal Assistance 1=Total Assistance 5=Supervision or Setup 2=Maximal Assistance 6=Modified [place] 3=Moderate Assistance 7=Complete IndependenceSCALE: Activities may be completed with or without assistive devices. 1-Evopzulopw-bowqjzl completes the activity by him/herself with no assistance from a helper. 5-Set-up or Clean-up Assistance-helper sets up or cleans up; patient completes activity. [place] assists only prior to or following the activity. 4-Supervision or Touching Assistance-helper provides verbal cues and/or touching/steadying and/or contact guard assistance as patient completes activity. Assistance may be provided throughout the activity or intermittently. 3-Partial/Moderate Assistance-helper does LESS THAN HALF the effort. [place] lifts, holds or supports trunk or limbs, but provides less than half the effort. 2-Substantial/Maximal Assistance-helper does MORE THAN HALF the effort. [place] lifts or holds trunk or limbs and provides more than half the effort. 6-Emoxjvwvh-gxhuqk does ALL the effort. Patient does none of the effort to complete the activity. Or, the assistance of 2 or more helpers is required for the patient to complete the activity. If activity was not attempted, code reason: 7-Patient Refused. 9-Not Applicable-not attempted and the patient did not perform the activity before the current illness, exacerbation or injury. 10-Not Attempted due to Environmental Limitations-(lack of equipment, weather restraints, etc.). 88-Not Attempted due to Medical Conditions or Safety Concerns. Other Treatment Max A x2 for supine <--> EOB. Pt sat EOB for several minutes with minimal assist and patient slightly resisting by leaning back. Attempted to perform sit to stand 3x's with 1 person assisting standing with 2nd person blocked knees and buttocks for upright stance. Pt very resistive with this task, ie pushing backward, actively trying to sit down. Assist x2 for bed mobility. Pt made comfortable in bed with HOB raised 30 degrees. After session, pt lying in bed with call light/phone in reach. Safety measures in place. Nrsg and visitors present in room. OT Product Support Sales Representative Goals Jail Goals Time Frame: Oct 15, 2021 Eating (QC): 3 Oral Hygiene (QC): 3 Toileting Hygiene (QC): 3 Shower/Bathe Self (QC): 3 Upper Body Dressing (QC): 3 Lower Body Dressing (QC): 3 On/Off Footwear (QC): 3 1=Demonstrate adherence to instructed precautions during ADL tasks. 2=Patient will verbalize/demonstrate understanding of assistive devices/modifications for ADL. 3=Patient will improve strength/tolerance for activity to enable patient to perform ADL's. OT Education/Plan Problem List/Assessment Assessment: Decreased Activ Tolerance, Decreased Safety Aware, Decreased UE Strength, Dependent Transfers, Impaired Bed Mobility, Impaired Cognition, Impaired Coordination, Impaired Funct Balance, Impaired I ADL's, Impaired Self- Care Skills Discharge Recommendations Plan/Recommendations: Continue POC Treatment Plan/Plan of Care Patient would benefit from OT for education, treatment and training to promote independence in ADL's, mobility, safety and/or upper extremity function for ADL' s. Plan of Care: ADL Retraining, Caregiver Training, Cognitive Retraining, Functional Mobility, Group Exercise/Act as Ind, UE Funct Exercise/Act, UE Neuromus Re-Ed/Coord, W/C Management Training Treatment Duration: Oct 15, 2021 Frequency: 3 times per week (3-5x/week) Estimated Hrs Per Day: .25 hour per day Rehab Potential: Guarded Time/GCodes Start Time: 09:40 Stop Time: 09:52 Total Time Billed (hr/min): 12 Billed Treatment Time 1 visit-FA 1 (12 min) TAN HINDS Sep 27, 2021 10:45
[2021-09-27 12:16] VITALS: BP 120/75
[2021-09-27] MEDS ORDERED: LORazepam 0.5 MG (ATIVAN) TABLET PO NR (13:30)
--- NOTE | 2021-09-27 15:25 | Diagnostic Imaging Report ---
PROCEDURE: CT head without contrast. TECHNIQUE: Multiple contiguous axial images were obtained through the brain without the use of intravenous contrast. Auto Exposure Controls were utilized during the CT exam to meet ALARA standards for radiation dose reduction. INDICATION: Altered mental status. Correlation is made with prior head CT from 09/11/2021. Study is mildly compromised due to patient motion. Ventricles and sulci appear within normal limits. No sulcal effacement or midline shift is identified. No acute intra-axial or extra-axial hemorrhage is detected. Cisterns are patent. Visualized paranasal sinuses are clear. IMPRESSION: No acute intracranial process is detected. Dictated by: Dictated on workstation # [id number]
--- NOTE | 2021-09-27 15:53 | Cardiology Progress Note ---
Subjective Date Seen by Provider: Sep 27, 2021 Time Seen by Provider: 15:49 Subjective/Events-last exam Patient was seen and evaluated at bedside Unable to provide any history Review of Systems General: Other (Unable to provide review of system) Objective-Cardiology Exam Last Set of Vital Signs Vital Signs 09/22/21 09/27/21 11:30 12:16 Temp 36.6 Pulse 99 Resp 17 B/P (MAP) 120/75 (90) Pulse Ox 98 O2 Delivery Room Air O2 Flow Rate 6 I&O Intake and Output 09/27/21 00:00 Intake Total 1350 ml Output Total 1220 ml Balance 130 ml Intake Oral 0 ml Tube Feeding 1050 ml Other 300 ml Output Urine Total 1220 ml # Bowel Movements 2 General: Alert, Other (Does not follow command) HEENT: Atraumatic Lungs: Clear to Auscultation, Normal Air Movement Heart: Regular Rate, Normal S1, Normal S2 Abdomen: Normal Bowel Sounds, Soft Extremities: No Clubbing, No Cyanosis Skin: No Rashes, No Breakdown A/P-Cardiology Admission Diagnosis Coronary artery disease Acute ST elevation myocardial infarction Hypertension Acute respiratory failure Assessment/Plan Coronary artery disease status post acute ST elevation myocardial infarction on September 11, 2021 Had transient PEA with hemodynamic instability Has been stable since his intervention. Coronary artery disease, cardiac catheterization was done on September 11, [address] Meyer showing severe mid vessel stenosis in the dominant right coronary artery with successful stenting with [place] 2.5 x 28 mm stent, the first diagonal branch of the LAD has 50% to 60% stenosis proximal and mid, the circumflex artery is nondominant artery has a large first obtuse marginal branch with 60 to 70% stenosis. Conservative management was recommended, ejection f raction 60% 2D echo was done on 05/15/2021 showing ejection fraction 50 to 55% Status post acute renal failure, improved Anoxic encephalopathy, probably secondary to the PEA. Followed and managed by primary care team Status post feeding tube Diabetes mellitus, followed and managed by primary care team Status post acute respiratory failure, extubated on September 16, 2021 Questionable history of alcoholism JESSIE TOBIAS MD Sep 27, 2021 15:53
[2021-09-27 16:12] VITALS: BP 136/75
--- NOTE | 2021-09-27 16:39 | Progress Note - Hospitalist ---
Subjective HPI/CC On Admission Date Seen by Provider: Sep 27, 2021 Time Seen by Provider: 11:25 Marcello Tellez is a 65 year old male with PMH HTN, HLD, CAD, T2DM, who was found minimally responsive by his . She said he wakes up earlier than her. She heard him moaning in the living room and went to check on him. She asked if she needed to call an ambulance and he shook his head yes. EMS arrived and applied AED and began CPR. No shocks were advised and ROSC was obtained after one round of CPR. He was intubated. An EKG revealed STEMI and he was taken to the packing house laborer where he was found to have an inferior [place] and had a stent placed in his RCA. Upon my exam, he is intubated and sedated in the ICU. His is present at the bedside. Subjective/Events-last exam He does not respond to questions. He does not appear to understand. He is not following commands. He does track with his eyes. He has reportedly intermittently been saying a word or two. Objective Exam Vital Signs Vital Signs Date Time Temp Pulse Resp B/P (MAP) Pulse Ox O2 Delivery O2 Flow Rate FiO2 09/27/21 16:12 36.7 105 18 136/75 (95) 95 Room Air 09/22/21 11:30 6 Capillary Refill : Less Than 3 Seconds General Appearance: No Apparent Distress, Thin Respiratory: Lungs Clear, No Respiratory Distress Cardiovascular: Regular Rate, Rhythm, No Murmur Gastrointestinal: Normal Bowel Sounds, Soft Neurologic/Psychiatric: Alert, Aphasia, Disoriented Skin: Normal Color, Warm/Dry Results/Procedures Lab Patient resulted labs reviewed. Imaging: Reviewed Imaging Report Assessment/Plan Assessment and Plan Assess & Plan/Chief Complaint STEMI Cardiac arrest CAD HTN HLD Cardiology primary s/p RCA stent placement on admission ASA and Plavix Metoprolol and Lipitor Anoxic brain injury Delirium Dysphagia Debility Present on admission Speech therapy signed off PEG placed Continue tube feeds and fluids PT/OT Palliative care following [facility] denied Referrals sent to other area SNFs, pending Repeat CT head unremarkable T2DM Sliding scale insulin Alcohol abuse Reportedly chronic daily alcohol use DVT prophylaxis: Lovenox Acute respiratory failure with hypoxia, resolved Endotracheally intubated, resolved BEKA, resolved Hypokalemia, resolved Hyponatremia, resolved Diagnosis/Problems Diagnosis/Problems (1) Acute ST elevation myocardial infarction (STEMI) of inferior wall Status: Acute (2) Cardiac arrest Status: Acute (3) CAD (coronary artery disease) Status: Acute Qualifiers: Coronary Disease-Associated Artery/Lesion type: [place] artery [place] vs. transplanted heart: [place] heart (4) S/P coronary artery stent placement Status: Acute (5) Acute kidney injury superimposed on chronic kidney disease Status: Acute (6) T2DM (type 2 diabetes mellitus) Status: Chronic Qualifiers: Diabetes mellitus penitentiary insulin use: without dedicated intermodal truck driver use Diabetes mellitus complication status: without complication Qualified Codes: E11.9 - Type 2 diabetes mellitus without complications (7) HTN (hypertension) Status: Chronic (8) HLD (hyperlipidemia) Status: Chronic (9) Septic shock Status: Acute (10) Delirium Status: Acute (11) Dysphagia Status: Acute (12) Anoxic brain injury Status: Acute (13) SIRS (systemic inflammatory response syndrome) Status: Acute (14) Leukocytosis Status: Acute KAYLA WAGONER MD Sep 27, 2021 16:39
[2021-09-27 19:41] VITALS: BP 138/75
[2021-09-27] MEDS: ENOXAPARIN 40 MG/0.4 ML (LOVENOX) SYR SQ SCH (20:47)
[2021-09-28 00:22] VITALS: BP 106/53
[2021-09-28] MEDS: inSUlin ASPART (NovoLOG) 1 UNIT/0.01 ML (CHARGE PER UNIT) SC SCH ×4 (05:29→20:20)
[2021-09-28] MEDS: THIAMINE 100 MG (VITAMIN B-1) TAB PEG SCH (06:22)
[2021-09-28] MEDS: MULTIVIT W/MINERALS TAB (THERAGRAN M) PO SCH (06:22)
[2021-09-28] MEDS ORDERED: NS IV 1000 ML 1,000 ML IV SCH (06:45)
[2021-09-28] MEDS ORDERED: metFORMIN 500 MG (GLUCOPHAGE) TAB PEG SCH (07:00)
[2021-09-28 08:00] VITALS: BP 138/75
[2021-09-28] MEDS: meTOprolol TARTRATE 50 MG (LOPRESSOR) TAB PEG SCH ×2 (08:54→20:32)
[2021-09-28] MEDS: ASPIRIN 81 MG CHEW (CHILDREN'S ASA) PEG SCH (08:54)
[2021-09-28] MEDS: CLOPIDOGREL 75 MG (PLAVIX) TABLET PEG SCH (08:54)
[2021-09-28] MEDS: FAMOTIDINE 20 MG (PEPCID) TABLET PEG SCH ×2 (08:54→20:32)
--- NOTE | 2021-09-28 16:09 | Cardiology Progress Note ---
Subjective Date Seen by Provider: Sep 28, 2021 Time Seen by Provider: 16:08 Subjective/Events-last exam Patient was seen at bedside, laying down comfortably, no new complaint. No change in his condition, I visited with his family members Objective-Cardiology Exam Last Set of Vital Signs Vital Signs 09/22/21 09/28/21 09/28/21 11:30 08:00 09:00 Temp 36.9 Pulse 114 Resp 18 B/P (MAP) 138/75 (96) Pulse Ox 94 O2 Delivery Room Air O2 Flow Rate 6 I&O Intake and Output 09/27/21 23:59 Intake Total 450 ml Output Total 1450 ml Balance -1000 ml Intake Oral 0 ml Tube Feeding 450 ml Output Urine Total 1450 ml # Bowel Movements 5 General: Alert, Other (Does not follow command) HEENT: Atraumatic Lungs: Clear to Auscultation, Normal Air Movement Heart: Regular Rate, Normal S1, Normal S2 Abdomen: Normal Bowel Sounds, Soft Extremities: No Clubbing, No Cyanosis Skin: No Rashes, No Breakdown A/P-Cardiology Admission Diagnosis Coronary artery disease Acute ST elevation myocardial infarction Hypertension Acute respiratory failure Assessment/Plan Coronary artery disease status post acute ST elevation myocardial infarction on September 11, 2021 Had transient PEA with hemodynamic instability No further arrhythmia was detected. Continue to monitor Coronary artery disease, cardiac catheterization was done on September 11, [address] Meyer showing severe mid vessel stenosis in the dominant right coronary artery with successful stenting with gladys point 2.5 x 28 mm stent, the first diagonal branch of the LAD has 50% to 60% stenosis proximal and mid, the circumflex artery is nondominant artery has a large first obtuse marginal branch with 60 to 70% stenosis. Conservative management was recommended, ejection fraction 60% 2D echo was done on 05/15/2021 showing ejection fraction 50 to 55% Status post acute renal failure, improved Anoxic encephalopathy, probably secondary to the PEA. Followed and managed by primary care team Status post feeding tube Diabetes mellitus, followed and managed by primary care team Status post acute respiratory failure, extubated on September 16, 2021 Questionable history of alcoholism JESSIE TOBIAS MD Sep 28, 2021 16:09
[2021-09-28 16:35] VITALS: BP 121/56
[2021-09-28] MEDS: metFORMIN 500 MG (GLUCOPHAGE) TAB PEG SCH (17:01)
--- NOTE | 2021-09-28 19:42 | Progress Note - Hospitalist ---
Subjective HPI/CC On Admission Date Seen by Provider: Sep 28, 2021 Time Seen by Provider: 11:05 Marcello Tellez is a 65 year old male with PMH HTN, HLD, CAD, T2DM, who was found minimally responsive by his . She said he wakes up earlier than her. She heard him moaning in the living room and went to check on him. She asked if she needed to call an ambulance and he shook his head yes. EMS arrived and applied AED and began CPR. No shocks were advised and ROSC was obtained after one round of CPR. He was intubated. 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 Upon my exam, he is intubated and sedated in the ICU. His is present at the bedside. Subjective/Events-last exam He is non verbal. He is laying sideways in bed. He does not respond to questions. Objective Exam Vital Signs Vital Signs Date Time Temp Pulse Resp B/P (MAP) Pulse Ox O2 Delivery O2 Flow Rate FiO2 09/28/21 16:35 37.9 122 18 121/56 (77) 94 Room Air 09/22/21 11:30 6 Capillary Refill : Less Than 3 Seconds General Appearance: No Apparent Distress, Chronically ill Respiratory: Lungs Clear, No Respiratory Distress Cardiovascular: Regular Rate, Rhythm, No Murmur Gastrointestinal: Normal Bowel Sounds, Soft Neurologic/Psychiatric: Alert, Aphasia Results/Procedures Lab Patient resulted labs reviewed. Imaging: Reviewed Imaging Report Assessment/Plan Assessment and Plan Assess & Plan/Chief Complaint STEMI Cardiac arrest CAD HTN HLD Cardiology primary s/p RCA stent placement on admission ASA and Plavix Metoprolol and Lipitor Anoxic brain injury Delirium Dysphagia Debility Present on admission Speech therapy signed off PEG placed Continue tube feeds and fluids PT/OT Palliative care following [facility] denied Referrals sent to other area SNFs, pending T2DM Sliding scale insulin Alcohol abuse Reportedly chronic daily alcohol use DVT prophylaxis: Lovenox Acute respiratory failure with hypoxia, resolved Endotracheally intubated, resolved BEKA, resolved Hypokalemia, resolved Hyponatremia, resolved Diagnosis/Problems Diagnosis/Problems (1) Acute ST elevation myocardial infarction (STEMI) of inferior wall Status: Acute (2) Cardiac arrest Status: Acute (3) CAD (coronary artery disease) Status: Acute Qualifiers: Coronary Disease-Associated Artery/Lesion type: [place] artery [place] vs. transplanted heart: [place] heart (4) S/P coronary artery stent placement Status: Acute (5) Acute kidney injury superimposed on chronic kidney disease Status: Acute (6) T2DM (type 2 diabetes mellitus) Status: Chronic Qualifiers: Diabetes mellitus ferry terminal supervisor insulin use: without ferry terminal supervisor use Diabetes mellitus complication status: without complication Qualified Codes: E11.9 - Type 2 diabetes mellitus without complications (7) HTN (hypertension) Status: Chronic (8) HLD (hyperlipidemia) Status: Chronic (9) Septic shock Status: Acute (10) Delirium Status: Acute (11) Dysphagia Status: Acute (12) Anoxic brain injury Status: Acute (13) SIRS (systemic inflammatory response syndrome) Status: Acute (14) Leukocytosis Status: Acute KAYLA WAGONER MD Sep 28, 2021 19:42
[2021-09-28] MEDS: ENOXAPARIN 40 MG/0.4 ML (LOVENOX) SYR SQ SCH (20:33)
[2021-09-29] VITALS (15 sets, daily range): BP systolic 95–131; BP diastolic 51–83
[2021-09-29 06:33] LABS: BASOPHILS # (AUTO) 0.1 10^3/uL (0.0-0.1); BASOPHILS % (AUTO) 1 % (0-10); EOSINOPHILS # (AUTO) 0.1 10^3/uL (0.0-0.3); EOSINOPHILS % (AUTO) 0 % (0-10); HEMATOCRIT 27 % (40-54); HEMOGLOBIN 8.6 g/dL (13.3-17.7); LYMPHOCYTES # (AUTO) 0.6 10^3/uL (1.0-4.0); LYMPHOCYTES % (AUTO) 4 % (12-44); MEAN CORPUSCULAR HEMOGLOBIN 30 pg (25-34); MEAN CORPUSCULAR HGB CONC 32 g/dL (32-36); MEAN CORPUSCULAR VOLUME 95 fL (80-99); MONOCYTES # (AUTO) 1.1 10^3/uL (0.0-1.0); MONOCYTES % (AUTO) 7 % (0-12); NEUTROPHILS # (AUTO) 14.9 10^3/uL (1.8-7.8); NEUTROPHILS % (AUTO) 88 % (42-75); PLATELET COUNT 850 10^3/uL (130-400); WHITE BLOOD COUNT 16.9 10^3/uL (4.3-11.0)
[2021-09-29] MEDS: THIAMINE 100 MG (VITAMIN B-1) TAB PEG SCH (06:42)
[2021-09-29] MEDS: MULTIVIT W/MINERALS TAB (THERAGRAN M) PO SCH (06:42)
[2021-09-29 06:48] LABS: POTASSIUM 4.9 MMOL/L (3.6-5.0)
[2021-09-29 06:49] LABS: CALCIUM 9.2 MG/DL (8.5-10.1)
[2021-09-29 06:53] LABS: CREATININE SERUM 1.77 MG/DL (0.60-1.30)
[2021-09-29 06:55] LABS: MAGNESIUM 1.9 MG/DL (1.6-2.4)
[2021-09-29] MEDS: inSUlin ASPART (NovoLOG) 1 UNIT/0.01 ML (CHARGE PER UNIT) SC SCH ×4 (07:04→21:37)
[2021-09-29] MEDS: CLOPIDOGREL 75 MG (PLAVIX) TABLET PEG SCH (08:43)
[2021-09-29] MEDS: meTOprolol TARTRATE 50 MG (LOPRESSOR) TAB PEG SCH ×2 (08:43→21:37)
[2021-09-29] MEDS: ASPIRIN 81 MG CHEW (CHILDREN'S ASA) PEG SCH (08:43)
[2021-09-29] MEDS: metFORMIN 500 MG (GLUCOPHAGE) TAB PEG SCH ×2 (08:43→17:21)
[2021-09-29] MEDS: FAMOTIDINE 20 MG (PEPCID) TABLET PEG SCH ×2 (08:43→21:37)
[2021-09-29] MEDS: NS IV 1000 ML 1,000 ML IV SCH ×2 (10:06→11:09)
--- NOTE | 2021-09-29 10:22 | Diagnostic Imaging Report ---
INDICATION: Fever. COMPARISON: 09/24/2021. FINDINGS: Some overlying artifact, believed to be the left hand, partially obscures the left base laterally. The unobscured lung shows no focal consolidation. The heart size is stable. There is some mild prominence of the central vascularity, unchanged. IMPRESSION: There is partial obscuration of the left base. No focal consolidation is apparent. Dictated by: Dictated on workstation # [id number]
[2021-09-29 11:20] LABS: CLARITY,URINE CLOUDY; COLOR,URINE RED; GLUCOSE, URINE (UA) NEGATIVE (NEGATIVE); KETONES,URINE NEGATIVE (NEGATIVE); LEUKOCYTE ESTERASE ,URINE 2+ (NEGATIVE); NITRITE,URINE POSITIVE (NEGATIVE); PH,URINE 5.5 (5-9); PROTEIN,URINE 2+ (NEGATIVE)
[2021-09-29 11:27] LABS: BACTERIA,URINE LARGE /HPF; RBC,URINE TNTC /HPF; WBC,URINE >100 /HPF
--- NOTE | 2021-09-29 11:43 | Cardiology Progress Note ---
Subjective Date Seen by Provider: Sep 29, 2021 Time Seen by Provider: 11:43 Subjective/Events-last exam Patient is laying down in bed, unable to provide any history No change in mental status Review of Systems General: Other (Unable to provide review of system) Focused Exam Lactate Level 09/29/21 09:53: Lactic Acid Level 1.89 Lactic Acid Level Laboratory Tests Test 09/29/21 09:53 Lactic Acid Level 1.89 MMOL/L (0.50-2.00) Objective-Cardiology Exam Last Set of Vital Signs Vital Signs 09/29/21 09/29/21 07:40 11:28 Temp 37.2 Pulse 111 Resp 18 B/P (MAP) 131/60 (83) Pulse Ox 92 O2 Delivery Room Air I&O Intake and Output 09/29/21 00:00 Intake Total 1080 ml Output Total 1100 ml Balance -20 ml Intake Oral 0 ml Tube Feeding 1080 ml Output Urine Total 1100 ml # Bowel Movements 3 General: Alert, Other (Does not follow command) HEENT: Atraumatic Lungs: Clear to Auscultation, Normal Air Movement Heart: Regular Rate, Normal S1, Normal S2 Abdomen: Normal Bowel Sounds, Soft Extremities: No Clubbing, No Cyanosis Skin: No Rashes, No Breakdown Results Lab Laboratory Tests 09/29/21 06:03 A/P-Cardiology Admission Diagnosis Coronary artery disease Acute ST elevation myocardial infarction Hypertension Acute respiratory failure Assessment/Plan Coronary artery disease status post acute ST elevation myocardial infarction on September 11, 2021 Had transient PEA with hemodynamic instability No further arrhythmia was detected. Continue to monitor Coronary artery disease, cardiac catheterization was done on September 11, [address] Meyer showing severe mid vessel stenosis in the dominant right coronary artery with successful stenting with gladys point 2.5 x 28 mm stent, the first diagonal branch of the LAD has 50% to 60% stenosis proximal and mid, the circumflex artery is nondominant artery has a large first obtuse marginal branch with 60 to 70% stenosis. Conservative management was recommended, ejection fraction 60% 2D echo was done on 05/15/2021 showing ejection fraction 50 to 55% Status post acute renal failure, improved Anoxic encephalopathy, probably secondary to the PEA. Followed and managed by primary care team Status post feeding tube Diabetes mellitus, followed and managed by primary care team Status post acute respiratory failure, extubated on September 16, 2021 Questionable history of alcoholism JESSIE TOBIAS MD Sep 29, 2021 11:43
[2021-09-29] MEDS ORDERED: cefTRIAXone 1 GM PRE-MIX 50 ML IV ONE (11:45)
--- NOTE | 2021-09-29 16:25 | Progress Note - Hospitalist ---
Subjective HPI/CC On Admission Date Seen by Provider: Sep 29, 2021 Time Seen by Provider: 11:50 Marcello Tellez is a 65 year old male with PMH HTN, HLD, CAD, T2DM, who was found minimally responsive by his . She said he wakes up earlier than her. She heard him moaning in the living room and went to check on him. She asked if she needed to call an ambulance and he shook his head yes. EMS arrived and applied AED and began CPR. No shocks were advised and ROSC was obtained after one round of CPR. He was intubated. An EKG revealed STEMI and he was taken to the director geophysical laboratory where he was found to have an inferior [place] and had a stent placed in his RCA. Upon my exam, he is intubated and sedated in the ICU. His is present at the bedside. Subjective/Events-last exam He is saying some words but is not responding or interacting appropriately. Focused Exam Lactate Level 09/29/21 09:53: Lactic Acid Level 1.89 Objective Exam Vital Signs Vital Signs Date Time Temp Pulse Resp B/P (MAP) Pulse Ox O2 Delivery O2 Flow Rate FiO2 09/29/21 15:44 36.4 110 18 104/51 (68) 92 Room Air Capillary Refill : Less Than 3 Seconds General Appearance: No Apparent Distress, Thin Respiratory: Lungs Clear, No Respiratory Distress Cardiovascular: No Murmur, Tachycardia Gastrointestinal: Normal Bowel Sounds, Soft Extremity: Normal Inspection, No Pedal Edema Neurologic/Psychiatric: Alert; No Motor Weakness Results/Procedures Lab Laboratory Tests 09/29/21 06:03 Patient resulted labs reviewed. Imaging: Reviewed Imaging Report Assessment/Plan Assessment and Plan Assess & Plan/Chief Complaint Sepsis UTI Chronic indwelling crowley SIRS+ with fever, tachycardia, and leukocytosis UA consistent with UTI Begin Rocephin Await culture results Remove crowley STEMI Cardiac arrest CAD HTN HLD s/p RCA stent placement on admission ASA and Plavix Metoprolol and Lipitor Anoxic brain injury Delirium Dysphagia Debility Present on admission Speech therapy signed off PEG placed Continue tube feeds and fluids PT/OT [facility]iative care [facility] Referrals sent to other area SNFs, pending T2DM Sliding scale insulin Alcohol abuse Reportedly chronic daily alcohol use DVT prophylaxis: Lovenox Acute respiratory failure with hypoxia, resolved Endotracheally intubated, resolved BEKA, resolved Hypokalemia, resolved Hyponatremia, resolved Diagnosis/Problems Diagnosis/Problems (1) Sepsis secondary to UTI Status: Acute (2) Acute ST elevation myocardial infarction (STEMI) of inferior wall Status: Acute (3) Cardiac arrest Status: Acute (4) CAD (coronary artery disease) Status: Acute Qualifiers: Coronary Disease-Associated Artery/Lesion type: [place] artery [place] vs. 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
[2021-09-29] MEDS: ENOXAPARIN 40 MG/0.4 ML (LOVENOX) SYR SQ SCH (21:37)
[2021-09-30] VITALS: BP 168/75
[2021-09-30] MEDS: inSUlin ASPART (NovoLOG) 1 UNIT/0.01 ML (CHARGE PER UNIT) SC SCH ×5 (00:06→23:19)
[2021-09-30] MEDS: THIAMINE 100 MG (VITAMIN B-1) TAB PEG SCH (06:03)
[2021-09-30] MEDS: MULTIVIT W/MINERALS TAB (THERAGRAN M) PO SCH (06:03)
[2021-09-30 07:02] LABS: POTASSIUM 4.5 MMOL/L (3.6-5.0)
[2021-09-30 07:03] LABS: CALCIUM 8.6 MG/DL (8.5-10.1)
[2021-09-30 07:07] LABS: CREATININE SERUM 1.34 MG/DL (0.60-1.30)
[2021-09-30 07:47] LABS: BILIRUBIN,URINE 2+ (NEGATIVE)
[2021-09-30 08:43] VITALS: BP 129/61
[2021-09-30] MEDS: FAMOTIDINE 20 MG (PEPCID) TABLET PEG SCH ×2 (09:56→20:15)
[2021-09-30] MEDS: metFORMIN 500 MG (GLUCOPHAGE) TAB PEG SCH ×2 (09:56→18:04)
[2021-09-30] MEDS: meTOprolol TARTRATE 50 MG (LOPRESSOR) TAB PEG SCH ×2 (09:56→20:15)
[2021-09-30] MEDS: cefTRIAXone 1 GM PRE-MIX 50 ML IV SCH (09:56)
[2021-09-30] MEDS: CLOPIDOGREL 75 MG (PLAVIX) TABLET PEG SCH (09:56)
[2021-09-30] MEDS: ASPIRIN 81 MG CHEW (CHILDREN'S ASA) PEG SCH (09:56)
--- NOTE | 2021-09-30 11:21 | Physical Therapy Daily Note ---
PT Daily Note-Current Mental Status Patient Orientation: Non-Verbal/Aphasic Attachments: PEG Tube Transfers SCALE: Activities may be completed with or without assistive devices. 4-[id number]-jgmjvpq completes the activity by him/herself with no assistance from a helper. 5-Set-up or Clean-up Assistance-helper sets up or cleans up; patient completes activity. [place] assists only prior to or following the activity. 4-Supervision or Touching Assistance-helper provides verbal cues and/or touching/steadying and/or contact guard assistance as patient completes activity. Assistance may be provided throughout the activity or intermittently. 3-Partial/Moderate Assistance-helper does LESS THAN HALF the effort. [place] lifts, holds or supports trunk or limbs, but provides less than half the effort. 2-Substantial/Maximal Assistance-helper does MORE THAN HALF the effort. [place] lifts or holds trunk or limbs and provides more than half the effort. 4-Rhjnvtony-zhxhpd does ALL the effort. Patient does none of the effort to complete the activity. Or, the assistance of 2 or more helpers is required for the patient to complete the activity. If activity was not attempted, code reason: 7-Patient Refused. 9-Not Applicable-not attempted and the patient did not perform the activity before the current illness, exacerbation or injury. 10-Not Attempted due to Environmental Limitations-(lack of equipment, weather restraints, etc.). 88-Not Attempted due to Medical Conditions or Safety Concerns. Roll Left & Right (QC): 1 Assessment Patient is down in bed with with PEG tube, HOB should be elevated to 30 degrees. Patient was complete supine. Patient incontinent urine requiring dependent assist x 2 to cleanse and change. Patient repositioned up in bed with HOB 32 degrees. Patient does "wiggle" down in bed. PT Short Term Goals Short Term Goals Time Frame: Sep 28, 2021 Roll Left & Right: 2 Sit to lyin Lying to sitting on side of be: 2 Sit to stand: 2 Chair/fqb-mf-tfroh transfer: 2 Walk 10 feet: 2 PT Switch Repairer Goals Switch Repairer Goals PT Long-Term Goals Time Frame: Oct 12, 2021 Roll Left & Right (QC): 4 Sit to Lying (QC): 4 Lying-Sitting on Side/Bed(QC): 4 Sit to Stand (QC): 4 Chair/Sfw-aq-Cladk Xfer(QC): 4 Toilet Transfer (QC): 4 Walk 10 feet (QC): 4 Walk 50ft with 2 Turns (QC): 4 Walk 150 ft (QC): 4 PT Plan Treatment/Plan Treatment Plan: Continue Plan of Care Treatment Plan: Bed Mobility, Education, Functional Activity Don, Functional Strength, Gait, Safety, Therapeutic Exercise, Transfers Treatment Duration: Oct 12, 2021 Frequency: 5 times per week Estimated Hrs Per Day: .5 hour per day Patient and/or Family Agrees t: Yes Time/GCodes Time In: 1010 Time Out: 1019 Total Billed Treatment Time: 9 Total Billed Treatment 1 visit FA 9 min BRADLEY GOMEZ PT Sep 30, 2021 11:21
--- NOTE | 2021-09-30 12:25 | Progress Note - Hospitalist ---
Subjective HPI/CC On Admission Date Seen by Provider: Sep 30, 2021 Marcello Tellez is a 65 year old male with PMH HTN, HLD, CAD, T2DM, who was found minimally responsive by his . She said he wakes up earlier than her. She heard him moaning in the living room and went to check on him. She asked if she needed to call an ambulance and he shook his head yes. EMS arrived and applied AED and began CPR. No shocks were advised and ROSC was obtained after one round of CPR. He was intubated. An EKG revealed STEMI and he was taken to the dairy lab technician where he was found to have an inferior [place] and had a stent placed in his RCA. Upon my exam, he is intubated and sedated in the ICU. His is present at the bedside. Subjective/Events-last exam Pt is laying in bed. Opens eyes but otherwise does not speak. No family at bedside. Focused Exam Lactate Level 09/29/21 09:53: Lactic Acid Level 1.89 Objective Exam Vital Signs Vital Signs Date Time Temp Pulse Resp B/P (MAP) Pulse Ox O2 Delivery O2 Flow Rate FiO2 09/30/21 08:43 36.9 107 18 129/61 (83) 95 Room Air Capillary Refill : Less Than 3 Seconds General Appearance: No Apparent Distress, Chronically ill Respiratory: Lungs Clear, No Respiratory Distress Cardiovascular: Regular Rate, Rhythm, No Murmur Neurologic/Psychiatric: Alert, Other (did not speak) Results/Procedures Lab Laboratory Tests 09/30/21 05:43 Patient resulted labs reviewed. Imaging: Reviewed Imaging Report Assessment/Plan Assessment and Plan Assess & Plan/Chief Complaint Sepsis- improved UTI Chronic indwelling [place] SIRS+ with fever, tachycardia, and leukocytosis Continue Rocephin for UTI Urine with klebsiella and blood culture with GNR- await results prior to DC STEMI Cardiac arrest CAD HTN HLD s/p RCA stent placement on admission ASA and Plavix Metoprolol and Lipitor Anoxic brain injury Delirium Dysphagia Debility Present on admission Speech therapy signed off PEG placed Continue tube feeds and fluids PT/OT Palliative care following Likely to VCV tomorrow T2DM Sliding scale insulin Alcohol abuse Reportedly chronic daily alcohol use DVT prophylaxis: Lovenox Acute respiratory failure with hypoxia, resolved Endotracheally intubated, resolved BEKA, resolved Hypokalemia, resolved Hyponatremia, resolved Diagnosis/Problems Diagnosis/Problems (1) Acute kidney injury superimposed on chronic kidney disease Status: Acute (2) T2DM (type 2 diabetes mellitus) Status: Chronic Qualifiers: Diabetes mellitus assistant terminal manager insulin use: without snf use Diabetes mellitus complication status: without complication Qualified Codes: E11.9 - Type 2 diabetes mellitus without complications (3) HLD (hyperlipidemia) Status: Chronic (4) HTN (hypertension) Status: Chronic (5) Acute ST elevation myocardial infarction (STEMI) of inferior wall Status: Acute (6) Alcohol abuse (7) CAD (coronary artery disease) Status: Acute Qualifiers: Coronary Disease-Associated Artery/Lesion type: [place] artery [place] vs. transplanted heart: [place] heart (8) Cardiac arrest Status: Acute (9) S/P coronary artery stent placement Status: Acute PAL REYES MD Sep 30, 2021 12:25
--- NOTE | 2021-09-30 13:21 | Occupational Ther Daily Note ---
OT Current Status-Daily Note Subjective Pt lying in bed. Nrsg states that pt has been sleeping all day and barely woke when tech rolled to cleanse pt. Pt opened eyes with touch, does not vocalize. Mental Status/Objective Patient Orientation: Person Attachments: IV, PEG Tube ADL-Treatment Therapy Code Descriptions/Definitions Functional [place] Measure: 0=Not Assessed/NA 4=Minimal Assistance 1=Total Assistance 5=Supervision or Setup 2=Maximal Assistance 6=Modified [place] 3=Moderate Assistance 7=Complete IndependenceSCALE: Activities may be completed with or without assistive devices. 5-Dwtyqhxobt-zvxekcm completes the activity by him/herself with no assistance from a helper. 5-Set-up or Clean-up Assistance-helper sets up or cleans up; patient completes activity. [place] assists only prior to or following the activity. 4-Supervision or Touching Assistance-helper provides verbal cues and/or touching/steadying and/or contact guard assistance as patient completes activity. Assistance may be provided throughout the activity or intermittently. 3-Partial/Moderate Assistance-helper does LESS THAN HALF the effort. [place] lifts, holds or supports trunk or limbs, but provides less than half the effort. 2-Substantial/Maximal Assistance-helper does MORE THAN HALF the effort. [place] lifts or holds trunk or limbs and provides more than half the effort. 9-Mqxrfkbsk-twyscy does ALL the effort. Patient does none of the effort to comp lete the activity. Or, the assistance of 2 or more helpers is required for the patient to complete the activity. If activity was not attempted, code reason: 7-Patient Refused. 9-Not Applicable-not attempted and the patient did not perform the activity before the current illness, exacerbation or injury. 10-Not Attempted due to Environmental Limitations-(lack of equipment, weather restraints, etc.). 88-Not Attempted due to Medical Conditions or Safety Concerns. Other Treatment Pt dependent for bed mobility. Pt had scooted down toward footboard and required assist to scoot up in bed. Dependent for bed mobility. Does not follow simple directions. Pt required assist to position B UE for scooting though pt does demonstrate good strength and AROM when moving arms spontaneously. After session, pt lying in bed with call light/phone in reach. Bed alarm activated. HOB elevated to 31 degrees. OT Intensive Care Unit Nurse Goals Intensive Care Unit Nurse Goals Time Frame: Oct 15, 2021 Eating (QC): 3 Oral Hygiene (QC): 3 Toileting Hygiene (QC): 3 Shower/Bathe Self (QC): 3 Upper Body Dressing (QC): 3 Lower Body Dressing (QC): 3 On/Off Footwear (QC): 3 1=Demonstrate adherence to instructed precautions during ADL tasks. 2=Patient will verbalize/demonstrate understanding of assistive devices/modifications for ADL. 3=Patient will improve strength/tolerance for activity to enable patient to perform ADL's. OT Education/Plan Problem List/Assessment Assessment: Decreased Activ Tolerance, Decreased Safety Aware, Impaired Bed Mobility, Impaired Cognition, Impaired Self-Care Skills Discharge Recommendations Plan/Recommendations: Continue POC Treatment Plan/Plan of Care Patient would benefit from OT for education, treatment and training to promote independence in ADL's, mobility, safety and/or upper extremity function for ADL's. Plan of Care: ADL Retraining, Caregiver Training, Cognitive Retraining, Functional Mobility, Group Exercise/Act as Ind, UE Funct Exercise/Act, UE Neuromus Re-Ed/Coord, W/C Management Training Treatment Duration: Oct 15, 2021 Frequency: 3 times per week (3-5x/week) Estimated Hrs Per Day: .25 hour per day Rehab Potential: Guarded Time/GCodes Start Time: 13:06 Stop Time: 13:16 Total Time Billed (hr/min): 10 Billed Treatment Time 1 visit-FA 1 (10 min) TAN HINDS Sep 30, 2021 13:21
--- NOTE | 2021-09-30 14:52 | Progress Note - Cardiology ---
Cardiology SOAP Progress Note Subjective: Unable to communicate Objective: I&O/Vital Signs 09/30/21 09/30/21 09/30/21 08:08 08:43 08:43 Temp 36.9 36.9 Pulse 107 107 Resp 18 18 B/P (MAP) 129/61 (83) 129/61 (83) Pulse Ox 95 95 O2 Delivery Room Air Room Air Room Air 09/30/21 00:00 Intake Total 1950 ml Output Total 800 ml Balance 1150 ml Constitutional: other (not following commands - unable to swallow; moving upper extremities; opens eyes and tracks movement in the room) Respiratory: No accessory muscle use; other (fair to good air entry, bilat) Cardiovascular: regular rate-rhythm, S1 and S2, systolic murmur (soft CARL at card base) Gastrointestional: soft; No guarding; audible bowel sounds, other (PEG tube in place) Extremities: No clubbing, No cyanosis; no lower extremity edema bilateral Neurologic/Psychiatric: other (see above, seems to move all limbs equally) Skin: No rash on exposed areas, No ulcerations on exposed areas Results/Procedures: Labs Laboratory Tests 09/29/21 15:38: Glucometer 136H 09/29/21 21:33: Glucometer 183H 09/30/21 00:00: Glucometer 142H 09/30/21 05:43: Sodium Level 134L, Potassium Level 4.5, Chloride Level 102, Carbon Dioxide Level 19L, Anion Gap 13, Blood Urea Nitrogen 37H, Creatinine 1.34H, Estimat Glomerular Filtration Rate 58, BUN/Creatinine Ratio 28, Glucose Level 152H, Calcium Level 8 .6 09/30/21 05:49: Glucometer 159H Microbiology 09/29/21 C. difficile GDH Antigen & Toxins - Final, Complete 09/29/21 Urine Culture - Preliminary, Resulted Gram Negative Bacillus 1 09/29/21 Blood Culture - Preliminary, Resulted Gram Negative Bacillus 1 09/21/21 MRSA Screen - Final, Complete MRSA not isolated Laboratory Tests 09/29/21 06:03 09/30/21 05:43 A/P: Assessment: Ac Inf Wall STEMI on 09/11/21 - transiently hemodynamically unstable at initial presentation: transient PEA - hemodynamically stable since PCI for STEMI (see below CAD - card cath of 09/11/21: Coronary artery disease primarily consisting of severe mid vessel stenosis of the dominant right coronary artery that was the culprit in causing an inferior wall ST elevation myocardial infarction and that was successfully stented with Skypoint 2.5 x 28 mm stent. The first diagonal branch of the left anterior descending artery has a 50% to 60% proximal and mid vessel stenosis. It is a small caliber vessel. The left circumflex artery is nondominant and has a large first obtuse marginal branch, a subbranch of which has approximately 60% to 70% stenosis. Elevated left ventricular end-diastolic pressure. Left ventricular ejection fraction approximately 60% - echo of 09/12/21: LVEF 50-55% Ac renal failure at time of admisson 09/11/21 - improve/resolved Mental status change - ?anoxic brain injury - management per medical services PEG tube placed by Dr. Garcia on 09-22-21 - receiving tube feedings DMI II Ac resp failure - resolved - extubated on 09-16-21 ?Heavy ETOH usage Plan: * Not following commands, unable to swallow without significant prompting pureed foods and crushed meds - family consented to PEG tube placement on 09-23-21 * Plavix, ASA, BB and statin are being given via PEG tube * Complex management issue * Replenish electrolytes as indicated * Possible placement at LTC facility this week - social work administrator working on plac BAILEY Nunn MD FACP [facility] Sep 30, 2021 14:52
[2021-09-30 16:30] VITALS: BP 117/67
[2021-09-30] MEDS: ENOXAPARIN 40 MG/0.4 ML (LOVENOX) SYR SQ SCH (20:15)
[2021-09-30 23:47] VITALS: BP 120/66
[2021-10-01] MEDS: inSUlin ASPART (NovoLOG) 1 UNIT/0.01 ML (CHARGE PER UNIT) SC SCH ×2 (06:00→12:38)
[2021-10-01] MEDS: MULTIVIT W/MINERALS TAB (THERAGRAN M) PO SCH (06:17)
[2021-10-01] MEDS: THIAMINE 100 MG (VITAMIN B-1) TAB PEG SCH (06:17)
[2021-10-01 07:25] VITALS: BP 112/63
[2021-10-01] MEDS: cefTRIAXone 1 GM PRE-MIX 50 ML IV SCH (09:12)
[2021-10-01] MEDS: FAMOTIDINE 20 MG (PEPCID) TABLET PEG SCH (09:13)
[2021-10-01] MEDS: ASPIRIN 81 MG CHEW (CHILDREN'S ASA) PEG SCH (09:13)
[2021-10-01] MEDS: CLOPIDOGREL 75 MG (PLAVIX) TABLET PEG SCH (09:13)
[2021-10-01] MEDS: metFORMIN 500 MG (GLUCOPHAGE) TAB PEG SCH (09:13)
[2021-10-01] MEDS: meTOprolol TARTRATE 50 MG (LOPRESSOR) TAB PEG SCH (09:14)
--- NOTE | 2021-10-01 09:40 | Physical Therapy Daily Note ---
PT Daily Note-Current Subjective Patient much more alert and talkative on this date. Mental Status Attachments: PEG Tube Transfers SCALE: Activities may be completed with or without assistive devices. 2-Xdfsnvkacs-ysjqjnb completes the activity by him/herself with no assistance from a helper. 5-Set-up or Clean-up Assistance-helper sets up or cleans up; patient completes activity. [place] assists only prior to or following the activity. 4-Supervision or Touching Assistance-helper provides verbal cues and/or touching/steadying and/or contact guard assistance as patient completes activity. Assistance may be provided throughout the activity or intermittently. 3-Partial/Moderate Assistance-helper does LESS THAN HALF the effort. [place] lifts, holds or supports trunk or limbs, but provides less than half the effort. 2-Substantial/Maximal Assistance-helper does MORE THAN HALF the effort. [place] lifts or holds trunk or limbs and provides more than half the effort. 0-Efixzrjti-qaekpw does ALL the effort. Patient does none of the effort to complete the activity. Or, the assistance of 2 or more helpers is required for the patient to complete the activity. If activity was not attempted, code reason: 7-Patient Refused. 9-Not Applicable-not attempted and the patient did not perform the activity before the current illness, exacerbation or injury. 10-Not Attempted due to Environmental Limitations-(lack of equipment, weather restraints, etc.). 88-Not Attempted due to Medical Conditions or Safety Concerns. Lying to Sitting/Side of Bed(Q: 3 Sit to Stand (QC): 3 Chair/Khf-ng-Yjgxb Xfer(QC): 3 Gait Training Distance: 175' Walk 10 feet (QC): 3 Walk 50 ft with 2 Turns(QC): 3 Walk 150 ft (QC): 3 Gait Assistive Device: None ELECTRONIC PUBLICATIONS SPECIALIST and use of gait belt/functional gait sequence/slightly unsteady Assessment Patient able to actively participate with therapy on this date and is much more alert. Patient ambulated in hallway ELECTRONIC PUBLICATIONS SPECIALIST. Patient up in recliner with chair alarm activated. PT Short Term Goals Short Term Goals Time Frame: Sep 28, 2021 Roll Left & Right: 2 Sit to lyin Lying to sitting on side of be: 2 Sit to stand: 2 Chair/opw-hw-czppt transfer: 2 Walk 10 feet: 2 PT Assurance Senior Goals Assurance Senior Goals PT Assurance Senior Goals Time Frame: Oct 12, 2021 Roll Left & Right (QC): 4 Sit to Lying (QC): 4 Lying-Sitting on Side/Bed(QC): 4 Sit to Stand (QC): 4 Chair/Akr-fo-Egesn Xfer(QC): 4 Toilet Transfer (QC): 4 Walk 10 feet (QC): 4 Walk 50ft with 2 Turns (QC): 4 Walk 150 ft (QC): 4 PT Plan Treatment/Plan Treatment Plan: Continue Plan of Care Treatment Plan: Bed Mobility, Education, Functional Activity Don, Functional Strength, Gait, Safety, Therapeutic Exercise, Transfers Treatment Duration: Oct 12, 2021 Frequency: 5 times per week Estimated Hrs Per Day: .5 hour per day Patient and/or Family Agrees t: Yes Time/GCodes Time In: 853 Time Out: 906 Total Billed Treatment Time: 13 Total Billed Treatment 1 visit FA 13 min BRADLEY GOMEZ PT Oct 01, 2021 09:40
--- NOTE | 2021-10-01 10:26 | Progress Note - Cardiology ---
Cardiology SOAP Progress Note Subjective: Sitting up in bed Talking this morning, conversation not appropriate to situation Following commands at times Objective: I&O/Vital Signs 09/30/21 10/01/21 23:47 07:25 Temp 36.5 36.4 Pulse 96 83 Resp 18 18 B/P (MAP) 120/66 (84) 112/63 (79) Pulse Ox 96 94 O2 Delivery Room Air Room Air 10/01/21 00:00 Intake Total 550 ml Balance 550 ml Constitutional: other (Talking, conversation rambling and not appropriate to situation; moving extremities; following simple commands) Respiratory: No accessory muscle use; other (fair to good air entry, bilat) Cardiovascular: regular rate-rhythm, S1 and S2, systolic murmur (soft CARL at card base) Gastrointestional: soft; No guarding; audible bowel sounds, other (PEG tube in place) Extremities: No clubbing, No cyanosis; no lower extremity edema bilateral Neurologic/Psychiatric: other (see above, seems to move all limbs equally) Skin: No rash on exposed areas, No ulcerations on exposed areas Results/Procedures: Labs Laboratory Tests 09/30/21 16:49: Glucometer 133H 09/30/21 23:11: Glucometer 117H 10/01/21 05:18: Glucometer 150H Microbiology 09/29/21 C. difficile GDH Antigen & Toxins - Final, Complete 09/29/21 Urine Culture - Preliminary, Resulted Probable Klebsiella/Enterobact 09/29/21 Blood Culture - Preliminary, Resulted No growth 09/21/21 MRSA Screen - Final, Complete MRSA not isolated A/P: Assessment: Ac Inf Wall STEMI on 09/11/21 - transiently hemodynamically unstable at initial presentation: transient PEA - hemodynamically stable since PCI for STEMI (see below CAD - card cath of 09/11/21: Coronary artery disease primarily consisting of severe mid vessel stenosis of the dominant right coronary artery that was the culprit in causing an inferior wall ST elevation myocardial infarction and that was successfully stented with Skypoint 2.5 x 28 mm stent. The first diagonal branch of the left anterior descending artery has a 50% to 60% proximal and mid vessel stenosis. It is a small caliber vessel. The left circumflex artery is nondominant and has a large first obtuse marginal branch, a subbranch of which has approximately 60% to 70% stenosis. Elevated left ventricular end-diastolic pressure. Left ventricular ejection fraction approximately 60% - echo of 09/12/21: LVEF 50-55% Ac renal failure at time of admisson 09/11/21 - improve/resolved Mental status change - ?anoxic brain injury - management per medical services PEG tube placed by Dr. Garcia on 09-22-21 - receiving tube feedings DMI II Ac resp failure - resolved - extubated on 09-16-21 ?Heavy ETOH usage Plan: * PEG tube in place * Plavix, ASA, BB and statin are being given via PEG tube Alert and following simple commands this morning * Replenish electrolytes as indicated * director client services working on placement NAVNEET LEI Oct 01, 2021 10:26
--- NOTE | 2021-10-01 11:53 | Discharge Inst-Skilled Nursing ---
Discharge Inst-Skilled NF Chief Complaint Marcello Tellez is a 65 year old male with PMH HTN, HLD, CAD, T2DM, who was found minimally responsive by his . She said he wakes up earlier than her. She heard him moaning in the living room and went to check on him. She asked if she needed to call an ambulance and he shook his head yes. EMS arrived and applied AED and began CPR. No shocks were advised and ROSC was obtained after one round of CPR. He was intubated. An EKG revealed STEMI and [facility] where he was found to have an inferior MA and had a stent placed in his RCA. Upon my exam, he is intubated and sedated in the ICU. His is present at the bedside. Consult/Follow Up/Orders Skilled NF Admit to: [facility] [place] Certification () I certify that SNF services are required to be given on an inpatient basis because of the above named patient's need for longterm care on a continuing basis for the conditions(s) for which he/she was receiving inpatient hospital services prior to his/her transfer to the SNF. Half-Way Facility Order: Nursing Services, Thread Machine Operator-Evaluate & Treat, Physical Therapy-Evaluate & Treat, Speech Language-Evaluate & Treat Oxygen Delivery Method: Room Air Discharge Diet: Tube Feeding (Glucerna 1.5 kcal at 50ml/hr with free water flushes of 150ml q4h) New & Resume Previous Orders Pal Hook Oct 01, 2021 11:51 PAL HOOK MD Oct 01, 2021 11:53
[2021-10-01] MEDS ORDERED: ATOR40TA PEG (11:59)
[2021-10-01] MEDS ORDERED: ASPI81TA64 PEG (11:59)
[2021-10-01] MEDS ORDERED: FAMO20TA5 PEG (11:59)
[2021-10-01] MEDS ORDERED: CLOP75TA28 PEG (11:59)
[2021-10-01] MEDS ORDERED: CEPH500T PO (11:59)
[2021-10-01] MEDS ORDERED: METF-397 PEG (11:59)
[2021-10-01] MEDS ORDERED: METO50TA15 PEG (11:59)
--- NOTE | 2021-10-01 12:02 | Discharge Summary ---
Diagnosis/Chief Complaint Date of Admission Sep 11, 2021 at 09:42 Date of Discharge Discharge Date: Oct 01, 2021 Primary Care No,Local Physician Discharge Diagnosis (1) Sepsis secondary to UTI Status: Acute (2) Acute ST elevation myocardial infarction (STEMI) of inferior wall Status: Acute (3) Cardiac arrest Status: Acute (4) CAD (coronary artery disease) Status: Acute (5) S/P coronary artery stent placement Status: Acute (6) Acute kidney injury superimposed on chronic kidney disease Status: Acute (7) T2DM (type 2 diabetes mellitus) Status: Chronic (8) HTN (hypertension) Status: Chronic (9) HLD (hyperlipidemia) Status: Chronic (10) Septic shock Status: Acute (11) Delirium Status: Acute (12) Dysphagia Status: Acute (13) Anoxic brain injury Status: Acute (14) SIRS (systemic inflammatory response syndrome) Status: Acute (15) Leukocytosis Status: Acute Discharge Summary Discharge Physical Exam Allergies: Coded Allergies: No Known Drug Allergies (Unverified , 08/05/21) Vitals & I&Os General Appearance: No Apparent Distress, Chronically ill, Thin Respiratory: Lungs Clear Cardiovascular: Regular Rate, Rhythm Neurologic/Psychiatric: Alert Hospital Course Patient was admitted to the hospital secondary to cardiac arrest secondary to STEMI. He underwent cardiac cath and stent deployment to the RCA on September 11. He was admitted to the ICU on the ventilator. He was able to be weaned from this. He did suffer from some anoxic brain injury. He was seen by PT/OT/speech therapy. He was unable to tolerate a diet until day of discharge so PEG was placed tube feedings. On day of discharge he had significant improvement in mentation and was able to ask for food. Hospital stay was complicated by urinary tract infection and bacteremia which was treated with Keflex upon discharge. He was discharged to [facility] for continued skilled therapy. Labs (last 24 hrs) Microbiology 09/29/21 C. difficile GDH Antigen & Toxins - Final, Complete 09/29/21 Urine Culture - Final, Complete Klebsiella pneumoniae Klebsiella pneumoniae#2 09/29/21 Blood Culture - Final, Complete No growth 09/21/21 MRSA Screen - Final, Complete MRSA not isolated Patient resulted labs reviewed. Pending Labs Imaging: Reviewed Imaging Report Discussion & Recommendations Discharge Planning: >30 minutes discharge planning Discharge Home Medications: Active Scripts Active Cephalexin 500 Mg Tablet 500 Mg PO BID Metformin HCl 500 Mg Tablet 500 Mg PEG BID WITH MEALS Famotidine 20 Mg Tablet 20 Mg PEG BID Children's Aspirin (Aspirin) 81 Mg Tab.chew 81 Mg PEG DAILY Clopidogrel (Clopidogrel Bisulfate) 75 Mg Tablet 75 Mg PEG DAILY Lipitor (Atorvastatin Calcium) 40 Mg Tablet 40 Mg PEG HS Metoprolol Tartrate 50 Mg Tablet 50 Mg PEG BID Instructions to patient/family Please see electronic discharge instructions given to patient. Problem Qualifiers (1) CAD (coronary artery disease): Coronary Disease-Associated Artery/Lesion type: [place] artery [place] vs. transplanted heart: [place] heart (2) T2DM (type 2 diabetes mellitus): Diabetes mellitus fdc insulin use: without machine long goods helper use Diabetes mellitus complication status: without complication Qualified Codes: E11.9 - Type 2 diabetes mellitus without complications PAL REYES MD Oct 01, 2021 12:02
--- NOTE | 2021-10-01 12:45 | Occupational Ther Daily Note ---
OT Current Status-Daily Note Subjective Pt more alert and talkative today. Assisted nrsg with bed mobility and cleaning pt. Mental Status/Objective Patient Orientation: Person, Confused ADL-Treatment Pt more alert today and talking to nrsg and WALL during session. Pt continues to need max A for bed mobility and assist to cleanse [place] area/buttocks though did attempt to assist with movements and following 1 step commands. After session, pt lying in bed with call light/phone in reach. All needs met in room. Therapy Code Descriptions/Definitions Functional [place] Measure: 0=Not Assessed/NA 4=Minimal Assistance 1=Total Assistance 5=Supervision or Setup 2=Maximal Assistance 6=Modified [place] 3=Moderate Assistance 7=Complete IndependenceSCALE: Activities may be completed with or without assistive devices. 0-Rbfcvcgwcc-zjonlkq completes the activity by him/herself with no assistance from a helper. 5-Set-up or Clean-up Assistance-helper sets up or cleans up; patient completes activity. [place] assists only prior to or following the activity. 4-Supervision or Touching Assistance-helper provides verbal cues and/or touching/steadying and/or contact guard assistance as patient completes acti vity. Assistance may be provided throughout the activity or intermittently. 3-Partial/Moderate Assistance-helper does LESS THAN HALF the effort. [place] lifts, holds or supports trunk or limbs, but provides less than half the effort. 2-Substantial/Maximal Assistance-helper does MORE THAN HALF the effort. [place] lifts or holds trunk or limbs and provides more than half the effort. 0-Esbzwnpwi-llnahs does ALL the effort. Patient does none of the effort to complete the activity. Or, the assistance of 2 or more helpers is required for the patient to complete the activity. If activity was not attempted, code reason: 7-Patient Refused. 9-Not Applicable-not attempted and the patient did not perform the activity before the current illness, exacerbation or injury. 10-Not Attempted due to Environmental Limitations-(lack of equipment, weather restraints, etc.). 88-Not Attempted due to Medical Conditions or Safety Concerns. OT Commercial Center Manager Goals Commercial Center Manager Goals Time Frame: Oct 15, 2021 Eating (QC): 3 Oral Hygiene (QC): 3 Toileting Hygiene (QC): 3 Shower/Bathe Self (QC): 3 Upper Body Dressing (QC): 3 Lower Body Dressing (QC): 3 On/Off Footwear (QC): 3 1=Demonstrate adherence to instructed precautions during ADL tasks. 2=Patient will verbalize/demonstrate understanding of assistive devices/modifications for ADL. 3=Patient will improve strength/tolerance for activity to enable patient to perform ADL's. OT Education/Plan Problem List/Assessment Assessment: Decreased Activ Tolerance, Decreased Safety Aware, Impaired Bed Mobility, Impaired Cognition, Impaired Self-Care Skills Discharge Recommendations Plan/Recommendations: Continue POC Treatment Plan/Plan of Care Patient would benefit from OT for education, treatment and training to promote independence in ADL's, mobility, safety and/or upper extremity function for ADL's. Plan of Care: ADL Retraining, Caregiver Training, Cognitive Retraining, Functional Mobility, Group Exercise/Act as Ind, UE Funct Exercise/Act, UE Neuromus Re-Ed/Coord, W/C Management Training Treatment Duration: Oct 15, 2021 Frequency: 3 times per week (3-5x/week) Estimated Hrs Per Day: .25 hour per day Rehab Potential: Guarded Time/GCodes Start Time: 11:30 Stop Time: 11:40 Total Time Billed (hr/min): 10 Billed Treatment Time 1 visit-FA 1 (10 min) TAN HINDS Oct 01, 2021 12:45
--- NOTE | 2021-10-01 14:30 | ST Dysphagia Evaluation ---
Speech Evaluation-General Medical Diagnosis OK, s/p Intubation Onset Date: Sep 11, 2021 Therapy Diagnosis Therapy Diagnosis: Oropharyngeal Dysphagia Referral Referring Physician: Dr. Hook Reason for Referral: Evaluation/Treatment Medical History Pertinent Medical History: Alcoholism, CAD, DM, HTN, OK Current History The patient is a 65-year-old male who is reported to have a history of multiple coronary artery disease risk factors and a history of coronary artery disease. Apparently, he collapsed at home. The EMT were called. They report that the patient did have a rhythm (probably sinus) at presentation, but he was transiently pulseless. He was intubated and mechanically ventilated. The patient remained intubated until 09/16/2021. Reviewed History: Yes Social History Current Living Status: Spouse Speech PLF/Current-Dysphagia Prior Level of Function Prior to the patient's most recent admission, the patient was receiving a regular consistency diet with thin liquids. Upon admission and initiation of speech pathology swallowing evaluation, the patient was not accepting PO items. The patient would purse lips and turn head away from clinician. Due to consistent inability to safely receive PO items, speech pathology signed off of serves on 09/26/2021. On this date, the patient is displaying increased alertness and ability to participate with therapeutic se rvices. Due to the patient's improvement, speech pathology has been re-consulted to assess the swallowing function prior to discharge to a snf facility. Subjective The patient was seated upright in bed, awake and alert upon entrance to his room by the clinician. The patient greeted the clinician appropriately and was agreeable to participation in the clinical bedside swallowing evaluation. The patient has two family members present at bedside. The patient does intermittently answer with accurate responses, however, mostly displays significant expressive aphasia. Cognitive Status Patient Orientation: Non-Verbal/Aphasic Oral Motor Skills Dentition: Edentalous Ability to Follow Directions: Poor Oral Expression Ability: Severe Impairment Voice Voice Phonatory-Based Quality: Normal Voice Pitch: Normal Voice Loudness: Normal Face Facial Symmetry: Symmetrical An oral motor examination was unable to occur due to the patient's inability to follow verbal directions from the clinician. Oral-Facial Assessment Oral-Facial Dentition: Normal Labial Seal Description: Normal Smile: Normal Volitional Dry Swallow: No Voluntary Cough: No Can Clear Throat Volitionally: No Productive Cough: Yes Productive Throat Clear: Yes Dysphagia Evaluation Consistencies Presented: Thin Liquid, Pureed The patient is able and willing to accept PO items appropriately from a teaspoon and straw. No anterior spillage is demonstrated. The patient intermittently displays oral holding behaviors with both consistencies present. A verbal cue is consistently successful at prompting the patient to initiate posterior transfer of the bolus and the pharyngeal swallow. Oral residue or pocketing is not present following the swallow. To note, on one occasion a verbal prompt was not provided during oral holding. The patient displayed distraction and appeared to loose control of the oral bolus with suspected premature spillage into the laryngeal vestibule. An immediate cough was elicited which is a s/s of suspected aspiration. With verbal prompting during intermittent oral holding, no s/s of suspected aspiration were present. Laryngeal elevation was present to palpation. With exception of the above s/s of suspected aspiration prior to the swallow with thin liquids, no s/s of suspected aspiration were demonstrated with thin liquids via teaspoon or straw (six ounces total) or puree (four ounces total). Dietary Recommendations: Pureed Liquid Recommendations: Thin Recommendations: - Dysphagia one (puree) diet consistency with thin liquids, as tolerated. - Direct, 1:1 supervision during PO intake. Verbally cue the patient to initiate posterior transfer of the bolus if oral holding is visualized. - Fully upright and alert for PO intake. - Small, single bites and sips, only. - Crush medication and place in puree for administration. - Contact the physician versus dietary for information regarding PO intake versus PEG intake. - Monitor for s/s of suspected aspiration with PO intake. If demonstrated, contact speech pathology. - Continue skilled speech pathology treatment to focus on dysphagia and aphasia following discharge. The results and recommendations were discussed with the RN, the patient, and the patient's family immediately following completion. The patient's family's questions were addressed and answered within the clinician's scope of practice. Dysphagia Evaluation Summary The patient demonstrated oropharyngeal dysphagia characterized by reduced lingual coordination and poor airway protection in the presence of bolus material. Please see above for specific information regarding the patient's oropharyngeal swallow function and abilities. Speech Short Term Goals Short Term Goals Short Term Goals 1. The patient, family, and staff will follow safe swallowing protocols, including excellent oral care, with 90% accuracy, independently. Time Frame-STG: Five Days. Speech Correction Goals Correction Goals 1. The patient will tolerate the least restrictive diet without s/s of suspected aspiration. Time Frame: One Week. Speech-Plan Treatment Plan Speech Therapy Treatment Plan: Continue Plan of Care Treatment Duration: Oct 01, 2021 Frequency: 3 times per week (Three to five times per week, as appropriate.) Estimated Hrs Per Day: .25 hour per day Rehab Potential: Guarded Safety Risks/Education Teaching Recipient: Patient, Family Teaching Methods: Discussion Response to Teaching: Verbalize Understanding Education Topics Provided: Results, Recommendations, Plan of Care, Swallowing Strategies, S/s of Suspected Aspiration Time Speech Therapy Time In: 12:00 Speech Therapy Time Out: 12:30 Total Billed Time: 30 Billed Treatment Time 1, NARESH RHODES [facility] Oct 01, 2021 14:30
[2021-10-01 15:20] VITALS: BP 112/63
--- NOTE | 2021-10-04 11:02 | Diagnostic Imaging Report ---
EXAMINATION: Chest 1 view HISTORY: respiratory failure COMPARISON: 09/11/2021 FINDINGS: Heart size and pulmonary vasculature are normal. There are low lung volumes. Trace left pleural effusion. Mild bibasilar atelectasis. Endotracheal tube and enteric catheter are unchanged. No pneumothorax. The osseous structures are intact. IMPRESSION: 1. Trace left pleural effusion with bibasilar atelectasis. No other acute abnormality in the chest. Dictated by: Dictated on workstation # [id number]
--- NOTE | 2021-10-04 11:02 | Diagnostic Imaging Report ---
INDICATION: respiratory failure. TECHNIQUE: Single view chest 6:52 AM. CORRELATION STUDY: 09/13/2021 FINDINGS: Endotracheal tube projects over the lower trachea. Gastric tube in the upper abdomen. Right-sided central line tip over the right atrium. Heart size and mediastinum remain enlarged and prominent. Bibasilar areas of atelectasis or infiltrate along small effusions persisting but overall appearing improved. IMPRESSION: 1. Stable appearance of support lines and tubes. 2. Bibasilar areas of atelectasis and/or infiltrate along with small effusions persisting but overall improved. Dictated by: Dictated on workstation # [id number]
--- NOTE | 2021-10-04 11:03 | Diagnostic Imaging Report ---
Indication: Fever Frontal chest obtained at 759 hours a.m. compared to 09/16/2021. There is cardiomegaly. There is poor inspiration. There is no focal infiltrate or pneumothorax or pleural fluid. Tubular structure overlying left upper quadrant is noted, of uncertain significance. IMPRESSION: Cardiomegaly. Poor inspiration with no focal infiltrate or pneumothorax or pleural fluid. Dictated by: Dictated on workstation # [id number]
--- NOTE | 2021-10-04 11:03 | Diagnostic Imaging Report ---
INDICATION: Mechanical ventilation, respiratory failure.. TECHNIQUE: Single view chest 6:01 AM. CORRELATION STUDY: 09/14/2021 FINDINGS: Endotracheal tube remains over the trachea, approximately 3 cm above the kimberly. Gastric tube passes below the left hemidiaphragm. A right upper extremity central line remains in place, however there has been change in the orientation/position. The catheter has been retracted. There is now a loop just above the medial clavicle likely in the internal jugular vein. Tip terminates likely near the junction of the internal jugular vein and brachiocephalic vein. Heart size and mediastinum remain enlarged and prominent. Vasculature is overall relatively stable. Atelectasis or infiltrate in the right lung base also appears more prominent with elevated right diaphragm. Left lung appears improved in aeration. IMPRESSION: 1. There has been change in position of the right upper extremity central line which has retracted and is now looped over the supraclavicular region. The tip is now likely in the region of the junction of the innominate vein and brachiocephalic vein. 2. Increasing atelectasis or infiltrate at the right lung base. Report given to ICU nurse (Anai) at 8:51 AM 09/15/2021/essence Dictated by: Dictated on workstation # [id number]
--- NOTE | 2021-10-04 11:03 | Diagnostic Imaging Report ---
INDICATION: Respiratory failure. COMPARISON: 09/15/2021 FINDINGS: Single frontal radiographic view of the chest was obtained and demonstrates right upper extremity PICC line coiled over the base of the right neck; likely within the right internal jugular vein. Indwelling gastric tube is also seen with tip and side-port likely in the stomach. Endotracheal tube is present. Tip is not well visualized. Lungs show low inspiratory volumes, but are otherwise clear. There is no large effusion or pneumothorax. Cardiac silhouette and pulmonary vasculature are within normal limits. IMPRESSION: 1. Malpositioned right upper extremity PICC line. 2. Low lung volumes, but no other acute cardiopulmonary process. Dictated by: Dictated on workstation # [id number]
== END 2021-10-01 15:20 | DRG 981 ==
LOC: EDUNIT# 08:10 → ER 08:11 → CATH 08:37 → ICU 09:42 → CATH 09:50 → ICU 09:50 → UNDOFXSDCSVC 09-18 13:10 → 4TH 09-18 13:10 → ICU 09-18 13:10 → 4TH 09-18 13:10
PROVIDERS: ADMIT Internal Medicine; ATTEND Internal Medicine
PROC: 5A12012 Performance of Cardiac Output, Single, Manual (ICD-10-PCS; principal; 2021-09-11)
PROC: 027034Z Dilation of Coronary Artery, One Artery with Drug-eluting Intraluminal Device, Percutaneous Approach (ICD-10-PCS; 2021-09-11)
PROC: 5A1955Z Respiratory Ventilation, Greater than 96 Consecutive Hours (ICD-10-PCS; 2021-09-11)
PROC: 0BH17EZ Insertion of Endotracheal Airway into Trachea, Via Natural or Artificial Opening (ICD-10-PCS; 2021-09-11)
PROC: 4A023N7 Measurement of Cardiac Sampling and Pressure, Left Heart, Percutaneous Approach (ICD-10-PCS; 2021-09-11)
PROC: B2111ZZ Fluoroscopy of Multiple Coronary Arteries using Low Osmolar Contrast (ICD-10-PCS; 2021-09-11)
PROC: B2151ZZ Fluoroscopy of Left Heart using Low Osmolar Contrast (ICD-10-PCS; 2021-09-11)
PROC: 0DH63UZ Insertion of Feeding Device into Stomach, Percutaneous Approach (ICD-10-PCS; 2021-09-22)
PROC: 0DB48ZX Excision of Esophagogastric Junction, Via Natural or Artificial Opening Endoscopic, Diagnostic (ICD-10-PCS; 2021-09-22)
PROC: 0DB68ZX Excision of Stomach, Via Natural or Artificial Opening Endoscopic, Diagnostic (ICD-10-PCS; 2021-09-22)
DX: G93.1 Anoxic brain damage, not elsewhere classified (principal); A41.9 Sepsis, unspecified organism; I21.19 ST elevation (STEMI) myocardial infarction involving other coronary artery of inferior wall; I46.9 Cardiac arrest, cause unspecified; J96.01 Acute respiratory failure with hypoxia; R65.21 Severe sepsis with septic shock; N17.9 Acute kidney failure, unspecified; N18.4 Chronic kidney disease, stage 4 (severe); F10.239 Alcohol dependence with withdrawal, unspecified; E87.1 Hypo-osmolality and hyponatremia; N39.0 Urinary tract infection, site not specified; E87.2 Acidosis; I25.10 Atherosclerotic heart disease of native coronary artery without angina pectoris; I12.9 Hypertensive chronic kidney disease with stage 1 through stage 4 chronic kidney disease, or unspecified chronic kidney disease; E11.22 Type 2 diabetes mellitus with diabetic chronic kidney disease; F17.220 Nicotine dependence, chewing tobacco, uncomplicated; Z99.89 Dependence on other enabling machines and devices; Z79.4 Long term (current) use of insulin; Z95.5 Presence of coronary angioplasty implant and graft; Z79.899 Other long term (current) drug therapy; J44.9 Chronic obstructive pulmonary disease, unspecified; I25.2 Old myocardial infarction; G89.29 Other chronic pain; M54.9 Dorsalgia, unspecified; F41.9 Anxiety disorder, unspecified; E87.5 Hyperkalemia; E87.6 Hypokalemia; Z51.5 Encounter for palliative care; Z66 Do not resuscitate; R41.0 Disorientation, unspecified; R13.10 Dysphagia, unspecified; R53.81 Other malaise; B96.1 Klebsiella pneumoniae [K. pneumoniae] as the cause of diseases classified elsewhere; K44.9 Diaphragmatic hernia without obstruction or gangrene; K29.70 Gastritis, unspecified, without bleeding; K21.00 Gastro-esophageal reflux disease with esophagitis, without bleeding; E78.2 Mixed hyperlipidemia
CPT/HCPCS: 36415; 36569; 70450; 71045; 76937; 80048; 80053; 80061; 80202; 81000; 82805; 82947; 83036; 83605; 83735; 84145; 84478; 84484; 85007; 85025; 85027; 87040; 87070; 87077; 87081; 87088; 87186; 87205; 87324; 87449; 88305; 93005; 93306; 93458; 94002; 94799; 96374

== ENCOUNTER → 2021-10-25 | Outpatient (CLI) | payer MEDICARE ==
[~2021-10-25] MED LIST changes: +ASPI81TA64 PEG; +ATOR40TA PEG; +CEPH500T PO; +CLON0.5T4 PO; +CLOP75TA28 PEG; +FAMO20TA5 PEG; +FLUT1BLS3 IH; +LISI1TAB48 PO; +METF-397 PEG; +METO50TA15 PEG; +METO50TA15 PO; +MTP100TCR PO; +PANT40TA52 PO; +SIMV20TA26 PO; +TIZA-186 PO; +TRAM50TA3 PO
--- NOTE | 2021-10-25 12:12 | Diagnostic Imaging Report ---
INDICATION: Dysphagia. The procedure was performed in conjunction with speech pathology. Video fluoroscopy was performed during the swallowing of barium in multiple consistencies. 0.6 minutes of fluoroscopic time was utilized. The patient ingested thin liquid as well as applesauce and cracker consistencies. There was an episode of penetration during the swallowing of thin liquid. All other swallows were unremarkable. No aspiration was observed. No significant vallecular or piriform sinus residue was detected. IMPRESSION: Single episode of penetration during the swallowing of thin liquid. This study was otherwise unremarkable. Dictated by: Dictated on workstation # [id number]
== END ==
LOC: RAD 09:29
PROVIDERS: ATTEND Nurse Practitioner Community Health
DX: R13.10 Dysphagia, unspecified (principal)
CPT/HCPCS: 74230

== ENCOUNTER 2021-10-30 14:13 | Observation (INO) | payer MEDICARE ==
[~2021-10-30] VITALS: Ht 175.3 cm; Wt 62.0 kg
--- NOTE | 2021-10-30 15:17 | Diagnostic Imaging Report ---
PROCEDURE: CT head wo r/o stroke. TECHNIQUE: Multiple contiguous axial images were obtained through the brain without the use of intravenous contrast. Auto Exposure Controls were utilized during the CT exam to meet ALARA standards for radiation dose reduction. INDICATION: Stroke. Altered mental status. History of brain injury. COMPARISON: CT head without contrast 09/27/2021. FINDINGS: Moderate generalized parenchymal volume loss. No intracranial hemorrhage, mass effect, hydrocephalus, or extra-axial fluid collections. No CT evidence of a territorial infarction. Visualized paranasal sinuses and mastoids are clear. No acute osseous findings. IMPRESSION: No acute intracranial CT findings. Dictated by: Dictated on workstation # [id number]
--- NOTE | 2021-10-30 15:32 | Diagnostic Imaging Report ---
INDICATION: Altered mental status, possible stroke. TECHNIQUE: Single view chest 3:14 PM. CORRELATION STUDY: 09/29/2021 FINDINGS: The heart size, mediastinal configuration and pulmonary vascularity are within normal limits. The lungs are clear with no consolidating infiltrate. There is no significant effusion or pneumothorax. Gastric feeding tube present in the epigastric region. IMPRESSION: 1. Negative appearing single view chest. Dictated by: Dictated on workstation # [id number]
[2021-10-30 15:41] LABS: BASOPHILS # (AUTO) 0.1 10^3/uL (0.0-0.1); BASOPHILS % (AUTO) 1 % (0-10); EOSINOPHILS # (AUTO) 0.2 10^3/uL (0.0-0.3); EOSINOPHILS % (AUTO) 3 % (0-10); HEMATOCRIT 36 % (40-54); HEMOGLOBIN 11.2 g/dL (13.3-17.7); LYMPHOCYTES # (AUTO) 1.4 10^3/uL (1.0-4.0); LYMPHOCYTES % (AUTO) 23 % (12-44); MEAN CORPUSCULAR HEMOGLOBIN 30 pg (25-34); MEAN CORPUSCULAR HGB CONC 32 g/dL (32-36); MEAN CORPUSCULAR VOLUME 97 fL (80-99); MEAN PLATELET VOLUME 8.8 fL (9.0-12.2); MONOCYTES # (AUTO) 0.6 10^3/uL (0.0-1.0); MONOCYTES % (AUTO) 10 % (0-12); NEUTROPHILS # (AUTO) 3.9 10^3/uL (1.8-7.8); NEUTROPHILS % (AUTO) 63 % (42-75); PLATELET COUNT 425 10^3/uL (130-400); WHITE BLOOD COUNT 6.2 10^3/uL (4.3-11.0)
--- NOTE | 2021-10-30 15:44 | ED General ---
General Chief Complaint: Dizziness/Syncope Stated Complaint: DIZZINESS Source of Information: Patient, Family Exam Limitations: No Limitations, Physical Impairments History of Present Illness Date Seen by Provider: Oct 30, 2021 Time Seen by Provider: 15:43 Initial Comments Patient is a 65-year-old male with a history of hypoxic brain injury, CAD, type 2 diabetes, cognitive communication of deficit, COPD, GERD who presents the ED for a near syncopal episode. Around 2:00 PM at [facility] patient told staff that he started to feel lightheaded dizzy. Supposedly his eyes rolled b ack into his head and had a near syncopal episode that lasted for a few seconds. He told staff he did not lose consciousness. Staff stated that his eyes were glazed over. Patient was talking after this episode. He was sent over for further evaluation but had no complaints at the time when patient was sent over. On initial evaluation of patient he was having expressive aphasia. Patient was pointing to his left ear and his left head. Patient appeared altered and confused. No evidence of facial droop or weakness on one side. Patient was able to move all extremities. Denies of any current chest pain, abdominal pain, vomit, diarrhea, fever, chills by shaking his head when asked question. Patient understood what I was asking but was not able to express himself and became frustrated and started having shakes in his hands. According to staff after this episode patient was having tremors in his head. They deny of any convulsions or obvious seizure-like activity. No seizure-like activity on arrival. Allergies and Home Medications Allergies Coded Allergies: No Known Drug Allergies (Unverified , 08/05/21) Patient Home Medication List Home Medication List Reviewed: Yes Aspirin (Aspirin) 81 Mg Tab.chew, 81 MG PEG DAILY, (Reported) Entered as Reported by: KELBY FELIZ on 10/31/211126 Last Action: Reviewed Atorvastatin Calcium (Atorvastatin Calcium) 40 Mg Tablet, 40 MG PEG HS, (Reported) Entered as Reported by: KELBY FELIZ on 10/31/211126 Last Action: Reviewed Clopidogrel Bisulfate (Clopidogrel) 75 Mg Tablet, 75 MG PEG DAILY, (Reported) Entered as Reported by: KELBY FELIZ on 10/31/211126 Last Action: Reviewed Famotidine (Acid Bottle Capping Machine Operator (FAMOTIDINE)) 20 Mg Tablet, 20 MG PEG BID, (Reported) Entered as Reported by: KELBY FELIZ on 10/31/211126 Last Action: Reviewed Metformin HCl (Metformin HCl) 500 Mg Tablet, 500 MG PEG BID, (Reported) Entered as Reported by: KELBY FELIZ on 10/31/211126 Last Action: Reviewed Metoprolol Tartrate (Metoprolol Tartrate) 50 Mg Tablet, 50 MG PEG BID, (Reported) Entered as Reported by: KELBY FELIZ on 10/31/211126 Last Action: Reviewed Discontinued Medications Aspirin (Children's Aspirin) 81 Mg Tab.chew, 81 MG PEG DAILY Discontinued Reason: Duplicate Order Prescribed by: PAL REYES on 10/01/211158 Last Action: Discontinued Atorvastatin Calcium (Lipitor) 40 Mg Tablet, 40 MG PEG HS Discontinued Reason: Duplicate Order Prescribed by: PAL REYES on 10/01/211158 Last Action: Discontinued Cephalexin (Cephalexin) 500 Mg Tablet, 500 MG PO BID Discontinued Reason: Duplicate Order Prescribed by: PAL REYES on 10/01/211158 Last Action: Discontinued Clopidogrel Bisulfate (Clopidogrel) 75 Mg Tablet, 75 MG PEG DAILY Discontinued Reason: Duplicate Order Prescribed by: PAL REYES on 10/01/211158 Last Action: Discontinued Famotidine (Famotidine) 20 Mg Tablet, 20 MG PEG BID Discontinued Reason: Duplicate Order Prescribed by: PAL REYES on 10/01/211158 Last Action: Discontinued Metformin HCl (Metformin HCl) 500 Mg Tablet, 500 MG PEG BID WITH MEALS Discontinued Reason: Duplicate Order Prescribed by: PAL REYES on 10/01/211158 Last Action: Discontinued Metoprolol Tartrate (Metoprolol Tartrate) 50 Mg Tablet, 50 MG PEG BID Discontinued Reason: Duplicate Order Prescribed by: PAL REYES on 10/01/211158 Last Action: Discontinued Review of Systems Review of Systems Constitutional: No chills, No diaphoresis, No malaise, No weakness EENTM: No blurred vision, No double vision Respiratory: No cough, No dyspnea on exertion Cardiovascular: No chest pain Gastrointestinal: No abdominal pain, No diarrhea, No nausea Genitourinary: No decreased output, No discharge Skin: No change in color, No change in hair/nails Psychiatric/Neurological: Other (AMS, near syncope) Past Seikfmc-Vkarep-Zbdolh Hx Immunizations Up To Date First/Initial COVID19 Vaccinat: 2020 Second COVID19 Vaccination Isaias: 2020 Third COVID19 Vaccination Date: 2020 Past Medical History Respiratory: Yes COPD Cardiac: Yes Heart Attack, High Cholesterol, Hypertension Neurological: No Genitourinary: No Gastrointestinal: Yes Gastroesophageal Reflux Musculoskeletal: Yes Chronic Back Pain Endocrine: No HEENT: No Cancer: No Psychosocial: Yes Anxiety Integumentary: No Family Medical History No Pertinent Family Hx Physical Exam Vital Signs Vital Signs - First Documented 10/30/21 14:13 Temp 36.6 Pulse 72 Resp 18 B/P (MAP) 142/95 (111) Pulse Ox 98 O2 Delivery Room Air Capillary Refill : Height, Weight, BMI Height: '" Weight: lbs. oz. kg; 22.24 BMI Method: General Appearance: Mild Distress Eyes: Bilateral Eye Normal Inspection, Bilateral Eye PERRL, Bilateral Eye Abnormal EOM HEENT: PERRL/EOMI, TMs Normal, Normal ENT Inspection, Pharynx Normal Neck: Full Range of Motion, Normal Inspection, Non Tender Respiratory: Chest Non Tender, Lungs Clear, Normal Breath Sounds, No Accessory Muscle Use Cardiovascular: Regular Rate, Rhythm, No Edema, No Gallop, No JVD Gastrointestinal: Normal Bowel Sounds, No Organomegaly, No Pulsatile Mass, Non Tender Back: Normal Inspection, No CVA Tenderness Extremity: Normal Capillary Refill, Normal Inspection, Normal Range of Motion Neurologic/Psychiatric: Aphasia, Disoriented, Motor Weakness (left upper ext) Skin: Normal Color, Warm/Dry Procedures/Interventions Date of ETT Placement: Sep 11, 2021 Time of ETT Placement: 819 Progress/Results/Core Measures Suspected Sepsis SIRS Temperature: Pulse: Respiratory Rate: Laboratory Tests 10/30/21 15:30: White Blood Count 6.2 Blood Pressure / Mean: Laboratory Tests 10/30/21 15:30: Creatinine 1.38H, Platelet Count 425H, Total Bilirubin 0.2 10/30/21 15:50: INR Comment 0.9 Results/Orders Lab Results Laboratory Tests Test 10/30/21 15:21 10/30/21 15:30 10/30/21 15:50 10/30/21 16:30 Range/Units Glucometer 90 70-110 MG/DL White Blood Count 6.2 4.3-11.0 10^3/uL Red Blood Count 3.68 L 4.30-5.52 10^6/uL Hemoglobin 11.2 L 13.3-17.7 g/dL Hematocrit 36 L 40-54 % Mean Corpuscular Volume 97 80-99 fL Mean Corpuscular Hemoglobin 30 25-34 pg Mean Corpuscular Hemoglobin Concent 32 32-36 g/dL Red Cell Distribution Width 14.5 10.0-14.5 % Platelet Count 425 H 130-400 10^3/uL Mean Platelet Volume 8.8 L 9.0-12.2 fL Immature Granulocyte % (Auto) 0 % Neutrophils (%) (Auto) 63 42-75 % Lymphocytes (%) (Auto) 23 12-44 % Monocytes (%) (Auto) 10 0-12 % Eosinophils (%) (Auto) 3 0-10 % Basophils (%) (Auto) 1 0-10 % Neutrophils # (Auto) 3.9 1.8-7.8 10^3/uL Lymphocytes # (Auto) 1.4 1.0-4.0 10^3/uL Monocytes # (Auto) 0.6 0.0-1.0 10^3/uL Eosinophils # (Auto) 0.2 0.0-0.3 10^3/uL Basophils # (Auto) 0.1 0.0-0.1 10^3/uL Immature Granulocyte # (Auto) 0.0 0.0-0.1 10^3/uL Sodium Level 140 135-145 MMOL/L Potassium Level 4.2 3.6-5.0 MMOL/L Chloride Level 106 98-107 MMOL/L Carbon Dioxide Level 24 21-32 MMOL/L Anion Gap 10 5-14 MMOL/L Blood Urea Nitrogen 17 7-18 MG/DL Creatinine 1.38 H 0.60-1.30 MG/DL Estimat Glomerular Filtration Rate 56 BUN/Creatinine Ratio 12 Glucose Level 108 H 70-105 MG/DL Calcium Level 8.8 8.5-10.1 MG/DL Corrected Calcium 8.8 8.5-10.1 MG/DL Total Bilirubin 0.2 0.1-1.0 MG/DL Aspartate Amino Transf (AST/SGOT) 19 5-34 U/L Alanine Aminotransferase (ALT/SGPT) 23 0-55 U/L Alkaline Phosphatase 61 40-136 U/L Troponin I < 0.028 <0.028 NG/ML Total Protein 7.3 6.4-8.2 GM/DL Albumin 4.0 3.2-4.5 GM/DL Prothrombin Time 13.0 12.2-14.7 SEC INR Comment 0.9 0.8-1.4 Activated Partial Thromboplast Time 28 24-35 SEC Urine Color YELLOW Urine Clarity CLEAR Urine pH 5.5 5-9 Urine Specific [place] >=1.030 1.016-1.022 Urine Protein NEGATIVE NEGATIVE Urine Glucose (UA) NEGATIVE NEGATIVE Urine Ketones NEGATIVE NEGATIVE Urine Nitrite NEGATIVE NEGATIVE Urine Bilirubin NEGATIVE NEGATIVE Urine Urobilinogen 0.2 < = 1.0 MG/DL Urine Leukocyte Esterase NEGATIVE NEGATIVE Urine RBC (Auto) NEGATIVE NEGATIVE Urine RBC NONE /HPF Urine WBC RARE /HPF Urine Squamous Epithelial Cells RARE /HPF Urine Crystals NONE /LPF Urine Bacteria TRACE /HPF Urine Casts NONE /LPF Urine Mucus NEGATIVE /LPF Urine Culture Indicated NO My Orders Orders - COMPA TARIQ Ct Head Wo-R/O Stroke (10/30/21 14:49) Cbc With Automated Diff (10/30/21 14:52) Protime With Inr (10/30/21 14:52) Partial Thromboplastin Time (10/30/21 14:52) Comprehensive Metabolic Panel (10/30/21 14:52) Troponin I [place] (10/30/21 14:52) Ua Culture If Indicated (10/30/21 14:52) Chest 1 View, Ap/Pa Only (10/30/21 14:52) Ekg Tracing (10/30/21 14:52) Ed Iv/Invasive Line Start (10/30/21 14:52) Vital Signs Stroke Patient Q15M (10/30/21 14:52) Monitor-Rhythm Ecg Trace Only (10/30/21 14:52) Dysphagia Screening Tool Q10MX1 (10/30/21 14:52) Ct Angio Head/Neck (10/30/21 15:37) Iohexol Injection (Omnipaque 350 Mg/Ml 1 (10/30/21 15:45) Received Contrast (Hold Metformin- Contr (10/30/21 15:45) Ns (Ivpb) (Sodium Chloride 0.9% Ivpb Bag (7/27/22 15:45) Medications Given in ED Vital Signs/I&O 10/30/21 14:13 Temp 36.6 Pulse 72 Resp 18 B/P (MAP) 142/95 (111) Pulse Ox 98 O2 Delivery Room Air Capillary Refill : Point of Care Testing Finger Stick Blood Glucose: 90 ECG Comment Sinus rhythm, possible right ventricular conduction delay, possible inferior myocardial infarction of indeterminate age with posterior extension, 72 bpm, QRS duration 97 MS, QTc 401 MS Departure Communication (Admissions) Time/Spoke to Admitting Phy: 16:[address] Reyes Communication (PCP) During initial assessment patient was alert. But was having difficulties expressing himself. He did appear to have some mild shakes in his hands. No notable eye twitching. Difficulty obtaining a initial NIH. Patient was discussed with neurology Dr. Alvarez. She suggest to obtain a CT angio of the head and neck after his CT scan head w/o constrast returned normal. Patient episode occurred around 2 PM and improved. Had a episode on arrival that was slightly different with only expressive aphasia. NIH was limited due to his aphasia and not comprehending the task I was asking. Difficulty assessing patient's motor function and sensory function with limited verbal response as he was not understanding what I was assessing or asking him to do. Patient was within timeframe for tPA. Due to his recent cardiac cath last month, currently on Plavix, hypoxic ischemic encephalopathy outweigh the benefit of giving tPA at this time. She suggest if CT angio head and neck was unremarkable recommend admission for MRI and further evaluation of these aphasic events. Patient event lasted for short period of time. It appeared to occur while his family was in the room. When family left patient became more coherent and was able to respond to questions and express himself. He did seem slightly disoriented unclear if this was due to his previous hypoxic brain injury or something acute. Did discuss potential seizure but the presentation and results that I provided her did not seem to reflect a possible seizure. She recommend to continue observing for any seizure-like activity. After talking to neurology I sat down with patient. Patient became more coherent and was able to respond and express himself. I assessed his motor function in all extremities which was negative. No evidence of drift. No facial paralysis. No sensory deficits. No appreciation of visual gaze. NIH was 2 with mild aphasia and dysarthria. Patient lab work was otherwise unremarkable. EKG without evidence of ST elevation depression. Normal troponin. Normal urinalysis without evidence of infection. Normal white blood count. Chest x-ray was negative for pneumonia. Concerned that symptoms may be some psych component potentially from his previous brain injury Impression Primary Impression: Aphasia Disposition: ADMITTED INPATIENT Condition: Stable Admissions Decision to Admit Reason: Admit from ER (General) Decision to Admit/Date: Oct 30, 2021 Time/Decision to Admit Time: 16:51 Departure-Patient Inst. Referrals: NO,LOCAL PHYSICIAN (PCP/Family) Primary Care Physician COMPA TARIQ Oct 30, 2021 15:44
[2021-10-30] MEDS ORDERED: IOHEXOL 350 MG/ML 100 ML (OMNIPAQUE 350) VIAL IV ONE (15:45)
[2021-10-30] MEDS ORDERED: NS 100 ML (IVPB) BAG IV ONE (15:45)
[2021-10-30] MEDS ORDERED: HOLD METFORMIN - RECEIVED CONTRAST 20 ML VIAL IV SCH (15:45)
[2021-10-30 15:54] LABS: CHLORIDE 106 MMOL/L (98-107); POTASSIUM 4.2 MMOL/L (3.6-5.0); SODIUM 140 MMOL/L (135-145)
[2021-10-30 15:55] LABS: CALCIUM 8.8 MG/DL (8.5-10.1)
[2021-10-30 15:56] LABS: GLUCOSE 108 MG/DL (70-105); TOTAL PROTEIN 7.3 GM/DL (6.4-8.2)
[2021-10-30 15:57] LABS: CARBON DIOXIDE 24 MMOL/L (21-32)
[2021-10-30 15:58] LABS: BILIRUBIN,TOTAL 0.2 MG/DL (0.1-1.0)
[2021-10-30 15:59] LABS: ALKALINE PHOSPHATASE 61 U/L (40-136)
[2021-10-30 16:00] LABS: CREATININE SERUM 1.38 MG/DL (0.60-1.30); GFR ESTIMATED 56
[2021-10-30 16:01] LABS: BUN/CREATININE RATIO 12
[2021-10-30 16:02] LABS: ALANINE AMINOTRANSFERASE 23 U/L (0-55)
[2021-10-30 16:21] LABS: INR 0.9 (0.8-1.4)
[2021-10-30 16:38] LABS: BILIRUBIN,URINE NEGATIVE (NEGATIVE); CLARITY,URINE CLEAR; COLOR,URINE YELLOW; GLUCOSE, URINE (UA) NEGATIVE (NEGATIVE); KETONES,URINE NEGATIVE (NEGATIVE); LEUKOCYTE ESTERASE ,URINE NEGATIVE (NEGATIVE); NITRITE,URINE NEGATIVE (NEGATIVE); PH,URINE 5.5 (5-9); PROTEIN,URINE NEGATIVE (NEGATIVE)
--- NOTE | 2021-10-30 16:44 | Diagnostic Imaging Report ---
PROCEDURE: CT angiography of the head and CT angiography of the neck with and without contrast. TECHNIQUE: Contiguous noncontrast images were obtained from the skull base through the vertex. After intravenous contrast administration, helical CT angiography of the neck was performed. Source data was reformatted into 3D MIP projections. Delayed post contrast acquisition was also obtained. Auto Exposure Controls were utilized during the CT exam to meet ALARA standards for radiation dose reduction. INDICATION: Stroke. Recent STEMI. Hypoxic brain injury. COMPARISON: CT head without contrast performed earlier today. FINDINGS: Noncontrast head CT was not repeated. Post contrast imaging continues to demonstrate no large intracranial hemorrhage or extra-axial fluid collections. No CT evidence of a territorial infarction. No abnormal intracranial enhancement is seen. CTA demonstrates a left common carotid originating from the innominate. Atherosclerotic disease results in less than 50% narrowing of the internal carotid artery origins bilaterally. No large vessel occlusion. No high-grade narrowing, aneurysm or dissection involving the basilar, bilateral vertebral, common carotid, internal carotid, anterior cerebral, middle cerebral or posterior cerebral arteries. The dural venous sinuses are normally opacified. No acute osseous findings. Paranasal sinuses and mastoids are clear. Moderate spondylotic changes in the cervical spine. No acute findings in the visualized paravertebral soft tissues. Emphysematous changes in the lung apices. IMPRESSION: No large vessel occlusion. No high-grade narrowing, aneurysm or dissection involving the major arteries in the head and neck. Dictated by: Dictated on workstation # [id number]
[2021-10-30 16:45] LABS: BACTERIA,URINE TRACE /HPF; SQUAMOUS EPITHELIAL CELL,UR RARE /HPF; WBC,URINE RARE /HPF
[2021-10-30] MEDS ORDERED: CATHETER FLUSH 10 ML SYR IVP PRN (18:45)
[2021-10-30 20:04] VITALS: BP 130/72
[2021-10-31 00:33] VITALS: BP_SYST 137; BP_SYST 167; BP_DIAS 84
[2021-10-31] MEDS: CATHETER FLUSH 10 ML SYR IVP SCH ×2 (01:03→05:21)
[2021-10-31 04:14] VITALS: BP 103/60
[2021-10-31 05:01] LABS: BASOPHILS % (AUTO) 1 % (0-10); EOSINOPHILS # (AUTO) 0.3 10^3/uL (0.0-0.3); EOSINOPHILS % (AUTO) 6 % (0-10); HEMATOCRIT 32 % (40-54); LYMPHOCYTES # (AUTO) 1.5 10^3/uL (1.0-4.0); LYMPHOCYTES % (AUTO) 36 % (12-44); MEAN CORPUSCULAR HEMOGLOBIN 30 pg (25-34); MEAN CORPUSCULAR HGB CONC 31 g/dL (32-36); MEAN CORPUSCULAR VOLUME 96 fL (80-99); MEAN PLATELET VOLUME 8.8 fL (9.0-12.2); MONOCYTES # (AUTO) 0.5 10^3/uL (0.0-1.0); MONOCYTES % (AUTO) 13 % (0-12); NEUTROPHILS # (AUTO) 1.8 10^3/uL (1.8-7.8); NEUTROPHILS % (AUTO) 44 % (42-75); PLATELET COUNT 386 10^3/uL (130-400); WHITE BLOOD COUNT 4.1 10^3/uL (4.3-11.0)
[2021-10-31 05:20] LABS: POTASSIUM 3.8 MMOL/L (3.6-5.0)
[2021-10-31 05:21] LABS: CALCIUM 8.3 MG/DL (8.5-10.1)
[2021-10-31 05:25] LABS: CREATININE SERUM 1.21 MG/DL (0.60-1.30)
[2021-10-31 07:52] VITALS: BP 134/94
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
[2021-10-31] MEDS ORDERED: LORazepam 0.5 MG (ATIVAN) TABLET PO ONE (10:30)
[2021-10-31] MEDS ORDERED: METF-397 PEG (11:27)
[2021-10-31] MEDS ORDERED: ATOR40TA70 PEG (11:27)
[2021-10-31] MEDS ORDERED: ASPI-999 PEG (11:27)
[2021-10-31] MEDS ORDERED: FAMO20TA3 PEG (11:27)
[2021-10-31] MEDS ORDERED: METO50TA15 PEG (11:27)
[2021-10-31] MEDS ORDERED: CLOP75TA28 PEG (11:27)
--- NOTE | 2021-10-31 11:44 | Diagnostic Imaging Report ---
PROCEDURE: MR imaging of the brain without contrast. TECHNIQUE: Multiplanar, multisequence MR imaging of the brain was performed without contrast. INDICATION: Aphasia and mental status change. FINDINGS: Study is limited by motion artifact, however ventricles and sulci are within normal limits for size. Fox and white matter signal intensities are also unremarkable. There is no restricted diffusion to indicate an acute infarct. There is no abnormal mass effect or shift of midline structures. No hemorrhage is identified. Visualized paranasal sinuses are clear. Flow-voids are seen in the expected locations at the skull base. IMPRESSION: Unremarkable MRI of the brain. Dictated by: Dictated on workstation # [id number]
[2021-10-31 12:00] VITALS: BP 122/66
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
== END 2021-10-31 14:29 ==
LOC: EDUNIT# 14:13 → ER 14:15 → UNDOADMOB 16:53 → CSD 16:53 → UNDODISOB 10-31 15:05
PROVIDERS: ADMIT Family Medicine; ATTEND Family Medicine
DX: R47.01 Aphasia (principal); I25.10 Atherosclerotic heart disease of native coronary artery without angina pectoris; E11.9 Type 2 diabetes mellitus without complications; E78.2 Mixed hyperlipidemia; R41.841 Cognitive communication deficit; J44.9 Chronic obstructive pulmonary disease, unspecified; I10 Essential (primary) hypertension; K21.9 Gastro-esophageal reflux disease without esophagitis; Z79.84 Long term (current) use of oral hypoglycemic drugs; Z79.82 Long term (current) use of aspirin
CPT/HCPCS: 70450; 70496; 70498; 70551; 71045; 74018; 80048; 80053; 81000; 82947; 84484; 85025 ×2; 85610; 85730; 93005; 93041; 99284; G0378; 36415

== ENCOUNTER 2022-12-08 21:38 | Inpatient (IN) | payer MEDICARE ==
[~2022-12-08] VITALS: Ht 167.7 cm; Wt 64.7 kg
[~2022-12-08 21:38] MED LIST changes: -ACET325T38 PO; -ASPI-999 PO; -DIVA500T15 PO; -DOCU-143 PO; +FAMO-356 PO; -FAMO20TA3 PO; -MAGN400O7 PO; -MEMA10TA57 PO; -RISP0.5T65 PO; -RISP1TAB93 PO; -SULF-221 PO; -TRZ50T PO
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
[2022-12-08 22:01] LABS: BASOPHILS % (AUTO) 0 % (0-10); EOSINOPHILS # (AUTO) 0.2 10^3/uL (0.0-0.3); EOSINOPHILS % (AUTO) 1 % (0-10); HEMATOCRIT 34 % (40-54); HEMOGLOBIN 10.5 g/dL (13.3-17.7); LYMPHOCYTES # (AUTO) 1.3 10^3/uL (1.0-4.0); LYMPHOCYTES % (AUTO) 7 % (12-44); MEAN CORPUSCULAR HEMOGLOBIN 26 pg (25-34); MEAN CORPUSCULAR HGB CONC 31 g/dL (32-36); MEAN CORPUSCULAR VOLUME 85 fL (80-99); MEAN PLATELET VOLUME 8.9 fL (9.0-12.2); MONOCYTES # (AUTO) 2.2 10^3/uL (0.0-1.0); MONOCYTES % (AUTO) 12 % (0-12); NEUTROPHILS # (AUTO) 14.1 10^3/uL (1.8-7.8); NEUTROPHILS % (AUTO) 79 % (42-75); PLATELET COUNT 289 10^3/uL (130-400); WHITE BLOOD COUNT 17.8 10^3/uL (4.3-11.0)
[2022-12-08 22:16] LABS: INR 1.3 (0.8-1.4); PROTHROMBIN TIME PATIENT 16.1 SEC (12.2-14.7)
[2022-12-08 22:19] LABS: ABG BASE EXCESS 0.6 MMOL/L (-2.5-2.5); ABG OXYGEN SATURATION 96 % (94-100); ABG PCO2 43 MMHG (35-45); ABG PH 7.39 (7.37-7.43); ABG PO2 89 MMHG (79-93)
[2022-12-08 22:21] LABS: ALLENS TEST YES-POS; INSPIRED O2 2L; PATIENT TEMP 38.4; VENTILATOR NO
[2022-12-08 22:25] LABS: ALBUMIN 3.2 GM/DL (3.2-4.5); BILIRUBIN,TOTAL 0.4 MG/DL (0.1-1.0); CALCIUM 8.6 MG/DL (8.5-10.1); CREATININE SERUM 1.63 MG/DL (0.60-1.30); MAGNESIUM 1.6 MG/DL (1.6-2.4); POTASSIUM 4.1 MMOL/L (3.6-5.0); TOTAL PROTEIN 6.3 GM/DL (6.4-8.2)
[2022-12-08 22:28] LABS: BAND NEUTROPHILS 12 %; LYMPHOCYTES % (MANUAL) 10 %; MONOCYTES % (MANUAL) 3 %; NEUTROPHILS % (MANUAL) 75 %; POIKILOCYTOSIS SLIGHT
[2022-12-08] MEDS ORDERED: ACETAMINOPHEN 650 MG SUPPOSITORY PR ONE (23:30)
[2022-12-08] MEDS ORDERED: LACTATED RINGERS 1,000 ML 1,000 ML IV ONE (23:45)
[2022-12-08 23:56] LABS: BILIRUBIN,URINE NEGATIVE (NEGATIVE); CLARITY,URINE SL CLOUDY; COLOR,URINE YELLOW; GLUCOSE, URINE (UA) NEGATIVE (NEGATIVE); KETONES,URINE 1+ (NEGATIVE); LEUKOCYTE ESTERASE ,URINE 1+ (NEGATIVE); NITRITE,URINE POSITIVE (NEGATIVE); PH,URINE 6.5 (5-9); PROTEIN,URINE 2+ (NEGATIVE)
[2022-12-08 23:57] LABS: BACTERIA,URINE LARGE /HPF; SQUAMOUS EPITHELIAL CELL,UR RARE /HPF; WBC,URINE 50-100 /HPF
[2022-12-09] VITALS (14 sets, daily range): BP systolic 99–149; BP diastolic 62–97
[2022-12-09] MEDS ORDERED: cefTRIAXone IV/IM 1,000 MG in NS (IVPB) 50 ML 50 ML IV STA (00:44)
[2022-12-09] MEDS ORDERED: LACTATED RINGERS 1,000 ML 1,000 ML IV ONE ×2 (01:45→03:55)
[2022-12-09] MEDS ORDERED: NS IV 500 ML 500 ML IV ONE (03:45)
[2022-12-09] MEDS ORDERED: LACTATED RINGERS 1,000 ML 1,000 ML IV SCH (04:00)
[2022-12-09] MEDS ORDERED: ONDANSETRON INJECTION 4 MG/2 ML (SDV) IV PRN ×2 (04:00→11:00)
[2022-12-09] MEDS ORDERED: ACETAMINOPHEN 325 MG TABLET PO PRN ×3 (04:15→21:45)
[2022-12-09] MEDS ORDERED: RT-ALBUTEROL SULF 2.5 MG/3 ML PRE-MIX VIAL INH PRN (04:30)
[2022-12-09 05:28] LABS: BASOPHILS % (AUTO) 0 % (0-10); EOSINOPHILS % (AUTO) 0 % (0-10); HEMATOCRIT 32 % (40-54); HEMOGLOBIN 9.5 g/dL (13.3-17.7); LYMPHOCYTES % (AUTO) 8 % (12-44); MEAN CORPUSCULAR HEMOGLOBIN 26 pg (25-34); MEAN CORPUSCULAR HGB CONC 30 g/dL (32-36); MEAN CORPUSCULAR VOLUME 86 fL (80-99); MEAN PLATELET VOLUME 9.2 fL (9.0-12.2); MONOCYTES # (AUTO) 1.6 10^3/uL (0.0-1.0); MONOCYTES % (AUTO) 12 % (0-12); NEUTROPHILS # (AUTO) 10.7 10^3/uL (1.8-7.8); NEUTROPHILS % (AUTO) 80 % (42-75); PLATELET COUNT 233 10^3/uL (130-400); WHITE BLOOD COUNT 13.4 10^3/uL (4.3-11.0)
[2022-12-09 05:45] LABS: CREATININE SERUM 1.37 MG/DL (0.60-1.30); POTASSIUM 4.2 MMOL/L (3.6-5.0)
[2022-12-09] MEDS: RT-ALBUTEROL SULF 2.5 MG/3 ML PRE-MIX VIAL INH SCH ×3 (07:36→21:01)
--- NOTE | 2022-12-09 08:09 | Diagnostic Imaging Report ---
PROCEDURE: CT head without contrast. TECHNIQUE: Multiple contiguous axial images were obtained through the brain without the use of intravenous contrast. Auto Exposure Controls were utilized during the CT exam to meet ALARA standards for radiation dose reduction. INDICATION: Altered mental status, confusion COMPARISON: 10/30/2021 FINDINGS: Moderate atrophy. No intracranial hemorrhage. No intracranial mass, mass effect, midline shift, herniation, hydrocephalus, or extra-axial fluid collection. No CT evidence of an acute ischemic infarction. Minimal background chronic small vessel white matter ischemic disease is again noted. The orbits are unremarkable. The paranasal sinuses are clear. The calvarium and extracalvarial soft tissues are unremarkable. IMPRESSION: No acute intracranial abnormality with moderate atrophy and mild background chronic small vessel white matter ischemic disease. Should there remain clinical concern, further evaluation with MRI of brain could be considered. Agree with preliminary interpretation. Dictated by: Dictated on workstation # [id number]
--- NOTE | 2022-12-09 08:28 | Diagnostic Imaging Report ---
CHEST 1 VIEW, AP/PA ONLY Indication: Sepsis and hypoxia Comparison: 10/30/2021 Findings: No focal airspace disease in the visualized lungs. No pleural effusion or pneumothorax. Normal cardiomediastinal silhouette. Impression: 1. No acute cardiopulmonary process by portable radiography. Dictated by: Dictated on workstation # [id number]
--- NOTE | 2022-12-09 08:33 | Diagnostic Imaging Report ---
PROCEDURE: CT abdomen and pelvis without contrast. TECHNIQUE: Multiple contiguous axial images were obtained through the abdomen and pelvis without the use of intravenous contrast. Auto Exposure Controls were utilized during the CT exam to meet ALARA standards for radiation dose reduction. INDICATION: Altered mental status. COMPARISON: None. FINDINGS: There is atelectasis in the dependent lungs bilaterally. There is a trace right pleural effusion. The heart is normal in size. There is bilateral gynecomastia. The liver demonstrates numerous hypodense lesions scattered throughout. No other abnormality is seen on this noncontrast exam. These appear to be cystic but not all are well evaluated on this study. There are calcified granulomas in the spleen. The pancreas appears normal. The adrenal glands are normal. There are numerous cystic lesions throughout the kidneys bilaterally with no hydronephrosis seen. The bowel loops are nondistended without obstruction. There is moderate stool throughout the colon. There is trace free fluid in the dependent pelvis. The appendix is normal. There is a Khan catheter in the bladder. There is wall thickening of the urinary bladder. There are degenerative changes throughout the spine. IMPRESSION: 1. Numerous hypodense lesions in the liver and kidneys are thought to represent cysts on this noncontrast exam. 2. Wall thickening of the urinary bladder with a Khan catheter in place. Infection is not excluded. Recommend correlation with urinalysis. 3. Dependent atelectasis with a trace right pleural effusion. 4. No significant changes from the preliminary report. Dictated by: Dictated on workstation # [id number]
[2022-12-09] MEDS: ACETAMINOPHEN 650 MG SUPPOSITORY PR PRN ×2 (10:25→17:40)
--- NOTE | 2022-12-09 10:39 | History & Physical-Hospitalist ---
KASHIF HERNANDEZ 12/09/22 1039: History of Present Illness HPI/Chief Complaint Patient is unable to be aroused and respond to questions this morning, history obtained from ED record. Patient is a 67-year-old longterm resident who arrived via EMS on 12/08 for decreased responsiveness and fever. Staff also noted that he had been having diarrhea for the last few days. Staff reports that he is normally ambulatory and interactive. Temp of 38.4 C on arrival to E.D. O2 sats dropped to upper 80s while being evaluated, improved to 90s with 2L via N.[place]., patient does not use supplemental O2 normally. UA showed pyuria and large bacteria. On prior visits, urine cultures have yielded klebsiella sensitive to Rocephin, started on 1g IV of Rocephin last night. Last night the patient was having some soft BPs with systolic in the 90s and upper 80s, has received 3L of LR so far and is currently at 150mls LR/hr, blood pressure has been stable today. CXR and CT showed no acute abnormalities. Patient is seen laying in bed this morning, unable to be aroused, normotensive while in the room. His leukocytosis has improved today from 17.8 to 13.4. Patient has no new comp laints. Source: old records, other (ED record) Exam Limitations: clinical condition (unable to be aroused) Date Seen 12/09/22 Time Seen by a Provider: 09:00 Attending Physician No,Local Physician PCP Admitting Physician: Malena Soares DO Attending Physician: Malena Soares DO Referring Physician Date of Admission Dec 09, 2022 at 03:16 Home Medications & Allergies Home Medications Reviewed patient Home Medication Reconciliation performed by pharmacy medication reconciliations certified appliance service technician and/or nursing. Patients Allergies have been reviewed. Allergies Allergies Coded Allergies No Known Drug Allergies (Unverified08/05/21) Past Pmwpbqz-Tkgzhn-Aumckw Hx Patient Social History Smoking Status: Unknown if Ever Smoked Use of E-Cig and/or Vaping dev: Unable to obtain Substance use?: Unable to obtain Alcohol Use?: Unable to obtain Pt feels they are or have been: Unable to obtain Immunizations Up To Date First/Initial COVID19 Vaccinat: UNKNOWN DATE Second COVID19 Vaccination Isaias: UNKNOWN DATE Tetanus Booster (TDap): Unknown Current Status Advance Directives: Unable to obtain Communicates: Verbally Primary Language: Moldovan Preferred Spoken Language: Moldovan Is interpretation needed?: No Implanted or Applied Medical D: None Past Medical History Surgeries: Abdominal, Cardiac, Coronary Stent COPD Coronary Artery Disease, Heart Attack, High Cholesterol, Hypertension Dementia Renal Failure (Chronic kidney disease) Gastroesophageal Reflux Chronic Back Pain Diabetes, Non-Insulin dep Dysphagia Sleep Difficulties, Anxiety, Bipolar Nursing Suicide Risk Notes: UNABLE TO ASSESS D/T AMS; MINIMAL RESPONSIVENESS Blood Disorders: No Family Medical History No Pertinent Family Hx SOCIAL HISTORY: -HISTORY OF SMOKING -HISTORY OF DAILY ETOH USE -HAS DENIED DRUG USE ADDITIONAL PAST MEDIAL HISTORY: PT HAD STEMI 09/11/21 WITH CARDIAC ARREST AND ANOXIC BRAIN INJURY--HAD UNWITNESSED CARDIAC ARREST AT HOME--UNKNOWN DOWN TIME, WITH NO BYSTANDER CPR UNTIL FIRE DEPT ARRIVED AT [facility]. HOSPITALIZED 09/11/21--10/01/21, THEN PLACED IN VIA [facility] WHEN RELEASED FROM HOSPITAL. PAST SURGICAL HISTORY: -FEEDING TUBE PLACEMENT 09/22/21 DUE TO DYSPHAGIA BY DR. BARAJAS -CARDIAC CATH 09/11/[address] CURRAN: -CONCLUSIONS: 1. Coronary artery disease primarily consisting of severe mid vessel stenosis of the dominant right coronary artery that was the culprit in causing an inferior wall ST elevation myocardial infarction and that was successfully stented with Skypoint 2.5 x 28 mm stent. The first diagonal branch of the left anterior descending artery has a 50% to 60% proximal and mid vessel stenosis. It is a small caliber vessel. The left circumflex artery is nondominant and has a large first obtuse marginal branch, a subbranch of which has approximately 60% to 70% stenosis. 2. Elevated left ventricular end-diastolic pressure. 3. Left ventricular ejection fraction approximately 60%. Review of Systems ROS-Unable to Obtain: Patient unable to be aroused Physical Exam Physical Exam Vital Signs Vital Signs - First Documented 12/08/22 12/08/22 21:38 21:50 Temp 38.4 Pulse 103 Resp 16 B/P (MAP) 125/77 (93) Pulse Ox 91 O2 Delivery Room Air O2 Flow Rate 2.00 Capillary Refill : Less Than 3 Seconds Height, Weight, BMI Height: '" Weight: lbs. oz. kg; 22.43 BMI Method: General Appearance: No Apparent Distress, WD/WN HEENT: PERRL/EOMI Neck: Non Tender, Supple Respiratory: Chest Non Tender, Lungs Clear Cardiovascular: Regular Rate, Rhythm, No Edema Gastrointestinal: Non Tender, Soft Rectal: Deferred Back: No Vertebral Tenderness Extremity: Normal Capillary Refill, Non Tender Neurologic/Psychiatric: Other (somnolent, unable to be aroused) Skin: Normal Color, Warm/Dry Lymphatic: No Adenopathy Results Results/Procedures Labs Laboratory Tests 12/08/22 21:50 12/09/22 04:56 Patient resulted labs reviewed. Assessment/Plan Admission Diagnosis Sepsis Admission Status: Observation Assessment and Plan Sepsis: UTI suspected to be source of infection, continue Rocephin, awaiting blood culture results UTI: Continue Rocephin, crowley in place, monitor urine output AMS: unable to be aroused today BEKA: Continue IV fluids, BUN improved from 25 to 23 today, Cr improved from 1.63 to 1.37 today T2DM: SSI HTN: holding BP meds due to soft BP last night, normally on metoprolol 50mg BID Chronic debility: longterm resident MALENA SOARES 12/10/22 0429: History of Present Illness HPI/Chief Complaint CC: AMS HPI: This is a very debilitated 67[facility] of [facility] who [facility] a [facility] who presented to the ER with confusion and found to have UTI. IV abx initiated along with protocol meds and currently he is still drowsy and altered. Source: RN/MD, old records Exam Limitations: clinical condition (unable to be aroused) Past Iixfsti-Xziocr-Asyoni Hx Patient Social History Marrital Status: single Employed/Student: unemployed Smoking Status: Unknown if Ever Smoked Alcohol Use?: No Past Medical History High Cholesterol, Hypertension Dementia Bladder Infection Review of Systems Constitutional: see HPI Physical Exam Physical Exam General Appearance: No Apparent Distress, Chronically ill Respiratory: Lungs Clear, Normal Breath Sounds Cardiovascular: Regular Rate, Rhythm Neurologic/Psychiatric: Other (somnolent, unable to be aroused) Assessment/Plan Admission Diagnosis Assessment: Sepsis UTI Encephalopathy Chronic debility Plan: IV abx Home meds Move to 4th Admission Status: Inpatient Order (span 2 midnights) Reason for Inpatient Admission: sepsis Supervisory-Addendum Brief Verification & Attestation Participated in pt care: history, MDM, physical Personally performed: exam, history, MDM, supervision of care Care discussed with: Medical Student Procedures: n/a Results interpretation: Verified all documentation Verification and Attestation of Medical Student E/M Service A medical student performed and documented this service in my presence. I reviewed and verified all information documented by the medical student and made modifications to such information, when appropriate. I personally performed the physical exam and medical decision making. Malena Soares, Dec 10, 2022,04:29 KASHIF HERNANDEZ Dec 09, 2022 10:39 MALENA SOARES DO Dec 10, 2022 04:29
[2022-12-09] MEDS ORDERED: MILK OF MAGNESIA 400 MG/5 ML 30 ML UDC PO PRN ×2 (11:00→21:45)
[2022-12-09] MEDS ORDERED: BISACODYL 10 MG SUPPOSITORY PR PRN (11:00)
[2022-12-09] MEDS ORDERED: LACTULOSE SYRUP 10GM/15ML 30ML UDC PO PRN (11:00)
[2022-12-09] MEDS ORDERED: MELATONIN 3 MG TABLET PO PRN (11:00)
[2022-12-09] MEDS ORDERED: diphenhydrAMINE 25 MG TABLET PO PRN (11:00)
[2022-12-09] MEDS ORDERED: ANTACID SUSPENSION 30 ML UDC PO PRN (11:00)
[2022-12-09] MEDS ORDERED: ONDANSETRON 4 MG ORAL DISSOLVE TABLET PO PRN (11:00)
[2022-12-09] MEDS ORDERED: morphine INJ 4 MG/ML 1 ML (VIAL/SYRINGE) IV PRN (11:00)
[2022-12-09] MEDS ORDERED: CALCIUM CARBONATE 500 MG CHEW TABLET PO PRN (11:00)
[2022-12-09] MEDS ORDERED: diphenhydrAMINE INJ 50 MG/ML VIAL IVP PRN (11:00)
[2022-12-09] MEDS: NS IV 1000 ML 1,000 ML IV SCH (11:32)
[2022-12-09] MEDS: inSUlin ASPART 1 UNIT/0.01 ML (PER UNIT) SC SCH ×3 (11:32→21:19)
[2022-12-09] MEDS: ENOXAPARIN 40 MG/0.4 ML SYRINGE SC SCH (12:32)
--- NOTE | 2022-12-09 14:14 | Physical Therapy Evaluation ---
PT Evaluation-General Medical Diagnosis Admission Date Dec 09, 2022 at 03:16 Medical Diagnosis: sepsis/UTI/AMS Onset Date: Dec 09, 2022 Therapy Diagnosis Therapy Diagnosis: generalized weakness/debility Precautions Precautions/Isolations: Fall Prevention, Standard Precautions Referral Physician: El Reason for Referral: Evaluation/Treatment Medical History Pertinent Medical History: Alcoholism, CAD, COPD, DM, HTN, [place], TBI Current History EMS from [place] secondary to decreased responsiveness/fever Reviewed History: Yes Social History Home: Group Home Prior Prior Level of Function SCALE: Activities may be completed with or without assistive devices. 0-Cthvipzgdj-ajamdjg completes the activity by him/herself with no assistance from a helper. 5-Set-up or Clean-up Assistance-helper sets up or cleans up; patient completes activity. [place] assists only prior to or following the activity. 4-Supervision or Touching Assistance-helper provides verbal cues and/or touching/steadying and/or contact guard assistance as patient completes activity. Assistance may be provided throughout the activity or intermittently. 3-Partial/Moderate Assistance-helper does LESS THAN HALF the effort. [place] lifts, holds or supports trunk or limbs, but provides less than half the effort. 2-Substantial/Maximal Assistance-helper does MORE THAN HALF the effort. [place] lifts or holds trunk or limbs and provides more than half the effort. 0-Bjyazepyu-wkanpq does ALL the effort. Patient does none of the effort to complete the activity. Or, the assistance of 2 or more helpers is required for the patient to complete the activity. If activity was not attempted, code reason: 7-Patient Refused. 9-Not Applicable-not attempted and the patient did not perform the activity before the current illness, exacerbation or injury. 10-Not Attempted due to Environmental Limitations-(lack of equipment, weather restraints, etc.). 88-Not Attempted due to Medical Conditions or Safety Concerns. ambulatory PLOF per report PT Evaluation-Current Subjective Patient is lethargic. Agrees to PT. Objective Patient Orientation: Confused Attachments: Oxygen, Khan Catheter, IV ROM/Strength ROM Lower Extremities bilateral LE WFL Strength Lower Extremities NT Sensory Vision: Unable to Assess Hearing: Impaired Transfers Sit to Lying (QC): 1 Lying to Sitting/Side of Bed(Q: 1 Sit to Stand (QC): 88 Gait Mode of Locomotion: Walk Anticipated Mode of Locomotion: Walk Balance Sitting Static: Poor Sitting Dynamic: Poor Assessment/Needs Patient will benefit from skilled PT to address functional strength and mobility to improve current LOF. Patient is currently dependent with all mobility and very lethargic. Rehab Potential: Guarded PT Back Stayer Goals Back Stayer Goals PT Intermediate Goals Time Frame: Dec 20, 2022 Roll Left & Right (QC): 3 Sit to Lying (QC): 3 Lying-Sitting on Side/Bed(QC): 3 Sit to Stand (QC): 3 Chair/Zdm-sd-Vkofb Xfer(QC): 3 Toilet Transfer (QC): 3 Walk 10 feet (QC): 3 Walk 50ft with 2 Turns (QC): 3 PT Plan Problem List Problem List: Activity Tolerance, Functional Strength, Safety, Balance, Gait, Transfer, Bed Mobility Treatment/Plan Treatment Plan: Continue Plan of Care Treatment Plan: Bed Mobility, Education, Functional Activity Don, Functional Strength, Gait, Safety, Therapeutic Exercise, Transfers Treatment Duration: Dec 20, 2022 Frequency: 5 times per week Estimated Hrs Per Day: .25 hour per day Time Time In: 1355 Time Out: 1405 DATE: Dec 09, 2022 Total Billed Treatment Time: 10 Total Billed Treatment 1 visit EVModC 10 min BRADLEY GOMEZ PT Dec 09, 2022 14:14
[2022-12-09] MEDS ORDERED: ACET325T38 PO (16:12)
[2022-12-09] MEDS ORDERED: RISP0.5T65 PO (16:12)
[2022-12-09] MEDS ORDERED: ASPI-999 PO (16:12)
[2022-12-09] MEDS ORDERED: MEMA10TA57 PO (16:12)
[2022-12-09] MEDS ORDERED: DIVA500T15 PO (16:12)
[2022-12-09] MEDS ORDERED: DOCU-143 PO (16:12)
[2022-12-09] MEDS ORDERED: TRZ50T PO (16:12)
[2022-12-09] MEDS ORDERED: MAGN400O7 PO (16:12)
[2022-12-09] MEDS ORDERED: RISP1TAB93 PO (16:12)
[2022-12-09] MEDS: DOCUSATE SODIUM 100 MG CAPSULE PO SCH ×2 (21:00→21:29)
[2022-12-09] MEDS: SENNOSIDES 8.6 MG TABLET PO SCH ×2 (21:00→21:30)
[2022-12-09] MEDS: cefTRIAXone 1 GM/NS 50 ML IVPB IV SCH ×2 (21:29)
[2022-12-09] MEDS: traZODone 50 MG (DESYREL) TAB PO SCH (23:26)
[2022-12-09] MEDS: DIVALPROEX 250 MG EXTENDED RELEASE TABLET PO SCH (23:27)
[2022-12-09] MEDS: FAMOTIDINE 20 MG TABLET PO SCH (23:29)
[2022-12-09] MEDS: meTOprolol TARTRATE (IR) 50 MG TABLET PO SCH (23:29)
[2022-12-09] MEDS: MEMANTINE 10 MG TABLET PO SCH (23:29)
[2022-12-09] MEDS: risperiDONE 1 MG TABLET PO SCH (23:30)
[2022-12-10] MEDS: RT-ALBUTEROL SULF 2.5 MG/3 ML PRE-MIX VIAL INH SCH ×4 (02:55→23:35)
[2022-12-10 03:38] VITALS: BP 138/74
[2022-12-10] MEDS: NS IV 1000 ML 1,000 ML IV SCH ×2 (03:50→20:36)
[2022-12-10] MEDS: ACETAMINOPHEN 650 MG SUPPOSITORY PR PRN (03:50)
[2022-12-10 05:50] LABS: BASOPHILS % (AUTO) 0 % (0-10); EOSINOPHILS % (AUTO) 0 % (0-10); HEMATOCRIT 27 % (40-54); HEMOGLOBIN 8.4 g/dL (13.3-17.7); LYMPHOCYTES # (AUTO) 0.6 10^3/uL (1.0-4.0); LYMPHOCYTES % (AUTO) 6 % (12-44); MEAN CORPUSCULAR HEMOGLOBIN 26 pg (25-34); MEAN CORPUSCULAR HGB CONC 31 g/dL (32-36); MEAN CORPUSCULAR VOLUME 84 fL (80-99); MONOCYTES # (AUTO) 1.1 10^3/uL (0.0-1.0); MONOCYTES % (AUTO) 11 % (0-12); NEUTROPHILS # (AUTO) 7.7 10^3/uL (1.8-7.8); NEUTROPHILS % (AUTO) 82 % (42-75); PLATELET COUNT 220 10^3/uL (130-400); WHITE BLOOD COUNT 9.5 10^3/uL (4.3-11.0)
[2022-12-10] MEDS: inSUlin ASPART 1 UNIT/0.01 ML (PER UNIT) SC SCH ×4 (06:02→20:15)
[2022-12-10 06:26] LABS: ALBUMIN 2.6 GM/DL (3.2-4.5); BILIRUBIN,TOTAL 0.3 MG/DL (0.1-1.0); CALCIUM 7.9 MG/DL (8.5-10.1); CREATININE SERUM 1.18 MG/DL (0.60-1.30); POTASSIUM 3.8 MMOL/L (3.6-5.0); TOTAL PROTEIN 5.1 GM/DL (6.4-8.2)
[2022-12-10 07:15] VITALS: BP 113/74
[2022-12-10] MEDS: DOCUSATE SODIUM 100 MG CAPSULE PO SCH ×3 (09:36→20:35)
[2022-12-10] MEDS: risperiDONE 0.5 MG TABLET PO SCH (09:36)
[2022-12-10] MEDS: MEMANTINE 10 MG TABLET PO SCH ×2 (09:36→20:35)
[2022-12-10] MEDS: FAMOTIDINE 20 MG TABLET PO SCH ×2 (09:36→20:35)
[2022-12-10] MEDS: ASPIRIN 81 MG CHEWABLE TABLET PO SCH (09:36)
[2022-12-10] MEDS: CLOPIDOGREL 75 MG TABLET PO SCH (09:36)
[2022-12-10] MEDS: metFORMIN 500 MG TABLET PO SCH ×2 (09:36→17:38)
[2022-12-10] MEDS: meTOprolol TARTRATE (IR) 50 MG TABLET PO SCH ×2 (09:36→20:35)
[2022-12-10] MEDS: SENNOSIDES 8.6 MG TABLET PO SCH ×2 (09:37→20:35)
--- NOTE | 2022-12-10 11:34 | Progress Note - Hospitalist ---
Subjective HPI/CC On Admission Date Seen by Provider: Dec 10, 2022 Time Seen by Provider: 11:00 CC: AMS HPI: This is a very debilitated 67yo[place] of [facility] who resides at a [facility] who presented to the ER with confusion and found to have UTI. IV abx initiated along with protocol meds and currently he is still drowsy and altered. Subjective/Events-last exam Much improved Became alert this afternoon so will be sure therapy is ordered May not need SNF Review of Systems General: Fatigue Neurological: Confusion Focused Exam Lactate Level 12/08/22 22:00: Lactic Acid Level 1.75 Objective Exam Vital Signs Vital Signs Date Time Temp Pulse Resp B/P (MAP) Pulse Ox O2 Delivery O2 Flow Rate FiO2 12/10/22 16:00 36.3 90 15 143/84 (103) 95 Nasal Cannula 2.00 Capillary Refill : Less Than 3 Seconds General Appearance: No Apparent Distress, WD/WN, Chronically ill Respiratory: Lungs Clear, Normal Breath Sounds Cardiovascular: Regular Rate, Rhythm Neurologic/Psychiatric: Alert Results/Procedures Lab Laboratory Tests 12/10/22 05:38 Patient resulted labs reviewed. Assessment/Plan Assessment and Plan Assess & Plan/Chief Complaint Assessment: Sepsis UTI Encephalopathy Chronic debility Plan: IV abx Home meds SARA SOARES DO Dec 10, 2022 11:34
[2022-12-10 11:49] VITALS: BP 118/75
[2022-12-10] MEDS: ENOXAPARIN 40 MG/0.4 ML SYRINGE SC SCH (13:01)
--- NOTE | 2022-12-10 14:08 | Physical Therapy Daily Note ---
PT Daily Note-Current Subjective Pt confused but willing to get out of bed and try to walk. Pain Section J - Health Conditions 1. Rarely or not at all 2. Occasionally 3. Frequently 4. Almost constantly 8. Unable to answer Pain Effect on Sleep: 1 Pain Interference with Therapy: 1 Pain Interference w/Day-to-Day: 1 Mental Status Patient Orientation: Confused Transfers SCALE: Activities may be completed with or without assistive devices. 9-Phmbvwsddt-jxwmqgc completes the activity by him/herself with no assistance from a helper. 5-Set-up or Clean-up Assistance-helper sets up or cleans up; patient completes activity. [place] assists only prior to or following the activity. 4-Supervision or Touching Assistance-helper provides verbal cues and/or touching/steadying and/or contact guard assistance as patient completes activit y. Assistance may be provided throughout the activity or intermittently. 3-Partial/Moderate Assistance-helper does LESS THAN HALF the effort. [place] lifts, holds or supports trunk or limbs, but provides less than half the effort. 2-Substantial/Maximal Assistance-helper does MORE THAN HALF the effort. [place] lifts or holds trunk or limbs and provides more than half the effort. 7-Iodcclbaq-fxpxos does ALL the effort. Patient does none of the effort to complete the activity. Or, the assistance of 2 or more helpers is required for the patient to complete the activity. If activity was not attempted, code reason: 7-Patient Refused. 9-Not Applicable-not attempted and the patient did not perform the activity before the current illness, exacerbation or injury. 10-Not Attempted due to Environmental Limitations-(lack of equipment, weather restraints, etc.). 88-Not Attempted due to Medical Conditions or Safety Concerns. Roll Left & Right (QC): 4 Sit to Lying (QC): 4 Lying to Sitting/Side of Bed(Q: 4 Sit to Stand (QC): 4 Chair/Adw-lw-[place] Xfer(QC): 4 Gait Training Gait Persons Needed: 1 Gait Assistive Device: FWW Ambulate 200ft with FWW and Min A for walker guidance. Pt was able to take cues but needed frequent tactile and verbal cuing for direction and safety. Assessment Current Status: Good Progress Pt showing improved progress with alertness and mobility. Pt will benefit from continued PT. PT Jail Goals [place] Goals PT Jail Goals Time Frame: Dec 20, 2022 Roll Left & Right (QC): 3 Sit to Lying (QC): 3 Lying-Sitting on Side/Bed(QC): 3 Sit to Stand (QC): 3 Chair/Vxs-cb-Ywssz Xfer(QC): 3 Toilet Transfer (QC): 3 Walk 10 feet (QC): 3 Walk 50ft with 2 Turns (QC): 3 PT Plan Treatment/Plan Treatment Plan: Continue Plan of Care Treatment Plan: Bed Mobility, Education, Functional Activity Don, Functional Strength, Gait, Safety, Therapeutic Exercise, Transfers Treatment Duration: Dec 20, 2022 Frequency: 5 times per week Estimated Hrs Per Day: .25 hour per day Time Time In: 1330 Time Out: 1400 DATE: Dec 10, 2022 Total Billed Treatment Time: 30 Total Billed Treatment visit, FA 15min, Gt 15min JESSICA COMBS PT Dec 10, 2022 14:08
[2022-12-10 16:00] VITALS: BP 143/84
[2022-12-10 19:51] VITALS: BP 150/84
[2022-12-10] MEDS: cefTRIAXone 1 GM/NS 50 ML IVPB IV SCH ×2 (20:32)
[2022-12-10] MEDS: risperiDONE 1 MG TABLET PO SCH (20:35)
[2022-12-10] MEDS: DIVALPROEX 250 MG EXTENDED RELEASE TABLET PO SCH (20:35)
[2022-12-10] MEDS: traZODone 50 MG (DESYREL) TAB PO SCH (20:35)
[2022-12-10 23:45] VITALS: BP 152/86
[2022-12-11] MEDS: RT-ALBUTEROL SULF 2.5 MG/3 ML PRE-MIX VIAL INH SCH ×2 (03:14→08:53)
[2022-12-11 04:00] VITALS: BP 130/70
[2022-12-11] MEDS: inSUlin ASPART 1 UNIT/0.01 ML (PER UNIT) SC SCH (05:10)
[2022-12-11 05:36] LABS: BASOPHILS % (AUTO) 0 % (0-10); EOSINOPHILS # (AUTO) 0.1 10^3/uL (0.0-0.3); EOSINOPHILS % (AUTO) 1 % (0-10); HEMATOCRIT 27 % (40-54); HEMOGLOBIN 8.4 g/dL (13.3-17.7); LYMPHOCYTES % (AUTO) 13 % (12-44); MEAN CORPUSCULAR HEMOGLOBIN 26 pg (25-34); MEAN CORPUSCULAR HGB CONC 31 g/dL (32-36); MEAN CORPUSCULAR VOLUME 85 fL (80-99); MEAN PLATELET VOLUME 9.2 fL (9.0-12.2); MONOCYTES # (AUTO) 1.4 10^3/uL (0.0-1.0); MONOCYTES % (AUTO) 18 % (0-12); NEUTROPHILS # (AUTO) 5.1 10^3/uL (1.8-7.8); NEUTROPHILS % (AUTO) 67 % (42-75); PLATELET COUNT 254 10^3/uL (130-400); WHITE BLOOD COUNT 7.6 10^3/uL (4.3-11.0)
[2022-12-11 05:56] LABS: ALBUMIN 2.5 GM/DL (3.2-4.5); BILIRUBIN,TOTAL 0.2 MG/DL (0.1-1.0); CALCIUM 7.9 MG/DL (8.5-10.1); CREATININE SERUM 1.18 MG/DL (0.60-1.30); TOTAL PROTEIN 5.2 GM/DL (6.4-8.2)
[2022-12-11 07:04] VITALS: BP 130/75
[2022-12-11] MEDS: meTOprolol TARTRATE (IR) 50 MG TABLET PO SCH (09:01)
[2022-12-11] MEDS: CLOPIDOGREL 75 MG TABLET PO SCH (09:01)
[2022-12-11] MEDS: risperiDONE 0.5 MG TABLET PO SCH (09:01)
[2022-12-11] MEDS: metFORMIN 500 MG TABLET PO SCH (09:01)
[2022-12-11] MEDS: ASPIRIN 81 MG CHEWABLE TABLET PO SCH (09:01)
[2022-12-11] MEDS: FAMOTIDINE 20 MG TABLET PO SCH (09:01)
[2022-12-11] MEDS: MEMANTINE 10 MG TABLET PO SCH (09:01)
[2022-12-11] MEDS: SENNOSIDES 8.6 MG TABLET PO SCH (09:01)
[2022-12-11] MEDS: DOCUSATE SODIUM 100 MG CAPSULE PO SCH ×2 (09:01)
[2022-12-11] MEDS ORDERED: SULF-221 PO (10:38)
--- NOTE | 2022-12-11 10:40 | Discharge Inst-Skilled Nursing ---
Discharge Inst-Skilled NF Reconcile Patient Problems Problems Reviewed?: Yes Chief Complaint CC: AMS HPI: This is a very debilitated 67[facility] of [facility] who resides at a [facility] who presented to the ER with confusion and found to have UTI. IV abx initiated along with protocol meds and currently he is still drowsy and altered. Patient Instructions Patient Problems: UTI Confusion Consult/Follow Up/Orders Follow Up Appt.: PCP DC rounds Skilled NF Admit to: Via [facility] ([facility]) I certify that SNF services are required to be given on an inpatient basis because of the above named patient's need for assisted care on a continuing basis for the conditions(s) for which he/she was receiving inpatient hospital services prior to his/her transfer to the SNF. Correction Facility Order: Nursing Services, [place] Attendant-Evaluate & Treat, Physical Therapy-Evaluate & Treat, Speech Language-Evaluate & Treat Oxygen Delivery Method: Nasal Cannula Discharge Diet: No Restrictions Resuscitation Status: Do Not Resuscitate New & Resume Previous Orders New Medications: Sulfamethoxazole/Trimethoprim (Bactrim Ds Tablet) 800 Mg-160 Mg Tablet 1 EACH PO BID, #10 TAB Continued Medications: Acetaminophen (Tylenol) 325 Mg Tablet 650 MG PO Q6H PRN for PAIN-MILD (1-4) OR TEMPATURE, TAB Aspirin (Aspirin) 81 Mg Tab.chew 81 MG PO DAILY, TAB Atorvastatin Calcium (Atorvastatin Calcium) 40 Mg Tablet 40 MG PO HS, TAB Clopidogrel Bisulfate (Clopidogrel) 75 Mg Tablet 75 MG PO DAILY, TAB Divalproex Sodium (Divalproex Sodium ER) 500 Mg Tab.er.24h 1000 MG PO HS, TAB TAKES 2 (500MG) TABS Docusate Sodium (Colace) 100 Mg Capsule 100 MG PO DAILY, CAP Famotidine (Acid Sales Service Professional (FAMOTIDINE)) 20 Mg Tablet 20 MG PO BID, TAB Magnesium Hydroxide (Milk of Magnesia) 400 Mg/5 Ml Oral.susp 30 ML PO DAILY PRN for CONSTIPATION-7TH LINE, ML Memantine HCl (Memantine HCl) 10 Mg Tablet 10 MG PO BID, TAB Metformin HCl (Metformin HCl) 500 Mg Tablet 500 MG PO BID, TAB Metoprolol Tartrate (Metoprolol Tartrate) 50 Mg Tablet 50 MG PO BID, TAB Risperidone (Risperidone) 0.5 Mg Tablet 0.5 MG PO DAILY, TAB Risperidone (Risperidone) 1 Mg Tablet 1 MG PO HS, TAB Trazodone HCl (Trazodone HCl) 50 Mg Tablet 50 MG PO HS, TAB Malena Gallegos Dec 11, 2022 10:39 MALENA GALLEGOS DO Dec 11, 2022 10:40
--- NOTE | 2022-12-11 10:41 | Discharge Summary ---
Discharge Summary Hospital Course Was the Problem List Reviewed?: Yes Problems/Dx: (1) Sepsis secondary to UTI Status: Acute (2) Dehydration Status: Acute Hospital Course Date of Admission: Dec 09, 2022 at 03:16 Admission Diagnosis : Family Physician/Provider: No,Local Physician Date of Discharge: 12/11/22 Discharge Diagnosis: Assessment: Sepsis UTI Encephalopathy Chronic debility Hospital Course: Patient had an uneventful hospital course which started in the ICU due to mild hypotension and sepsis from UTI. Urine culture showed resistant organism and ultimately transition to Bactrim p.o. at time of discharge. Overall poor prognosis long-term given his chronic debility and his lack of motivation although vitals and labs remained stable he will be closely monitored for decompensation. Labs and Pending Lab Test: Laboratory Tests 12/10/22 11:43: Glucometer 129H 12/10/22 16:35: Glucometer 116H 12/10/22 20:11: Glucometer 128H 12/11/22 05:04: Glucometer 106 12/11/22 05:25: White Blood Count 7.6, Red Blood Count 3.20L, Hemoglobin 8.4L, Hematocrit 27L, Mean Corpuscular Volume 85, Mean Corpuscular Hemoglobin 26, Mean Corpuscular Hemoglobin Concent 31L, Red Cell Distribution Width 17.1H, Platelet Count 254, Mean Platelet Volume 9.2, Immature Granulocyte % (Auto) 1, Neutrophils (%) (Auto) 67, Lymphocytes (%) (Auto) 13, Monocytes (%) (Auto) 18H, Eosinophils (%) (Auto) 1, Basophils (%) (Auto) 0, Neutrophils # (Auto) 5.1, Lymphocytes # (Auto) 1.0, Monocytes # (Auto) 1.4H, Eosinophils # (Auto) 0.1, Basophils # (Auto) 0.0, Immature Granulocyte # (Auto) 0.0, Sodium Level 138, Potassium Level 4.0, Chloride Level 107, Carbon Dioxide Level 24, Anion Gap 7, Blood Urea Nitrogen 17, Creatinine 1.18, Estimat Glomerular Filtration Rate 67, BUN/Creatinine Ratio 14, Glucose Level 108H, Calcium Level 7.9L, Corrected Calcium 9.1, Total Bilirubin 0.2, Aspartate Amino Transf (AST/SGOT) 27, Alanine Aminotransferase (ALT/SGPT) 18, Alkaline Phosphatase 59, Total Protein 5.2L, Albumin 2.5L Microbiology 12/08/22 Urine Culture - Final, Complete Escherichia coli 12/08/22 Blood Culture - Preliminary, Resulted No growth Home Meds Active Bactrim Ds Tablet (Sulfamethoxazole/Trimethoprim) 800 Mg-160 Mg Tablet 1 Each PO BID Reported Risperidone 1 Mg Tablet 1 Mg PO HS Aspirin 81 Mg Tab.chew 81 Mg PO DAILY Divalproex Sodium ER (Divalproex Sodium) 500 Mg Tab.er.24h 1,000 Mg PO HS TAKES 2 (500MG) TABS Memantine HCl 10 Mg Tablet 10 Mg PO BID Milk of Magnesia (Magnesium Hydroxide) 400 Mg/5 Ml Oral.susp 30 Ml PO DAILY PRN Colace (Docusate Sodium) 100 Mg Capsule 100 Mg PO DAILY Risperidone 0.5 Mg Tablet 0.5 Mg PO DAILY Trazodone HCl 50 Mg Tablet 50 Mg PO HS Tylenol (Acetaminophen) 325 Mg Tablet 650 Mg PO Q6H PRN Metoprolol Tartrate 50 Mg Tablet 50 Mg PO BID Metformin HCl 500 Mg Tablet 500 Mg PO BID Acid Oracle Technical Developer (FAMOTIDINE) (Famotidine) 20 Mg Tablet 20 Mg PO BID Clopidogrel (Clopidogrel Bisulfate) 75 Mg Tablet 75 Mg PO DAILY Atorvastatin Calcium 40 Mg Tablet 40 Mg PO HS Assessment/Pt Instructions PCP in 1 week Discharge Planning: <30 minutes discharge planning Discharge Instructions Discharge Diet: No Restrictions Activity as Tolerated: Yes Discharge Physical Examination Vital Signs Vital Signs Date Time Temp Pulse Resp B/P (MAP) Pulse Ox O2 Delivery O2 Flow Rate FiO2 12/11/22 08:55 96 Nasal Cannula 2.00 12/11/22 07:04 36.3 80 16 130/75 (93) General Appearance: No Apparent Distress, WD/WN, Chronically ill Allergies: Coded Allergies: No Known Drug Allergies (Unverified , 08/05/21) Discharge Summary Date of Admission Dec 09, 2022 at 03:16 Date of Discharge Discharge Date: Dec 11, 2022 Admission Diagnosis Assessment: Sepsis UTI Encephalopathy Chronic debility Plan: IV abx Home meds Move to 4th Discharge Diagnosis Assessment: Sepsis UTI Encephalopathy Chronic debility Plan: IV abx Home meds SARA SOARES DO Dec 11, 2022 10:41
== END 2022-12-11 11:47 | DRG 872 ==
LOC: EDUNIT# 21:41 → ER 21:45 → ICU 12-09 03:16 → 4TH 12-09 20:44
PROVIDERS: ADMIT Internal Medicine; ATTEND Internal Medicine
DX: A41.9 Sepsis, unspecified organism (principal); N39.0 Urinary tract infection, site not specified; N17.9 Acute kidney failure, unspecified; G93.40 Encephalopathy, unspecified; Z79.82 Long term (current) use of aspirin; Z79.84 Long term (current) use of oral hypoglycemic drugs; Z79.899 Other long term (current) drug therapy; E11.22 Type 2 diabetes mellitus with diabetic chronic kidney disease; N18.9 Chronic kidney disease, unspecified; Z66 Do not resuscitate; I12.9 Hypertensive chronic kidney disease with stage 1 through stage 4 chronic kidney disease, or unspecified chronic kidney disease; Z95.5 Presence of coronary angioplasty implant and graft; I25.2 Old myocardial infarction; I25.10 Atherosclerotic heart disease of native coronary artery without angina pectoris; E78.00 Pure hypercholesterolemia, unspecified; K21.9 Gastro-esophageal reflux disease without esophagitis; G89.29 Other chronic pain; M54.9 Dorsalgia, unspecified; F41.9 Anxiety disorder, unspecified; F31.9 Bipolar disorder, unspecified; Z20.822 Contact with and (suspected) exposure to COVID-19; R53.81 Other malaise; F03.90 Unspecified dementia, unspecified severity, without behavioral disturbance, psychotic disturbance, mood disturbance, and anxiety; J44.9 Chronic obstructive pulmonary disease, unspecified
CPT/HCPCS: 36415; 51702; 70450; 71045; 74176; 80048; 80053; 80164; 81000; 82140; 82805; 82947; 83605; 83735; 85007; 85025; 85027; 85610; 85730; 87040; 87077; 87088; 87186; 87636; 94640; 94760; 99291

== ENCOUNTER → 2022-12-08 | Outpatient (CLI) | payer MEDICARE ==
[~2022-12-08] MED LIST changes: +ACET325T38 PO; +ASPI-999 PEG; +ASPI-999 PO; +ATOR40TA70 PO; +CLOP75TA28 PO; +DIVA500T15 PO; +DOCU-143 PO; +FAMO20TA3 PO; +MAGN400O7 PO; +MEMA10TA57 PO; +METF-397 PO; +RISP0.5T65 PO; +RISP1TAB93 PO; +SULF-221 PO; +TRZ50T PO
[2022-12-08 10:30] LABS: BACTERIA,URINE LARGE /HPF; BILIRUBIN,URINE NEGATIVE (NEGATIVE); CLARITY,URINE CLOUDY; COLOR,URINE YELLOW; GLUCOSE, URINE (UA) NEGATIVE (NEGATIVE); KETONES,URINE TRACE (NEGATIVE); LEUKOCYTE ESTERASE ,URINE 2+ (NEGATIVE); NITRITE,URINE POSITIVE (NEGATIVE); PROTEIN,URINE 2+ (NEGATIVE); WBC,URINE TNTC /HPF
== END ==
LOC: LABNPT 10:18
PROVIDERS: ATTEND Internal Medicine
DX: Z01.89 Encounter for other specified special examinations (principal)
CPT/HCPCS: 81000; 87077; 87088